=== PATIENT | female | born 1935 | race Caucasian/White ===

== ENCOUNTER → 2018-02-24 08:53 | Outpatient (CLI) | payer MEDICARE, MEDICAID, SELFPAY ==
--- NOTE | 2018-02-24 09:00 | US_ITS ---
STUDY: RENAL ULTRASOUND - COMPLETE REASON FOR EXAM: Female, 83 years old. Proteinuria TECHNIQUE: Ultrasound evaluation of the kidneys was performed with real-time and static arellano-scale imaging. COMPARISON: None. FINDINGS: RIGHT KIDNEY: Normal location of the right kidney, which is normal in size. The right kidney measures 9.6 x 6.4 x 3.9 cm. There is a normal cortex of the right kidney. The renal cortex measures 1.6 cm. There is no right renal mass or cyst. 4 mm calculus. There is no right hydronephrosis. DISTAL RIGHT URETER: There is non-visualization of the distal right ureter. There is no demonstrated right ureterovesical junction calculus. There is a visualized right ureteral jet. LEFT KIDNEY: Normal location of the left kidney, which is normal in size. The left kidney measures 10.3 x 4.8 x 4.1 cm. There is a normal cortex of the left kidney. The renal cortex measures 11.2 cm. Cysts of the left kidney measuring 10 x 11 x 15 mm. There are no left renal calculi. There is no left hydronephrosis. DISTAL LEFT URETER: There is non-visualization of the distal left ureter. There is no demonstrated left ureterovesical junction calculus. There is a visualized left ureteral jet. AORTA: There is obscuration of the abdominal aorta by overlying bowel gas I.V.C.: The IVC is obscured. BLADDER: The distended urinary bladder has a volume of 157 ml. The empty urinary bladder has a volume of 116 ml. There is a normal wall thickness of the distended urinary bladder. There are focal masses visualized in the urinary bladder. These measure 45 x 52 x 44 mm, 33 x 23 x 27 mm, 32 x 42 x 16 mm, and 13 x 20 x 21 mm. There are no demonstrated bladder calculi. US/Kidney and Bladder IMPRESSION: There appears to be masses in the base of the urinary bladder. Transitional cell carcinoma cannot be excluded. Recommend direct visualization. Preliminarily, CT of the abdomen and pelvis with IV can further evaluate. Obstructive right renal stone. Simple left renal cyst Electronically Signed: Robin Burden MD at 18:08 EDT , Service support ,
== END ==
PROVIDERS: Family Provider Family Medicine Geriatric Medicine; PCP Family Medicine Geriatric Medicine; Visit Provider Family Medicine Geriatric Medicine
DX: N20.0 Calculus of kidney (principal); N28.1 Cyst of kidney, acquired; R80.9 Proteinuria, unspecified
CPT/HCPCS: 76770

== ENCOUNTER → 2018-02-25 11:21 | Outpatient (CLI) | payer MEDICARE, MEDICAID, SELFPAY ==
--- NOTE | 2018-02-25 11:34 | CYSPIN_PTH ---
PATIENT: LOUISE MEJIA LOC: [facility] U#:[id number] AGE/SX: 89/F ROOM: RE02/25/[address]: Dr. 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 SJ:shady 02/28/18 CYTOLOGY STUDY Slides are reviewed. CYTOLOGY GROSS Received is 60 ml of slightly cloudy, gold fluid labeled with the patient's name and and designated per the requisition as urine. Submitted for cytology preparation. 02/27/18 TC:0 CPT: 68783
[2018-02-25 11:36] LABS: Cytology, Body Fluid / CSF SEE PATHOLOGY REPORT
[2018-02-25 12:19] LABS: Absolute Lymphocyte Count 2.41 X10^3/ul (0.83-4.51); Basophil# 0.05 X10^3/uL; Basophil% 0.7 % (0-1); Eosinophil# 0.25 X10^3/uL; Eosinophils% 3.3 % (0-5); Hematocrit 51.7 % (37-47); Hemoglobin 17.2 g/dl (12.0-15.0); Lymphocyte # 2.41 X10^3/ul (4.0); Lymphocyte % 32.3 % (19-41); Mean Corp Hgb Conc 33.3 g/gl (32-36); Mean Corpuscular Hgb 31.5 pg (27.0-32.0); Mean Corpuscular Volume 94.7 fL (81-99); Mean Platelet Vol. 10.2 fl (6.2-12.0); Monocyte# 0.76 X10^3/uL; Monocyte% 10.2 % (0-10); Neutrophil # 3.99 X10^3/uL (2.7-7.7); Neutrophil % 53.4 % (47-70); Platelet Count 260 K/mm3 (150-450); RBC Distribution Width CV 14.1 % (11.6-14.6); RBC Distribution Width SD 48.4 fl (35.1-43.9); Red Blood Count 5.46 M/mm3 (4.2-5.4); White Blood Count 7.5 K/mm3 (4.4-11.0)
[2018-02-25 12:23] LABS: POSITIVE COUNT NO; POSITIVE DIFFERENTIAL NO; POSITIVE MORPHOLOGY NO
[2018-02-25 12:33] LABS: Anion Gap 7 (5-15); BUN 16 mg/dL (7-18); BUN/Creat Ratio 18.1 RATIO (10-20); Calcium,Total 8.7 mg/dL (8.5-10.1); Chloride 106 mmol/L (98-107); Creatinine, Serum 0.88 mg/dL (0.55-1.02); EST Glomerular Filtration Rate 65 mL/min (>60); Est Glom Filt Rate - Afr Amer 79 mL/min (>60); Glucose 141 mg/dL (74-106); Potassium 4.6 mmol/L (3.5-5.1); Sodium Level 141 mmol/L (136-145)
[2018-02-25 13:07] LABS: 24HR. UA Prot. Total Volume 1425 mL; 24HR. Urine Creatinine 0.92 g/24 HR (0.70-1.90); Urine Protein (24 Hour) 156.7 mg/dL (<11.9)
== END ==
PROVIDERS: Family Provider Family Medicine Geriatric Medicine; PCP Family Medicine Geriatric Medicine; Visit Provider Family Medicine Geriatric Medicine
DX: R80.9 Proteinuria, unspecified (principal)
CPT/HCPCS: 36415; 80048; 82570; 84156; 85025; 88108; 88313

== ENCOUNTER → 2018-02-28 09:43 | Outpatient (CLI) | payer MEDICARE, MEDICAID, SELFPAY ==
--- NOTE | 2018-02-28 09:46 | RAD_ITS ---
STUDY: INTRAVENOUS UROGRAM BILATERAL REASON FOR EXAM: Female, 83 years old. Chronic hematuria. TECHNIQUE: A aligner film was obtained. Following this, intravenous contrast was was administered. Intravenous urogram examination was then performed. COMPARISON: None. FINDINGS: On the aligner film, a large amount of fecal material is seen throughout the colon. Calcifications are seen within the right hemipelvis most likely phleboliths. Mild degree of levoscoliosis of the lumbar spine with degenerative changes. Following intravenous contrast administration, there is prompt bilateral symmetrical excretion. There is no evidence of obstruction to the flow of contrast. RAD/Pyelogram No [place] IMPRESSION: Unremarkable intravenous urogram. Electronically Signed: Harry Alvarez MD at 10:10 EDT Tel [phone], Service support ,
== END ==
PROVIDERS: Family Provider Family Medicine Geriatric Medicine; PCP Family Medicine Geriatric Medicine; Visit Provider Family Medicine Geriatric Medicine
DX: R80.9 Proteinuria, unspecified (principal)
CPT/HCPCS: 74410; Q9967

== ENCOUNTER → 2018-02-28 14:09 | Outpatient (CLI) | payer MEDICARE, MEDICAID, SELFPAY ==
--- NOTE | 2018-02-28 14:11 | CT_ITS ---
CT Abdomen And Pelvis W/ Contrast INDICATION: BLADDER CA-NEW DX, SURG-APPY COMPARISON: None TECHNIQUE: Axial CT imaging of the abdomen and pelvis with oral and IV contrast. Coronal and sagittal reformatted images. Radiation dose optimization technique applied. FINDINGS: A calcified granuloma is noted at the left lung base. The liver, gallbladder, spleen, adrenal glands, and pancreas are unremarkable. The kidneys enhance contrast symmetrically bilaterally. Delayed phase images demonstrate symmetric excretion, however, there is mild left renal pelviectasis and the left ureter is distended up to 6 mm due to the left bladder mass. Bladder masses are best appreciated on the delayed postcontrast scan, the larger mass measures 6 cm in diameter and dislocated in the left posterior bladder, a second mass in the superior posterior aspect of the bladder measures 2.6 cm, and multiple smaller masses in the floor of the bladder measure between 2 and 2.3 cm. The bowel loops are nondistended. There is sigmoid diverticulosis without evidence of acute diverticulitis. Uterus is small and retroverted. Trace free fluid is noted in the pelvis. No abnormal pelvic masses or lymphadenopathy seen. Smaller inguinal lymph nodes appear within normal limits for size largest iliac chain lymph node on the right measures 1 cm. There are multiple bilateral retroperitoneal lymph nodes seen, measuring up to 10 cm in size, abnormal in number. Osseous structures demonstrate mild left convex scoliosis of the lumbar spine. The osseous structures are diffusely osteopenic, limiting evaluation for lytic lesions. A distinct lesion is not appreciated. Diffuse arteriosclerotic calcifications of the abdominal aorta are noted. CT/Abdomen/Pelvis WITH Contrast IMPRESSION: Bladder malignancy with multiple bladder tumors measuring between 2 and 6 cm. Lesion centered at the left ureterovesicular junction results in left-sided hydroureter and mild left renal pelviectasis. Multiple bilateral retroperitoneal lymph nodes, left more prominent than right, measuring up to 1 cm in size. Finding is concerning for metastatic disease. Iliac chain lymph nodes up to 1 cm in size, nonspecific. at [id number] Reported and signed by: Jocy Mathews MD Electronically Signed: Jocy Mathews MD at 16:53 EDT Tel , Service support ,
== END ==
PROVIDERS: Family Provider Family Medicine Geriatric Medicine; PCP Family Medicine Geriatric Medicine; Visit Provider Family Medicine Geriatric Medicine
DX: C67.9 Malignant neoplasm of bladder, unspecified (principal); R80.9 Proteinuria, unspecified
CPT/HCPCS: 74177; 74410; Q9967

== ENCOUNTER → 2018-03-15 06:53 | Outpatient (CLI) | payer MEDICARE, MEDICAID, SELFPAY ==
--- NOTE | 2018-03-15 09:30 | STRESSREP ---
Stress Test Report Pharmacologic myocardial perfusion stress test. 83-year-old lady with a history of abnormal EKG preoperative evaluation. Stress protocol: Resting EKG demonstrates sinus bradycardia with a rate of 55 bpm T-wave inversions noted in lead I and aVL. Resting blood pressure is 110/68 mmHg. 0.4 mg of regadenoson was infused per usual protocol followed by Intravenous saline flush injection continuous EKG monitoring was performed. The patient attained a heart rate of 93 bpm which was 66% of maximum predicted heart rate the maximum workload attained was 1 metabolic equivalent rest there were no ST or T-wave changes noted suggest abnormal flow reserve at peak infusion no ST or T-wave changes were noted suggest abnormal flow reserve. Resting blood pressure is 110/68 with a final blood pressure 118/72. Myocardial perfusion protocol. 11.6 mCi of technetium 99m sestamibi was injected at rest. 0.4 mg of regadenoson was infused per usual protocol. Peak infusion 33.3 mCi of technetium 99m sestamibi was injected stress images were obtained stress and rest images were reconstructed and compared in the short axis vertical long and horizontal long axis. Gated images were also obtained Perfusion SPECT analysis. Review of the stress images demonstrate normal uptake of tracer noted in all areas of the myocardium. The resting images similarly demonstrate normal uptake of tracer noted in all areas of myocardium. No areas of reversibility are noted suggest ischemia no previous infarct is noted. Gated SPECT analysis: The gated ejection fraction is hyperdynamic over 80%. Conclusion: Normal pharmacologic myocardial perfusion stress test. Preserved ejection fraction.
== END ==
PROVIDERS: Family Provider Family Medicine Geriatric Medicine; PCP Family Medicine Geriatric Medicine; Visit Provider Family Medicine Geriatric Medicine
DX: R94.31 Abnormal electrocardiogram [ECG] [EKG] (principal)
CPT/HCPCS: 78452; 93017; A9500; A4216; J2785

== ENCOUNTER 2018-03-17 11:46 | Day surgery (SDC) | payer MEDICARE, MEDICAID, SELFPAY ==
[2018-03-13 11:20] VITALS: BP 153/80; PULSE 69; RESP 17; TEMP 37.2; O2SAT 98; BMI 25.6
--- NOTE | 2018-03-13 12:13 | NURSING ---
DR Shauna WALKER TALKED WITH PT. ABOUT EKG DONE THIS AM. STATES WOULD LIKE PT TO SEE DR HICKEY PRIOR TO OR. PT INFORMED. DR HICKEY OFFICE NOTIFIED.
[2018-03-17] VITALS (10 sets, daily range): BP systolic 134–167; BP diastolic 69–91; PULSE 62–86; RESP 14–18; TEMP 35.9–37.2; O2SAT 96–100; BMI 25.2
[2018-03-17] MEDS: Cefazolin 2 GM in 0.9% Normal Saline 100 ML IV (13:22)
--- NOTE | 2018-03-17 15:38 | PCM.OPRPT ---
Report of Operation Date of Procedure: 03/17/18 Pre-Operative Diagnosis: Large bladder mass Post-Operative Diagnosis: Same Surgery/Procedure Performed:: Transurethral resection of a very large bladder mass and instillation of mitomycin-C Description of Surgical Findings:: 83-year-old female was found to have a very large mass in her bladder on CAT scan she was did have some blood in the urine therefore recommended we take her surgery to do a transurethral resection of the bladder mass Attempt to do a complete resection in one setting she did understand that this is a very large mass may require more than one resection and we did discuss the risk of recurrence. Procedure note patient was taken back to the operating room after smooth induction of general anesthesia she was placed supine on the table she underwent endotracheal intubation and she was paralyzed for the procedure. I went into the bladder with a immediately in front of the bladder largest tumors coming from the right side second tumor coming from the left side and multiple small tumors in the trigone and multiple tumors in the posterior and dome so because of this I first started resecting each tumor one by one quite extensive long process took about an hour and 40 minutes a resection to completely resect all the tumors visible within her bladder I did identify the right ureteral orifice this was uninvolved with tumor and was clear and patent and then it took some time to identify the left ureteral orifice at first I could not identify and then there was a hump of scar tissue in the area of the prior tumor I resected to this and then found the ureteral orifice this opened up the ureteral orifice on the left side decided not to put a stent in on either orifice. Then the all the chips were Ellik out she had a significant amount of tumor board burden Center bladder but at the end of the case I saw no significant tumors visible. We will leave the catheter in place prior to monitor her overnight because of the extensive tumors and resection she was given a chemotherapy wash but the installation time was very short given the little bit of bleeding and could not do a complete instillation. Son summary 83-year-old female extensive amount of tumors within the bladder these were all resected out I did identify both ureteral orifices I did have a resect the left ureteral orifice in order to open it up and both of them were open, and did do a wash of chemotherapy inside the bladder. Type of Anesthesia:: General Drains: 20 fr. - Admit VTE Documentation VTE Present on Admission: No VTE Mechan Device Prophylaxis: SCD's VTE Pharm Prophylaxis ordered?: No Reason prophylaxis not ordered:: Treatment Not Indicated
[2018-03-17] MEDS: 0.9% Normal Saline 1,000 ML 75 ML IV (16:00)
[2018-03-17] MEDS: Docusate Sodium 100 MG Capsule PO (22:58)
[2018-03-18 03:05] VITALS: BP 139/63; PULSE 71; RESP 14; TEMP 36.6; O2SAT 97
[2018-03-18] MEDS: 0.9% Normal Saline 1,000 ML 75 ML IV ×2 (07:30→17:51)
[2018-03-18 08:54] VITALS: BP 129/86; PULSE 67; RESP 18; TEMP 37.5; O2SAT 98
[2018-03-18] MEDS: Citalopram 20 MG Tablet PO (08:58)
[2018-03-18] MEDS: Pantoprazole Sodium 40 MG Tablet PO (08:58)
[2018-03-18] MEDS: Docusate Sodium 100 MG Capsule PO ×2 (08:58→21:21)
--- NOTE | 2018-03-18 09:58 | PCM.PROGNOTE ---
Subjective: 83-year-old female with a very large tumor in her bladder was resected pathology is pending. Today the catheter is in place it is draining okay but still fairly bloody a few clots I do not think I could send her home he could get clotted off and she can get in trouble with distended bladder. - Physical Exam General: Alert, Oriented x3, Cooperative HEENT: Atraumatic, PERRLA, EOMI, Normocephalic Neck: Supple, No JVD, Negative Carotid Bruits Lungs: Clear to auscultation, Normal air movement Cardiovascular: Regular rate, No murmurs Abdomen: Bowel Sounds Present, Soft, Non Tender Extremities: No edema, Capillary Refill Less than 3 Seconds Skin: No rashes, No breakdown Musculoskeletal: No Tenderness to Palpation of Joints or Extremities Neurological: Cranial nerves II-XII grossly intact Psych/Mental Status: Normal Affect, Appropriate Vital Signs Temp Pulse Resp BP Pulse Ox 99.5 F H 67 18 129/86 H 98 03/18/18 08:54 03/18/18 08:54 03/18/18 08:54 03/18/18 08:54 03/18/18 08:54 Oxygen Flow Rate (L/min) 3 Oxygen Delivery Method Room Air Weight: 70.76 kg Body Mass Index (BMI) 25.2 Intake and Output for Last 24 Hours 03/16/18 03/17/18 03/18/18 23:59 23:59 23:59 Intake Total 2200 / 2200 1000 / 1000 Output Total 655 / 655 2980 / 2980 Balance 1545 / 1545 -1979 / Medical Necessity - Tobacco Use Smoking Status: Former smoker Tobacco Use: Cigarettes Assessment/Plan 83-year-old female with multiple medical problems very large tumor in her bladder will continue with catheter drainage hopefully by tomorrow the urine will be more thin and we can remove the catheter for voiding trial and may be sent home tomorrow with a catheter or without a catheter.
[2018-03-18 15:04] VITALS: BP 100/49; PULSE 68; RESP 18; TEMP 37.3; O2SAT 95
[2018-03-18 21:00] VITALS: BP 131/62; PULSE 75; RESP 18; TEMP 36.9; O2SAT 95
--- NOTE | 2018-03-18 21:00 | NURSING ---
pt C/O of burning in lower abdomen and leaking around the catheter. This RN noted dark red drainage in catheter tubing and bag. With assist from charge nurse irrigated catheter with 30cc NS, several clots noted. Repeated process three more times with several clots each time. Reconnected drainage bag and noted red drainage in the tube. Pt tolerated well, will continue to monitor.
--- NOTE | 2018-03-18 23:00 | NURSING ---
This nurse responded to call light. Pt reported more lower abdominal burning and leaking around catheter site. Charge nurse assisted this RN to irrigate catheter with 30cc NS x4 with several clots noted. Drainage bag was attached and dark red drainage noted in tube. PT tolerated well and reported burning in lower abdomen resolved. Will continue to monitor.
[2018-03-19 04:36] VITALS: BP 125/72; PULSE 73; RESP 16; TEMP 37.1; O2SAT 97
[2018-03-19] MEDS: 0.9% Normal Saline 1,000 ML 75 ML IV (06:05)
[2018-03-19 09:26] VITALS: BP 123/74; PULSE 90; RESP 18; TEMP 37.3; O2SAT 93
--- NOTE | 2018-03-19 09:44 | PCM.DC.URO ---
Discharge Diet: Light diet - advance as tolerated Discharge Activity: Return to Normal Activity Call your doctor if your incision/area has: Sudden Increased Bleeding Call your doctor if you observe: Fever of 101 or Higher Suture Line Care: Avoid Pulling/Pushing, Avoid Pinching/Bending Allergies/Adverse Reactions: Allergies No Known Allergies Allergy (Verified 03/13/18 11:01) Medications to take at Discharge Citalopram [Celexa] 20 mg PO DAILY 03/13/18 Ergocalciferol [Vitamin D] 50,000 unit PO QMONTH 03/13/18 Ciprofloxacin [Cipro] 500 mg PO BID #14 tab 03/19/18 The following prescriptions were given: Ciprofloxacin [Cipro] 500 mg PO BID #14 tab Primary Care Physician: Louis Carr Chi, MD [Primary Care Provider] - Please Follow Up With: Stiven Bunn MD When: TuesdayMarch 28 at 2:30 pm for post op check.
[2018-03-19] MEDS: Docusate Sodium 100 MG Capsule PO (10:27)
[2018-03-19] MEDS: Pantoprazole Sodium 40 MG Tablet PO (10:27)
[2018-03-19] MEDS: Citalopram 20 MG Tablet PO (10:28)
[2018-03-19 14:00] VITALS: BP 136/72; PULSE 74; RESP 18; TEMP 36.8; O2SAT 98
--- NOTE | 2018-03-20 07:39 | BLB_PTH ---
PATIENT: LOUISE MEJIA LOC: [facility] [place] U[place][id number] AGE/SX: 83/F ROOM: RE03/17/[address]: Dr. Stiven Bunn MD : 1935 BED: DIS: 03/19/2018 SPEC #: [id number] RECD: 03/20/18 07:39 STATUS: SANJUANA RERg #: [id number] SHAN: 03/20/18 07:[address]: Stiven Bunn DEPT: SURGICAL PATHOLOGY RECD BY: Ryan Ruffin ENTERED: 03/20/18 10:58 SP TYPE: TURB OTHR DR: Dr. Louis Carr MD Tissues: Urinary bladder, NOS Procedures: Surgery Specimen Level V HEADER OPERATION: TUR bladder tumor PRE-OP DIAGNOSIS: Bladder cancer TISSUE SUBMITTED: Bladder tumor MICROSCOPIC DIAGNOSIS Urinary bladder tumor, TUR: Papillary urothelial carcinoma. See cancer checklist below. AM:shady 03/21/18 COMMENT BLADDER CANCER (TUR) SUMMARY: Procedure - TURBT Histologic type ? urothelial (transitional cell) carcinoma, papillary type Associated epithelial lesions - none Histologic grade - urothelial carcinoma (WHO 2004/ISUP) - low grade 2/3 Tumor configuration - papillary Detrusor muscle - present and free of tumor. Lymph-Vascular invasion ? not identified Microscopic extent of tumor ? tumor is noninvasive papillary carcinoma with focal areas indeterminate for lamina propria invasion Additional pathologic findings ? minimal chronic inflammation. The above summary is in compliance with [employer] [place] [employer] (CAP) Cancer Protocols Checklist and [place] Joint Committee on Cancer (AJCC), Staging Manual, 8th Ed. MICROSCOPIC DESCRIPTION Slides are reviewed. GROSS DESCRIPTION Received in fixative is one container labeled with the patient's name and designated bladder tumor. The specimen consists of multiple irregular and friable fragments of light church soft tissue that in aggregate measure 6 x 6 x 2.2 cm. The specimen is totally submitted in 25 cassettes. / AM:shady 03/20/18 TC:0 CPT: 84501
== END 2018-03-19 14:10 | disposition home or self-care (01) ==
LOC: SDC 11:47 → AC 11:48 → MS3 15:29
PROVIDERS: Family Provider Family Medicine Geriatric Medicine; PCP Family Medicine Geriatric Medicine; Visit Provider Urology
PROC: 0TBB8ZZ Excision of Bladder, Via Natural or Artificial Opening Endoscopic (ICD-10-PCS; CPT 52240; principal; 2018-03-17 13:35)
DX: C67.2 Malignant neoplasm of lateral wall of bladder (principal); F32.9 Major depressive disorder, single episode, unspecified; Z87.891 Personal history of nicotine dependence
CPT/HCPCS: 51720; 52240; 88307; 93005; 97802; J7030; J7120; J2405; J3490; J9280

== ENCOUNTER → 2018-05-04 14:15 | Outpatient (CLI) | payer MEDICARE, MEDICAID, SELFPAY ==
--- NOTE | 2018-05-04 14:15 | DT_ITS ---
This patient was seen during an EMR downtime May 01, 2018 - May 08, 2018. This patient may have a combination of paper and electronic documentation or all paper documentation. All documentation is viewable within the e-chart portion of [facility] for each patient visit.
[2018-05-09 05:32] LABS: ALB/GLOB Ratio 1.1 RATIO (0.9-2.4); Albumin, Serum 3.9 g/dL (3.2-5.0); BUN 19 mg/dL (7-18); BUN/Creat Ratio 18.8 RATIO (10-20); Creatinine, Serum 1.01 mg/dL (0.55-1.02); EST Glomerular Filtration Rate 56 mL/min (>60); Est Glom Filt Rate - Afr Amer 68 mL/min (>60); Globulin 3.6 g/dL (2.2-4.2); Glucose 115 mg/dL (74-106); Protein, Total 7.5 g/dL (6.4-8.2)
[2018-05-09 05:33] LABS: AST(SGOT) 19 U/L (15-37); Alanine Aminotransfer ALT/SGPT 20 U/L (13-56); Alkaline Phosphatase 139 U/L (45-117); Anion Gap 10 (5-15); Calcium,Total 8.6 mg/dL (8.5-10.1); Chloride 108 mmol/L (98-107); Potassium 4.1 mmol/L (3.5-5.1); Sodium Level 145 mmol/L (136-145); Thyroid Stim Hormone (TSH) 1.16 uIU/mL (0.358-3.74)
[2018-05-09 05:50] LABS: Absolute Lymphocyte Count 1.79 X10^3/ul (0.83-4.51); Absolute Neutrophil Count 3.7 X10^3/uL (2.0-7.7); Basophil% 1.1 % (0-1); Eosinophils% 4.1 % (0-5); Hematocrit 47.5 % (37-47); Hemoglobin 15.5 g/dl (12.0-15.0); Lymphocyte # 1.79 X10^3/ul (4.0); Lymphocyte % 27.3 % (19-41); Mean Corp Hgb Conc 32.6 g/gl (32-36); Mean Corpuscular Hgb 30.8 pg (27.0-32.0); Mean Corpuscular Volume 94.4 fL (81-99); Mean Platelet Vol. 10.4 fl (6.2-12.0); Monocyte% 11.1 % (0-10); Neutrophil # 3.69 X10^3/uL (2.7-7.7); Neutrophil % 56.2 % (47-70); POSITIVE COUNT NO; POSITIVE DIFFERENTIAL NO; POSITIVE MORPHOLOGY NO; Platelet Count 300 K/mm3 (150-450); RBC Distribution Width CV 13.8 % (11.6-14.6); RBC Distribution Width SD 47.1 fl (35.1-43.9); Red Blood Count 5.03 M/mm3 (4.2-5.4); White Blood Count 6.6 K/mm3 (4.4-11.0)
[2018-05-09 05:51] LABS: Basophil# 0.07 X10^3/uL; Eosinophil# 0.27 X10^3/uL; Monocyte# 0.73 X10^3/uL
== END ==
PROVIDERS: Family Provider Family Medicine Geriatric Medicine; PCP Family Medicine Geriatric Medicine; Visit Provider Family Medicine Geriatric Medicine
DX: E55.9 Vitamin D deficiency, unspecified (principal); I10 Essential (primary) hypertension
CPT/HCPCS: 36415; 80053; 82306; 84443; 85025

== ENCOUNTER 2018-05-26 13:01 | Day surgery (SDC) | payer MEDICARE, MEDICAID, SELFPAY ==
[2018-05-26] VITALS (7 sets, daily range): BP systolic 137–173; BP diastolic 65–94; PULSE 49–73; RESP 16–18; TEMP 36.4–36.7; O2SAT 95–99; BMI 24.0
[2018-05-26] MEDS: Cefazolin 2 GM in 0.9% Normal Saline 100 ML IV (14:49)
--- NOTE | 2018-05-26 15:00 | BLB_PTH ---
PATIENT: LOUISE MEJIA LOC: [facility] [place] U#:[id number] AGE/SX: 83/F ROOM: RE05/26/[address]: Dr. Stiven Bunn MD : 1935 BED: DIS: 05/26/2018 SPEC #: [id number] RECD: 05/29/18 09:51 STATUS: SANJUANA HOLGER #: [id number] SHAN: 05/26/18 15:[address]: Stiven Bunn DEPT: SURGICAL PATHOLOGY RECD BY: Emigdio Woods ENTERED: 05/29/18 10:10 SP TYPE: TURB OTHR DR: Dr. Louis Carr MD Tissues: Urinary bladder, NOS Procedures: Surgery Specimen Level V HEADER OPERATION: Cysto transurethral resection bladder, [employer] PRE-OP DIAGNOSIS: Cancer bladder TISSUE SUBMITTED: Bladder tumor MICROSCOPIC DIAGNOSIS Urinary bladder tumor, transurethral resection: Urothelial carcinoma. See cancer check list below. AM:joao 05/30/18 COMMENT PROSTATE CANCER (TURBT) SUMMARY: Procedure - TURBT Histologic type ? urothelial (transitional cell carcinoma) Associated epithelial lesions - none Histologic grade ([place] Pattern) ? low-grade (WHO) Tumor configuration ? papillary Detrusor muscle ? present and free of tumor Lymph-Vascular invasion ? not identified Microscopic extent of tumor ? tumor invades into the lamina propria, focally Additional pathologic findings - ulceration with associated acute on chronic inflammation and focal granulomatous inflammation The above summary is in compliance with [employer] [place] Path[employer] (CAP) Cancer Protocols Checklist and [place] Joint Committee on Cancer (AJCC), Staging Manual, 8th Ed. Case has been reviewed in consultation with Dr. Neri who concurs with the above diagnosis. IDC:[email or web address] MICROSCOPIC DESCRIPTION Slides are reviewed. GROSS DESCRIPTION Received in fixative is one container labeled with the patient's name and designated bladder tumor. The specimen consists of multiple irregular fragments of church-brown soft tissue that in aggregate measure 5 x 3 x 1 cm. The largest piece measures 2 cm in greatest dimension. The entire specimen is submitted in six cassettes. SHARONDA:joao 05/29/18 TC: 0 CPT: 63482
--- NOTE | 2018-05-26 15:58 | PCM.OPRPT ---
Report of Operation Date of Procedure: 05/26/18 Pre-Operative Diagnosis: Large bladder tumor recurrence multiple sites Post-Operative Diagnosis: Same Surgery/Procedure Performed:: Transurethral resection of multiple tumors involving the anterior bladder neck left lateral wall dome and posterior overlapping sites. cysto left stent placement. Description of Surgical Findings:: 83-year-old female taken back to the operating room after smooth induction of general anesthesia he was placed in dorsolithotomy position, she has a history of bladder cancer was resected several months ago and was found to have fairly fast recurrence with throughout her bladder appeared to be an aggressive sort of tumor she has not had BCG therapy we talked about doing his treatment she was resistant to having this treatment done in the first place. And now a recent cystoscopy she is found to have a recurrence on her for cystoscopy, she is found to have recurrence in her bladder neck left lateral wall posterior wall and dome. Today she was taken back to the operating room for resection of all these multiple recurrences. She underwent general anesthesia. She placed in dorsolithotomy position. Her pressure points were padded. I then went into the bladder with a 21 [place] rigid cystourethroscope and inspected and she had tumors coming from the bladder neck area the left lateral wall involving around the left ureteral orifice posterior wall and dome I then put in the resectoscope in for started working in the bladder neck tumors these were papillary-like tumors that were hanging off the anterior bladder neck area at the re-resected quite carefully came down to the bladder muscle with a not perforate the bladder as I resected this I then went to the posterior wall tumors lateral wall tumors and then at the resect the orifice on the left side to get all the tumors of the left side of the wall did get deep resection to make sure there was a muscle invasive tumor and because of this I ended up placing a stent in the left side, but a wire into the bladder and over the wire I placed a left stent. After the stent was placed and then went inside and like that all the tumors cauterized extensively throughout the bladder this is quite a significant amount of resection she had a quite significant amount of regrowth of tumor within a short period of time as an aggressive form of cancer I have counseled the patient recommend that she had BCG therapy induction phase at least may be maintenance. With this progression of disease possible she may end up needing a cystectomy. After all the tumors were resected and removed no other visible tumors were seen quite a little bit irritation throughout the bladder from the procedure, because of the thinning of the bladder multiple areas decided to leave the catheter and so we left a 18 [place] catheter placed 40 cc of mitomycin-C inside the bladder to help prevent recurrences and then this is to a leg bag, catheter will be will be drained in the mitomycin-C will be drained in about 45 minutes she will need to go home with a catheter and instructions to be given for her to call the office for a follow-up appointment to have the catheter removed next . After that she will need a cystoscopy and a stent removal in about a month to remove the left stent. Type of Anesthesia:: General Drains: stent left side - Admit VTE Documentation VTE Present on Admission: No VTE Mechan Device Prophylaxis: SCD's VTE Pharm Prophylaxis ordered?: No Reason prophylaxis not ordered:: Treatment Not Indicated
--- NOTE | 2018-05-26 16:04 | PCM.DC.URO ---
Discharge Diet: Light diet - advance as tolerated Discharge Activity: May not drive while taking narcotic pain medications. Call your doctor if your incision/area has: Continuous Slow Oozing, Sudden Increased Bleeding, Increased Pain/ Swelling, Increased Redness, Foul Smelling Discharge, Swelling at the incision site Suture Line Care: Avoid Pulling/Pushing, Avoid Pinching/Bending Catheter: Servin to leg bag, Servin to large bag Drain: [place] Allergies/Adverse Reactions: Allergies No Known Allergies Allergy (Verified 05/19/18 14:59) Medications to take at Discharge Citalopram [Celexa] 20 mg PO DAILY 03/13/18 Ergocalciferol [Vitamin D] 50,000 unit PO QMONTH 03/13/18 Aspirin [Aspir-Low] 81 mg PO DAILY 05/19/18 Cyanocobalamin (Vitamin B-12) [Vitamin B-12] 1,000 mcg PO DAILY 05/19/18 Primary Care Physician: Louis Carr Chi, MD [Primary Care Provider] - Please Follow Up With: Stiven Bunn MD When: call for an appt next to remove servin.
--- NOTE | 2018-05-26 16:50 | SUR.PHASEI ---
at 1645 servin leg bag unclamped and 300cc clear, light purple-tinged drainage emptied from leg bag. leg bag changed out. chemo precautions maintained.
== END 2018-05-26 17:44 | disposition home or self-care (01) ==
LOC: SDC 13:02 → AC 13:04
PROVIDERS: Family Provider Family Medicine Geriatric Medicine; PCP Family Medicine Geriatric Medicine; Visit Provider Urology
PROC: 0TBB8ZZ Excision of Bladder, Via Natural or Artificial Opening Endoscopic (ICD-10-PCS; CPT 51720; principal; 2018-05-26 14:50)
DX: C67.8 Malignant neoplasm of overlapping sites of bladder (principal); R31.0 Gross hematuria; F32.9 Major depressive disorder, single episode, unspecified; Z79.82 Long term (current) use of aspirin; Z87.891 Personal history of nicotine dependence
CPT/HCPCS: 51720; 52240; 52282; 88307; J7120; C1769; C2617; J2405; J3490; J9280

== ENCOUNTER 2018-08-09 19:39 | Inpatient (IN) | payer MEDICARE, MEDICAID, SELFPAY ==
[2018-08-09] VITALS (7 sets, daily range): BP systolic 166–201; BP diastolic 70–139; PULSE 60–68; RESP 14–20; TEMP 36.7–37; O2SAT 94–99; BMI 24.3; BMI 23.8
[2018-08-09 20:06] LABS: Bedside Glucose 89 mg/dL (70-110)
--- NOTE | 2018-08-09 20:13 | EKG12_ITS ---
Test Reason : CP Blood Pressure : / mmHG Vent. Rate : 063 BPM Atrial Rate : 063 BPM P-R Int : 154 ms QRS Dur : 082 ms QT Int : 418 ms P-R-T Axes : 020 026 121 degrees QTc Int : 427 ms Normal sinus rhythm ST & T wave abnormality, consider lateral ischemia Abnormal ECG Confirmed by JESUS ROB, CHAVEZ ([id number]), fashion editor INA MEJIA ([id number]) on 08/14/2018 2:57:07 PM Referred By: ROLAND Confirmed By:CHAVEZ LEE MD
--- NOTE | 2018-08-09 20:13 | CT_ITS ---
STUDY: CT BRAIN WITHOUT CONTRAST REASON FOR EXAM: Female, 83 years old. Slurred speech. RADIATION DOSAGE (If Supplied By Facility): CTDIvol = ( 44.99 ) mGy, DLP = ( 745.49 ) mGycm TECHNIQUE: Transaxial CT imaging of the brain was performed without administration of intravenous contrast material. Individualized dose optimization techniques were used for this CT. COMPARISON: None. FINDINGS: Normal soft tissue structures. There is hyperostosis frontalis internus. There is mild cerebral atrophy with widening of the extra-axial spaces and ventricular dilatation. There are areas of decreased attenuation within the white matter tracts of the supratentorial brain, consistent with microvascular disease changes. Lacunar infarcts of the basal ganglia and thalami. Normal brainstem. Normal cerebellum. There is no intracranial hemorrhage. There are no findings of an acute ischemic infarction. Normal visualized paranasal sinuses. CT/Brain/Head without Contrast IMPRESSION: Chronic involutional changes of the brain. Electronically Signed: Brady Aburto MD at 20:53 EDT , Service support ,
--- NOTE | 2018-08-09 20:18 | ED.DCSUM_ITS ---
- ER Visit Summary Date of Service: 08/09/18 Chief Complaint: Slurred speech History of Present Illness: The patient is a 83 F surgery after awakening at 9 AM. Called her daughter at 1030, daughter states there is no speech issues. Patient states balance falling to the right. There is no syncopal episodes. No direct falls. Patient history of hypertension taken off medications. She takes a baby aspirin every night. No stroke history. No cardiac history. Denies any hemiparesis. No headaches. No visual changes. Physical Examination: General: Alert and oriented ?3, no acute distress HEENT: Normocephalic, atraumatic. Slight right lip droop moist mucosa membranes Neck: supple, nontender. Cardiovascular: Regular rate and rhythm, no murmurs Respiratory: Normal breath sounds, symmetric, no distress Abdomen: Soft, nontender, nondistended Extremities: Nontender, no edema, pulses intact ?4 Neuro: NIH equals 3 for right lip droop, slurred speech, slight right leg drift Test Results: EKG normal sinus rhythm. Labs stable. Chest x-ray negative. CT had chronic involutional changes. Emergency Department Course and Treatment: Patient NIH of 3, symptoms nearly 12 hours ago.BAT B workup initiated. Not a candidate for TPA. Results negative and stable at this time recheck still has same deficits. No stroke history. Discuss with hospitalist for admission to PCU. Treatment Plan: [] Disposition: Admission Impression: 1. Acute CVA This note was generated with [employer] dictation software. It may contain incorrect words, spelling, and punctuation that were not noted in review of the chart prior to signing ED Disposition - Plan for ED Patient: Disposition: Acute Care Hospital [facility] Chief Complaint: Neuro S/Sx Diagnosis: CVA (cerebral vascular accident) Referrals: Louis Carr Chi, MD [Primary Care Provider] -
--- NOTE | 2018-08-09 20:30 | RAD_ITS ---
STUDY: X-RAY CHEST REASON FOR EXAM: Female, 83 years old. Slurred speech. TECHNIQUE: Single frontal view of the chest. COMPARISON: None. FINDINGS: There are monitoring devices. There are fibrotic densities and granulomatous calcifications. There is no demonstrated pleural abnormality. There is mild cardiac enlargement. Normal mediastinum and jamal. Normal visualized pulmonary arteries. There is atherosclerotic calcification of the aortic arch with tortuosity. There is demineralization of the osseous structures. Normal visualized ribs, clavicles, and shoulders. There is no demonstrated abnormality of the visualized soft tissue structures of the upper abdomen. RAD/Chest 1 View IMPRESSION: Degenerative changes, as described above. No demonstrated acute cardiopulmonary process. Electronically Signed: Brady Aburto MD at 21:12 EDT , Service support ,
[2018-08-09 20:42] LABS: Absolute Lymphocyte Count 2.28 X10^3/ul (0.83-4.51); Absolute Neutrophil Count 4.9 X10^3/uL (2.0-7.7); Basophil# 0.05 X10^3/uL; Basophil% 0.6 % (0-1); Eosinophil# 0.28 X10^3/uL; Eosinophils% 3.2 % (0-5); Hematocrit 47.7 % (37-47); Hemoglobin 15.8 g/dl (12.0-15.0); Lymphocyte # 2.28 X10^3/ul (4.0); Lymphocyte % 26.4 % (19-41); Mean Corp Hgb Conc 33.1 g/gl (32-36); Mean Corpuscular Hgb 29.2 pg (27.0-32.0); Monocyte# 1.11 X10^3/uL; Monocyte% 12.9 % (0-10); Neutrophil % 56.8 % (47-70); Platelet Count 250 K/mm3 (150-450); RBC Distribution Width CV 16.3 % (11.6-14.6); RBC Distribution Width SD 52.6 fl (35.1-43.9); Red Blood Count 5.42 M/mm3 (4.2-5.4); White Blood Count 8.6 K/mm3 (4.4-11.0)
[2018-08-09 20:46] LABS: POSITIVE COUNT NO; POSITIVE DIFFERENTIAL NO; POSITIVE MORPHOLOGY NO; Partial Thromboplast Time 30.2 Seconds (24.1-36.2)
[2018-08-09 20:47] LABS: Anion Gap 9 (5-15); BUN 17 mg/dL (7-18); BUN/Creat Ratio 17.6 RATIO (10-20); Calcium,Total 8.7 mg/dL (8.5-10.1); Chloride 105 mmol/L (98-107); Creatinine, Serum 0.96 mg/dL (0.55-1.02); EST Glomerular Filtration Rate 59 mL/min (>60); Est Glom Filt Rate - Afr Amer 71 mL/min (>60); Estimated Creatinine Clearance 43.03 ml/min; Glucose 108 mg/dL (74-106); Potassium 3.7 mmol/L (3.5-5.1); Sodium Level 140 mmol/L (136-145)
--- NOTE | 2018-08-09 21:35 | HP.PCM_ITS ---
Problem List (1) CVA (cerebral vascular accident) Status: Acute History of Present Illness Date of Admission: 08/09/18 Chief Complaint: stroke-like symtpms x 1 day The patient is a 83 year old F with a significant history of former smoker; hypertension; recurrence bladder who presents multiple falls, slurry speech ?1 day. Patient presented to the emergency department in the evening and and his symptoms started about 9 AM on the day of admission. Emergency room doctor reported that patient had a right leg drift. Emergency department CT scan of head did not show any acute changes. Past Medical History Past Medical History (Chronic Problems): Chronic Problems (Last Updated 08/09/18 @ 23:36 by Loi Napier MD) Hypertension (Chronic) Medical History: Medical History (Last Updated 08/09/18 @ 23:36 by Loi Napier MD) Bladder cancer (Acute) C67.9 Depression (Acute) F32.9 Hypertension (Chronic) I10 Allergies No Known Allergies Allergy (Verified 08/09/18 19:39) Home Medications: Ambulatory Orders Medication Instructions Recorded Citalopram [Celexa] 20 mg PO DAILY 03/13/18 Ergocalciferol [Vitamin D] 50,000 unit PO QWEEK 03/13/18 Aspirin [Aspir-Low] 81 mg PO DAILY 05/19/18 Cyanocobalamin (Vitamin B-12) 1,000 mcg PO DAILY 05/19/18 [Vitamin B-12] Surgical History: - - Tumor removal. Psychiatric History: Depression Lives: Alone Smoking Status: Former smoker Alcohol: None - *Family History Maternal History Items: No pertinent history Paternal History Items: No pertinent history Review of Systems Constitutional: Denies: Chills, Fever, Weight Change HEENT: Denies: Head Aches, Sinus Congestion, Sinus Drainage Cardiovascular: Denies: Chest Pain, Palpitations Respiratory: Denies: Cough, Shortness of breath at rest, Sputum production Gastrointestinal: Denies: Abdominal Pain, Nausea, Vomiting Genitourinary: Denies: Dysuria Musculoskeletal: Reports: Arm Pain Skin: Denies: Rash, Wounds Neurological: Reports: Balance problems, Slurred speech Psychiatric: Denies: Anxiety, Depression, Homicidal Ideations, Suicidal Ideations Hematologic/ Lymphatic: Denies: Easy Bruising, Easy Bleeding VTE Information - Inpt Only VTE Present on Admission: No VTE Mechan Device Prophylaxis: None VTE Pharm Prophylaxis ordered?: Yes Patient Problems: Active and Suspected Problems (Last Updated 08/09/18 @ 23:36 by Loi Napier MD) CVA (cerebral vascular accident) (Acute) Bladder cancer (Acute) Depression (Acute) - Physical Exam General: Alert, Oriented x3, Cooperative HEENT: Atraumatic, PERRLA, EOMI, Normocephalic Neck: Supple, No JVD, Negative Carotid Bruits Lungs: Clear to auscultation Cardiovascular: Regular rate, No murmurs Abdomen: Bowel Sounds Present, Soft, Non Tender Extremities: No edema, Capillary Refill Less than 3 Seconds Skin: No rashes, No breakdown Musculoskeletal: No Tenderness to Palpation of Joints or Extremities Neurological: Deep Tendon Reflexes 2+/4 and Symmetrical, Facial Droop - Right side, Slurred Speech, Muscle tone normal, - Psych/Mental Status: Normal Affect Vital Signs Temp Pulse Resp BP Pulse Ox 98.6 F 61 20 H 201/83 H 97 08/09/18 20:43 08/09/18 21:30 08/09/18 21:30 08/09/18 21:30 08/09/18 21:30 Oxygen Delivery Method Room Air Weight: 68.2 kg Body Mass Index (BMI) 24.3 Finger Stick Blood Glucose 89 Laboratory Tests Past 24 Hrs 08/09/18 08/09/18 08/09/18 20:10 20:10 20:10 WBC 8.6 RBC 5.42 H Hgb 15.8 H Hct 47.7 H MCV 88.0 MCH 29.2 MCHC 33.1 RDW 16.3 H RDW Differential 52.6 H Plt Count 250 MPV 10.0 Immature Gran % (Auto) 0.100 Neut % (Auto) 56.8 Lymph % (Auto) 26.4 [place] % (Auto) 12.9 H Eos % (Auto) 3.2 Baso % (Auto) 0.6 Absolute Neuts (auto) 4.9 Absolute Lymphs (auto) 2.28 Total Counted Not Reportable PT 13.0 INR 1.0 APTT 30.2 Sodium 140 Potassium 3.7 Chloride 105 Carbon Dioxide 26.0 Anion Gap 9 BUN 17 Creatinine 0.96 Estim Creat Clear Calc 43.03 Est GFR (MDRD) Af Amer 71 Est GFR (MDRD) Non-Af 59 L BUN/Creatinine Ratio 17.6 Glucose 108 H Calcium 8.7 Troponin I < 0.015 POC Glucose 08/09/18 19:54 POC Glucose 89 Assessment/Plan All Active Problems (Last Updated 08/09/18 @ 23:36 by Loi Napier MD) CVA (cerebral vascular accident) (Acute) Bladder cancer (Acute) Depression (Acute) The patient is a 83 year old F with a significant history of former smoker; hypertension; recurrence bladder who presents multiple falls, slurry speech and right facial droop consistent with likely CVA. Probable CVA Patient with strokelike symptoms and severely elevated blood pressure Aspirin 325?1. Home aspirin 81 mg continued. Because of her advanced age she was started at high intensity statin 40 mg daily ; and not 80mg daily. Fasting lipids and hemoglobin A1c ordered Echocardiogram ordered. MRIs/MRA of head and neck per Stroke protocol. Physical therapy, Occupational Therapy and speech therapy to evaluate and treat. Permissive hypertension for 48 hours ending on 08/11/2018 at 9 AM. Neurology consulted to optimize management. Hypertension Uncontrolled at the time of admission. Patient stated that she has been taking of blood pressure medication because her blood pressure has been normal Elevated blood pressure could be due to ischemic stroke. Labetalol as needed for systolic blood pressure more than 220 or diastolic blood pressure more than 120. Bladder cancer Status post bladder tumor removal with recurrence Patient follow up with Dr. Bunn Patient to continue following up outpatient. Depression Citalopram continued. DVT prophylaxis with subcutaneous heparin. Code Visit Inpatient E&M: 35820 Init Hosp L3
--- NOTE | 2018-08-09 22:03 | NURSING ---
Called [facility] ED charge nurseestrella to send patient to the floor.
[2018-08-10] VITALS (15 sets, daily range): BP systolic 118–186; BP diastolic 61–90; PULSE 56–86; RESP 16; TEMP 36.6–37.3; O2SAT 92–98; BMI 24.3
[2018-08-10] MEDS: Acetaminophen 325 MG Tablet 650 MG PO (00:36)
[2018-08-10] MEDS: Atorvastatin Calcium 40 MG Tablet PO (00:36)
[2018-08-10 00:51] LABS: Hemoglobin A1c 6.1 % (4.2-6.3)
--- NOTE | 2018-08-10 06:00 | ECHOCS_ITS ---
Reason For Study: TIA/CVA Procedure This was a 2D Doppler, Color Flow transthoracic echocardiogram. The study was technically difficult. Contrast injection was performed. Exam performed portable in patient room. Left Ventricle Mild concentric left ventricular hypertrophy. The estimated ejection fraction is 75 %. Stage 1 diastolic dysfunction. No regional wall motion abnormalities noted. Right Ventricle Normal size and thickness. Normal systolic function. Atria Normal left atrium. Normal right atrium. Normal atrial septum. Bubble contrast study negative for right to left interatrial shunt. Mitral Valve Mild diffuse mitral valve thickening. Tricuspid Valve Normal tricuspid valve. Unable to estimate RV systolic pressure due to inadequate jet, pulmonary artery pressure probably normal. Aortic Valve Trisinus/trileaflet aortic valve. Moderate diffuse aortic valve thickening. Moderate restriction of the aortic valve. Mild to moderate aortic stenosis. Calculated aortic valve area (continuity equation) is 1.4 cm2. Pulmonic Valve The pulmonic valve is not well visualized. Great Vessels Normal aortic root. Normal arch. Normal inferior vena cava. Inferior vena cava collapse with sniff. Pericardium/Pleural No pericardial effusion. Medication Diluted definity 2ml given slow IV push to enhance endocardial definition. Performed a rapid injection of agitated mix of 9 cc saline and 1cc air to assess for atrial septal defect. MMode/2D Measurements & Calculations LVIDd: 4.2 cm IVSd: 1.3 cm LVOT diam: 2.0 cm LVIDs: 2.3 cm LVPWd: 0.91 cm LVOT area: 3.0 cm2 RVDd: 2.8 cm FS: 46.3 % Ao root diam: 3.2 cm LAV(MOD-sp4): 36.8 ml LA A4 area: 14.4 cm2 ACS: 1.2 cm RA A4 area: 12.2 cm2 Time Measurements MV dec time: 0.44 sec Doppler Measurements & Calculations MV E max theodore: 54.5 cm/sec Lat Peak E' Theodore: 2.9 cm/sec Med Peak E' Theodore: 2.9 cm/sec MV A max theodore: 95.4 cm/sec E/E' lat: 18.8 E/E' med: 18.8 MV E/A: 0.57 MV V2 max: 105.9 cm/sec MV P1/2t max theodore: 65.5 cm/sec Ao V2 max: 242.6 cm/sec MV max P.5 mmHg MV P1/2t: 139.3 msec Ao max P.5 mmHg MV V2 mean: 51.3 cm/sec MV dec slope: 137.6 cm/sec2 Ao V2 mean: 161.4 cm/sec MV mean P.2 mmHg MVA(P1/2t): 1.6 cm2 Ao mean P.9 mmHg MV V2 VTI: 34.2 cm Ao V2 VTI: 58.5 cm MVA(VTI): 2.5 cm2 MEG(I,D): 1.4 cm2 MEG(V,D): 1.5 cm2 LV V1 max: 118.1 cm/sec SV(LVOT): 84.0 ml PA V2 max: 86.7 cm/sec LV V1 max P.6 mmHg LV V1 mean P.8 mmHg LV V1 mean: 76.9 cm/sec LV V1 VTI: 28.0 cm Interpretation Summary Mild concentric left ventricular hypertrophy. The estimated ejection fraction is 75 %. Stage 1 diastolic dysfunction. Bubble contrast study negative for right to left interatrial shunt. Unable to estimate RV systolic pressure due to inadequate jet, pulmonary artery pressure probably normal. Mild to moderate aortic stenosis. Calculated aortic valve area (continuity equation) is 1.4 cm2. The study was technically difficult. Contrast injection was performed. There is no comparison study available. Ordering Physician: Loi Napier Referring Physician: Louis Carr Chi Performed By: Cole Long RCS
[2018-08-10 06:24] LABS: Anion Gap 11 (5-15); BUN 12 mg/dL (7-18); Calcium,Total 8.3 mg/dL (8.5-10.1); Chloride 108 mmol/L (98-107); Cholesterol 215 mg/dL (200); Creatinine, Serum 0.86 mg/dL (0.55-1.02); EST Glomerular Filtration Rate 67 mL/min (>60); Est Glom Filt Rate - Afr Amer 82 mL/min (>60); Estimated Creatinine Clearance 48.03 ml/min; Glucose 105 mg/dL (74-106); High Density Lipoprotein 46 mg/dL; Potassium 3.5 mmol/L (3.5-5.1); Sodium Level 142 mmol/L (136-145); Triglycerides 147 mg/dL; Very Low Density Lipoprotein 29 mg/dL (5-40)
--- NOTE | 2018-08-10 08:16 | MRI_ITS ---
STUDY: MRA OF THE HEAD WITHOUT CONTRAST REASON FOR EXAM: Female, 83 years old. cva/rt weakness TECHNIQUE: 3-D oski-fk-pyyrxz (TOF) imaging was performed with MIPs. The study was performed unenhanced. COMPARISON: None. FINDINGS: Normal bilateral petrous carotid arteries. Normal right cavernous carotid artery with a normal supraclinoid bifurcation. Normal left cavernous carotid artery with a normal supraclinoid bifurcation. Normal right A1 segments of the anterior cerebral artery. Normal left A1 segments of the anterior cerebral artery. Normal intact anterior communicating artery (ACOM). Normal bilateral A2 segments of the anterior cerebral arteries. Normal right M1 and M2 segments of the middle cerebral arteries, with a normal M1 bifurcation. Normal left M1 and M2 segments of the middle cerebral arteries, with a normal M1 bifurcation. There is non-visualization of the right posterior communicating artery (PCOM). There is non-visualization of the left posterior communicating artery (PCOM). There is a small atretic left vertebral artery with a dominant right vertebral artery. Normal basilar artery with a normal basilar bifurcation. The visualized bilateral superior cerebellar (SCA) arteries are normal. Normal bilateral P1, P2 and visualized P3 segments of the posterior cerebral arteries. There is no demonstrated aneurysm of the [place] of [place]. There is no major vessel occlusion or hemodynamically significant stenosis. There is no demonstrated abnormality of the visualized brain. MRI/MRA Head ONLY without Contrast IMPRESSION: Normal MRA of the head Electronically Signed: Maura Pool MD at 14:19 EDT , Service support ,
--- NOTE | 2018-08-10 08:16 | MRI_ITS ---
STUDY: MRA NECK WITH AND WITHOUT CONTRAST REASON FOR EXAM: Female, 83 years old. CVA, right weakness. Imaging history from yesterday also describes slurred speech TECHNIQUE: 3-D vqmp-wy-zkifil (TOF) imaging was performed in an 1.5 T MRI scanner. 6ML ml of Gadavist was administered for the contrast enhanced images. COMPARISON: CT brain without contrast August 09, 2018 FINDINGS: RIGHT CAROTID ARTERIES: Normal right common carotid artery (CCA). Normal right common carotid bulb. Normal origin of the right internal carotid (ICA) artery without a hemodynamically significant stenosis. Normal visualized cervical portion of the right internal carotid artery. Normal origin of the right external carotid artery (ECA). LEFT CAROTID ARTERIES: Normal left common carotid artery (CCA). Normal left common carotid bulb. Normal origin of the left internal carotid (ICA) artery without a hemodynamically significant stenosis. Normal visualized cervical portion of the left internal carotid artery. Normal origin of the left external carotid artery (ECA). VERTEBRAL ARTERIES: There is antegrade flow within the bilateral vertebral arteries with a small left vertebral artery, and a dominant right vertebral artery. MRI/MRA Neck WITH and W/O Contrast IMPRESSION: Normal bilateral cervical carotid and vertebral arteries. Small left vertebral artery. Electronically Signed: Maura Pool MD at 13:53 EDT , Service support ,
--- NOTE | 2018-08-10 08:16 | MRI_ITS ---
STUDY: MRI BRAIN WITHOUT CONTRAST REASON FOR EXAM: Female, 83 years old. cva/rt weakness TECHNIQUE: Standardized multiplanar fat and water weighted pulse sequences were obtained. COMPARISON: CT brain August 09, 2018, MRI of the brain and neck August 10, 2018 FINDINGS: Normal size of the ventricles and extra-axial spaces for the patient's age. There are multiple white matter hyperintensities, distributed throughout the deep white matter tracts of the cerebral hemispheres, consistent with moderate chronic white matter ischemic changes. There is acute diffusion abnormality seen in association with the posterior limb of the internal capsule on the left, for instance refer to image #17 series 4 and image #17 series 400. This has signal characteristics of an acute infarct. No other areas of acute infarct identified. There appears an old lacunar infarct associated with the genu and posterior limb of the internal capsule on the right. Normal thalami. There is no extra-axial fluid accumulation. Normal flow voids within the major intracranial circulation suggesting patency by spin echo criteria. Normal sella turcica, pituitary gland, infundibular stalk, optic chiasm and hypothalamus. Normal tectal plate and pineal gland. Normal midbrain, alessandro and medulla. Normal cerebellum. Normal basal cisterns. Normal bilateral temporal bones. Normal bilateral internal auditory canals. No demonstrated orbital abnormality, within the constraints of a routine brain study. Normal visualized paranasal sinuses. Normal calvarium and skull base. Normal visualized soft tissue structures. Normal visualized upper cervical spine. MRI/Brain without Contrast IMPRESSION: Acute nonhemorrhagic infarct associated with the posterior limb of the internal capsule on the left. Underlying moderate small vessel disease. See above. Electronically Signed: Maura Pool MD at 14:27 EDT , Service support ,
[2018-08-10] MEDS: Heparin Injection (Vial) 5,000 UNIT/ML VIAL 5000 UNIT SC ×2 (09:17→21:29)
[2018-08-10] MEDS: Citalopram 20 MG Tablet PO (09:17)
[2018-08-10] MEDS: Cyanocobalamin 500 MCG Tablet 1000 MCG PO (09:17)
[2018-08-10] MEDS: Aspirin 81 MG TAB.CHEW PO (09:17)
--- NOTE | 2018-08-10 11:18 | CASEMGMT ---
Face to Face with patient for initial transition planning/care coordination assessment. PRADEEP MOJICA introduced self and role at [facility], pt voices understanding and consents to assessment at this time. Pt is sitting up in chair in no distress at this time. Pt is A/O x4 at this time and answers all questions appropriately at this time. Care providers, pharmacy, and demographics verified. See attached link. Pt voices no further concerns/needs at this time. Advised pt to ask for CM if any further questions/concerns/needs arise, voices understanding. CM to follow for MRI results and PT/OT evals for any further discharge planning/needs. PLAN[place] PRAD[place]
--- NOTE | 2018-08-10 11:49 | PCM.PROGNOTE ---
<Peg Rollins - Last Filed: 08/10/18 12:03> Patient Problems: Active and Suspected Problems (Last Updated 08/09/18 @ 23:36 by Loi Napier MD) CVA (cerebral vascular accident) (Acute) Bladder cancer (Acute) Depression (Acute) Subjective: Patient seen and examined. Complains of right facial droop with slurred speech. Denies difficulty swallowing. Denies right-sided weakness. She states she has not walked much since admission but notes drift to the right side with walking prior to admission. Denies other new neurologic deficits. - Physical Exam General: Alert, Oriented x3, Cooperative, No apparent distress HEENT: Atraumatic, PERRLA, EOMI, Normocephalic Neck: Supple, No JVD, Negative Carotid Bruits Lungs: Clear to auscultation, Normal air movement Cardiovascular: Regular rate, No murmurs Abdomen: Bowel Sounds Present, Soft, Non Tender, Non-Distended Extremities: No clubbing, No cyanosis, No edema, Capillary Refill Less than 3 Seconds Skin: No rashes, No breakdown Musculoskeletal: No Tenderness to Palpation of Joints or Extremities Neurological: Cranial nerves II-XII grossly intact, Motor Exam 5/5 strength throughout, Facial Droop - Right, - - Dysarthria Psych/Mental Status: Normal Affect, Appropriate Vital Signs Temp Pulse Resp BP Pulse Ox 97.9 F 74 16 118/81 H 94 08/10/18 11:30 08/10/18 11:30 08/10/18 11:30 08/10/18 11:30 08/10/18 11:30 Oxygen Delivery Method Room Air Weight: 147 lb 11.355 oz Body Mass Index (BMI) 24.3 Intake and Output for Last 24 Hours 08/08/18 08/09/18 08/10/18 23:59 23:59 23:59 Intake Total 100 / 100 Balance 100 / 100 Laboratory Tests Past 24 Hrs 08/10/18 08/10/18 00:16 05:38 Sodium 142 Potassium 3.5 Chloride 108 H Carbon Dioxide 23.0 Anion Gap 11 BUN 12 Creatinine 0.86 Estim Creat Clear Calc 48.03 Est GFR (MDRD) Af Amer 82 Est GFR (MDRD) Non-Af 67 BUN/Creatinine Ratio 14.0 Glucose 105 Calcium 8.3 L Troponin I < 0.015 Triglycerides 147 Cholesterol 215 H LDL Cholesterol 140 H VLDL Cholesterol 29 HDL Cholesterol 46 Medical Necessity - Tobacco Use Smoking Status: Former smoker Assessment/Plan All Active Problems (Last Updated 08/09/18 @ 23:36 by Loi Napier MD) CVA (cerebral vascular accident) (Acute) Bladder cancer (Acute) Depression (Acute) 1. Suspected acute stroke-right facial droop and dysarthria. No other neurologic deficits. Brain CT on admission showed chronic changes of the brain. MRI of brain, MRA of head and neck pending. Neuro consult pending. Continue aspirin, statin. Echocardiogram demonstrated an EF of 75%, stage I diastolic dysfunction, negative for intra-atrial shunt, mild to moderate aortic stenosis. PT/OT/ST. Patient reports drift to the right side while ambulating with falls prior to admission. PT evaluation pending which will assist in guiding discharge plans. 2. Hypertension-permissive secondary to #1. IV labetalol as needed for systolic blood pressure greater than 220. 3. Hyperlipidemia-atorvastatin 80 mg p.o. nightly. Not previously on statin regimen. 4. History of bladder cancer status post tumor resection with recurrence-continue outpatient follow-up with urology. Follows with Dr. Bunn. 5. Depression-continue home citalopram regimen. DVT prophylaxis-heparin subcu. This patient was seen by JOHNATHAN Morrison under the supervision of Dr. Pacheco. <Nate Pacheco - Last Filed: 08/10/18 15:35> - Physical Exam Vital Signs Temp Pulse Resp BP Pulse Ox 97.9 F 74 16 118/81 H 94 08/10/18 11:30 08/10/18 11:30 08/10/18 11:30 08/10/18 11:30 08/10/18 11:30 Oxygen Delivery Method Room Air Weight: 67 kg Body Mass Index (BMI) 24.3 Intake and Output for Last 24 Hours 08/08/18 08/09/18 08/10/18 23:59 23:59 23:59 Intake Total 460 / 460 Balance 460 / 460 Laboratory Tests Past 24 Hrs 08/10/18 08/10/18 00:16 05:38 Sodium 142 Potassium 3.5 Chloride 108 H Carbon Dioxide 23.0 Anion Gap 11 BUN 12 Creatinine 0.86 Estim Creat Clear Calc 48.03 Est GFR (MDRD) Af Amer 82 Est GFR (MDRD) Non-Af 67 BUN/Creatinine Ratio 14.0 Glucose 105 Calcium 8.3 L Troponin I < 0.015 Triglycerides 147 Cholesterol 215 H LDL Cholesterol 140 H VLDL Cholesterol 29 HDL Cholesterol 46 Assessment/Plan patient seen and examined independently of [employer] 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 Dietary measures should largely suffice Will consult speech therapy for speech deficits Hypercholesterolemia Code Visit Inpatient E&M: 93266 Init Hosp L3
--- NOTE | 2018-08-10 12:31 | CON.PCM_ITS ---
Problem List (1) CVA (cerebral vascular accident) Status: Acute Qualifiers: Laterality of affected vessel: unspecified Reason for Consult Date of Consultation: 08/10/18 Reason for Consultation: Stroke History of Present Illness: The patient is a 83 year old CF with PMH HTN, depression, bladder cancer admitted with slurred speech, difficulty in walking. Per patient she woke up yesterday morning (08/09/18) with these symptoms. NIHSS was 3 on admission per ED documentation and there was some right leg drift. Patient was noted to have right facial weakness and right leg drift per ED documentation. Per patient she has been having slurred speech, had difficulty in walking and was drifting to the right side. Denies any falls. Per patient she lives alone, denies any frequent falls, does not use cane or walker to ambulate, per patient she was on ASA at baseline. At present denies any CARABALLO, visual disturbances, focal motor weakness or sensory loss. [] Past Medical History Past Medical History (Chronic Problems): Chronic Problems (Last Updated 08/11/18 @ 10:41 by JOHNATHAN Morrison) Hypertension (Chronic) Medical History: Medical History (Last Updated 08/11/18 @ 10:41 by JOHNATHAN Morrison) Bladder cancer (Acute) C67.9 Depression (Acute) F32.9 Hypertension (Chronic) I10 Allergies No Known Allergies Allergy (Verified 08/09/18 19:39) Home Medications: Ambulatory Orders Medication Instructions Recorded Citalopram [Celexa] 20 mg PO DAILY 03/13/18 Ergocalciferol [Vitamin D] 50,000 unit PO QWEEK 03/13/18 Aspirin [Aspir-Low] 81 mg PO DAILY 05/19/18 Cyanocobalamin (Vitamin B-12) 1,000 mcg PO QWEEK 05/19/18 [Vitamin B-12] Amlodipine [Norvasc] 5 mg PO DAILY #30 tablet 08/11/18 Atorvastatin Calcium [Lipitor] 80 mg PO QHS tablet 08/11/18 Clopidogrel Bisulfate [Plavix] 75 mg PO DAILY tablet 08/11/18 Surgical History: - - Tumor removal. Psychiatric History: Depression Lives: Alone Smoking Status: Former smoker Alcohol: None Drugs: None - *Family History Maternal History Items: No pertinent history Paternal History Items: No pertinent history Review of Systems Constitutional: Reports: - - complete ROS negative except as documented in HPI - Physical Exam General: Alert HEENT: Normocephalic Neck: Supple Lungs: Clear to auscultation Cardiovascular: Normal S1, Normal S2 Abdomen: Bowel Sounds Present Extremities: No cyanosis Musculoskeletal: No Tenderness to Palpation of Joints or Extremities Neurological: - - consious, alert, AoAx3, CN 2-12 grossly intact except right facial UMN palsy, pupils BERL, mild to moderate dysarthria, power 5/5 left UE/LE , 4/5 right UE and 5/5 right LE, no sensory loss, mild right UE ataxia, otherwise no cerebellar signs, gait deferred, Refelxes + B/L B/S/T/K/A, NIHSS 3 at present, mRS 0 at baseline Psych/Mental Status: Normal Affect Vital Signs Temp Pulse Resp BP Pulse Ox 97.9 F 74 16 118/81 H 94 08/10/18 11:30 08/10/18 11:30 08/10/18 11:30 08/10/18 11:30 08/10/18 11:30 Oxygen Delivery Method Room Air Weight: 67 kg Body Mass Index (BMI) 24.3 Intake and Output for Last 24 Hours 08/08/18 08/09/18 08/10/18 23:59 23:59 23:59 Intake Total 100 / 100 Balance 100 / 100 Laboratory Tests Past 24 Hrs 08/10/18 08/10/18 00:16 05:38 Sodium 142 Potassium 3.5 Chloride 108 H Carbon Dioxide 23.0 Anion Gap 11 BUN 12 Creatinine 0.86 Estim Creat Clear Calc 48.03 Est GFR (MDRD) Af Amer 82 Est GFR (MDRD) Non-Af 67 BUN/Creatinine Ratio 14.0 Glucose 105 Calcium 8.3 L Troponin I < 0.015 Triglycerides 147 Cholesterol 215 H LDL Cholesterol 140 H VLDL Cholesterol 29 HDL Cholesterol 46 Assessment/Plan All Active Problems (Last Updated 08/11/18 @ 10:41 by JOHNATHAN Morrison) CVA (cerebral vascular accident) (Acute) Bladder cancer (Acute) Depression (Acute) The patient is a 83 year old CF with PMH HTN, depression, bladder cancer admitted with slurred speech, difficulty in walking. Per patient she woke up yesterday morning (08/09/18) with these symptoms. NIHSS was 3 on admission per ED documentation and there was some right leg drift. Patient was noted to have right facial weakness and right leg drift per ED documentation. Per patient she has been having slurred speech, had difficulty in walking and was drifting to the right side. Denies any falls. Per patient she lives alone, denies any frequent falls, does not use cane or walker to ambulate, per patient she was on ASA at baseline. At present denies any CARABALLO, visual disturbances, focal motor weakness or sensory loss. CT head reported nothing acute on admission. 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 Bleeding risks discussed -On statin -Check MRI brain, MRA head/neck -TTE-EF 75%, normal LA size, no PFO -Pwl4m-4.1%, LDL-140 -Permissive HTN for 24 hrs -Recommend 30 day event recorder -Stroke risk factors discussed and stroke education provided -PT/OT/ST -GI/DVT prophylaxis -Fall precautions -Further medical management per primary team -Follow up with Neurology in 2-3 weeks after discharge. -Please call with questions if any -Thank you for allowing us to participate in patient's care and management I spent 60 minutes taking history, doing physical examination, reviewing medical records, coordinating care and counseling the patient. Code Visit Inpatient E&M: 42184 Init Hosp L3
--- NOTE | 2018-08-10 14:30 | CASEMGMT ---
SW spoke with patient about [facility] 4th floor rehab unit. SW explained rehab and her other options at d/c. She wanted to think about it. Erin VELASCO MSW
[2018-08-10] MEDS: Atorvastatin Calcium 80 MG Tablet PO (21:35)
[2018-08-10] MEDS: Aspirin 325 MG Tablet PO (21:35)
[2018-08-11] VITALS (7 sets, daily range): BP systolic 139–161; BP diastolic 75–91; PULSE 69–77; RESP 16; TEMP 36.9–37.2; O2SAT 92–95; BMI 24.3
[2018-08-11] MEDS: Cyanocobalamin 500 MCG Tablet 1000 MCG PO (10:28)
[2018-08-11] MEDS: Clopidogrel Bisulfate 75 MG Tablet PO (10:28)
[2018-08-11] MEDS: Citalopram 20 MG Tablet PO (10:28)
[2018-08-11] MEDS: Heparin Injection (Vial) 5,000 UNIT/ML VIAL 5000 UNIT SC (10:28)
[2018-08-11] MEDS: Aspirin 81 MG TAB.CHEW PO (10:28)
--- NOTE | 2018-08-11 10:37 | CASEMGMT ---
Per PA, patient agreed to go to Inpatient Rehab Unit. SW called Sima in Rehab and she said patient can come to rehab. Plan: d/c to [facility] 4th floor rehab unit. Erin DOUGHERTY
--- NOTE | 2018-08-11 10:41 | DCINST_ITS ---
- Discharge Diagnoses Current Active Problems: Current Active and Chronic Problems (Last Updated 08/09/18 @ 23:36 by Loi Napier MD) CVA (cerebral vascular accident) (Acute) Bladder cancer (Acute) Depression (Acute) Hypertension (Chronic) You will use the following diet at home:: Cardiac Discharge Activity: Return to Normal Activity, Use Walker Call your doctor if you observe: Numbness or Tingling, Shortness of breath, Dizziness, Fainting spells, Chest pain Allergies/Adverse Reactions: Allergies No Known Allergies Allergy (Verified 08/09/18 19:39) Medications to take at Discharge Citalopram [Celexa] 20 mg PO DAILY 03/13/18 Ergocalciferol [Vitamin D] 50,000 unit PO QWEEK 03/13/18 Aspirin [Aspir-Low] 81 mg PO DAILY 05/19/18 Cyanocobalamin (Vitamin B-12) [Vitamin B-12] 1,000 mcg PO QWEEK 05/19/18 Amlodipine [Norvasc] 5 mg PO DAILY #30 tablet 08/11/18 Atorvastatin Calcium [Lipitor] 80 mg PO QHS tablet 08/11/18 Clopidogrel Bisulfate [Plavix] 75 mg PO DAILY tablet 08/11/18 The following prescriptions were given: Amlodipine [Norvasc] 5 mg PO DAILY #30 tablet Primary Care Physician: Louis Carr Chi, MD [Primary Care Provider] - Please follow up with your Primary Care Physician in: 1 Week Test Results: Test results from this visit will be discussed in further detail at your follow- up appointment, if applicable. Please Follow Up With: Janee Zhang MD When: 2-3 Weeks Proposed Discharge Date: 08/11/18
--- NOTE | 2018-08-11 10:41 | PCM.DC.SUM ---
<Peg Rollins - Last Filed: 08/11/18 10:49> Discharge Date and Diagnosis Date of Admission: 08/09/18 Date of Discharge: 08/11/18 - Primary Discharge Diagnosis Active and Suspected Problems (Last Updated 08/09/18 @ 23:36 by Loi Napier MD) 1. Acute ischemic CVA 2. Hyperlipidemia 3. Debility 2/2 #1 - Secondary Discharge Diagnosis Chronic Problems (Last Updated 08/09/18 @ 23:36 by Loi Napier MD) Hypertension (Chronic) Depression Bladder cancer Hospital Course and Treatment Imaging Results: Diagnostic Data Brain CT 08/09/18 20:13 IMPRESSION: Chronic involutional changes of the brain. Electronically Signed: Brady Aburto MD at 20:53 EDT , Service support , Chest X-Ray 08/09/18 20:30 IMPRESSION: Degenerative changes, as described above. No demonstrated acute cardiopulmonary process. Electronically Signed: Brady Aburto MD at 21:12 EDT , Service support , Brain MRI 08/10/18 08:16 IMPRESSION: Acute nonhemorrhagic infarct associated with the posterior limb of the internal capsule on the left. Underlying moderate small vessel disease. See above. Electronically Signed: Maura Pool MD at 14:27 EDT , Service support , ADDENDUM: 08/10/18 1558 Head MRA 08/10/18 08:16 IMPRESSION: Normal MRA of the head Electronically Signed: Maura Pool MD at 14:19 EDT , Service support , Neck MRA 08/10/18 08:16 IMPRESSION: Normal bilateral cervical carotid and vertebral arteries. Small left vertebral artery. Electronically Signed: Maura Pool MD at 13:53 EDT , Service support , Dr. Zhang- Neurology Operations: None Procedures: 2-D Echocardiogram Summary of Care Provided: The patient is a 83 year old F admitted 08/09/2018 due to slurred speech, right facial droop and multiple falls due to right leg weakness. 1. Acute ischemic CVA-right facial droop and dysarthria. No other neurologic deficits. Brain CT on admission showed chronic changes of the brain. MRI of the brain showed acute nonhemorrhagic infarct associated with the posterior limb of internal capsule on the left. Underlying moderate small vessel disease. Head and neck MRA normal. Neurology consulted during admission. Patient will continue aspirin and Plavix at discharge, dual antiplatelet therapy for 3 weeks. Follow-up with neurology in 2-3 weeks. Continue high-dose statin. Echocardiogram demonstrated an EF of 75%, stage I diastolic dysfunction, negative for intra-atrial shunt, mild to moderate aortic stenosis. Patient will be discharged to rehab unit for further PT/OT. 2. Hypertension-amlodipine 5 mg daily added at discharge. Will need further monitoring. Blood pressure stable at discharge, 139/75. 3. Hyperlipidemia-atorvastatin 80 mg p.o. nightly. Not previously on statin regimen. 4. History of bladder cancer status post tumor resection with recurrence-continue outpatient follow-up with urology. Follows with Dr. Bunn. 5. Depression-continue home citalopram regimen. General: Alert, Oriented x3, Cooperative, No apparent distress HEENT: Atraumatic, PERRLA, EOMI, Normocephalic Neck: Supple, No JVD, Negative Carotid Bruits Lungs: Clear to auscultation, Normal air movement Cardiovascular: Regular rate, No murmurs Abdomen: Bowel Sounds Present, Soft, Non Tender, Non-Distended Extremities: No clubbing, No cyanosis, No edema, Capillary Refill Less than 3 Seconds Skin: No rashes, No breakdown Musculoskeletal: No Tenderness to Palpation of Joints or Extremities Neurological: Cranial nerves II-XII grossly intact, Motor Exam 5/5 strength throughout, Facial Droop - Right, - - Dysarthria Psych/Mental Status: Normal Affect, Appropriate Patient seen exam prior to discharge. Physical assessment as noted above. Patient stable for discharge to rehab unit for further PT/OT. This patient was seen by JOHNATHAN Morrison under the supervision of Dr. Pacheco. Discharge Diet: Low fat/ Low Cholesterol Discharge Activity: Return to Normal Activity, Use Walker Call your doctor if you observe: Numbness or Tingling, Shortness of breath, Dizziness, Fainting spells, Chest pain Home Medications: Medications to take at Discharge Citalopram [Celexa] 20 mg PO DAILY 03/13/18 Ergocalciferol [Vitamin D] 50,000 unit PO QWEEK 03/13/18 Aspirin [Aspir-Low] 81 mg PO DAILY 05/19/18 Cyanocobalamin (Vitamin B-12) [Vitamin B-12] 1,000 mcg PO DAILY 05/19/18 Amlodipine [Norvasc] 5 mg PO DAILY 08/11/18 Atorvastatin Calcium [Lipitor] 80 mg PO QHS 08/11/18 Clopidogrel Bisulfate [Plavix] 75 mg PO DAILY 08/11/18 Primary Care Physician: Louis Carr Chi, MD [Primary Care Provider] - Please follow up with your Primary Care Physician in: 1 Week Please Follow Up With: Janee Zhang MD When: 2-3 Weeks Disposition: Inpt Rehab Unit/Facility Minutes spent on discharge:: 35 Patient Condition:: Stable Medical Necessity - Tobacco Use Smoking Status: Former smoker Tobacco Use: Cigarettes Meaningful Use Info Meaningful Use Diagnoses (Choose all that apply): Ischemic CVA - CVA Therapy Assessed for PT,OT and/or ST?: Yes - Ischemic Stroke Antithrombotic order at d/c?: Yes Dx of Atrial fib/flutter?: No Statins at discharge?: Yes Primary Dx Acute Ischemic CVA?: Yes IV tPA ordered during stay?: No Reason IV t-PA not ordered: Treatment not Indicated <Nate Pacheco - Last Filed: 08/12/18 11:16> Discharge Date and Diagnosis - Secondary Discharge Diagnosis Chronic Problems (Last Updated 08/11/18 @ 10:41 by JOHNATHAN Morrison) Hypertension (Chronic) Hospital Course and Treatment Summary of Care Provided: Patient evaluated independently of [employer] SETTER and case discussed as well COPD exacerbation better and patient stab;le for discharge Agree with findings and plan and recommendations
--- NOTE | 2018-08-11 10:48 | DS.PCM_ITS ---
<Peg Rollins - Last Filed: 08/11/18 10:49> Discharge Date and Diagnosis Date of Admission: 08/09/18 Date of Discharge: 08/11/18 - Primary Discharge Diagnosis Active and Suspected Problems (Last Updated 08/09/18 @ 23:36 by Loi Napier MD) 1. Acute ischemic CVA 2. Hyperlipidemia 3. Debility 2/2 #1 - Secondary Discharge Diagnosis Chronic Problems (Last Updated 08/09/18 @ 23:36 by Loi Napier MD) Hypertension (Chronic) Depression Bladder cancer Hospital Course and Treatment Imaging Results: Diagnostic Data Brain CT 08/09/18 20:13 IMPRESSION: Chronic involutional changes of the brain. Electronically Signed: Brady Aburto MD at 20:53 EDT , Service support , Chest X-Ray 08/09/18 20:30 IMPRESSION: Degenerative changes, as described above. No demonstrated acute cardiopulmonary process. Electronically Signed: Brady Aburto MD at 21:12 EDT , Service support , Brain MRI 08/10/18 08:16 IMPRESSION: Acute nonhemorrhagic infarct associated with the posterior limb of the internal capsule on the left. Underlying moderate small vessel disease. See above. Electronically Signed: Maura Pool MD at 14:27 EDT , Service support , ADDENDUM: 08/10/18 1558 Head MRA 08/10/18 08:16 IMPRESSION: Normal MRA of the head Electronically Signed: Maura Pool MD at 14:19 EDT , Service support , Neck MRA 08/10/18 08:16 IMPRESSION: Normal bilateral cervical carotid and vertebral arteries. Small left vertebral artery. Electronically Signed: Maura Pool MD at 13:53 EDT , Service support , Dr. Zhang- Neurology Operations: None Procedures: 2-D Echocardiogram Summary of Care Provided: The patient is a 83 year old F admitted 08/09/2018 due to slurred speech, right facial droop and multiple falls due to right leg weakness. 1. Acute ischemic CVA-right facial droop and dysarthria. No other neurologic deficits. Brain CT on admission showed chronic changes of the brain. MRI of the brain showed acute nonhemorrhagic infarct associated with the posterior limb of internal capsule on the left. Underlying moderate small vessel disease. Head and neck MRA normal. Neurology consulted during admission. Patient will continue aspirin and Plavix at discharge, dual antiplatelet therapy for 3 weeks. Follow-up with neurology in 2-3 weeks. Continue high- dose statin. Echocardiogram demonstrated an EF of 75%, stage I diastolic dysfunction, negative for intra-atrial shunt, mild to moderate aortic stenosis. Patient will be discharged to rehab unit for further PT/OT. 2. Hypertension-amlodipine 5 mg daily added at discharge. Will need further monitoring. Blood pressure stable at discharge, 139/75. 3. Hyperlipidemia-atorvastatin 80 mg p.o. nightly. Not previously on statin regimen. 4. History of bladder cancer status post tumor resection with recurrence- continue outpatient follow-up with urology. Follows with Dr. Bunn. 5. Depression-continue home citalopram regimen. General: Alert, Oriented x3, Cooperative, No apparent distress HEENT: Atraumatic, PERRLA, EOMI, Normocephalic Neck: Supple, No JVD, Negative Carotid Bruits Lungs: Clear to auscultation, Normal air movement Cardiovascular: Regular rate, No murmurs Abdomen: Bowel Sounds Present, Soft, Non Tender, Non-Distended Extremities: No clubbing, No cyanosis, No edema, Capillary Refill Less than 3 Seconds Skin: No rashes, No breakdown Musculoskeletal: No Tenderness to Palpation of Joints or Extremities Neurological: Cranial nerves II-XII grossly intact, Motor Exam 5/5 strength throughout, Facial Droop - Right, - - Dysarthria Psych/Mental Status: Normal Affect, Appropriate Patient seen exam prior to discharge. Physical assessment as noted above. Patient stable for discharge to rehab unit for further PT/OT. This patient was seen by JOHNATHAN Morrison under the supervision of Dr. Pacheco. Discharge Diet: Low fat/ Low Cholesterol Discharge Activity: Return to Normal Activity, Use Walker Call your doctor if you observe: Numbness or Tingling, Shortness of breath, Dizziness, Fainting spells, Chest pain Home Medications: Medications to take at Discharge Citalopram [Celexa] 20 mg PO DAILY 03/13/18 Ergocalciferol [Vitamin D] 50,000 unit PO QWEEK 03/13/18 Aspirin [Aspir-Low] 81 mg PO DAILY 05/19/18 Cyanocobalamin (Vitamin B-12) [Vitamin B-12] 1,000 mcg PO DAILY 05/19/18 Amlodipine [Norvasc] 5 mg PO DAILY 08/11/18 Atorvastatin Calcium [Lipitor] 80 mg PO QHS 08/11/18 Clopidogrel Bisulfate [Plavix] 75 mg PO DAILY 08/11/18 Primary Care Physician: Louis Carr Chi, MD [Primary Care Provider] - Please follow up with your Primary Care Physician in: 1 Week Please Follow Up With: Janee Zhang MD When: 2-3 Weeks Disposition: Inpt Rehab Unit/Facility Minutes spent on discharge:: 35 Patient Condition:: Stable Medical Necessity - Tobacco Use Smoking Status: Former smoker Tobacco Use: Cigarettes Meaningful Use Info Meaningful Use Diagnoses (Choose all that apply): Ischemic CVA - CVA Therapy Assessed for PT,OT and/or ST?: Yes - Ischemic Stroke Antithrombotic order at d/c?: Yes Dx of Atrial fib/flutter?: No Statins at discharge?: Yes Primary Dx Acute Ischemic CVA?: Yes IV tPA ordered during stay?: No Reason IV t-PA not ordered: Treatment not Indicated <Nate Pacheco - Last Filed: 08/12/18 11:16> Discharge Date and Diagnosis - Secondary Discharge Diagnosis Chronic Problems (Last Updated 08/11/18 @ 10:41 by JOHNATHAN Morrison) Hypertension (Chronic) Hospital Course and Treatment Summary of Care Provided: Patient evaluated independently of REALTIME REPORTER and case discussed as well COPD exacerbation better and patient stab;le for discharge Agree with findings and plan and recommendations
--- NOTE | 2018-08-11 12:17 | NURSING ---
Called report to PRADEEP Ng in rehab unit at this time. Patient going to room 7 and nurse is requesting her to arrive at 1:30p.
--- NOTE | 2018-08-11 12:23 | CASEMGMT ---
CHAPARRO asked patient if she would like CHAPARRO to call anyone to let them know she is going to the rehab unit. She wanted CHAPARRO to call her nephew. CHAPARRO called patient's nephew and left him a voice mail letting him know patient is going to inpatient rehab today and explained how to get there. Plan: [facility] 4th floor rehab unit. Erin DOUGHERTY
== END 2018-08-11 13:43 | DRG 66 ==
LOC: ED 21:54 → PCU 22:06
PROVIDERS: Admitting Provider Hospitalist; Emergency Provider Emergency Medicine; Family Provider Family Medicine Geriatric Medicine; PCP Family Medicine Geriatric Medicine; Visit Provider Internal Medicine
DX: I63.9 Cerebral infarction, unspecified (principal); C67.9 Malignant neoplasm of bladder, unspecified; I10 Essential (primary) hypertension; Z87.891 Personal history of nicotine dependence; Z79.82 Long term (current) use of aspirin; E78.5 Hyperlipidemia, unspecified; F32.9 Major depressive disorder, single episode, unspecified; R53.81 Other malaise; R29.810 Facial weakness; R47.1 Dysarthria and anarthria; R29.703 NIHSS score 3; I35.0 Nonrheumatic aortic (valve) stenosis
CPT/HCPCS: 36415; 70450; 70544; 70549; 70551; 71045; 80048; 80061; 82962; 83036; 84484; 85025; 85610; 85730; 92507; 92523; 92526; 93005; 93306; 97162; 97166; 99283; A9585; J7030; Q9957; A4216; C8929

== ENCOUNTER 2018-08-11 13:46 | Inpatient (IN) | payer MEDICARE, MEDICAID, SELFPAY ==
--- NOTE | 2018-08-11 14:19 | REHABEVAL_ITS ---
Admission Information Status Changes from Prescreening?: No changes Identified Actual Problem List:: Mobility Impaired, Self Care Deficit, Ineffective Communication, BP, Hypertension Potential Problem List:: DVT, Bleeding, Infection, UTI, Aspiration, Falls, Skin Integrity, Depression Risk of Complications DVT: LMWH, JANET Hose, Sequential Compression Device Bleeding: Monitor Lab Values, Nursing to Teach Precautions for anti-coagulation therapy., Wound, if applicable, to be assessed every shift., Stroke patients assessed for lethargy or change in status. Infection: Clinical Staff to Monitor for S/S of infection:, S/S of infection include fever, redness, warmth, etc. Urinary Tract Infection: Monitor for frequency, burning, discomfort, or incontinence., Nursing will obtain urine sample for urinalysis and C&S when ordered. Aspiration: Clinical staff will monitor for coughing, drooling, congestion., Speech will evaluate swallowing and dsyphasia., Nursing will monitor patient swallowing during meals. Falls: Patient will be evaluated for Fall Precautions, Patient will be placed on Fall Precautions as indicated per protocol. Skin Breakdown: Nursing will assess skin daily using assessment tool., Nursing will place on Skin Breakdown Precautions as indicated. Pain: Clinical staff will assess patient's pain level per protocol., Medications will be given, if needed, and the pain level reassessed., Other methods: Massage, distraction, decrease stimulus, etc. used PRN. Plan of Care Patient requires physician specializing in physical medicine and rehab oversight to provide close medical supervision of rehab issues including: Pain Management, Sleep Problems, Bowel and Bladder, Medical and co-morbidity Management, DVT prophylaxis, Rehabilitation Leadership, Coordination of treatment team Patient needs Physical Therapy: For a minimum of 1 hour, At least 5 out of 7 days Patient needs Physical Therapy to improve:: Mobility, Mobility, Mobility, Strengthening, Transfers, Stretching, ROM, Endurance, Stairs, Gait, Balance Patient needs Occupational Therapy: For a minimum of 1 hour, At least 5 out of 7 days Patient needs Occupational Therapy to improve ADL's incl.: Eating, Grooming, Bathing, Dressing, Toileting, Toilet transfers, Community Reintegration, Higher functioning activities, Household tasks, Adaptive Equipment, Splinting, Other activities as determined Patient requires speech therapy: For a minimum of 1 hour, At least 5 out of 7 days Patient requires speech therapy for: Swallowing, Cognition, Language Skills, Compensatory Strategies Patient requires 24/7 Rehabilitation Nursing for: Pain Issues, Identifying and preventing risk factors, Monitoring and reporting current medical conditions, Assisting with ambulation, transfer, and all ADL's, Teaching patients about disease process and medications, Family teaching, Providing safe environment, Bowel and Bladder Issues, Skin integrity, Medication Management Patient needs Technical Writer And Editor/ Case Management for: Discharge Planning, Arranging Home Equipment or Services, Family Interventions Patient needs Dietary and Nutrition Services for: Adequate Nutrition, Nutritional Supplements, Nutritional Education Goals Patient will remain: free from falls, or injury at time of discharge. Patient will perform bed mobility at: MOD I level of assist. Patient will complete transfers from bed to chair at: MOD I level of assist. Patient will ambulate: 100 feet, with MOD I assist, with LRD Patient will complete upper body dressing at: MOD I level of assist. Patient will complete lower body dressing at: MOD I level of assist. Patient will complete toileting at: MOD I level of assist. Patient will perform bathing at: MOD I level of assist. Patient will complete grooming at: MOD I level of assist. Patient will complete home management skills at: MOD I level of assist. Patient will achieve: 12 stairs, at MOD I assist Patient will have pain level of: of 3 or less Patient's skin will: remain intact, free from infection. Patient will receive: adequate nutrition. Discharge Planning Pt Prognosis for Sig. Practical Improv. w/in Reasonable Time: Good Estimated Length of stay (days): 14 Anticipated D/C Destination: Home Was Preadmission Assessment Accurate?: Yes
[2018-08-11 14:29] VITALS: BP 141/94; PULSE 79; RESP 16; TEMP 36.6; O2SAT 93; BMI 23.0
--- NOTE | 2018-08-11 14:57 | HP.PCM.COS_ITS ---
History of Present Illness Date of Admission: 08/11/18 Chief Complaint: CVA The patient is a 83 year old right handed female, who was admitted to the rehab unit for rehabilitation after suffering an acute left infarct. She has a PMH of HTN, depression, bladder cancer. Per patient she woke up on the morning of (11/14) with slurried speech and difficulty walking, she came to the ED. On admission to the ED documentation shows her NIHSS was 3 and there was some right leg drift. Patient was also noted to have right facial weakness and right leg drift. A Brain CT on admission showed chronic changes of the brain. MRI of the brain showed acute nonhemorrhagic infarct associated with the posterior limb of internal capsule on the left. Underlying moderate small vessel disease. Head and neck MRA normal. Echocardiogram demonstrated an EF of 75%, stage I diastolic dysfunction, negative for intra-atrial shunt, mild to moderate aortic stenosis. Per patient she has been having some slurred speech, and difficulty with walking and was drifting to the right side for the last day or so. . She lives alone in a single story home, with two steps to get into the house, she denies any frequent falls, does not use a cane or walker to ambulate , was previously completely functionally independent and is admitted to the rehab unit in order to restore her previous level of functional independence. she was on ASA at baseline. Past Medical History Past Medical History (Chronic Problems): Chronic Problems (Last Updated 08/11/18 @ 10:41 by JOHNATHAN Morrison) Hypertension (Chronic) Medical History: Medical History (Last Updated 08/11/18 @ 10:41 by JOHNATHAN Morrison) Bladder cancer (Acute) C67.9 Depression (Acute) F32.9 Hypertension (Chronic) I10 Allergies No Known Allergies Allergy (Verified 08/09/18 19:39) Home Medications: Ambulatory Orders Medication Instructions Recorded Citalopram [Celexa] 20 mg PO DAILY 03/13/18 Ergocalciferol [Vitamin D] 50,000 unit PO QWEEK 03/13/18 Aspirin [Aspir-Low] 81 mg PO DAILY 05/19/18 Cyanocobalamin (Vitamin B-12) 1,000 mcg PO DAILY 05/19/18 [Vitamin B-12] Amlodipine [Norvasc] 5 mg PO DAILY 08/11/18 Atorvastatin Calcium [Lipitor] 80 mg PO QHS 08/11/18 Clopidogrel Bisulfate [Plavix] 75 mg PO DAILY 08/11/18 Surgical History: - - Tumor removal. Psychiatric History: Depression Lives: Alone Smoking Status: Former smoker Alcohol: None Drugs: None - *Family History Maternal History Items: No pertinent history Paternal History Items: No pertinent history Review of Systems Constitutional: Denies: Chills, Fever, Weight Change HEENT: Denies: Head Aches, Sinus Congestion, Sinus Drainage Cardiovascular: Denies: Chest Pain, Palpitations Respiratory: Denies: Cough, Shortness of breath at rest, Sputum production Gastrointestinal: Denies: Abdominal Pain, Nausea, Vomiting Genitourinary: Denies: Dysuria Musculoskeletal: Denies: Joint Pain, Joint Tenderness Skin: Denies: Rash, Wounds Neurological: Denies: Numbness, Tingling, Focal weakness Psychiatric: Denies: Anxiety, Depression, Homicidal Ideations, Suicidal Ideations Hematologic/ Lymphatic: Denies: Easy Bruising, Easy Bleeding VTE Information - Inpt Only VTE Present on Admission: No VTE Mechan Device Prophylaxis: SCD's, Knee High JANET Hose VTE Pharm Prophylaxis ordered?: Yes - Physical Exam General: Alert, Oriented x3, Cooperative HEENT: Atraumatic, PERRLA, EOMI, Normocephalic Neck: Supple, No JVD, Negative Carotid Bruits Lungs: Clear to auscultation, Normal air movement Cardiovascular: Regular rate, No murmurs Abdomen: Bowel Sounds Present, Soft, Non Tender Extremities: No edema, Capillary Refill Less than 3 Seconds Skin: No rashes, No breakdown Musculoskeletal: No Tenderness to Palpation of Joints or Extremities Neurological: Cranial nerves II-XII grossly intact Psych/Mental Status: Normal Affect, Appropriate, Alert and oriented to time, place, person, mood and affect Vital Signs Temp Pulse Resp BP Pulse Ox 97.8 F 79 16 141/94 H 93 08/11/18 14:29 08/11/18 14:29 08/11/18 14:29 08/11/18 14:29 08/11/18 14:29 Oxygen Delivery Method Room Air Weight: 64.773 kg Body Mass Index (BMI) 23.0 Finger Stick Blood Glucose 89 Active Medications Acetaminophen (Tylenol) 650 mg PO Q6H PRN PRN PRN Reason: Mild Pain (0-3/10)/Headache Amlodipine Besylate (Norvasc) 5 mg PO DAILY [facility] Aspirin (Ecotrin) 81 mg PO DAILY JJ Atorvastatin Calcium (Lipitor) 80 mg PO QHS JJ Bisacodyl (Dulcolax) 10 mg RECTAL .PRN X 1 PRN PRN Reason: Constipation Citalopram Hydrobromide (Celexa) 20 mg PO DAILY [facility] Clopidogrel Bisulfate (Plavix) 75 mg PO DAILY [facility] Enoxaparin Sodium (Lovenox) 40 mg SC DAILY@0600 [facility] Ergocalciferol (Vitamin D) 50,000 unit PO QWEEK JJ Magnesium Hydroxide (Milk Of Magnesia) 30 ml PO .PRN X 1 PRN PRN Reason: Constipation Non-Formulary Medication (Cyanocobalamin (Vitamin B-12) [Vitamin B-12]) 1,000 mcg PO QWEEK JJ Senna/Docusate Sodium (Senokot-S, Roma-Colace) 2 tablet PO BID [facility] Assessment/Plan All Active Problems (Last Updated 08/11/18 @ 10:41 by Peg Rollins, YOUTH SERVICES LIBRARIAN-C) CVA (cerebral vascular accident) (Acute) Bladder cancer (Acute) Depression (Acute) This is an 83 y/o female admitted for acute left infarct. Complicated by right sided weakness, right facial droop, and dysarthria. Goal of rehab is spiritism of functional independence. Plan - Physical therapy for gait and balance - Occupational Therapy for ADLs - Speech therapy for dysarthria - As needed analgesics - Bowel protocol - Stroke prevention ASA, Plavix 75 mg PO once daily, dual AP for 3 weeks, then switch to single AP, Lipitor 80mg - DVT prophylaxis: SCDs, ASA, Lovenox - TTE-EF 75%, normal LA size, no PFO - MRI of the brain showed acute nonhemorrhagic infarct associated with the posterior limb of internal capsule on the left. Underlying moderate small vessel disease. - MRA Head and neck => normal - Ktd3p-6.1%, LDL-140 goal of HbA1C < 5, LDL < 70 - Permissive HTN for 24 hrs, then maintain BP < 130/80 - Recommend 30 day event recorder - Fall precautions - Hx of Hypertension: Continue home dose of amlodipine 5 mg, BP stable at 139/ 75. - Hx of bladder cancer s/p tumor resection with recurrence-continue outpatient follow-up with urology. Follows with Dr. Bunn. - Hx of Depression: continue home citalopram regimen.
[2018-08-11] MEDS: amLODIPine 5 MG Tablet PO (18:38)
[2018-08-11 18:59] VITALS: BP 155/89; PULSE 74; RESP 16; TEMP 36.7; O2SAT 93
[2018-08-11] MEDS: Atorvastatin Calcium 80 MG Tablet PO (20:33)
[2018-08-12] MEDS: Enoxaparin 40 MG/0.4 ML Syringe SC (06:09)
[2018-08-12 07:20] VITALS: BP 135/77; PULSE 64; RESP 18; TEMP 37.1; O2SAT 94
[2018-08-12] MEDS: Senna/Docusate Sodium 1 Tablet 2 TABLET PO (07:36)
[2018-08-12] MEDS: Clopidogrel Bisulfate 75 MG Tablet PO (07:37)
[2018-08-12] MEDS: Cyanocobalamin 500 MCG Tablet 1000 MCG PO (07:37)
[2018-08-12] MEDS: amLODIPine 5 MG Tablet PO ×2 (07:37→23:11)
[2018-08-12] MEDS: Aspirin E.C. 81 MG Tablet PO (07:37)
[2018-08-12] MEDS: Citalopram 20 MG Tablet PO (07:37)
[2018-08-12 08:56] VITALS: BMI 23.0
[2018-08-12 16:49] VITALS: O2SAT 93
--- NOTE | 2018-08-12 18:25 | NURSING ---
ambulated to and from dining room with light touch and walker today for meals.
[2018-08-12 19:17] VITALS: PULSE 90; RESP 18; TEMP 36.8; O2SAT 95
[2018-08-12] MEDS: Atorvastatin Calcium 80 MG Tablet PO (21:26)
[2018-08-12 21:45] VITALS: BP 151/85; PULSE 66
[2018-08-12 21:50] VITALS: BP 155/89
--- NOTE | 2018-08-12 22:05 | NURSING ---
PAGE PLACED THROUGH NEUROLOGY ANSWERING SERVICE FOR DR WILSON.
--- NOTE | 2018-08-12 22:28 | NURSING ---
DR WILSON INFORMED OF PT'S ELEVATED BP READINGS. ORDERS GIVEN. ADVISES NO NEED TO RECHECK BP AGAIN DURING THIS NIGHT.
[2018-08-13 06:17] VITALS: O2SAT 90
[2018-08-13] MEDS: Enoxaparin 40 MG/0.4 ML Syringe SC (06:44)
[2018-08-13 07:35] VITALS: BP 119/60; PULSE 61; RESP 18; TEMP 36.4; O2SAT 95
[2018-08-13] MEDS: Cyanocobalamin 500 MCG Tablet 1000 MCG PO (08:05)
[2018-08-13] MEDS: Citalopram 20 MG Tablet PO (08:05)
[2018-08-13] MEDS: Clopidogrel Bisulfate 75 MG Tablet PO (08:06)
[2018-08-13] MEDS: Aspirin E.C. 81 MG Tablet PO (08:06)
[2018-08-13] MEDS: amLODIPine 10 MG Tablet PO (08:06)
--- NOTE | 2018-08-13 08:39 | NURSING ---
Cleaned pt.s upper dentures and brushed lower teeth, explained FWP to pt. Pt denies any questions. Water pitcher set up with fresh water on pt's side table.
--- NOTE | 2018-08-13 10:10 | NURSING ---
pt lying in bed resting refusing to put SCD's on, this RN explained importance of SCD's pt still refusing, states I hate those things
--- NOTE | 2018-08-13 10:57 | NURSING ---
This RN walked pt 2 laps in hallway, must keep hand on gait belt as pt walks d/t being unsteady, pt tolerated well.
[2018-08-13 12:56] VITALS: BMI 23.0
[2018-08-13 18:11] VITALS: PULSE 83; RESP 18; TEMP 36.3; O2SAT 92
[2018-08-13 19:38] VITALS: BP 139/56; PULSE 67
[2018-08-13] MEDS: Atorvastatin Calcium 80 MG Tablet PO (20:26)
[2018-08-14 05:00] VITALS: BMI 23.0
[2018-08-14 05:16] LABS: Absolute Lymphocyte Count 1.75 X10^3/ul (0.83-4.51); Basophil# 0.08 X10^3/uL; Basophil% 0.8 % (0-1); Eosinophil# 0.33 X10^3/uL; Eosinophils% 3.5 % (0-5); Hemoglobin 16.8 g/dl (12.0-15.0); Lymphocyte # 1.75 X10^3/ul (4.0); Lymphocyte % 18.6 % (19-41); Mean Corpuscular Hgb 29.7 pg (27.0-32.0); Monocyte# 1.23 X10^3/uL; Monocyte% 13.1 % (0-10); Neutrophil # 6.01 X10^3/uL (2.7-7.7); Neutrophil % 63.8 % (47-70); Platelet Count 294 K/mm3 (150-450); RBC Distribution Width CV 16.4 % (11.6-14.6); RBC Distribution Width SD 51.6 fl (35.1-43.9); Red Blood Count 5.65 M/mm3 (4.2-5.4); White Blood Count 9.4 K/mm3 (4.4-11.0)
[2018-08-14 05:20] LABS: POSITIVE COUNT NO; POSITIVE DIFFERENTIAL NO; POSITIVE MORPHOLOGY NO
[2018-08-14] MEDS: Enoxaparin 40 MG/0.4 ML Syringe SC (05:36)
[2018-08-14 05:40] LABS: AST(SGOT) 86 U/L (15-37); Alanine Aminotransfer ALT/SGPT 75 U/L (13-56); Albumin, Serum 3.6 g/dL (3.2-5.0); Alkaline Phosphatase 194 U/L (45-117); Anion Gap 9 (5-15); BUN 18 mg/dL (7-18); BUN/Creat Ratio 20.1 RATIO (10-20); Calcium,Total 8.8 mg/dL (8.5-10.1); Chloride 106 mmol/L (98-107); EST Glomerular Filtration Rate 64 mL/min (>60); Est Glom Filt Rate - Afr Amer 78 mL/min (>60); Estimated Creatinine Clearance 45.89 ml/min; Globulin 3.6 g/dL (2.2-4.2); Glucose 96 mg/dL (74-106); Magnesium 2.2 mg/dL (1.6-2.6); Phosphorus 3.5 mg/dL (2.5-4.9); Potassium 3.7 mmol/L (3.5-5.1); Protein, Total 7.2 g/dL (6.4-8.2); Sodium Level 142 mmol/L (136-145)
[2018-08-14 07:09] VITALS: BP 149/84; PULSE 66; RESP 20; TEMP 36.7; O2SAT 95
[2018-08-14] MEDS: Clopidogrel Bisulfate 75 MG Tablet PO (07:51)
[2018-08-14] MEDS: amLODIPine 10 MG Tablet PO (07:52)
[2018-08-14] MEDS: Aspirin E.C. 81 MG Tablet PO (07:52)
[2018-08-14] MEDS: Cyanocobalamin 500 MCG Tablet 1000 MCG PO (07:52)
[2018-08-14] MEDS: Citalopram 20 MG Tablet PO (07:52)
--- NOTE | 2018-08-14 10:07 | PCM.PN.NEU ---
Subjective: Patient seen during Occupational therapy session. No new complaints, or issues over the weekend. Tolerating therapy. Denies any headaches, blurry vision or double vision. No issues with GI/. Tolerating regular diet with [place] thicken liquids. - Physical Exam General: Alert, Oriented x3, Cooperative HEENT: Atraumatic, PERRLA, EOMI, Normocephalic Neck: Supple, No JVD, Negative Carotid Bruits Lungs: Clear to auscultation, Normal air movement Cardiovascular: Regular rate, No murmurs Abdomen: Bowel Sounds Present, Soft, Non Tender Extremities: No edema, Capillary Refill Less than 3 Seconds Skin: No rashes, No breakdown Musculoskeletal: No Tenderness to Palpation of Joints or Extremities Neurological: Cranial nerves II-XII grossly intact, Facial Droop - right side, - - mild to moderate dysarthria, power 5/5 left UE/LE, 4/5 right UE and 5/5 right LE, no sensory loss, mild right UE ataxia, Psych/Mental Status: Normal Affect, Appropriate, Alert and oriented to time, place, person, mood and affect Vital Signs Temp Pulse Resp BP Pulse Ox 98.0 F 66 20 H 149/84 H 95 08/14/18 07:09 08/14/18 07:09 08/14/18 07:09 08/14/18 07:09 08/14/18 07:09 Oxygen Flow Rate (L/min) 3 Oxygen Delivery Method Room Air Weight: 64.773 kg Body Mass Index (BMI) 23.0 Finger Stick Blood Glucose 89 Intake and Output for Last 24 Hours 08/12/18 08/13/18 08/14/18 23:59 23:59 23:59 Intake Total 240 / 240 360 / 360 Balance 240 / 240 360 / 360 Laboratory Tests Past 24 Hrs 08/14/18 08/14/18 08/14/18 05:00 05:00 05:00 WBC 9.4 RBC 5.65 H Hgb 16.8 H Hct 48.0 H MCV 85.0 MCH 29.7 MCHC 35.0 RDW 16.4 H RDW Differential 51.6 H Plt Count 294 MPV 10.0 Immature Gran % (Auto) 0.200 Neut % (Auto) 63.8 Lymph % (Auto) 18.6 L Cotton % (Auto) 13.1 H Eos % (Auto) 3.5 Baso % (Auto) 0.8 Absolute Neuts (auto) 6.0 Absolute Lymphs (auto) 1.75 Total Counted Not Reportable Sodium 142 Potassium 3.7 Chloride 106 Carbon Dioxide 27.0 Anion Gap 9 BUN 18 Creatinine 0.90 Estim Creat Clear Calc 45.89 Est GFR (MDRD) Af Amer 78 Est GFR (MDRD) Non-Af 64 BUN/Creatinine Ratio 20.1 H Glucose 96 Calcium 8.8 Ionized Calcium Pending Phosphorus 3.5 Magnesium 2.2 Total Bilirubin 1.90 H AST 86 H ALT 75 H Alkaline Phosphatase 194 H Total Protein 7.2 Albumin 3.6 Globulin 3.6 Albumin/Globulin Ratio 1.0 Active Medications Acetaminophen (Tylenol) 650 mg PO Q6H PRN PRN PRN Reason: Mild Pain (0-3/10)/Headache Amlodipine Besylate (Norvasc) 10 mg PO DAILY [facility] Last Admin: 08/14/18 07:52 Dose: 10 mg Aspirin (Ecotrin) 81 mg PO DAILY [facility] Last Admin: 08/14/18 07:52 Dose: 81 mg Atorvastatin Calcium (Lipitor) 40 mg PO QHS [facility] Bisacodyl (Dulcolax) 10 mg RECTAL .PRN X 1 PRN PRN Reason: Constipation Citalopram Hydrobromide (Celexa) 20 mg PO DAILY [facility] Last Admin: 08/14/18 07:52 Dose: 20 mg Clopidogrel Bisulfate (Plavix) 75 mg PO DAILY [facility] Last Admin: 08/14/18 07:51 Dose: 75 mg Cyanocobalamin (Vitamin B12) 1,000 mcg PO DAILY@0800 [facility] Last Admin: 08/14/18 07:52 Dose: 1,000 mcg Enoxaparin Sodium (Lovenox) 40 mg SC DAILY@0600 [facility] Last Admin: 08/14/18 05:36 Dose: 40 mg Ergocalciferol (Vitamin D) 50,000 unit PO QWEEK [facility] Last Admin: 08/13/18 09:36 Dose: 50,000 unit Magnesium Hydroxide (Milk Of Magnesia) 30 ml PO .PRN X 1 PRN PRN Reason: Constipation Senna/Docusate Sodium (Senokot-S, Roma-Colace) 2 tablet PO BID [facility] Last Admin: 08/14/18 07:52 Dose: Not Given Medical Necessity - Tobacco Use Smoking Status: Former smoker Assessment/Plan All Active Problems (Last Updated 08/11/18 @ 10:41 by Peg Rollins NP-C) CVA (cerebral vascular accident) (Acute) Bladder cancer (Acute) Depression (Acute) This is an 83 y/o female admitted for acute left infarct. Complicated by right sided weakness, right facial droop, and dysarthria. Goal of rehab is presybeterian of functional independence. Plan - Physical therapy for gait and balance - Occupational Therapy for ADLs - Speech therapy for dysarthria - As needed analgesics - Bowel protocol - Stroke prevention ASA, Plavix 75 mg PO once daily, dual AP for 3 weeks, then switch to single AP, Lipitor 80mg - DVT prophylaxis: SCDs, ASA, Lovenox - TTE-EF 75%, normal LA size, no PFO - MRI of the brain showed acute nonhemorrhagic infarct associated with the posterior limb of internal capsule on the left. Underlying moderate small vessel disease. - MRA Head and neck => normal - Bmb9r-3.1%, LDL-140 goal of HbA1C < 5, LDL < 70 - Permissive HTN for 24 hrs, then maintain BP < 130/80 - Recommend 30 day event recorder - Fall precautions - Hx of Hypertension: Continue home dose of amlodipine 5 mg, BP stable at 139/75. - Hx of bladder cancer s/p tumor resection with recurrence-continue outpatient follow-up with urology. Follows with Dr. Bunn. - Hx of Depression: continue home citalopram regimen.
--- NOTE | 2018-08-14 10:12 | PN.NEURO_ITS ---
Subjective: Patient seen during Occupational therapy session. No new complaints, or issues over the weekend. Tolerating therapy. Denies any headaches, blurry vision or double vision. No issues with GI/. Tolerating regular diet with [place] thicken liquids. - Physical Exam General: Alert, Oriented x3, Cooperative HEENT: Atraumatic, PERRLA, EOMI, Normocephalic Neck: Supple, No JVD, Negative Carotid Bruits Lungs: Clear to auscultation, Normal air movement Cardiovascular: Regular rate, No murmurs Abdomen: Bowel Sounds Present, Soft, Non Tender Extremities: No edema, Capillary Refill Less than 3 Seconds Skin: No rashes, No breakdown Musculoskeletal: No Tenderness to Palpation of Joints or Extremities Neurological: Cranial nerves II-XII grossly intact, Facial Droop - right side, - - mild to moderate dysarthria, power 5/5 left UE/LE, 4/5 right UE and 5/5 right LE, no sensory loss, mild right UE ataxia, Psych/Mental Status: Normal Affect, Appropriate, Alert and oriented to time, place, person, mood and affect Vital Signs Temp Pulse Resp BP Pulse Ox 98.0 F 66 20 H 149/84 H 95 08/14/18 07:09 08/14/18 07:09 08/14/18 07:09 08/14/18 07:09 08/14/18 07:09 Oxygen Flow Rate (L/min) 3 Oxygen Delivery Method Room Air Weight: 64.773 kg Body Mass Index (BMI) 23.0 Finger Stick Blood Glucose 89 Intake and Output for Last 24 Hours 08/12/18 08/13/18 08/14/18 23:59 23:59 23:59 Intake Total 240 / 240 360 / 360 Balance 240 / 240 360 / 360 Laboratory Tests Past 24 Hrs 08/14/18 08/14/18 08/14/18 05:00 05:00 05:00 WBC 9.4 RBC 5.65 H Hgb 16.8 H Hct 48.0 H MCV 85.0 MCH 29.7 MCHC 35.0 RDW 16.4 H RDW Differential 51.6 H Plt Count 294 MPV 10.0 Immature Gran % (Auto) 0.200 Neut % (Auto) 63.8 Lymph % (Auto) 18.6 L Turner % (Auto) 13.1 H Eos % (Auto) 3.5 Baso % (Auto) 0.8 Absolute Neuts (auto) 6.0 Absolute Lymphs (auto) 1.75 Total Counted Not Reportable Sodium 142 Potassium 3.7 Chloride 106 Carbon Dioxide 27.0 Anion Gap 9 BUN 18 Creatinine 0.90 Estim Creat Clear Calc 45.89 Est GFR (MDRD) Af Amer 78 Est GFR (MDRD) Non-Af 64 BUN/Creatinine Ratio 20.1 H Glucose 96 Calcium 8.8 Ionized Calcium Pending Phosphorus 3.5 Magnesium 2.2 Total Bilirubin 1.90 H AST 86 H ALT 75 H Alkaline Phosphatase 194 H Total Protein 7.2 Albumin 3.6 Globulin 3.6 Albumin/Globulin Ratio 1.0 Active Medications Acetaminophen (Tylenol) 650 mg PO Q6H PRN PRN PRN Reason: Mild Pain (0-3/10)/Headache Amlodipine Besylate (Norvasc) 10 mg PO DAILY [facility] Last Admin: 08/14/18 07:52 Dose: 10 mg Aspirin (Ecotrin) 81 mg PO DAILY [facility] Last Admin: 08/14/18 07:52 Dose: 81 mg Atorvastatin Calcium (Lipitor) 40 mg PO QHS [facility]PL[facility] Bisacodyl (Dulcolax) 10 mg RECTAL .PRN X 1 PRN PRN Reason: Constipation Citalopram Hydrobromide (Celexa) 20 mg PO DAILY [facility] Last Admin: 08/14/18 07:52 Dose: 20 mg Clopidogrel Bisulfate (Plavix) 75 mg PO DAILY [facility] Last Admin: 08/14/18 07:51 Dose: 75 mg Cyanocobalamin (Vitamin B12) 1,000 mcg PO DAILY@0800 [facility] Last Admin: 08/14/18 07:52 Dose: 1,000 mcg Enoxaparin Sodium (Lovenox) 40 mg SC DAILY@0600 [facility] Last Admin: 08/14/18 05:36 Dose: 40 mg Ergocalciferol (Vitamin D) 50,000 unit PO QWEEK [facility]PL[facility] Last Admin: 08/13/18 09:36 Dose: 50,000 unit Magnesium Hydroxide (Milk Of Magnesia) 30 ml PO .PRN X 1 PRN PRN Reason: Constipation Senna/Docusate Sodium (Senokot-S, Roma-Colace) 2 tablet PO BID [facility] Last Admin: 08/14/18 07:52 Dose: Not Given Medical Necessity - Tobacco Use Smoking Status: Former smoker Assessment/Plan All Active Problems (Last Updated 08/11/18 @ 10:41 by Peg Rollins NP-C) CVA (cerebral vascular accident) (Acute) Bladder cancer (Acute) Depression (Acute) This is an 83 y/o female admitted for acute left infarct. Complicated by right sided weakness, right facial droop, and dysarthria. Goal of rehab is oriental orthodox of functional independence. Plan - Physical therapy for gait and balance - Occupational Therapy for ADLs - Speech therapy for dysarthria - As needed analgesics - Bowel protocol - Stroke prevention ASA, Plavix 75 mg PO once daily, dual AP for 3 weeks, then switch to single AP, Lipitor 80mg - DVT prophylaxis: SCDs, ASA, Lovenox - TTE-EF 75%, normal LA size, no PFO - MRI of the brain showed acute nonhemorrhagic infarct associated with the posterior limb of internal capsule on the left. Underlying moderate small vessel disease. - MRA Head and neck => normal - Xdz1m-1.1%, LDL-140 goal of HbA1C < 5, LDL < 70 - Permissive HTN for 24 hrs, then maintain BP < 130/80 - Recommend 30 day event recorder - Fall precautions - Hx of Hypertension: Continue home dose of amlodipine 5 mg, BP stable at 139/ 75. - Hx of bladder cancer s/p tumor resection with recurrence-continue outpatient follow-up with urology. Follows with Dr. Bunn. - Hx of Depression: continue home citalopram regimen.
[2018-08-14] MEDS: Acetaminophen 325 MG Tablet 650 MG PO ×2 (11:54→18:16)
--- NOTE | 2018-08-14 14:54 | CASEMGMT ---
Social Work Physcosocial assessment completed. With pt permission, phone call to nephew Fuentes and MARIA left informing him of team meeting on 08/17/18. NORA Weaver
--- NOTE | 2018-08-14 15:53 | RAD_ITS ---
STUDY: X-RAY CHEST REASON FOR EXAM: Female, 83 years old. Right lower anterior rib pain. Fell. TECHNIQUE: PA and lateral views of the chest. COMPARISON: August 09, 2018 FINDINGS: There is no new focal consolidation. The lungs remain hyperinflated. There are stable prominent interstitial markings. Normal size heart. Normal mediastinum and jamal. Normal visualized pulmonary arteries. There is atherosclerotic calcification of the aortic arch with tortuosity. There is demineralization of the osseous structures. Normal visualized ribs, clavicles, and shoulders. There is no demonstrated abnormality of the visualized soft tissue structures of the upper abdomen. RAD/Chest PA and Lateral IMPRESSION: No acute cardiopulmonary process. Electronically Signed: Kathy Ludwig MD at 16:06 EDT Tel , Service support ,
[2018-08-14 15:57] VITALS: BMI 23.0
--- NOTE | 2018-08-14 17:30 | NURSING ---
Patient, family, and Karmen [employer] SPECIALIST aware of CXR report. Patient had c/o earlier about sharp right side pain and pointed to her lateral ribs. Denies pain at this time but patient said it will come and go. Will monitor.
--- NOTE | 2018-08-14 18:41 | PCM.PN.HOSP ---
Subjective: f/u following CVA Patient seen and examined Has no new complaints No jaundice Vitals/I&O's: Vital Signs Temp Pulse Resp BP Pulse Ox 98.0 F 66 20 H 149/84 H 95 08/14/18 07:09 08/14/18 07:09 08/14/18 07:09 08/14/18 07:09 08/14/18 07:09 Oxygen Flow Rate (L/min) 3 Oxygen Delivery Method Room Air Weight: 64.773 kg Body Mass Index (BMI) 23.0 Finger Stick Blood Glucose 89 Intake and Output for Last 24 Hours 08/12/18 08/13/18 08/14/18 23:59 23:59 23:59 Intake Total 240 / 240 360 / 360 Balance 240 / 240 360 / 360 General: Alert, Oriented x3, Cooperative, No apparent distress HEENT: Atraumatic Oral: Moist Mucosa Neck: Supple Laboratory Results 08/14/18 05:00: WBC 9.4, RBC 5.65 H, Hgb 16.8 H, Hct 48.0 H, MCV 85.0, MCH 29.7, MCHC 35.0, RDW 16.4 H, RDW Differential 51.6 H, Plt Count 294, MPV 10.0, Immature Gran % (Auto) 0.200, Neut % (Auto) 63.8, Lymph % (Auto) 18.6 L, [place] % (Auto) 13.1 H, Eos % (Auto) 3.5, Baso % (Auto) 0.8, Absolute Neuts (auto) 6.0, Absolute Lymphs (auto) 1.75, Total Counted Not Reportable 08/14/18 05:00: Sodium 142, Potassium 3.7, Chloride 106, Carbon Dioxide 27.0, Anion Gap 9, BUN 18, Creatinine 0.90, Estim Creat Clear Calc 45.89, Est GFR (MDRD) Af Amer 78, Est GFR (MDRD) Non-Af 64, BUN/Creatinine Ratio 20.1 H, Glucose 96, Calcium 8.8, Phosphorus 3.5, Magnesium 2.2, Total Bilirubin 1.90 H, AST 86 H, ALT 75 H, Alkaline Phosphatase 194 H, Total Protein 7.2, Albumin 3.6, Globulin 3.6, Albumin/Globulin Ratio 1.0 08/14/18 05:00: Ionized Calcium Pending Current Medications Acetaminophen (Tylenol) 650 mg PO Q6H PRN PRN PRN Reason: Mild Pain (0-3/10)/Headache Last Admin: 08/14/18 18:16 Dose: 650 mg Amlodipine Besylate (Norvasc) 10 mg PO DAILY [facility] Last Admin: 08/14/18 07:52 Dose: 10 mg Aspirin (Ecotrin) 81 mg PO DAILY [facility] Last Admin: 08/14/18 07:52 Dose: 81 mg Atorvastatin Calcium (Lipitor) 40 mg PO QHS [facility] Bisacodyl (Dulcolax) 10 mg RECTAL .PRN X 1 PRN PRN Reason: Constipation Citalopram Hydrobromide (Celexa) 20 mg PO DAILY [facility] Last Admin: 08/14/18 07:52 Dose: 20 mg Clopidogrel Bisulfate (Plavix) 75 mg PO DAILY [facility] Last Admin: 08/14/18 07:51 Dose: 75 mg Cyanocobalamin (Vitamin B12) 1,000 mcg PO DAILY@0800 [facility] Last Admin: 08/14/18 07:52 Dose: 1,000 mcg Enoxaparin Sodium (Lovenox) 40 mg SC DAILY@0600 [facility] Last Admin: 08/14/18 05:36 Dose: 40 mg Ergocalciferol (Vitamin D) 50,000 unit PO QWEEK [facility] Last Admin: 08/13/18 09:36 Dose: 50,000 unit Lidocaine (Lidoderm Patch) 1 patch TOPICAL DAILY [facility] PRN Reason: Protocol Magnesium Hydroxide (Milk Of Magnesia) 30 ml PO .PRN X 1 PRN PRN Reason: Constipation Nutritional Formula (Lactose Free) (Ensure Enlive) 120 ml PO 4X/DAY [facility] Senna/Docusate Sodium (Senokot-S, Roma-Colace) 2 tablet PO BID [facility] Last Admin: 08/14/18 07:52 Dose: Not Given Medical Necessity - Tobacco Use Smoking Status: Former smoker Assessment/Plan All Active Problems (Last Updated 08/11/18 @ 10:41 by JOHNATHAN Morrison) CVA (cerebral vascular accident) (Acute) Bladder cancer (Acute) Depression (Acute) 1. Abnormal LFTs noted. these were normal prior to admission.patient on high intensity statin aith Atorvastatin at 80mg per day. Suspect that this may be the cause. Will hold statin for now and then resume in a few days at a lower dose of 40mg po daily Recheck LFTs in another 4 days and continue to monitor LFTs perhaps once a week. 2. CVA. Getting post stroke rehab Code Visit Inpatient E&M: 49846 SNF Subs L2
--- NOTE | 2018-08-14 18:46 | PN_ITS ---
Subjective: f/u following CVA Patient seen and examined Has no new complaints No jaundice Vitals/I&O's: Vital Signs Temp Pulse Resp BP Pulse Ox 98.0 F 66 20 H 149/84 H 95 08/14/18 07:09 08/14/18 07:09 08/14/18 07:09 08/14/18 07:09 08/14/18 07:09 Oxygen Flow Rate (L/min) 3 Oxygen Delivery Method Room Air Weight: 64.773 kg Body Mass Index (BMI) 23.0 Finger Stick Blood Glucose 89 Intake and Output for Last 24 Hours 08/12/18 08/13/18 08/14/18 23:59 23:59 23:59 Intake Total 240 / 240 360 / 360 Balance 240 / 240 360 / 360 General: Alert, Oriented x3, Cooperative, No apparent distress HEENT: Atraumatic Oral: Moist Mucosa Neck: Supple Laboratory Results 08/14/18 05:00: WBC 9.4, RBC 5.65 H, Hgb 16.8 H, Hct 48.0 H, MCV 85.0, MCH 29.7 , MCHC 35.0, RDW 16.4 H, RDW Differential 51.6 H, Plt Count 294, MPV 10.0, Immature Gran % (Auto) 0.200, Neut % (Auto) 63.8, Lymph % (Auto) 18.6 L, Person % (Auto) 13.1 H, Eos % (Auto) 3.5, Baso % (Auto) 0.8, Absolute Neuts (auto) 6.0, Absolute Lymphs (auto) 1.75, Total Counted Not Reportable 08/14/18 05:00: Sodium 142, Potassium 3.7, Chloride 106, Carbon Dioxide 27.0, Anion Gap 9, BUN 18, Creatinine 0.90, Estim Creat Clear Calc 45.89, Est GFR ( MDRD) Af Amer 78, Est GFR (MDRD) Non-Af 64, BUN/Creatinine Ratio 20.1 H, Glucose 96, Calcium 8.8, Phosphorus 3.5, Magnesium 2.2, Total Bilirubin 1.90 H, AST 86 H, ALT 75 H, Alkaline Phosphatase 194 H, Total Protein 7.2, Albumin 3.6, Globulin 3.6, Albumin/Globulin Ratio 1.0 08/14/18 05:00: Ionized Calcium Pending Current Medications Acetaminophen (Tylenol) 650 mg PO Q6H PRN PRN PRN Reason: Mild Pain (0-3/10)/Headache Last Admin: 08/14/18 18:16 Dose: 650 mg Amlodipine Besylate (Norvasc) 10 mg PO DAILY [facility] Last Admin: 08/14/18 07:52 Dose: 10 mg Aspirin (Ecotrin) 81 mg PO DAILY [facility] Last Admin: 08/14/18 07:52 Dose: 81 mg Atorvastatin Calcium (Lipitor) 40 mg PO QHS [facility] Bisacodyl (Dulcolax) 10 mg RECTAL .PRN X 1 PRN PRN Reason: Constipation Citalopram Hydrobromide (Celexa) 20 mg PO DAILY [facility] Last Admin: 08/14/18 07:52 Dose: 20 mg Clopidogrel Bisulfate (Plavix) 75 mg PO DAILY [facility] Last Admin: 08/14/18 07:51 Dose: 75 mg Cyanocobalamin (Vitamin B12) 1,000 mcg PO DAILY@0800 [facility] Last Admin: 08/14/18 07:52 Dose: 1,000 mcg Enoxaparin Sodium (Lovenox) 40 mg SC DAILY@0600 [facility] Last Admin: 08/14/18 05:36 Dose: 40 mg Ergocalciferol (Vitamin D) 50,000 unit PO QWEEK [facility] Last Admin: 08/13/18 09:36 Dose: 50,000 unit Lidocaine (Lidoderm Patch) 1 patch TOPICAL DAILY [facility] PRN Reason: Protocol Magnesium Hydroxide (Milk Of Magnesia) 30 ml PO .PRN X 1 PRN PRN Reason: Constipation Nutritional Formula (Lactose Free) (Ensure Enlive) 120 ml PO 4X/DAY [facility] Senna/Docusate Sodium (Senokot-S, Roma-Colace) 2 tablet PO BID [facility] Last Admin: 08/14/18 07:52 Dose: Not Given Medical Necessity - Tobacco Use Smoking Status: Former smoker Assessment/Plan All Active Problems (Last Updated 08/11/18 @ 10:41 by JOHNATHAN Morrison) CVA (cerebral vascular accident) (Acute) Bladder cancer (Acute) Depression (Acute) 1. Abnormal LFTs noted. these were normal prior to admission.patient on high intensity statin aith Atorvastatin at 80mg per day. Suspect that this may be the cause. Will hold statin for now and then resume in a few days at a lower dose of 40mg po daily Recheck LFTs in another 4 days and continue to monitor LFTs perhaps once a week. 2. CVA. Getting post stroke rehab Code Visit Inpatient E&M: 91074 SNF Subs L2
[2018-08-14 19:50] VITALS: BP 135/69; PULSE 78; RESP 16; TEMP 36.5; O2SAT 93
--- NOTE | 2018-08-14 20:36 | NURSING ---
FWP performed and top dentures removed. Dentures soaking in dish hs.
[2018-08-14 20:54] VITALS: BMI 23.0
[2018-08-15] MEDS: Enoxaparin 40 MG/0.4 ML Syringe SC (06:55)
[2018-08-15 07:18] VITALS: BP 143/84; PULSE 64; RESP 18; TEMP 36.5; O2SAT 93
[2018-08-15] MEDS: Cyanocobalamin 500 MCG Tablet 1000 MCG PO (07:54)
[2018-08-15] MEDS: Clopidogrel Bisulfate 75 MG Tablet PO (07:54)
[2018-08-15] MEDS: Citalopram 20 MG Tablet PO (07:54)
[2018-08-15] MEDS: amLODIPine 10 MG Tablet PO (07:54)
[2018-08-15] MEDS: Aspirin E.C. 81 MG Tablet PO (07:54)
[2018-08-15] MEDS: Lidocaine 5% Patch 1 PATCH TOPICAL (07:55)
--- NOTE | 2018-08-15 09:47 | PCM.PN.NEU ---
Subjective: Patient seen and examined. Complaining of right rib pain and discomfort, CXR was negative for fractures, Lidocaine patch applied to site along with K pad for comfort. - Physical Exam General: Alert, Oriented x3, Cooperative HEENT: Atraumatic, PERRLA, EOMI, Normocephalic Neck: Supple, No JVD, Negative Carotid Bruits Lungs: Clear to auscultation, Normal air movement Cardiovascular: Regular rate, No murmurs Abdomen: Bowel Sounds Present, Soft, Non Tender Extremities: No edema, Capillary Refill Less than 3 Seconds Skin: No rashes, No breakdown Musculoskeletal: No Tenderness to Palpation of Joints or Extremities Neurological: Cranial nerves II-XII grossly intact Psych/Mental Status: Normal Affect, Appropriate, Alert and oriented to time, place, person, mood and affect Vital Signs Temp Pulse Resp BP Pulse Ox 97.7 F L 64 18 143/84 H 93 08/15/18 07:18 08/15/18 07:18 08/15/18 07:18 08/15/18 07:18 08/15/18 07:18 Oxygen Flow Rate (L/min) 3 Oxygen Delivery Method Room Air Weight: 64.773 kg Body Mass Index (BMI) 23.0 Finger Stick Blood Glucose 89 Intake and Output for Last 24 Hours 08/13/18 08/14/18 08/15/18 23:59 23:59 23:59 Intake Total 360 / 360 100 / 100 Balance 360 / 360 100 / 100 Active Medications Acetaminophen (Tylenol) 650 mg PO Q6H PRN PRN PRN Reason: Mild Pain (0-3/10)/Headache Last Admin: 08/14/18 18:16 Dose: 650 mg Amlodipine Besylate (Norvasc) 10 mg PO DAILY [facility] Last Admin: 08/15/18 07:54 Dose: 10 mg Aspirin (Ecotrin) 81 mg PO DAILY [facility] Last Admin: 08/15/18 07:54 Dose: 81 mg Atorvastatin Calcium (Lipitor) 40 mg PO QHS [facility] Bisacodyl (Dulcolax) 10 mg RECTAL .PRN X 1 PRN PRN Reason: Constipation Citalopram Hydrobromide (Celexa) 20 mg PO DAILY [facility] Last Admin: 08/15/18 07:54 Dose: 20 mg Clopidogrel Bisulfate (Plavix) 75 mg PO DAILY [facility] Last Admin: 08/15/18 07:54 Dose: 75 mg Cyanocobalamin (Vitamin B12) 1,000 mcg PO DAILY@0800 [facility] Last Admin: 08/15/18 07:54 Dose: 1,000 mcg Enoxaparin Sodium (Lovenox) 40 mg SC DAILY@0600 [facility] Last Admin: 08/15/18 06:55 Dose: 40 mg Ergocalciferol (Vitamin D) 50,000 unit PO QWEEK [facility] Last Admin: 08/13/18 09:36 Dose: 50,000 unit Lidocaine (Lidoderm Patch) 1 patch TOPICAL DAILY [facility] PRN Reason: Protocol Last Admin: 08/15/18 07:55 Dose: 1 patch Magnesium Hydroxide (Milk Of Magnesia) 30 ml PO .PRN X 1 PRN PRN Reason: Constipation Nutritional Formula (Lactose Free) (Ensure Enlive) 120 ml PO 4X/DAY [facility] Last Admin: 08/14/18 20:33 Dose: 120 ml Senna/Docusate Sodium (Senokot-S, Roma-Colace) 2 tablet PO BID [facility] Last Admin: 08/15/18 07:59 Dose: Not Given Medical Necessity - Tobacco Use Smoking Status: Former smoker Assessment/Plan All Active Problems (Last Updated 08/11/18 @ 10:41 by Peg Rollins NP-C) CVA (cerebral vascular accident) (Acute) Bladder cancer (Acute) Depression (Acute) This is an 83 y/o female admitted for acute left infarct. Complicated by right sided weakness, right facial droop, and dysarthria. Goal of rehab is voodoo of functional independence. Plan - Physical therapy for gait and balance - Occupational Therapy for ADLs - Speech therapy for dysarthria - As needed analgesics - Bowel protocol - Stroke prevention ASA, Plavix 75 mg PO once daily, dual AP for 3 weeks, then switch to single AP, Lipitor 80mg - DVT prophylaxis: SCDs, ASA, Lovenox - TTE-EF 75%, normal LA size, no PFO - MRI of the brain showed acute nonhemorrhagic infarct associated with the posterior limb of internal capsule on the left. Underlying moderate small vessel disease. - MRA Head and neck => normal - [id number]-5.1%, LDL-140 goal of HbA1C < 5, LDL < 70 - Permissive HTN for 24 hrs, then maintain BP < 130/80 - Recommend 30 day event recorder - Fall precautions - Hx of Hypertension: Continue home dose of amlodipine 5 mg, BP stable at 139/75. - Hx of bladder cancer s/p tumor resection with recurrence-continue outpatient follow-up with urology. Follows with Dr. Bunn. - Hx of Depression: continue home citalopram regimen. - Right rib pain 2/2 fall => Lidocaine patch to area and K Pad for comfort
[2018-08-15] MEDS: Acetaminophen 325 MG Tablet 650 MG PO ×2 (14:16→20:37)
[2018-08-15 14:53] VITALS: BMI 23.0
[2018-08-15 19:09] VITALS: BP 122/77; PULSE 75; RESP 16; TEMP 36.6; O2SAT 92
[2018-08-15 22:30] VITALS: BMI 23.0
--- NOTE | 2018-08-16 01:41 | NURSING ---
Reviewed and agree with [employer] documentation and [facility]IM[facility] charting.
[2018-08-16] MEDS: Enoxaparin 40 MG/0.4 ML Syringe SC (06:21)
[2018-08-16 07:27] VITALS: BP 112/73; PULSE 75; RESP 16; TEMP 36.4; O2SAT 93
[2018-08-16] MEDS: Clopidogrel Bisulfate 75 MG Tablet PO (08:03)
[2018-08-16] MEDS: Citalopram 20 MG Tablet PO (08:03)
[2018-08-16] MEDS: Aspirin E.C. 81 MG Tablet PO (08:03)
[2018-08-16] MEDS: amLODIPine 10 MG Tablet PO (08:03)
[2018-08-16] MEDS: Cyanocobalamin 500 MCG Tablet 1000 MCG PO (08:03)
[2018-08-16] MEDS: Acetaminophen 325 MG Tablet 650 MG PO (08:05)
[2018-08-16] MEDS: Lidocaine 5% Patch 1 PATCH TOPICAL (10:04)
--- NOTE | 2018-08-16 10:19 | PCM.PN.NEU ---
Subjective: Patient seen and examined. Continues to have a lot of right rib pain, lidocaine patch is in place along with a heating pad for comfort. Will add Onesimo Alvarez at night and schedule extra strength Tylenol Q8hrs. Continues to tolerate therapy. No issues with GI/. - Physical Exam General: Alert, Oriented x3, Cooperative HEENT: Atraumatic, PERRLA, EOMI, Normocephalic Neck: Supple, No JVD, Negative Carotid Bruits Lungs: Clear to auscultation, Normal air movement Cardiovascular: Regular rate, No murmurs Abdomen: Bowel Sounds Present, Soft, Non Tender Extremities: No edema, Capillary Refill Less than 3 Seconds Skin: No rashes, No breakdown Musculoskeletal: No Tenderness to Palpation of Joints or Extremities Neurological: Cranial nerves II-XII grossly intact Psych/Mental Status: Normal Affect, Appropriate, Alert and oriented to time, place, person, mood and affect Vital Signs Temp Pulse Resp BP Pulse Ox 97.6 F L 75 16 112/73 93 08/16/18 07:27 08/16/18 07:27 08/16/18 07:27 08/16/18 07:27 08/16/18 07:27 Oxygen Flow Rate (L/min) 3 Oxygen Delivery Method Room Air Weight: 64.6 kg Body Mass Index (BMI) 23.0 Finger Stick Blood Glucose 89 Intake and Output for Last 24 Hours 08/14/18 08/15/18 08/16/18 23:59 23:59 23:59 Intake Total 360 / 360 240 / 240 220 / 220 Balance 360 / 360 240 / 240 220 / 220 Laboratory Tests Past 24 Hrs 08/14/18 05:00 Ionized Calcium 5.5 Active Medications Acetaminophen (Tylenol) 1,000 mg PO Q8 [facility] Amlodipine Besylate (Norvasc) 10 mg PO DAILY [facility] Last Admin: 08/16/18 08:03 Dose: 10 mg Aspirin (Ecotrin) 81 mg PO DAILY [facility] Last Admin: 08/16/18 08:03 Dose: 81 mg Atorvastatin Calcium (Lipitor) 40 mg PO QHS [facility] Bisacodyl (Dulcolax) 10 mg RECTAL .PRN X 1 PRN PRN Reason: Constipation Citalopram Hydrobromide (Celexa) 20 mg PO DAILY [facility] Last Admin: 08/16/18 08:03 Dose: 20 mg Clopidogrel Bisulfate (Plavix) 75 mg PO DAILY [facility] Last Admin: 08/16/18 08:03 Dose: 75 mg Cyanocobalamin (Vitamin B12) 1,000 mcg PO DAILY@0800 [facility] Last Admin: 08/16/18 08:03 Dose: 1,000 mcg Enoxaparin Sodium (Lovenox) 40 mg SC DAILY@0600 [facility] Last Admin: 08/16/18 06:21 Dose: 40 mg Ergocalciferol (Vitamin D) 50,000 unit PO QWEEK [facility] Last Admin: 08/13/18 09:36 Dose: 50,000 unit Lidocaine (Lidoderm Patch) 1 patch TOPICAL DAILY [facility] PRN Reason: Protocol Last Admin: 08/16/18 10:04 Dose: 1 patch Magnesium Hydroxide (Milk Of Magnesia) 30 ml PO .PRN X 1 PRN PRN Reason: Constipation Menthol (Bengay Vanishing Scent) 1 applic TOPICAL 4X/DAY PRN PRN PRN Reason: PAIN Nutritional Formula (Lactose Free) (Ensure Enlive) 120 ml PO 4X/DAY [facility] Last Admin: 08/16/18 10:04 Dose: 120 ml Senna/Docusate Sodium (Senokot-S, Roma-Colace) 2 tablet PO BID [facility] Last Admin: 08/16/18 10:06 Dose: Not Given Medical Necessity - Tobacco Use Smoking Status: Former smoker Assessment/Plan All Active Problems (Last Updated 08/11/18 @ 10:41 by Peg Rollins NP-C) CVA (cerebral vascular accident) (Acute) Bladder cancer (Acute) Depression (Acute) This is an 83 y/o female admitted for acute left infarct. Complicated by right sided weakness, right facial droop, and dysarthria. Goal of rehab is religious of functional independence. Plan - Physical therapy for gait and balance - Occupational Therapy for ADLs - Speech therapy for dysarthria - As needed analgesics - Bowel protocol - Stroke prevention ASA, Plavix 75 mg PO once daily, dual AP for 3 weeks, then switch to single AP, Lipitor 80mg - DVT prophylaxis: SCDs, ASA, Lovenox - TTE-EF 75%, normal LA size, no PFO - MRI of the brain showed acute nonhemorrhagic infarct associated with the posterior limb of internal capsule on the left. Underlying moderate small vessel disease. - MRA Head and neck => normal - Ury5e-5.1%, LDL-140 goal of HbA1C < 5, LDL < 70 - Permissive HTN for 24 hrs, then maintain BP < 130/80 - Recommend 30 day event recorder - Fall precautions - Hx of Hypertension: Continue home dose of amlodipine 5 mg, BP stable at 139/75. - Hx of bladder cancer s/p tumor resection with recurrence-continue outpatient follow-up with urology. Follows with Dr. Bunn. - Hx of Depression: continue home citalopram regimen. - Right rib pain 2/2 fall => Lidocaine patch to area and K Pad for comfort => pain still uncontrolled, add extra strength Tylenol 1,000mg Q8hrs
--- NOTE | 2018-08-16 10:23 | PN.NEURO_ITS ---
Subjective: Patient seen and examined. Continues to have a lot of right rib pain, lidocaine patch is in place along with a heating pad for comfort. Will add Onesimo Alvarez at night and schedule extra strength Tylenol Q8hrs. Continues to tolerate therapy. No issues with GI/. - Physical Exam General: Alert, Oriented x3, Cooperative HEENT: Atraumatic, PERRLA, EOMI, Normocephalic Neck: Supple, No JVD, Negative Carotid Bruits Lungs: Clear to auscultation, Normal air movement Cardiovascular: Regular rate, No murmurs Abdomen: Bowel Sounds Present, Soft, Non Tender Extremities: No edema, Capillary Refill Less than 3 Seconds Skin: No rashes, No breakdown Musculoskeletal: No Tenderness to Palpation of Joints or Extremities Neurological: Cranial nerves II-XII grossly intact Psych/Mental Status: Normal Affect, Appropriate, Alert and oriented to time, place, person, mood and affect Vital Signs Temp Pulse Resp BP Pulse Ox 97.6 F L 75 16 112/73 93 08/16/18 07:27 08/16/18 07:27 08/16/18 07:27 08/16/18 07:27 08/16/18 07:27 Oxygen Flow Rate (L/min) 3 Oxygen Delivery Method Room Air Weight: 64.6 kg Body Mass Index (BMI) 23.0 Finger Stick Blood Glucose 89 Intake and Output for Last 24 Hours 08/14/18 08/15/18 08/16/18 23:59 23:59 23:59 Intake Total 360 / 360 240 / 240 220 / 220 Balance 360 / 360 240 / 240 220 / 220 Laboratory Tests Past 24 Hrs 08/14/18 05:00 Ionized Calcium 5.5 Active Medications Acetaminophen (Tylenol) 1,000 mg PO Q8 [facility] Amlodipine Besylate (Norvasc) 10 mg PO DAILY [facility] Last Admin: 08/16/18 08:03 Dose: 10 mg Aspirin (Ecotrin) 81 mg PO DAILY [facility] Last Admin: 08/16/18 08:03 Dose: 81 mg Atorvastatin Calcium (Lipitor) 40 mg PO QHS [facility] Bisacodyl (Dulcolax) 10 mg RECTAL .PRN X 1 PRN PRN Reason: Constipation Citalopram Hydrobromide (Celexa) 20 mg PO DAILY [facility] Last Admin: 08/16/18 08:03 Dose: 20 mg Clopidogrel Bisulfate (Plavix) 75 mg PO DAILY [facility] Last Admin: 08/16/18 08:03 Dose: 75 mg Cyanocobalamin (Vitamin B12) 1,000 mcg PO DAILY@0800 [facility] Last Admin: 08/16/18 08:03 Dose: 1,000 mcg Enoxaparin Sodium (Lovenox) 40 mg SC DAILY@0600 [facility] Last Admin: 08/16/18 06:21 Dose: 40 mg Ergocalciferol (Vitamin D) 50,000 unit PO QWEEK [facility] Last Admin: 08/13/18 09:36 Dose: 50,000 unit Lidocaine (Lidoderm Patch) 1 patch TOPICAL DAILY [facility] PRN Reason: Protocol Last Admin: 08/16/18 10:04 Dose: 1 patch Magnesium Hydroxide (Milk Of Magnesia) 30 ml PO .PRN X 1 PRN PRN Reason: Constipation Menthol (Bengay Vanishing Scent) 1 applic TOPICAL 4X/DAY PRN PRN PRN Reason: PAIN Nutritional Formula (Lactose Free) (Ensure Enlive) 120 ml PO 4X/DAY [facility] Last Admin: 08/16/18 10:04 Dose: 120 ml Senna/Docusate Sodium (Senokot-S, Roma-Colace) 2 tablet PO BID [facility] Last Admin: 08/16/18 10:06 Dose: Not Given Medical Necessity - Tobacco Use Smoking Status: Former smoker Assessment/Plan All Active Problems (Last Updated 08/11/18 @ 10:41 by Peg Rollins NP-C) CVA (cerebral vascular accident) (Acute) Bladder cancer (Acute) Depression (Acute) This is an 83 y/o female admitted for acute left infarct. Complicated by right sided weakness, right facial droop, and dysarthria. Goal of rehab is restorationist of functional independence. Plan - Physical therapy for gait and balance - Occupational Therapy for ADLs - Speech therapy for dysarthria - As needed analgesics - Bowel protocol - Stroke prevention ASA, Plavix 75 mg PO once daily, dual AP for 3 weeks, then switch to single AP, Lipitor 80mg - DVT prophylaxis: SCDs, ASA, Lovenox - TTE-EF 75%, normal LA size, no PFO - MRI of the brain showed acute nonhemorrhagic infarct associated with the posterior limb of internal capsule on the left. Underlying moderate small vessel disease. - MRA Head and neck => normal - Ulm9k-1.1%, LDL-140 goal of HbA1C < 5, LDL < 70 - Permissive HTN for 24 hrs, then maintain BP < 130/80 - Recommend 30 day event recorder - Fall precautions - Hx of Hypertension: Continue home dose of amlodipine 5 mg, BP stable at 139/ 75. - Hx of bladder cancer s/p tumor resection with recurrence-continue outpatient follow-up with urology. Follows with Dr. Bunn. - Hx of Depression: continue home citalopram regimen. - Right rib pain 2/2 fall => Lidocaine patch to area and K Pad for comfort => pain still uncontrolled, add extra strength Tylenol 1,000mg Q8hrs
[2018-08-16 13:57] VITALS: O2SAT 92
[2018-08-16] MEDS: Acetaminophen 500 MG Tablet 1000 MG PO ×2 (14:28→20:51)
[2018-08-16 14:58] VITALS: BMI 23.0
[2018-08-16 22:00] VITALS: BP 148/79; PULSE 74; PULSE 78; RESP 16; TEMP 36.9; O2SAT 93
[2018-08-17] MEDS: Enoxaparin 40 MG/0.4 ML Syringe SC (06:25)
[2018-08-17] MEDS: Acetaminophen 500 MG Tablet 1000 MG PO ×3 (06:28→20:14)
[2018-08-17 06:51] VITALS: O2SAT 95
[2018-08-17] MEDS: Citalopram 20 MG Tablet PO (08:06)
[2018-08-17] MEDS: Clopidogrel Bisulfate 75 MG Tablet PO (08:06)
[2018-08-17] MEDS: Cyanocobalamin 500 MCG Tablet 1000 MCG PO (08:06)
[2018-08-17] MEDS: amLODIPine 10 MG Tablet PO (08:07)
[2018-08-17] MEDS: Aspirin E.C. 81 MG Tablet PO (08:07)
[2018-08-17 08:36] VITALS: BP 112/65; PULSE 75; RESP 16; TEMP 36.8; O2SAT 97
--- NOTE | 2018-08-17 10:22 | PN.NEURO_ITS ---
Subjective: Staffed in team meeting. Family at bedside, questions answered. With Physical therapy, she requires a light hand to get in and out of the bed, and going from a sitting to a standing position. She is able to walk 170 feet with a wheel walker at stand by assist. She is able to for up 10 steps at minimal assist. With Occupational therapy, she is able to do her own grooming, and bathing of her upper body at standby assist. Lower body bathing, dressing and toileting is at contact guard. With Speech therapy, she is on a mechanical soft with nectar thicken liquids diet, with intermitted trials of thin liquids. Her speech intelligibility has improved slightly, they will continue to work on her breathing control and slowing down her rate of speech. With nursing blood pressure is well controlled. The pain from her right chest contusion has improved with adjustment her her medication. Will re-team her again next . - Physical Exam General: Alert, Oriented x3, Cooperative HEENT: Atraumatic, PERRLA, EOMI, Normocephalic Neck: Supple, No JVD, Negative Carotid Bruits Lungs: Clear to auscultation, Normal air movement Cardiovascular: Regular rate, No murmurs Abdomen: Bowel Sounds Present, Soft, Non Tender Extremities: No edema, Capillary Refill Less than 3 Seconds Skin: No rashes, No breakdown Musculoskeletal: No Tenderness to Palpation of Joints or Extremities Neurological: Cranial nerves II-XII grossly intact Psych/Mental Status: Normal Affect, Appropriate, Alert and oriented to time, place, person, mood and affect Vital Signs Temp Pulse Resp BP Pulse Ox 98.2 F 75 16 112/65 97 08/17/18 08:36 08/17/18 08:36 08/17/18 08:36 08/17/18 08:36 08/17/18 08:36 Oxygen Flow Rate (L/min) 3 Oxygen Delivery Method Room Air Weight: 64.6 kg Body Mass Index (BMI) 23.0 Finger Stick Blood Glucose 89 Intake and Output for Last 24 Hours 08/15/18 08/16/18 08/17/18 23:59 23:59 23:59 Intake Total 240 / 240 660 / 660 240 / 240 Balance 240 / 240 660 / 660 240 / 240 Active Medications Acetaminophen (Tylenol) 1,000 mg PO Q8 [facility] Last Admin: 08/17/18 06:28 Dose: 1,000 mg Amlodipine Besylate (Norvasc) 10 mg PO DAILY [facility] Last Admin: 08/17/18 08:07 Dose: 10 mg Aspirin (Ecotrin) 81 mg PO DAILY [facility] Last Admin: 08/17/18 08:07 Dose: 81 mg Atorvastatin Calcium (Lipitor) 40 mg PO QHS [facility] Bisacodyl (Dulcolax) 10 mg RECTAL .PRN X 1 PRN PRN Reason: Constipation Citalopram Hydrobromide (Celexa) 20 mg PO DAILY [facility] Last Admin: 08/17/18 08:06 Dose: 20 mg Clopidogrel Bisulfate (Plavix) 75 mg PO DAILY [facility] Last Admin: 08/17/18 08:06 Dose: 75 mg Cyanocobalamin (Vitamin B12) 1,000 mcg PO DAILY@0800 [facility] Last Admin: 08/17/18 08:06 Dose: 1,000 mcg Enoxaparin Sodium (Lovenox) 40 mg SC DAILY@0600 [facility] Last Admin: 08/17/18 06:25 Dose: 40 mg Ergocalciferol (Vitamin D) 50,000 unit PO QWEEK [facility] Last Admin: 08/13/18 09:36 Dose: 50,000 unit Lidocaine (Lidoderm Patch) 1 patch TOPICAL DAILY [facility] PRN Reason: Protocol Last Admin: 08/16/18 10:04 Dose: 1 patch Magnesium Hydroxide (Milk Of Magnesia) 30 ml PO .PRN X 1 PRN PRN Reason: Constipation Menthol (Bengay Vanishing Scent) 1 applic TOPICAL 4X/DAY PRN PRN PRN Reason: PAIN Last Admin: 08/16/18 20:55 Dose: 1 applic Nutritional Formula (Lactose Free) (Ensure Enlive) 120 ml PO 4X/DAY [facility] Last Admin: 08/17/18 08:06 Dose: 120 ml Senna/Docusate Sodium (Senokot-S, Roma-Colace) 2 tablet PO BID [facility] Last Admin: 08/17/18 08:10 Dose: Not Given Medical Necessity - Tobacco Use Smoking Status: Former smoker Assessment/Plan All Active Problems (Last Updated 08/11/18 @ 10:41 by Peg Rollins NP-C) CVA (cerebral vascular accident) (Acute) Bladder cancer (Acute) Depression (Acute) This is an 83 y/o female admitted for acute left infarct. Complicated by right sided weakness, right facial droop, and dysarthria. Goal of rehab is synagogue of functional independence. Plan - Physical therapy for gait and balance - Occupational Therapy for ADLs - Speech therapy for dysarthria - As needed analgesics - Bowel protocol - Stroke prevention ASA, Plavix 75 mg PO once daily, dual AP for 3 weeks, then switch to single AP, Lipitor 80mg - DVT prophylaxis: SCDs, ASA, Lovenox - TTE-EF 75%, normal LA size, no PFO - MRI of the brain showed acute nonhemorrhagic infarct associated with the posterior limb of internal capsule on the left. Underlying moderate small vessel disease. - MRA Head and neck => normal - Chc7f-1.1%, LDL-140 goal of HbA1C < 5, LDL < 70 - Permissive HTN for 24 hrs, then maintain BP < 130/80 - Recommend 30 day event recorder - Fall precautions - Hx of Hypertension: Continue home dose of amlodipine 5 mg, BP stable at 139/ 75. - Hx of bladder cancer s/p tumor resection with recurrence-continue outpatient follow-up with urology. Follows with Dr. Bunn. - Hx of Depression: continue home citalopram regimen. - Right rib pain 2/2 fall => Lidocaine patch to area and K Pad for comfort => pain still uncontrolled, add extra strength Tylenol 1,000mg Q8hrs
[2018-08-17] MEDS: Lidocaine 5% Patch 1 PATCH TOPICAL (11:08)
[2018-08-17 14:03] VITALS: BMI 23.0
--- NOTE | 2018-08-17 14:40 | CASEMGMT ---
Social Work Team meeting held today with pt and two nephews present. Pt is progressing in therapy. No d/c date set at this time. Pt planning to return home where she lives alone. Family inquiring about next step if pt is unable to return home at time of d/c. SW explained that SNF would be an option but at this time pt is progressing in a manner that she can return home. Family states if pt needs a SN[facility] Pt will continue with treatment plan at this time and reteam next week. NORA Weaver
[2018-08-17 20:09] VITALS: BP 135/71; PULSE 72; RESP 14; TEMP 36.5; O2SAT 93
--- NOTE | 2018-08-17 20:35 | NURSING ---
Refusing kpad this hs. States it doesn't help
[2018-08-18] MEDS: Acetaminophen 500 MG Tablet 1000 MG PO ×3 (05:20→20:29)
[2018-08-18] MEDS: Enoxaparin 40 MG/0.4 ML Syringe SC (05:21)
[2018-08-18 05:32] LABS: AST(SGOT) 36 U/L (15-37); Alanine Aminotransfer ALT/SGPT 58 U/L (13-56); Albumin, Serum 3.5 g/dL (3.2-5.0); Alkaline Phosphatase 170 U/L (45-117); Anion Gap 10 (5-15); BUN 23 mg/dL (7-18); BUN/Creat Ratio 27.7 RATIO (10-20); Chloride 106 mmol/L (98-107); Creatinine, Serum 0.83 mg/dL (0.55-1.02); EST Glomerular Filtration Rate 70 mL/min (>60); Est Glom Filt Rate - Afr Amer 85 mL/min (>60); Estimated Creatinine Clearance 49.76 ml/min; Globulin 3.4 g/dL (2.2-4.2); Glucose 101 mg/dL (74-106); Potassium 3.9 mmol/L (3.5-5.1); Protein, Total 6.9 g/dL (6.4-8.2); Sodium Level 143 mmol/L (136-145)
[2018-08-18 07:16] VITALS: BP 128/70; PULSE 57; RESP 16; TEMP 36.4; O2SAT 95
[2018-08-18] MEDS: Clopidogrel Bisulfate 75 MG Tablet PO (07:53)
[2018-08-18] MEDS: Aspirin E.C. 81 MG Tablet PO (07:53)
[2018-08-18] MEDS: Citalopram 20 MG Tablet PO (07:53)
[2018-08-18] MEDS: Cyanocobalamin 500 MCG Tablet 1000 MCG PO (07:53)
[2018-08-18] MEDS: amLODIPine 10 MG Tablet PO (07:53)
[2018-08-18] MEDS: Lidocaine 5% Patch 1 PATCH TOPICAL (07:55)
--- NOTE | 2018-08-18 09:52 | PCM.PN.NEU ---
Subjective: Patient sitting in dining room have breakfast. No acute issues over night. Tolerating therapy. Denies any new focal deficits, headaches or blurry vision. No issues with GI/. - Physical Exam General: Alert, Oriented x3, Cooperative HEENT: Atraumatic, PERRLA, EOMI, Normocephalic Neck: Supple, No JVD, Negative Carotid Bruits Lungs: Clear to auscultation, Normal air movement Cardiovascular: Regular rate, No murmurs Abdomen: Bowel Sounds Present, Soft, Non Tender Extremities: No edema, Capillary Refill Less than 3 Seconds Skin: No rashes, No breakdown Musculoskeletal: No Tenderness to Palpation of Joints or Extremities Neurological: Cranial nerves II-XII grossly intact Psych/Mental Status: Normal Affect, Appropriate, Alert and oriented to time, place, person, mood and affect Vital Signs Temp Pulse Resp BP Pulse Ox 97.6 F L 57 L 16 128/70 H 95 08/18/18 07:16 08/18/18 07:16 08/18/18 07:16 08/18/18 07:16 08/18/18 07:16 Oxygen Flow Rate (L/min) 3 Oxygen Delivery Method Room Air Weight: 64.6 kg Body Mass Index (BMI) 23.0 Finger Stick Blood Glucose 89 Intake and Output for Last 24 Hours 08/16/18 08/17/18 08/18/18 23:59 23:59 23:59 Intake Total 660 / 660 240 / 240 Balance 660 / 660 240 / 240 Laboratory Tests Past 24 Hrs 08/18/18 05:00 Sodium 143 Potassium 3.9 Chloride 106 Carbon Dioxide 27.0 Anion Gap 10 BUN 23 H Creatinine 0.83 Estim Creat Clear Calc 49.76 Est GFR (MDRD) Af Amer 85 Est GFR (MDRD) Non-Af 70 BUN/Creatinine Ratio 27.7 H Glucose 101 Calcium 9.0 Total Bilirubin 0.60 AST 36 ALT 58 H Alkaline Phosphatase 170 H Total Protein 6.9 Albumin 3.5 Globulin 3.4 Albumin/Globulin Ratio 1.0 Active Medications Acetaminophen (Tylenol) 1,000 mg PO Q8 COUNTS [facility]CLUDE 234 BEDS AT [facility] Last Admin: 08/18/18 05:20 Dose: 1,000 mg Amlodipine Besylate (Norvasc) 10 mg PO DAILY COUNTS [facility]CLUDE 234 BEDS AT [facility] Last Admin: 08/18/18 07:53 Dose: 10 mg Aspirin (Ecotrin) 81 mg PO DAILY COUNTS INCLUDE 234 BEDS AT [facility] Last Admin: 08/18/18 07:53 Dose: 81 mg Atorvastatin Calcium (Lipitor) 40 mg PO QHS COUNTS INCLUDE 234 BEDS AT [facility] Bisacodyl (Dulcolax) 10 mg RECTAL .PRN X 1 PRN PRN Reason: Constipation Citalopram Hydrobromide (Celexa) 20 mg PO DAILY COUNTS INCLUDE 234 BEDS AT [facility] Last Admin: 08/18/18 07:53 Dose: 20 mg Clopidogrel Bisulfate (Plavix) 75 mg PO DAILY COUNTS INCLUDE 234 BEDS AT [facility] Last Admin: 08/18/18 07:53 Dose: 75 mg Cyanocobalamin (Vitamin B12) 1,000 mcg PO DAILY@0800 COUNTS INCLUDE 234 BEDS AT [facility] Last Admin: 08/18/18 07:53 Dose: 1,000 mcg Enoxaparin Sodium (Lovenox) 40 mg SC DAILY@0600 COUNTS [facility]CLUDE 234 BEDS AT [facility] Last Admin: 08/18/18 05:21 Dose: 40 mg Ergocalciferol (Vitamin D) 50,000 unit PO QWEEK COUNTS INCLUDE 234 BEDS AT [facility] Last Admin: 08/13/18 09:36 Dose: 50,000 unit Influenza Virus Vaccine Quadrival (Fluarix/Fluzone) 0.5 ml IM .ONCE ONE Stop: 08/18/18 10:01 Last Admin: 08/18/18 07:54 Dose: 0.5 ml Lidocaine (Lidoderm Patch) 1 patch TOPICAL DAILY COUNTS INCLUDE 234 BEDS AT [facility] PRN Reason: Protocol Last Admin: 08/18/18 07:55 Dose: 1 patch Magnesium Hydroxide (Milk Of Magnesia) 30 ml PO .PRN X 1 PRN PRN Reason: Constipation Menthol (Bengay Vanishing Scent) 1 applic TOPICAL 4X/DAY PRN PRN PRN Reason: PAIN Last Admin: 08/16/18 20:55 Dose: 1 applic Nutritional Formula (Lactose Free) (Ensure Enlive) 120 ml PO 4X/DAY COUNTS INCLUDE 234 BEDS AT [facility] Last Admin: 08/18/18 07:54 Dose: 120 ml Senna/Docusate Sodium (Senokot-S, Roma-Colace) 2 tablet PO BID COUNTS INCLUDE 234 BEDS AT [facility] Last Admin: 08/18/18 07:51 Dose: Not Given Medical Necessity - Tobacco Use Smoking Status: Former smoker Assessment/Plan All Active Problems (Last Updated 08/11/18 @ 10:41 by Peg Rollins NP-C) CVA (cerebral vascular accident) (Acute) Bladder cancer (Acute) Depression (Acute) This is an 83 y/o female admitted for acute left infarct. Complicated by right sided weakness, right facial droop, and dysarthria. Goal of rehab is jew of functional independence. Plan - Physical therapy for gait and balance - Occupational Therapy for ADLs - Speech therapy for dysarthria - As needed analgesics - Bowel protocol - Stroke prevention ASA, Plavix 75 mg PO once daily, dual AP for 3 weeks, then switch to single AP, Lipitor 80mg - DVT prophylaxis: SCDs, ASA, Lovenox - TTE-EF 75%, normal LA size, no PFO - MRI of the brain showed acute nonhemorrhagic infarct associated with the posterior limb of internal capsule on the left. Underlying moderate small vessel disease. - MRA Head and neck => normal - Hyy2s-6.1%, LDL-140 goal of HbA1C < 5, LDL < 70 - Permissive HTN for 24 hrs, then maintain BP < 130/80 - Recommend 30 day event recorder - Fall precautions - Hx of Hypertension: Continue home dose of amlodipine 5 mg, BP stable at 139/75. - Hx of bladder cancer s/p tumor resection with recurrence-continue outpatient follow-up with urology. Follows with Dr. Bunn. - Hx of Depression: continue home citalopram regimen. - Right rib pain 2/2 fall => Lidocaine patch to area and K Pad for comfort => pain still uncontrolled, add extra strength Tylenol 1,000mg Q8hrs
[2018-08-18 12:20] VITALS: BMI 23.0
[2018-08-18] MEDS: Glycerin/Hypromellose/PEG400 15 ml Bottle 1 DRP EACH EYE (19:08)
[2018-08-18 20:14] VITALS: BP 122/77; PULSE 67; RESP 16; TEMP 36.4; O2SAT 93
[2018-08-18] MEDS: Senna/Docusate Sodium 1 Tablet 2 TABLET PO (20:28)
[2018-08-18] MEDS: Atorvastatin Calcium 40 MG Tablet PO (20:29)
[2018-08-19] MEDS: Enoxaparin 40 MG/0.4 ML Syringe SC (06:17)
[2018-08-19] MEDS: Acetaminophen 500 MG Tablet 1000 MG PO ×3 (06:17→21:16)
--- NOTE | 2018-08-19 08:00 | NURSING ---
Pt walked with walker 3 laps in hallway.
[2018-08-19 08:34] VITALS: BP 142/70; PULSE 63; RESP 16; TEMP 36.6; O2SAT 95
[2018-08-19] MEDS: Citalopram 20 MG Tablet PO (11:20)
[2018-08-19] MEDS: Aspirin E.C. 81 MG Tablet PO (11:20)
[2018-08-19] MEDS: Senna/Docusate Sodium 1 Tablet 2 TABLET PO ×2 (11:20→21:15)
[2018-08-19] MEDS: Lidocaine 5% Patch 1 PATCH TOPICAL (11:20)
[2018-08-19] MEDS: Clopidogrel Bisulfate 75 MG Tablet PO (11:20)
[2018-08-19] MEDS: Cyanocobalamin 500 MCG Tablet 1000 MCG PO (11:20)
[2018-08-19] MEDS: amLODIPine 10 MG Tablet PO (11:20)
[2018-08-19 12:46] VITALS: BMI 23.0
[2018-08-19 18:07] VITALS: BP 124/69; PULSE 74; RESP 16; TEMP 36.4; O2SAT 91
[2018-08-19 19:43] VITALS: BMI 23.0
[2018-08-19] MEDS: Glycerin/Hypromellose/PEG400 15 ml Bottle 1 DRP EACH EYE (19:59)
[2018-08-19] MEDS: Atorvastatin Calcium 40 MG Tablet PO (21:15)
[2018-08-20] MEDS: Enoxaparin 40 MG/0.4 ML Syringe SC (06:21)
[2018-08-20] MEDS: Glycerin/Hypromellose/PEG400 15 ml Bottle 1 DRP EACH EYE ×2 (06:21→21:11)
[2018-08-20] MEDS: Acetaminophen 500 MG Tablet 1000 MG PO ×3 (06:22→21:11)
--- NOTE | 2018-08-20 06:35 | NURSING ---
FWP performed with staff assistance.
[2018-08-20 09:02] VITALS: BP 158/94; PULSE 59; RESP 18; TEMP 36.6; O2SAT 94
[2018-08-20] MEDS: amLODIPine 10 MG Tablet PO (09:23)
[2018-08-20] MEDS: Aspirin E.C. 81 MG Tablet PO (09:23)
[2018-08-20] MEDS: Clopidogrel Bisulfate 75 MG Tablet PO (09:23)
[2018-08-20] MEDS: Cyanocobalamin 500 MCG Tablet 1000 MCG PO (09:24)
[2018-08-20] MEDS: Lidocaine 5% Patch 1 PATCH TOPICAL (09:24)
[2018-08-20] MEDS: Citalopram 20 MG Tablet PO (09:24)
[2018-08-20 09:32] VITALS: BMI 23.0
--- NOTE | 2018-08-20 14:04 | NURSING ---
Pt. did 3 laps in hallway and 13 minutes on nustep.
--- NOTE | 2018-08-20 14:53 | PCM.PN.NEU ---
Subjective: No new complaints. Tolerating therapies. No GI or complaints. She continues to experience ongoing rib pain with deep inspiration and with movement. Would like something else for pain. She says her pain is not getting worse. - Physical Exam General: Alert, Oriented x3, Cooperative, No apparent distress Abdomen: - - Mild pain on palpation over her right lower rib cage Neurological: - - Right facial droop, mild dysarthria and mild right upper extremity weakness Vital Signs Temp Pulse Resp BP Pulse Ox 36.6 C 59 L 18 158/94 H 94 08/20/18 09:02 08/20/18 09:02 08/20/18 09:02 08/20/18 09:02 08/20/18 09:02 Oxygen Flow Rate (L/min) 3 Oxygen Delivery Method Room Air Weight: 64.6 kg Body Mass Index (BMI) 23.0 Finger Stick Blood Glucose 89 Intake and Output for Last 24 Hours 08/18/18 08/19/18 08/20/18 23:59 23:59 23:59 Intake Total 600 / 600 360 / 360 220 / 220 Balance 600 / 600 360 / 360 220 / 220 Medical Necessity - Tobacco Use Smoking Status: Former smoker Assessment/Plan All Active Problems (Last Updated 08/11/18 @ 10:41 by Peg Rollins NP-C) CVA (cerebral vascular accident) (Acute) Bladder cancer (Acute) Depression (Acute) This is an 83 y/o female admitted for acute left infarct. Complicated by right sided weakness, right facial droop, and dysarthria. Goal of rehab is anabaptist of functional independence. Plan - Physical therapy for gait and balance - Occupational Therapy for ADLs - Speech therapy for dysarthria - As needed analgesics - Bowel protocol - Stroke prevention ASA, Plavix 75 mg PO once daily, dual AP for 3 weeks, then switch to single AP, Lipitor 80mg - DVT prophylaxis: SCDs, ASA, Lovenox - TTE-EF 75%, normal LA size, no PFO - MRI of the brain showed acute nonhemorrhagic infarct associated with the posterior limb of internal capsule on the left. Underlying moderate small vessel disease. - MRA Head and neck => normal - Hmk7z-4.1%, LDL-140 goal of HbA1C < 5, LDL < 70 - Permissive HTN for 24 hrs, then maintain BP < 130/80 - Recommend 30 day event recorder - Fall precautions - Hx of Hypertension: Continue home dose of amlodipine 5 mg, BP stable at 139/75. - Hx of bladder cancer s/p tumor resection with recurrence-continue outpatient follow-up with urology. Follows with Dr. Bunn. - Hx of Depression: continue home citalopram regimen. - Right rib pain 2/2 fall => Lidocaine patch to area and K Pad for comfort => pain still uncontrolled, add extra strength Tylenol 1,000mg Q8hrs. 08/21: Add Duragesic patch 25 mcg.
[2018-08-20] MEDS: fentaNYL 25 MCG Patch TRANSDERM. (15:39)
[2018-08-20 17:41] VITALS: BP 121/73; PULSE 73; RESP 16; TEMP 36.4; O2SAT 92
[2018-08-20 20:11] VITALS: BMI 23.0
[2018-08-20 20:21] VITALS: PULSE 73; RESP 16; O2SAT 92
[2018-08-20] MEDS: Atorvastatin Calcium 40 MG Tablet PO (21:11)
[2018-08-20] MEDS: Senna/Docusate Sodium 1 Tablet 2 TABLET PO (21:11)
--- NOTE | 2018-08-21 02:08 | NURSING ---
Reviewed and agree with LEGAL SUPPORT SPECIALIST documentation and fims charting.
[2018-08-21] MEDS: Acetaminophen 500 MG Tablet 1000 MG PO ×3 (05:33→21:17)
[2018-08-21] MEDS: Enoxaparin 40 MG/0.4 ML Syringe SC (05:33)
[2018-08-21] MEDS: Glycerin/Hypromellose/PEG400 15 ml Bottle 1 DRP EACH EYE ×2 (05:34→21:18)
[2018-08-21 06:56] VITALS: BP 129/68; PULSE 60; RESP 18; TEMP 36.5; O2SAT 96
[2018-08-21] MEDS: Citalopram 20 MG Tablet PO (08:07)
[2018-08-21] MEDS: Aspirin E.C. 81 MG Tablet PO (08:07)
[2018-08-21] MEDS: Cyanocobalamin 500 MCG Tablet 1000 MCG PO (08:07)
[2018-08-21] MEDS: Clopidogrel Bisulfate 75 MG Tablet PO (08:07)
[2018-08-21] MEDS: amLODIPine 10 MG Tablet PO (08:07)
--- NOTE | 2018-08-21 09:46 | PCM.PN.NEU ---
Subjective: No new complaints. she is tolerating therapy without difficulty. Still experiencing some right rib pain with inspiration, pain has improved with the addition of the Duragesic patch. She is tolerating a Mechanical soft diet with [place] thicken liquids, and the [place] water protocol. No issues with GI/. - Physical Exam General: Alert, Oriented x3, Cooperative HEENT: Atraumatic, PERRLA, EOMI, Normocephalic Neck: Supple, No JVD, Negative Carotid Bruits Lungs: Clear to auscultation, Normal air movement Cardiovascular: Regular rate, No murmurs Abdomen: Bowel Sounds Present, Soft, Non Tender Extremities: No edema, Capillary Refill Less than 3 Seconds Skin: No rashes, No breakdown Musculoskeletal: No Tenderness to Palpation of Joints or Extremities Neurological: Cranial nerves II-XII grossly intact Psych/Mental Status: Normal Affect, Appropriate, Alert and oriented to time, place, person, mood and affect Vital Signs Temp Pulse Resp BP Pulse Ox 97.7 F L 60 18 129/68 H 96 08/21/18 06:56 08/21/18 06:56 08/21/18 06:56 08/21/18 06:56 08/21/18 06:56 Oxygen Flow Rate (L/min) 3 Oxygen Delivery Method Room Air Weight: 64.6 kg Body Mass Index (BMI) 23.0 Finger Stick Blood Glucose 89 Intake and Output for Last 24 Hours 08/19/18 08/20/18 08/21/18 23:59 23:59 23:59 Intake Total 360 / 360 220 / 220 360 / 360 Balance 360 / 360 220 / 220 360 / 360 Active Medications Acetaminophen (Tylenol) 1,000 mg PO Q8 [facility] Last Admin: 08/21/18 05:33 Dose: 1,000 mg Amlodipine Besylate (Norvasc) 10 mg PO DAILY [facility] Last Admin: 08/21/18 08:07 Dose: 10 mg Aspirin (Ecotrin) 81 mg PO DAILY [facility] Last Admin: 08/21/18 08:07 Dose: 81 mg Atorvastatin Calcium (Lipitor) 40 mg PO QHS [facility] Last Admin: 08/20/18 21:11 Dose: 40 mg Bisacodyl (Dulcolax) 10 mg RECTAL .PRN X 1 PRN PRN Reason: Constipation Citalopram Hydrobromide (Celexa) 20 mg PO DAILY [facility] Last Admin: 08/21/18 08:07 Dose: 20 mg Clopidogrel Bisulfate (Plavix) 75 mg PO DAILY [facility] Last Admin: 08/21/18 08:07 Dose: 75 mg Cyanocobalamin (Vitamin B12) 1,000 mcg PO DAILY@0800 [facility] Last Admin: 08/21/18 08:07 Dose: 1,000 mcg Enoxaparin Sodium (Lovenox) 40 mg SC DAILY@0600 [facility] Last Admin: 08/21/18 05:33 Dose: 40 mg Ergocalciferol (Vitamin D) 50,000 unit PO QWEEK [facility] Last Admin: 08/20/18 09:23 Dose: 50,000 unit Fentanyl (Duragesic Patch) 25 mcg TRANSDERM. Q3D [facility] Last Admin: 08/20/18 15:39 Dose: 25 mcg Lidocaine (Lidoderm Patch) 1 patch TOPICAL DAILY [facility] PRN Reason: Protocol Last Admin: 08/20/18 09:24 Dose: 1 patch Magnesium Hydroxide (Milk Of Magnesia) 30 ml PO .PRN X 1 PRN PRN Reason: Constipation Menthol (Bengay Vanishing Scent) 1 applic TOPICAL 4X/DAY PRN PRN PRN Reason: PAIN Last Admin: 08/21/18 05:33 Dose: 1 applic Nutritional Formula (Lactose Free) (Ensure Enlive) 120 ml PO 4X/DAY [facility] Last Admin: 08/21/18 08:08 Dose: 120 ml Senna/Docusate Sodium (Senokot-S, Roma-Colace) 2 tablet PO BID [facility] Last Admin: 08/21/18 08:10 Dose: Not Given Medical Necessity - Tobacco Use Smoking Status: Former smoker Assessment/Plan All Active Problems (Last Updated 08/11/18 @ 10:41 by Peg Rollins NP-Aftab) CVA (cerebral vascular accident) (Acute) Bladder cancer (Acute) Depression (Acute) This is an 83 y/o female admitted for acute left infarct. Complicated by right sided weakness, right facial droop, and dysarthria. Goal of rehab is advent of functional independence. Plan - Physical therapy for gait and balance - Occupational Therapy for ADLs - Speech therapy for dysarthria - As needed analgesics - Bowel protocol - Stroke prevention ASA, Plavix 75 mg PO once daily, dual AP for 3 weeks, then switch to single AP, Lipitor 80mg - DVT prophylaxis: SCDs, ASA, Lovenox - TTE-EF 75%, normal LA size, no PFO - MRI of the brain showed acute nonhemorrhagic infarct associated with the posterior limb of internal capsule on the left. Underlying moderate small vessel disease. - MRA Head and neck => normal - Bvq1l-7.1%, LDL-140 goal of HbA1C < 5, LDL < 70 - Permissive HTN for 24 hrs, then maintain BP < 130/80 - Recommend 30 day event recorder - Fall precautions - Hx of Hypertension: Continue home dose of amlodipine 5 mg, BP stable at 139/75. - Hx of bladder cancer s/p tumor resection with recurrence-continue outpatient follow-up with urology. Follows with Dr. Bunn. - Hx of Depression: continue home citalopram regimen. - Right rib pain 2/2 fall => Lidocaine patch to area and K Pad for comfort => pain still uncontrolled, add extra strength Tylenol 1,000mg Q8hrs. 08/21: Add Duragesic patch 25 mcg.
--- NOTE | 2018-08-21 09:50 | PN.NEURO_ITS ---
Subjective: No new complaints. she is tolerating therapy without difficulty. Still experiencing some right rib pain with inspiration, pain has improved with the addition of the Duragesic patch. She is tolerating a Mechanical soft diet with [place] thicken liquids, and the [place] water protocol. No issues with GI/. - Physical Exam General: Alert, Oriented x3, Cooperative HEENT: Atraumatic, PERRLA, EOMI, Normocephalic Neck: Supple, No JVD, Negative Carotid Bruits Lungs: Clear to auscultation, Normal air movement Cardiovascular: Regular rate, No murmurs Abdomen: Bowel Sounds Present, Soft, Non Tender Extremities: No edema, Capillary Refill Less than 3 Seconds Skin: No rashes, No breakdown Musculoskeletal: No Tenderness to Palpation of Joints or Extremities Neurological: Cranial nerves II-XII grossly intact Psych/Mental Status: Normal Affect, Appropriate, Alert and oriented to time, place, person, mood and affect Vital Signs Temp Pulse Resp BP Pulse Ox 97.7 F L 60 18 129/68 H 96 08/21/18 06:56 08/21/18 06:56 08/21/18 06:56 08/21/18 06:56 08/21/18 06:56 Oxygen Flow Rate (L/min) 3 Oxygen Delivery Method Room Air Weight: 64.6 kg Body Mass Index (BMI) 23.0 Finger Stick Blood Glucose 89 Intake and Output for Last 24 Hours 08/19/18 08/20/18 08/21/18 23:59 23:59 23:59 Intake Total 360 / 360 220 / 220 360 / 360 Balance 360 / 360 220 / 220 360 / 360 Active Medications Acetaminophen (Tylenol) 1,000 mg PO Q8 COUNTS INCLUDE 234 BEDS AT [facility] Last Admin: 08/21/18 05:33 Dose: 1,000 mg Amlodipine Besylate (Norvasc) 10 mg PO DAILY COUNTS INCLUDE 234 BEDS AT [facility] Last Admin: 08/21/18 08:07 Dose: 10 mg Aspirin (Ecotrin) 81 mg PO DAILY COUNTS INCLUDE 234 BEDS AT [facility] Last Admin: 08/21/18 08:07 Dose: 81 mg Atorvastatin Calcium (Lipitor) 40 mg PO QHS COUNTS INCLUDE 234 BEDS AT [facility] Last Admin: 08/20/18 21:11 Dose: 40 mg Bisacodyl (Dulcolax) 10 mg RECTAL .PRN X 1 PRN PRN Reason: Constipation Citalopram Hydrobromide (Celexa) 20 mg PO DAILY COUNTS INCLUDE 234 BEDS AT [facility] Last Admin: 08/21/18 08:07 Dose: 20 mg Clopidogrel Bisulfate (Plavix) 75 mg PO DAILY COUNTS INCLUDE 234 BEDS AT [facility] Last Admin: 08/21/18 08:07 Dose: 75 mg Cyanocobalamin (Vitamin B12) 1,000 mcg PO DAILY@0800 COUNTS INCLUDE 234 BEDS AT [facility] Last Admin: 08/21/18 08:07 Dose: 1,000 mcg Enoxaparin Sodium (Lovenox) 40 mg SC DAILY@0600 COUNTS INCLUDE 234 BEDS AT [facility] Last Admin: 08/21/18 05:33 Dose: 40 mg Ergocalciferol (Vitamin D) 50,000 unit PO QWEEK COUNTS INCLUDE 234 BEDS AT [facility] Last Admin: 08/20/18 09:23 Dose: 50,000 unit Fentanyl (Duragesic Patch) 25 mcg TRANSDERM. Q3D COUNTS INCLUDE 234 BEDS AT [facility] Last Admin: 08/20/18 15:39 Dose: 25 mcg Lidocaine (Lidoderm Patch) 1 patch TOPICAL DAILY COUNTS INCLUDE 234 BEDS AT [facility] PRN Reason: Protocol Last Admin: 08/20/18 09:24 Dose: 1 patch Magnesium Hydroxide (Milk Of Magnesia) 30 ml PO .PRN X 1 PRN PRN Reason: Constipation Menthol (Bengay Vanishing Scent) 1 applic TOPICAL 4X/DAY PRN PRN PRN Reason: PAIN Last Admin: 08/21/18 05:33 Dose: 1 applic Nutritional Formula (Lactose Free) (Ensure Enlive) 120 ml PO 4X/DAY COUNTS INCLUDE 234 BEDS AT [facility] Last Admin: 08/21/18 08:08 Dose: 120 ml Senna/Docusate Sodium (Senokot-S, Roma-Colace) 2 tablet PO BID COUNTS INCLUDE 234 BEDS AT [facility] Last Admin: 08/21/18 08:10 Dose: Not Given Medical Necessity - Tobacco Use Smoking Status: Former smoker Assessment/Plan All Active Problems (Last Updated 08/11/18 @ 10:41 by Peg Rollins NP-Aftab) CVA (cerebral vascular accident) (Acute) Bladder cancer (Acute) Depression (Acute) This is an 83 y/o female admitted for acute left infarct. Complicated by right sided weakness, right facial droop, and dysarthria. Goal of rehab is spiritism of functional independence. Plan - Physical therapy for gait and balance - Occupational Therapy for ADLs - Speech therapy for dysarthria - As needed analgesics - Bowel protocol - Stroke prevention ASA, Plavix 75 mg PO once daily, dual AP for 3 weeks, then switch to single AP, Lipitor 80mg - DVT prophylaxis: SCDs, ASA, Lovenox - TTE-EF 75%, normal LA size, no PFO - MRI of the brain showed acute nonhemorrhagic infarct associated with the posterior limb of internal capsule on the left. Underlying moderate small vessel disease. - MRA Head and neck => normal - Pwb6z-3.1%, LDL-140 goal of HbA1C < 5, LDL < 70 - Permissive HTN for 24 hrs, then maintain BP < 130/80 - Recommend 30 day event recorder - Fall precautions - Hx of Hypertension: Continue home dose of amlodipine 5 mg, BP stable at 139/ 75. - Hx of bladder cancer s/p tumor resection with recurrence-continue outpatient follow-up with urology. Follows with Dr. Bunn. - Hx of Depression: continue home citalopram regimen. - Right rib pain 2/2 fall => Lidocaine patch to area and K Pad for comfort => pain still uncontrolled, add extra strength Tylenol 1,000mg Q8hrs. 08/21: Add Duragesic patch 25 mcg.
[2018-08-21] MEDS: Lidocaine 5% Patch 1 PATCH TOPICAL (11:30)
--- NOTE | 2018-08-21 12:19 | CASEMGMT ---
Social Work Met with pt in room and discussed advance directives per pt request. SW explained the living will and health care power of commercial real estate attorney. Pt states she does have a living will but it is not on file at the hospital. SW requested a copy be brought in. Pt states once she is home she will get a copy of the living will and bring it in and at that time will make an appointment to complete health care POA. SW provided information on healthcare POA and number to call to set up an appt to complete paper work. NORA Weaver
[2018-08-21 16:13] VITALS: BMI 23.0
[2018-08-21 19:28] VITALS: BP 140/75; PULSE 67; RESP 17; TEMP 36.4; O2SAT 93
[2018-08-21] MEDS: Atorvastatin Calcium 40 MG Tablet PO (21:16)
[2018-08-21] MEDS: Senna/Docusate Sodium 1 Tablet 2 TABLET PO (21:17)
[2018-08-21 22:10] VITALS: BMI 23.0
--- NOTE | 2018-08-21 22:14 | NURSING ---
Reviewed and agree with TOOL REPAIR TECHNICIAN documentation and FIMs charting.
[2018-08-22] MEDS: Enoxaparin 40 MG/0.4 ML Syringe SC (06:20)
[2018-08-22] MEDS: Acetaminophen 500 MG Tablet 1000 MG PO ×3 (06:21→20:59)
[2018-08-22 06:46] VITALS: BP 139/75; PULSE 68; RESP 16; TEMP 36.6; O2SAT 93
[2018-08-22] MEDS: Aspirin E.C. 81 MG Tablet PO (07:34)
[2018-08-22] MEDS: Clopidogrel Bisulfate 75 MG Tablet PO (07:34)
[2018-08-22] MEDS: Cyanocobalamin 500 MCG Tablet 1000 MCG PO (07:34)
[2018-08-22] MEDS: amLODIPine 10 MG Tablet PO (07:35)
[2018-08-22] MEDS: Lidocaine 5% Patch 1 PATCH TOPICAL (07:36)
[2018-08-22] MEDS: Citalopram 20 MG Tablet PO (07:38)
--- NOTE | 2018-08-22 08:47 | PN.NEURO_ITS ---
Subjective: No new complaints. Tolerating therapy, with out difficulty. On Mechanical soft diet with [place] thicken liquids. Right rib pain is well controlled on Fentanyl Duragesic patch. - Physical Exam General: Alert, Oriented x3, Cooperative HEENT: Atraumatic, PERRLA, EOMI, Normocephalic Neck: Supple, No JVD, Negative Carotid Bruits Lungs: Clear to auscultation, Normal air movement Cardiovascular: Regular rate, No murmurs Abdomen: Bowel Sounds Present, Soft, Non Tender Extremities: No edema, Capillary Refill Less than 3 Seconds Skin: No rashes, No breakdown Musculoskeletal: No Tenderness to Palpation of Joints or Extremities Neurological: Cranial nerves II-XII grossly intact Psych/Mental Status: Normal Affect, Appropriate, Alert and oriented to time, place, person, mood and affect Vital Signs Temp Pulse Resp BP Pulse Ox 97.8 F 68 16 139/75 H 93 08/22/18 06:46 08/22/18 06:46 08/22/18 06:46 08/22/18 06:46 08/22/18 06:46 Oxygen Flow Rate (L/min) 3 Oxygen Delivery Method Room Air Weight: 64.6 kg Body Mass Index (BMI) 23.0 Finger Stick Blood Glucose 89 Intake and Output for Last 24 Hours 08/20/18 08/21/18 08/22/18 23:59 23:59 23:59 Intake Total 220 / 220 600 / 600 Balance 220 / 220 600 / 600 Active Medications Acetaminophen (Tylenol) 1,000 mg PO Q8 [facility] Last Admin: 08/22/18 06:21 Dose: 1,000 mg Amlodipine Besylate (Norvasc) 10 mg PO DAILY [facility] Last Admin: 08/22/18 07:35 Dose: 10 mg Aspirin (Ecotrin) 81 mg PO DAILY [facility] Last Admin: 08/22/18 07:34 Dose: 81 mg Atorvastatin Calcium (Lipitor) 40 mg PO QHS [facility] Last Admin: 08/21/18 21:16 Dose: 40 mg Bisacodyl (Dulcolax) 10 mg RECTAL .PRN X 1 PRN PRN Reason: Constipation Citalopram Hydrobromide (Celexa) 20 mg PO DAILY [facility] Last Admin: 08/22/18 07:38 Dose: 20 mg Clopidogrel Bisulfate (Plavix) 75 mg PO DAILY [facility] Last Admin: 08/22/18 07:34 Dose: 75 mg Cyanocobalamin (Vitamin B12) 1,000 mcg PO DAILY@0800 [facility] Last Admin: 08/22/18 07:34 Dose: 1,000 mcg Enoxaparin Sodium (Lovenox) 40 mg SC DAILY@0600 [facility] Last Admin: 08/22/18 06:20 Dose: 40 mg Ergocalciferol (Vitamin D) 50,000 unit PO QWEEK [facility] Last Admin: 08/20/18 09:23 Dose: 50,000 unit Fentanyl (Duragesic Patch) 25 mcg TRANSDERM. Q3D [facility] Last Admin: 08/20/18 15:39 Dose: 25 mcg Lidocaine (Lidoderm Patch) 1 patch TOPICAL DAILY [facility]; Protocol Last Admin: 08/22/18 07:36 Dose: 1 patch Magnesium Hydroxide (Milk Of Magnesia) 30 ml PO .PRN X 1 PRN PRN Reason: Constipation Menthol (Bengay Vanishing Scent) 1 applic TOPICAL 4X/DAY PRN PRN PRN Reason: PAIN Last Admin: 08/21/18 05:33 Dose: 1 applic Nutritional Formula (Lactose Free) (Ensure Enlive) 120 ml PO 4X/DAY [facility] Last Admin: 08/22/18 07:34 Dose: 120 ml Senna/Docusate Sodium (Senokot-S, Roma-Colace) 2 tablet PO BID [facility] Last Admin: 08/21/18 21:17 Dose: 2 tablet Medical Necessity - Tobacco Use Smoking Status: Former smoker Assessment/Plan All Active Problems (Last Updated 08/11/18 @ 10:41 by Peg Rollins NP-C) CVA (cerebral vascular accident) (Acute) Bladder cancer (Acute) Depression (Acute) This is an 83 y/o female admitted for acute left infarct. Complicated by right sided weakness, right facial droop, and dysarthria. Goal of rehab is mormonism of functional independence. Plan - Physical therapy for gait and balance - Occupational Therapy for ADLs - Speech therapy for dysarthria - As needed analgesics - Bowel protocol - Stroke prevention ASA, Plavix 75 mg PO once daily, dual AP for 3 weeks, then switch to single AP, Lipitor 80mg - DVT prophylaxis: SCDs, ASA, Lovenox - TTE-EF 75%, normal LA size, no PFO - MRI of the brain showed acute nonhemorrhagic infarct associated with the posterior limb of internal capsule on the left. Underlying moderate small vessel disease. - MRA Head and neck => normal - Tpc0a-7.1%, LDL-140 goal of HbA1C < 5, LDL < 70 - Permissive HTN for 24 hrs, then maintain BP < 130/80 - Recommend 30 day event recorder - Fall precautions - Hx of Hypertension: Continue home dose of amlodipine 5 mg, BP stable at 139/75. - Hx of bladder cancer s/p tumor resection with recurrence-continue outpatient follow-up with urology. Follows with Dr. Bunn. - Hx of Depression: continue home citalopram regimen. - Right rib pain 2/2 fall => Lidocaine patch to area and K Pad for comfort => pain still uncontrolled, add extra strength Tylenol 1,000mg Q8hrs. 08/21: Add Duragesic patch 25 mcg.
[2018-08-22] MEDS: Senna/Docusate Sodium 1 Tablet 2 TABLET PO ×2 (15:21→20:59)
[2018-08-22 17:00] VITALS: BMI 23.0
[2018-08-22 18:56] VITALS: BP 126/67; PULSE 68; RESP 16; TEMP 36.4; O2SAT 92
[2018-08-22] MEDS: Atorvastatin Calcium 40 MG Tablet PO (21:00)
[2018-08-23 05:00] VITALS: BMI 23.0
[2018-08-23] MEDS: Enoxaparin 40 MG/0.4 ML Syringe SC (06:29)
[2018-08-23 08:29] VITALS: BP 116/70; PULSE 70; RESP 20; TEMP 36.4; O2SAT 95
[2018-08-23] MEDS: Cyanocobalamin 500 MCG Tablet 1000 MCG PO (08:39)
[2018-08-23] MEDS: amLODIPine 10 MG Tablet PO (08:39)
[2018-08-23] MEDS: Clopidogrel Bisulfate 75 MG Tablet PO (08:39)
[2018-08-23] MEDS: Lidocaine 5% Patch 1 PATCH TOPICAL (08:39)
[2018-08-23] MEDS: Citalopram 20 MG Tablet PO (08:39)
[2018-08-23 09:37] VITALS: BMI 23.0
[2018-08-23] MEDS: Aspirin E.C. 81 MG Tablet PO (09:42)
--- NOTE | 2018-08-23 09:49 | PCM.PN.NEU ---
Subjective: Patient seen, Speech therapy has transition patient to Regular diet with thin liquids utilizing chin tuck to avoid aspiration. Patient is tolerating therapy. Rib pain is much better per patient. Patient states she is ready to go home and see her cat Say. - Physical Exam General: Alert, Oriented x3, Cooperative HEENT: Atraumatic, PERRLA, EOMI, Normocephalic Neck: Supple, No JVD, Negative Carotid Bruits Lungs: Clear to auscultation, Normal air movement Cardiovascular: Regular rate, No murmurs Abdomen: Bowel Sounds Present, Soft, Non Tender Extremities: No edema, Capillary Refill Less than 3 Seconds Skin: No rashes, No breakdown Musculoskeletal: No Tenderness to Palpation of Joints or Extremities Neurological: Cranial nerves II-XII grossly intact Psych/Mental Status: Normal Affect, Appropriate, Alert and oriented to time, place, person, mood and affect Vital Signs Temp Pulse Resp BP Pulse Ox 97.5 F L 70 20 H 116/70 95 08/23/18 08:29 08/23/18 08:29 08/23/18 08:29 08/23/18 08:29 08/23/18 08:29 Oxygen Flow Rate (L/min) 3 Oxygen Delivery Method Room Air Weight: 66.72 kg Body Mass Index (BMI) 23.0 Finger Stick Blood Glucose 89 Intake and Output for Last 24 Hours 08/21/18 08/22/18 08/23/18 23:59 23:59 23:59 Intake Total 600 / 600 220 / 220 Balance 600 / 600 220 / 220 Active Medications Acetaminophen (Tylenol) 1,000 mg PO Q8 [facility] Last Admin: 08/23/18 06:28 Dose: Not Given Amlodipine Besylate (Norvasc) 10 mg PO DAILY [facility] Last Admin: 08/23/18 08:39 Dose: 10 mg Aspirin (Ecotrin) 81 mg PO DAILY [facility] Last Admin: 08/23/18 09:42 Dose: 81 mg Atorvastatin Calcium (Lipitor) 40 mg PO QHS [facility] Last Admin: 08/22/18 21:00 Dose: 40 mg Bisacodyl (Dulcolax) 10 mg RECTAL .PRN X 1 PRN PRN Reason: Constipation Citalopram Hydrobromide (Celexa) 20 mg PO DAILY [facility] Last Admin: 08/23/18 08:39 Dose: 20 mg Clopidogrel Bisulfate (Plavix) 75 mg PO DAILY [facility] Last Admin: 08/23/18 08:39 Dose: 75 mg Cyanocobalamin (Vitamin B12) 1,000 mcg PO DAILY@0800 [facility] Last Admin: 08/23/18 08:39 Dose: 1,000 mcg Enoxaparin Sodium (Lovenox) 40 mg SC DAILY@0600 [facility] Last Admin: 08/23/18 06:29 Dose: 40 mg Ergocalciferol (Vitamin D) 50,000 unit PO QWEEK [facility] Last Admin: 08/20/18 09:23 Dose: 50,000 unit Fentanyl (Duragesic Patch) 25 mcg TRANSDERM. Q3D [facility] Last Admin: 08/20/18 15:39 Dose: 25 mcg Lidocaine (Lidoderm Patch) 1 patch TOPICAL DAILY [facility]; Protocol Last Admin: 08/23/18 08:39 Dose: 1 patch Magnesium Hydroxide (Milk Of Magnesia) 30 ml PO .PRN X 1 PRN PRN Reason: Constipation Menthol (Bengay Vanishing Scent) 1 applic TOPICAL 4X/DAY PRN PRN PRN Reason: PAIN Last Admin: 08/21/18 05:33 Dose: 1 applic Nutritional Formula (Lactose Free) (Ensure Enlive) 120 ml PO 4X/DAY [facility] Last Admin: 08/23/18 08:39 Dose: 120 ml Senna/Docusate Sodium (Senokot-S, Roma-Colace) 2 tablet PO BID [facility] Last Admin: 08/23/18 08:42 Dose: Not Given Medical Necessity - Tobacco Use Smoking Status: Former smoker Assessment/Plan All Active Problems (Last Updated 08/11/18 @ 10:41 by Peg Rollins NP-C) CVA (cerebral vascular accident) (Acute) Bladder cancer (Acute) Depression (Acute) This is an 83 y/o female admitted for acute left infarct. Complicated by right sided weakness, right facial droop, and dysarthria. Goal of rehab is hinduism of functional independence. Plan - Physical therapy for gait and balance - Occupational Therapy for ADLs - Speech therapy for dysarthria - As needed analgesics - Bowel protocol - Stroke prevention ASA, Plavix 75 mg PO once daily, dual AP for 3 weeks, then switch to single AP, Lipitor 80mg - DVT prophylaxis: SCDs, ASA, Lovenox - TTE-EF 75%, normal LA size, no PFO - MRI of the brain showed acute nonhemorrhagic infarct associated with the posterior limb of internal capsule on the left. Underlying moderate small vessel disease. - MRA Head and neck => normal - Crc1w-6.1%, LDL-140 goal of HbA1C < 5, LDL < 70 - Permissive HTN for 24 hrs, then maintain BP < 130/80 - Recommend 30 day event recorder - Fall precautions - Hx of Hypertension: Continue home dose of amlodipine 5 mg, BP stable at 139/75. - Hx of bladder cancer s/p tumor resection with recurrence-continue outpatient follow-up with urology. Follows with Dr. Bunn. - Hx of Depression: continue home citalopram regimen. - Right rib pain 2/2 fall => Lidocaine patch to area and K Pad for comfort => pain still uncontrolled, add extra strength Tylenol 1,000mg Q8hrs. 08/21: Add Duragesic patch 25 mcg. - Diet - transition to Regular diet with thin liquids utilizing chin tuck
--- NOTE | 2018-08-23 09:55 | PN.NEURO_ITS ---
Subjective: Patient seen, Speech therapy has transition patient to Regular diet with thin liquids utilizing chin tuck to avoid aspiration. Patient is tolerating therapy. Rib pain is much better per patient. Patient states she is ready to go home and see her cat Say. - Physical Exam General: Alert, Oriented x3, Cooperative HEENT: Atraumatic, PERRLA, EOMI, Normocephalic Neck: Supple, No JVD, Negative Carotid Bruits Lungs: Clear to auscultation, Normal air movement Cardiovascular: Regular rate, No murmurs Abdomen: Bowel Sounds Present, Soft, Non Tender Extremities: No edema, Capillary Refill Less than 3 Seconds Skin: No rashes, No breakdown Musculoskeletal: No Tenderness to Palpation of Joints or Extremities Neurological: Cranial nerves II-XII grossly intact Psych/Mental Status: Normal Affect, Appropriate, Alert and oriented to time, place, person, mood and affect Vital Signs Temp Pulse Resp BP Pulse Ox 97.5 F L 70 20 H 116/70 95 08/23/18 08:29 08/23/18 08:29 08/23/18 08:29 08/23/18 08:29 08/23/18 08:29 Oxygen Flow Rate (L/min) 3 Oxygen Delivery Method Room Air Weight: 66.72 kg Body Mass Index (BMI) 23.0 Finger Stick Blood Glucose 89 Intake and Output for Last 24 Hours 08/21/18 08/22/18 08/23/18 23:59 23:59 23:59 Intake Total 600 / 600 220 / 220 Balance 600 / 600 220 / 220 Active Medications Acetaminophen (Tylenol) 1,000 mg PO Q8 [facility] Last Admin: 08/23/18 06:28 Dose: Not Given Amlodipine Besylate (Norvasc) 10 mg PO DAILY [facility] Last Admin: 08/23/18 08:39 Dose: 10 mg Aspirin (Ecotrin) 81 mg PO DAILY [facility] Last Admin: 08/23/18 09:42 Dose: 81 mg Atorvastatin Calcium (Lipitor) 40 mg PO QHS [facility] Last Admin: 08/22/18 21:00 Dose: 40 mg Bisacodyl (Dulcolax) 10 mg RECTAL .PRN X 1 PRN PRN Reason: Constipation Citalopram Hydrobromide (Celexa) 20 mg PO DAILY [facility] Last Admin: 08/23/18 08:39 Dose: 20 mg Clopidogrel Bisulfate (Plavix) 75 mg PO DAILY [facility] Last Admin: 08/23/18 08:39 Dose: 75 mg Cyanocobalamin (Vitamin B12) 1,000 mcg PO DAILY@0800 [facility] Last Admin: 08/23/18 08:39 Dose: 1,000 mcg Enoxaparin Sodium (Lovenox) 40 mg SC DAILY@0600 [facility] Last Admin: 08/23/18 06:29 Dose: 40 mg Ergocalciferol (Vitamin D) 50,000 unit PO QWEEK [facility] Last Admin: 08/20/18 09:23 Dose: 50,000 unit Fentanyl (Duragesic Patch) 25 mcg TRANSDERM. Q3D [facility] Last Admin: 08/20/18 15:39 Dose: 25 mcg Lidocaine (Lidoderm Patch) 1 patch TOPICAL DAILY [facility]; Protocol Last Admin: 08/23/18 08:39 Dose: 1 patch Magnesium Hydroxide (Milk Of Magnesia) 30 ml PO .PRN X 1 PRN PRN Reason: Constipation Menthol (Bengay Vanishing Scent) 1 applic TOPICAL 4X/DAY PRN PRN PRN Reason: PAIN Last Admin: 08/21/18 05:33 Dose: 1 applic Nutritional Formula (Lactose Free) (Ensure Enlive) 120 ml PO 4X/DAY [facility] Last Admin: 08/23/18 08:39 Dose: 120 ml Senna/Docusate Sodium (Senokot-S, Roma-Colace) 2 tablet PO BID [facility] Last Admin: 08/23/18 08:42 Dose: Not Given Medical Necessity - Tobacco Use Smoking Status: Former smoker Assessment/Plan All Active Problems (Last Updated 08/11/18 @ 10:41 by Peg Rollins NP-C) CVA (cerebral vascular accident) (Acute) Bladder cancer (Acute) Depression (Acute) This is an 83 y/o female admitted for acute left infarct. Complicated by right sided weakness, right facial droop, and dysarthria. Goal of rehab is latter-day of functional independence. Plan - Physical therapy for gait and balance - Occupational Therapy for ADLs - Speech therapy for dysarthria - As needed analgesics - Bowel protocol - Stroke prevention ASA, Plavix 75 mg PO once daily, dual AP for 3 weeks, then switch to single AP, Lipitor 80mg - DVT prophylaxis: SCDs, ASA, Lovenox - TTE-EF 75%, normal LA size, no PFO - MRI of the brain showed acute nonhemorrhagic infarct associated with the posterior limb of internal capsule on the left. Underlying moderate small vessel disease. - MRA Head and neck => normal - Xpq1y-9.1%, LDL-140 goal of HbA1C < 5, LDL < 70 - Permissive HTN for 24 hrs, then maintain BP < 130/80 - Recommend 30 day event recorder - Fall precautions - Hx of Hypertension: Continue home dose of amlodipine 5 mg, BP stable at 139/75. - Hx of bladder cancer s/p tumor resection with recurrence-continue outpatient follow-up with urology. Follows with Dr. Bunn. - Hx of Depression: continue home citalopram regimen. - Right rib pain 2/2 fall => Lidocaine patch to area and K Pad for comfort => pain still uncontrolled, add extra strength Tylenol 1,000mg Q8hrs. 08/21: Add Du ragesic patch 25 mcg. - Diet - transition to Regular diet with thin liquids utilizing chin tuck
[2018-08-23] MEDS: fentaNYL 25 MCG Patch TRANSDERM. (15:24)
[2018-08-23 19:50] VITALS: BP 127/71; PULSE 76; RESP 16; TEMP 36.6; O2SAT 96
[2018-08-23] MEDS: Atorvastatin Calcium 40 MG Tablet PO (20:08)
[2018-08-24 05:00] VITALS: BMI 23.0
[2018-08-24] MEDS: Enoxaparin 40 MG/0.4 ML Syringe SC (06:16)
[2018-08-24] MEDS: Clopidogrel Bisulfate 75 MG Tablet PO (07:20)
[2018-08-24] MEDS: amLODIPine 10 MG Tablet PO (07:20)
[2018-08-24] MEDS: Aspirin E.C. 81 MG Tablet PO (07:20)
[2018-08-24] MEDS: Citalopram 20 MG Tablet PO (07:20)
[2018-08-24] MEDS: Lidocaine 5% Patch 1 PATCH TOPICAL (07:21)
[2018-08-24] MEDS: Cyanocobalamin 500 MCG Tablet 1000 MCG PO (07:21)
[2018-08-24 07:23] VITALS: BP 132/69; PULSE 59; RESP 16; TEMP 36.6; O2SAT 92
[2018-08-24 09:05] VITALS: BMI 23.0
--- NOTE | 2018-08-24 09:11 | NURSING ---
Returned to room after working with physical therapy. Pt had large emesis of undigested food. Pt states I don't know where that came from. Pt had eaten 75% of breakfast and denied nausea. Assisted pt to clean up. Now up in chair for team meeting. Family at side.
--- NOTE | 2018-08-24 09:32 | PCM.PN.NEU ---
Subjective: Staffed in team meeting. Family at bedside, questions answered. With Physical therapy, she is stand by assist for getting in and out of the bed, and going from a sitting to a standing position. She does occasionally stumbles when she takes her first step doing a scissor type step, she is able to catch her self, she does not have this difficulty when using the walker. She is able to walk over 200 feet with a wheel walker at stand by assist. She has walked in the community going up and down ramps and curbs across grassy areas at stand by assist. She is able to go up and down 10 steps at minimal assist. Repeat TUG score is 17.5 seconds with wheel walker. With Occupational therapy, she is able to do her own grooming, dressing, bathing and toileting on her own at supervision. With Speech therapy, she has been upgraded to Regular diet with thin liquids, recommend that she uses the chin tuck to prevent aspiration. Her speech intelligibility has improved significantly, with the use of increase volume, and slowing her rate of speech down. With nursing blood pressure is well controlled. The plan is for discharge on Thursday 08/30 with home health Physical therapy, Occupational therapy, and Speech therapy. - Physical Exam General: Alert, Oriented x3, Cooperative HEENT: Atraumatic, PERRLA, EOMI, Normocephalic Neck: Supple, No JVD, Negative Carotid Bruits Lungs: Clear to auscultation, Normal air movement Cardiovascular: Regular rate, No murmurs Abdomen: Bowel Sounds Present, Soft, Non Tender Extremities: No edema, Capillary Refill Less than 3 Seconds Skin: No rashes, No breakdown Musculoskeletal: No Tenderness to Palpation of Joints or Extremities Neurological: Cranial nerves II-XII grossly intact Psych/Mental Status: Normal Affect, Appropriate, Alert and oriented to time, place, person, mood and affect Vital Signs Temp Pulse Resp BP Pulse Ox 97.8 F 59 L 16 132/69 H 92 08/24/18 07:23 08/24/18 07:23 08/24/18 07:23 08/24/18 07:23 08/24/18 07:23 Oxygen Flow Rate (L/min) 3 Oxygen Delivery Method Room Air Weight: 66.72 kg Body Mass Index (BMI) 23.0 Finger Stick Blood Glucose 89 Intake and Output for Last 24 Hours 08/22/18 08/23/18 08/24/18 23:59 23:59 23:59 Intake Total 220 / 220 480 / 480 240 / 240 Balance 220 / 220 480 / 480 240 / 240 Active Medications Acetaminophen (Tylenol) 1,000 mg PO Q8H PRN PRN Reason: PAIN Amlodipine Besylate (Norvasc) 10 mg PO DAILY [facility] Last Admin: 08/24/18 07:20 Dose: 10 mg Aspirin (Ecotrin) 81 mg PO DAILY [facility] Last Admin: 08/24/18 07:20 Dose: 81 mg Atorvastatin Calcium (Lipitor) 40 mg PO QHS [facility] Last Admin: 08/23/18 20:08 Dose: 40 mg Bisacodyl (Dulcolax) 10 mg RECTAL .PRN X 1 PRN PRN Reason: Constipation Citalopram Hydrobromide (Celexa) 20 mg PO DAILY [facility] Last Admin: 08/24/18 07:20 Dose: 20 mg Clopidogrel Bisulfate (Plavix) 75 mg PO DAILY [facility] Last Admin: 08/24/18 07:20 Dose: 75 mg Cyanocobalamin (Vitamin B12) 1,000 mcg PO DAILY@0800 [facility] Last Admin: 08/24/18 07:21 Dose: 1,000 mcg Enoxaparin Sodium (Lovenox) 40 mg SC DAILY@0600 [facility] Last Admin: 08/24/18 06:16 Dose: 40 mg Ergocalciferol (Vitamin D) 50,000 unit PO QWEEK [facility] Last Admin: 08/20/18 09:23 Dose: 50,000 unit Fentanyl (Duragesic Patch) 25 mcg TRANSDERM. Q3D [facility] Last Admin: 08/23/18 15:24 Dose: 25 mcg Lidocaine (Lidoderm Patch) 1 patch TOPICAL DAILY [facility]; Protocol Last Admin: 08/24/18 07:21 Dose: 1 patch Magnesium Hydroxide (Milk Of Magnesia) 30 ml PO .PRN X 1 PRN PRN Reason: Constipation Menthol (Bengay Vanishing Scent) 1 applic TOPICAL 4X/DAY PRN PRN PRN Reason: PAIN Last Admin: 08/21/18 05:33 Dose: 1 applic Nutritional Formula (Lactose Free) (Ensure Enlive) 120 ml PO 4X/DAY [facility] Last Admin: 08/24/18 07:21 Dose: 120 ml Senna/Docusate Sodium (Senokot-S, Roma-Colace) 2 tablet PO BID [facility] Last Admin: 08/24/18 07:15 Dose: Not Given Medical Necessity - Tobacco Use Smoking Status: Former smoker Assessment/Plan All Active Problems (Last Updated 08/11/18 @ 10:41 by Peg Rollins PATENT PROSECUTION ATTORNEY-C) CVA (cerebral vascular accident) (Acute) Bladder cancer (Acute) Depression (Acute) This is an 83 y/o female admitted for acute left infarct. Complicated by right sided weakness, right facial droop, and dysarthria. Goal of rehab is gnosticism of functional independence. Plan - Physical therapy for gait and balance - Occupational Therapy for ADLs - Speech therapy for dysarthria - As needed analgesics - Bowel protocol - Stroke prevention ASA, Plavix 75 mg PO once daily, dual AP for 3 weeks, then switch to single AP, Lipitor 80mg - DVT prophylaxis: SCDs, ASA, Lovenox - TTE-EF 75%, normal LA size, no PFO - MRI of the brain showed acute nonhemorrhagic infarct associated with the posterior limb of internal capsule on the left. Underlying moderate small vessel disease. - MRA Head and neck => normal - Puv9i-5.1%, LDL-140 goal of HbA1C < 5, LDL < 70 - Permissive HTN for 24 hrs, then maintain BP < 130/80 - Recommend 30 day event recorder - Fall precautions - Hx of Hypertension: Continue home dose of amlodipine 5 mg, BP stable at 139/75. - Hx of bladder cancer s/p tumor resection with recurrence-continue outpatient follow-up with urology. Follows with Dr. Bunn. - Hx of Depression: continue home citalopram regimen. - Right rib pain 2/2 fall => Lidocaine patch to area and K Pad for comfort => pain still uncontrolled, add extra strength Tylenol 1,000mg Q8hrs. 08/21: Add Duragesic patch 25 mcg. - Diet - transition to Regular diet with thin liquids utilizing chin tuck - Plan is for discharge home on Thursday 08/30 with home health PT/OT/Speech therapy
--- NOTE | 2018-08-24 09:39 | PN.NEURO_ITS ---
Subjective: Staffed in team meeting. Family at bedside, questions answered. With Physical therapy, she is stand by assist for getting in and out of the bed, and going from a sitting to a standing position. She does occasionally stumbles when she takes her first step doing a scissor type step, she is able to catch her self, she does not have this difficulty when using the walker. She is able to walk over 200 feet with a wheel walker at stand by assist. She has walked in the community going up and down ramps and curbs across grassy areas at stand by assist. She is able to go up and down 10 steps at minimal assist. Repeat TUG score is 17.5 seconds with wheel walker. With Occupational therapy, she is able to do her own grooming, dressing, bathing and toileting on her own at supervision. With Speech therapy, she has been upgraded to Regular diet with thin liquids, recommend that she uses the chin tuck to prevent aspiration. Her speech intelligibility has improved significantly, with the use of increase volume, and slowing her rate of speech down. With nursing blood pressure is well controlled. The plan is for discharge on Thursday 08/30 with home health Physical therapy, Occupational therapy, and Speech therapy. - Physical Exam General: Alert, Oriented x3, Cooperative HEENT: Atraumatic, PERRLA, EOMI, Normocephalic Neck: Supple, No JVD, Negative Carotid Bruits Lungs: Clear to auscultation, Normal air movement Cardiovascular: Regular rate, No murmurs Abdomen: Bowel Sounds Present, Soft, Non Tender Extremities: No edema, Capillary Refill Less than 3 Seconds Skin: No rashes, No breakdown Musculoskeletal: No Tenderness to Palpation of Joints or Extremities Neurological: Cranial nerves II-XII grossly intact Psych/Mental Status: Normal Affect, Appropriate, Alert and oriented to time, place, person, mood and affect Vital Signs Temp Pulse Resp BP Pulse Ox 97.8 F 59 L 16 132/69 H 92 08/24/18 07:23 08/24/18 07:23 08/24/18 07:23 08/24/18 07:23 08/24/18 07:23 Oxygen Flow Rate (L/min) 3 Oxygen Delivery Method Room Air Weight: 66.72 kg Body Mass Index (BMI) 23.0 Finger Stick Blood Glucose 89 Intake and Output for Last 24 Hours 08/22/18 08/23/18 08/24/18 23:59 23:59 23:59 Intake Total 220 / 220 480 / 480 240 / 240 Balance 220 / 220 480 / 480 240 / 240 Active Medications Acetaminophen (Tylenol) 1,000 mg PO Q8H PRN PRN Reason: PAIN Amlodipine Besylate (Norvasc) 10 mg PO DAILY [facility] Last Admin: 08/24/18 07:20 Dose: 10 mg Aspirin (Ecotrin) 81 mg PO DAILY [facility] Last Admin: 08/24/18 07:20 Dose: 81 mg Atorvastatin Calcium (Lipitor) 40 mg PO QHS [facility] Last Admin: 08/23/18 20:08 Dose: 40 mg Bisacodyl (Dulcolax) 10 mg RECTAL .PRN X 1 PRN PRN Reason: Constipation Citalopram Hydrobromide (Celexa) 20 mg PO DAILY [facility] Last Admin: 08/24/18 07:20 Dose: 20 mg Clopidogrel Bisulfate (Plavix) 75 mg PO DAILY [facility] Last Admin: 08/24/18 07:20 Dose: 75 mg Cyanocobalamin (Vitamin B12) 1,000 mcg PO DAILY@0800 [facility] Last Admin: 08/24/18 07:21 Dose: 1,000 mcg Enoxaparin Sodium (Lovenox) 40 mg SC DAILY@0600 [facility] Last Admin: 08/24/18 06:16 Dose: 40 mg Ergocalciferol (Vitamin D) 50,000 unit PO QWEEK [facility] Last Admin: 08/20/18 09:23 Dose: 50,000 unit Fentanyl (Duragesic Patch) 25 mcg TRANSDERM. Q3D [facility] Last Admin: 08/23/18 15:24 Dose: 25 mcg Lidocaine (Lidoderm Patch) 1 patch TOPICAL DAILY [facility]; Protocol Last Admin: 08/24/18 07:21 Dose: 1 patch Magnesium Hydroxide (Milk Of Magnesia) 30 ml PO .PRN X 1 PRN PRN Reason: Constipation Menthol (Bengay Vanishing Scent) 1 applic TOPICAL 4X/DAY PRN PRN PRN Reason: PAIN Last Admin: 08/21/18 05:33 Dose: 1 applic Nutritional Formula (Lactose Free) (Ensure Enlive) 120 ml PO 4X/DAY [facility] Last Admin: 08/24/18 07:21 Dose: 120 ml Senna/Docusate Sodium (Senokot-S, Roma-Colace) 2 tablet PO BID [facility] Last Admin: 08/24/18 07:15 Dose: Not Given Medical Necessity - Tobacco Use Smoking Status: Former smoker Assessment/Plan All Active Problems (Last Updated 08/11/18 @ 10:41 by Peg Rollins GEOGRAPHIC INFORMATION SYSTEM ANALYST-C) CVA (cerebral vascular accident) (Acute) Bladder cancer (Acute) Depression (Acute) This is an 83 y/o female admitted for acute left infarct. Complicated by right sided weakness, right facial droop, and dysarthria. Goal of rehab is restor ation of functional independence. Plan - Physical therapy for gait and balance - Occupational Therapy for ADLs - Speech therapy for dysarthria - As needed analgesics - Bowel protocol - Stroke prevention ASA, Plavix 75 mg PO once daily, dual AP for 3 weeks, then switch to single AP, Lipitor 80mg - DVT prophylaxis: SCDs, ASA, Lovenox - TTE-EF 75%, normal LA size, no PFO - MRI of the brain showed acute nonhemorrhagic infarct associated with the posterior limb of internal capsule on the left. Underlying moderate small vessel disease. - MRA Head and neck => normal - Mrs1p-7.1%, LDL-140 goal of HbA1C < 5, LDL < 70 - Permissive HTN for 24 hrs, then maintain BP < 130/80 - Recommend 30 day event recorder - Fall precautions - Hx of Hypertension: Continue home dose of amlodipine 5 mg, BP stable at 139/75. - Hx of bladder cancer s/p tumor resection with recurrence-continue outpatient follow-up with urology. Follows with Dr. Bunn. - Hx of Depression: continue home citalopram regimen. - Right rib pain 2/2 fall => Lidocaine patch to area and K Pad for comfort => pain still uncontrolled, add extra strength Tylenol 1,000mg Q8hrs. 08/21: Add Duragesic patch 25 mcg. - Diet - transition to Regular diet with thin liquids utilizing chin tuck - Plan is for discharge home on Thursday 08/30 with home health PT/OT/Speech therapy
--- NOTE | 2018-08-24 09:42 | CASEMGMT ---
Team meeting held. Patient present as well as patient nephews, Fuentes and Bill. Collaborating with team, discharge date set for 08/30/18. Patient to discharge to home alone with home health services. Therapy recommending for physical, occupational, and speech therapy within the home. Patient is agreeable to home health services. Patient requesting information on medical alert. Patient also wanting to complete Power of Sales Representative [employer]. Patient identifying a need for a walker as well. Patient to continue with further care and treatment on the Inpatient Rehab unit. Will continue to follow up with resources and completing Power of Sales Representative [employer]. Support given. Proposed discharge date: 08/30/18 PLAN: Discharge to home alone with home health services. Annmarie MELENDEZ, HOTEL RECREATIONAL FACILITIES MANAGER
--- NOTE | 2018-08-24 09:48 | NURSING ---
called dr ryan office to make follow up appointment. sincere talamantes.
--- NOTE | 2018-08-24 09:49 | NURSING ---
follow up appointment made with lyssa pearson for 09/18 at 1400.
[2018-08-24 18:56] VITALS: BP 121/76; PULSE 66; RESP 16; TEMP 36.9; O2SAT 92
[2018-08-24] MEDS: Atorvastatin Calcium 40 MG Tablet PO (19:50)
[2018-08-24 20:15] VITALS: BMI 23.0
--- NOTE | 2018-08-25 02:08 | NURSING ---
Reviewed and agree with GENERAL COUNSELOR documentation and FIMs charting.
[2018-08-25] MEDS: Enoxaparin 40 MG/0.4 ML Syringe SC (05:50)
[2018-08-25] MEDS: amLODIPine 10 MG Tablet PO (07:58)
[2018-08-25] MEDS: Aspirin E.C. 81 MG Tablet PO (07:59)
[2018-08-25] MEDS: Clopidogrel Bisulfate 75 MG Tablet PO (07:59)
[2018-08-25] MEDS: Cyanocobalamin 500 MCG Tablet 1000 MCG PO (07:59)
[2018-08-25] MEDS: Citalopram 20 MG Tablet PO (07:59)
[2018-08-25 08:00] VITALS: BP 110/66; PULSE 59; RESP 16; TEMP 36.7; O2SAT 94
[2018-08-25] MEDS: Lidocaine 5% Patch 1 PATCH TOPICAL (11:28)
[2018-08-25 14:24] VITALS: BMI 23.0
[2018-08-25 22:00] VITALS: BP 139/82; PULSE 64; RESP 18; TEMP 37; O2SAT 95
[2018-08-25] MEDS: Atorvastatin Calcium 40 MG Tablet PO (22:16)
[2018-08-26] MEDS: Enoxaparin 40 MG/0.4 ML Syringe SC (06:24)
[2018-08-26 07:07] VITALS: BP 109/85; PULSE 62; RESP 18; TEMP 36.4; O2SAT 95
[2018-08-26] MEDS: Clopidogrel Bisulfate 75 MG Tablet PO (08:31)
[2018-08-26] MEDS: amLODIPine 10 MG Tablet PO (08:31)
[2018-08-26] MEDS: Aspirin E.C. 81 MG Tablet PO (08:31)
[2018-08-26] MEDS: Citalopram 20 MG Tablet PO (08:32)
[2018-08-26] MEDS: Lidocaine 5% Patch 1 PATCH TOPICAL (08:32)
[2018-08-26] MEDS: Senna/Docusate Sodium 1 Tablet 2 TABLET PO ×2 (08:32→19:35)
[2018-08-26] MEDS: Cyanocobalamin 500 MCG Tablet 1000 MCG PO (08:32)
[2018-08-26 09:44] VITALS: BMI 23.0
[2018-08-26] MEDS: fentaNYL 25 MCG Patch TRANSDERM. (14:17)
--- NOTE | 2018-08-26 14:18 | NURSING ---
I was unable to locate the previous duragesic patch when new one was applied. per patient she thought it fell off when she took a shower. It was not in bathroom or in shower.
[2018-08-26] MEDS: Magnesium Hydroxide 30 ML UDC PO (17:53)
[2018-08-26 19:33] VITALS: BP 119/64; PULSE 69; RESP 16; TEMP 36.9
[2018-08-26] MEDS: Atorvastatin Calcium 40 MG Tablet PO (19:35)
[2018-08-27] MEDS: Enoxaparin 40 MG/0.4 ML Syringe SC (06:16)
[2018-08-27 07:36] VITALS: BP 120/65; PULSE 57; RESP 18; TEMP 36.9; O2SAT 95
[2018-08-27] MEDS: Clopidogrel Bisulfate 75 MG Tablet PO (08:06)
[2018-08-27] MEDS: Lidocaine 5% Patch 1 PATCH TOPICAL (08:07)
[2018-08-27] MEDS: Cyanocobalamin 500 MCG Tablet 1000 MCG PO (08:07)
[2018-08-27] MEDS: Aspirin E.C. 81 MG Tablet PO (08:07)
[2018-08-27] MEDS: Citalopram 20 MG Tablet PO (08:07)
[2018-08-27] MEDS: amLODIPine 10 MG Tablet PO (08:07)
[2018-08-27 15:02] VITALS: BMI 23.0
--- NOTE | 2018-08-27 17:27 | NURSING ---
pt up and ambulated around halls with walker and assist x1 several times today. pt did have loss of balance x2 today after waking up and ambulating into bathroom. pt denied dizziness.
[2018-08-27 19:16] VITALS: BP 115/70; PULSE 68; RESP 16; TEMP 36.4; O2SAT 92
[2018-08-27] MEDS: Atorvastatin Calcium 40 MG Tablet PO (20:30)
[2018-08-28] MEDS: Enoxaparin 40 MG/0.4 ML Syringe SC (06:08)
[2018-08-28 07:22] VITALS: BP 123/71; PULSE 55; RESP 18; TEMP 36.8; O2SAT 95
[2018-08-28] MEDS: Aspirin E.C. 81 MG Tablet PO (07:58)
[2018-08-28] MEDS: Clopidogrel Bisulfate 75 MG Tablet PO (07:58)
[2018-08-28] MEDS: amLODIPine 10 MG Tablet PO (07:58)
[2018-08-28] MEDS: Cyanocobalamin 500 MCG Tablet 1000 MCG PO (07:59)
[2018-08-28] MEDS: Citalopram 20 MG Tablet PO (07:59)
[2018-08-28] MEDS: Lidocaine 5% Patch 1 PATCH TOPICAL (08:00)
--- NOTE | 2018-08-28 09:15 | NURSING ---
denies any further pain to right side rib area. patient requested to d/c duragesic patch. Lynda CORNEJO aware, also lidoderm and salma d/c.
[2018-08-28 09:34] VITALS: BMI 23.0
--- NOTE | 2018-08-28 09:46 | PCM.PN.NEU ---
Subjective: Patient seen and examined. Over the weekend and this morning, had a couple of episodes of unsteady balance and gait, with both nursing and therapy. Therapy will evaluate if patient is safe for discharge on Tuesday. - Physical Exam General: Alert, Oriented x3, Cooperative HEENT: Atraumatic, PERRLA, EOMI, Normocephalic Neck: Supple, No JVD, Negative Carotid Bruits Lungs: Clear to auscultation, Normal air movement Cardiovascular: Regular rate, No murmurs Abdomen: Bowel Sounds Present, Soft, Non Tender Extremities: No edema, Capillary Refill Less than 3 Seconds Skin: No rashes, No breakdown Musculoskeletal: No Tenderness to Palpation of Joints or Extremities Neurological: Cranial nerves II-XII grossly intact Psych/Mental Status: Normal Affect, Appropriate, Alert and oriented to time, place, person, mood and affect Vital Signs Temp Pulse Resp BP Pulse Ox 98.2 F 55 L 18 123/71 H 95 08/28/18 07:22 08/28/18 07:22 08/28/18 07:22 08/28/18 07:22 08/28/18 07:22 Oxygen Flow Rate (L/min) 3 Oxygen Delivery Method Room Air Weight: 66.72 kg Body Mass Index (BMI) 23.0 Finger Stick Blood Glucose 89 Intake and Output for Last 24 Hours 08/26/18 08/27/18 08/28/18 23:59 23:59 23:59 Intake Total 360 / 360 360 / 360 360 / 360 Balance 360 / 360 360 / 360 360 / 360 Active Medications Acetaminophen (Tylenol) 1,000 mg PO Q8H PRN PRN Reason: PAIN Amlodipine Besylate (Norvasc) 10 mg PO DAILY [facility] Last Admin: 08/28/18 07:58 Dose: 10 mg Aspirin (Ecotrin) 81 mg PO DAILY [facility] Last Admin: 08/28/18 07:58 Dose: 81 mg Atorvastatin Calcium (Lipitor) 40 mg PO QHS [facility] Last Admin: 08/27/18 20:30 Dose: 40 mg Bisacodyl (Dulcolax) 10 mg RECTAL .PRN X 1 PRN PRN Reason: Constipation Citalopram Hydrobromide (Celexa) 20 mg PO DAILY [facility] Last Admin: 08/28/18 07:59 Dose: 20 mg Clopidogrel Bisulfate (Plavix) 75 mg PO DAILY [facility] Last Admin: 08/28/18 07:58 Dose: 75 mg Cyanocobalamin (Vitamin B12) 1,000 mcg PO DAILY@0800 [facility] Last Admin: 08/28/18 07:59 Dose: 1,000 mcg Enoxaparin Sodium (Lovenox) 40 mg SC DAILY@0600 [facility] Last Admin: 08/28/18 06:08 Dose: 40 mg Ergocalciferol (Vitamin D) 50,000 unit PO QWEEK [facility] Last Admin: 08/27/18 08:08 Dose: 50,000 unit Magnesium Hydroxide (Milk Of Magnesia) 30 ml PO .PRN X 1 PRN PRN Reason: Constipation Last Admin: 08/26/18 17:53 Dose: 30 ml Menthol (Bengay Vanishing Scent) 1 applic TOPICAL 4X/DAY PRN PRN PRN Reason: PAIN Last Admin: 08/21/18 05:33 Dose: 1 applic Nutritional Formula (Lactose Free) (Ensure Enlive) 120 ml PO 4X/DAY [facility] Last Admin: 08/28/18 07:59 Dose: 120 ml Senna/Docusate Sodium (Senokot-S, Roma-Colace) 2 tablet PO BID [facility] Last Admin: 08/28/18 07:59 Dose: Not Given Medical Necessity - Tobacco Use Smoking Status: Former smoker Assessment/Plan All Active Problems (Last Updated 08/11/18 @ 10:41 by Peg Rollins NP-C) CVA (cerebral vascular accident) (Acute) Bladder cancer (Acute) Depression (Acute) This is an 83 y/o female admitted for acute left infarct. Complicated by right sided weakness, right facial droop, and dysarthria. Goal of rehab is moravian of functional independence. Plan - Physical therapy for gait and balance - Occupational Therapy for ADLs - Speech therapy for dysarthria - As needed analgesics - Bowel protocol - Stroke prevention ASA, Plavix 75 mg PO once daily, dual AP for 3 weeks, then switch to single AP, Lipitor 80mg - DVT prophylaxis: SCDs, ASA, Lovenox - TTE-EF 75%, normal LA size, no PFO - MRI of the brain showed acute nonhemorrhagic infarct associated with the posterior limb of internal capsule on the left. Underlying moderate small vessel disease. - MRA Head and neck => normal - Jio5q-0.1%, LDL-140 goal of HbA1C < 5, LDL < 70 - Permissive HTN for 24 hrs, then maintain BP < 130/80 - Recommend 30 day event recorder - Fall precautions - Hx of Hypertension: Continue home dose of amlodipine 5 mg, BP stable at 139/75. - Hx of bladder cancer s/p tumor resection with recurrence-continue outpatient follow-up with urology. Follows with Dr. Bunn. - Hx of Depression: continue home citalopram regimen. - Right rib pain 2/2 fall => Lidocaine patch to area and K Pad for comfort => pain still uncontrolled, add extra strength Tylenol 1,000mg Q8hrs. 08/21: Add Duragesic patch 25 mcg. - Diet - transition to Regular diet with thin liquids utilizing chin tuck - Plan is for discharge home on Thursday 08/30 with home health PT/OT/Speech therapy
--- NOTE | 2018-08-28 09:56 | PN.NEURO_ITS ---
Subjective: Patient seen and examined. Over the weekend and this morning, had a couple of episodes of unsteady balance and gait, with both nursing and therapy. Therapy will evaluate if patient is safe for discharge on Tuesday. - Physical Exam General: Alert, Oriented x3, Cooperative HEENT: Atraumatic, PERRLA, EOMI, Normocephalic Neck: Supple, No JVD, Negative Carotid Bruits Lungs: Clear to auscultation, Normal air movement Cardiovascular: Regular rate, No murmurs Abdomen: Bowel Sounds Present, Soft, Non Tender Extremities: No edema, Capillary Refill Less than 3 Seconds Skin: No rashes, No breakdown Musculoskeletal: No Tenderness to Palpation of Joints or Extremities Neurological: Cranial nerves II-XII grossly intact Psych/Mental Status: Normal Affect, Appropriate, Alert and oriented to time, place, person, mood and affect Vital Signs Temp Pulse Resp BP Pulse Ox 98.2 F 55 L 18 123/71 H 95 08/28/18 07:22 08/28/18 07:22 08/28/18 07:22 08/28/18 07:22 08/28/18 07:22 Oxygen Flow Rate (L/min) 3 Oxygen Delivery Method Room Air Weight: 66.72 kg Body Mass Index (BMI) 23.0 Finger Stick Blood Glucose 89 Intake and Output for Last 24 Hours 08/26/18 08/27/18 08/28/18 23:59 23:59 23:59 Intake Total 360 / 360 360 / 360 360 / 360 Balance 360 / 360 360 / 360 360 / 360 Active Medications Acetaminophen (Tylenol) 1,000 mg PO Q8H PRN PRN Reason: PAIN Amlodipine Besylate (Norvasc) 10 mg PO DAILY [facility] Last Admin: 08/28/18 07:58 Dose: 10 mg Aspirin (Ecotrin) 81 mg PO DAILY [facility] Last Admin: 08/28/18 07:58 Dose: 81 mg Atorvastatin Calcium (Lipitor) 40 mg PO QHS [facility] Last Admin: 08/27/18 20:30 Dose: 40 mg Bisacodyl (Dulcolax) 10 mg RECTAL .PRN X 1 PRN PRN Reason: Constipation Citalopram Hydrobromide (Celexa) 20 mg PO DAILY [facility] Last Admin: 08/28/18 07:59 Dose: 20 mg Clopidogrel Bisulfate (Plavix) 75 mg PO DAILY [facility] Last Admin: 08/28/18 07:58 Dose: 75 mg Cyanocobalamin (Vitamin B12) 1,000 mcg PO DAILY@0800 [facility] Last Admin: 08/28/18 07:59 Dose: 1,000 mcg Enoxaparin Sodium (Lovenox) 40 mg SC DAILY@0600 [facility] Last Admin: 08/28/18 06:08 Dose: 40 mg Ergocalciferol (Vitamin D) 50,000 unit PO QWEEK [facility] Last Admin: 08/27/18 08:08 Dose: 50,000 unit Magnesium Hydroxide (Milk Of Magnesia) 30 ml PO .PRN X 1 PRN PRN Reason: Constipation Last Admin: 08/26/18 17:53 Dose: 30 ml Menthol (Bengay Vanishing Scent) 1 applic TOPICAL 4X/DAY PRN PRN PRN Reason: PAIN Last Admin: 08/21/18 05:33 Dose: 1 applic Nutritional Formula (Lactose Free) (Ensure Enlive) 120 ml PO 4X/DAY [facility] Last Admin: 08/28/18 07:59 Dose: 120 ml Senna/Docusate Sodium (Senokot-S, Roma-Colace) 2 tablet PO BID [facility] Last Admin: 08/28/18 07:59 Dose: Not Given Medical Necessity - Tobacco Use Smoking Status: Former smoker Assessment/Plan All Active Problems (Last Updated 08/11/18 @ 10:41 by Peg Rollins NP-C) CVA (cerebral vascular accident) (Acute) Bladder cancer (Acute) Depression (Acute) This is an 83 y/o female admitted for acute left infarct. Complicated by right sided weakness, right facial droop, and dysarthria. Goal of rehab is latter-day of functional independence. Plan - Physical therapy for gait and balance - Occupational Therapy for ADLs - Speech therapy for dysarthria - As needed analgesics - Bowel protocol - Stroke prevention ASA, Plavix 75 mg PO once daily, dual AP for 3 weeks, then switch to single AP, Lipitor 80mg - DVT prophylaxis: SCDs, ASA, Lovenox - TTE-EF 75%, normal LA size, no PFO - MRI of the brain showed acute nonhemorrhagic infarct associated with the posterior limb of internal capsule on the left. Underlying moderate small vessel disease. - MRA Head and neck => normal - Gva3x-6.1%, LDL-140 goal of HbA1C < 5, LDL < 70 - Permissive HTN for 24 hrs, then maintain BP < 130/80 - Recommend 30 day event recorder - Fall precautions - Hx of Hypertension: Continue home dose of amlodipine 5 mg, BP stable at 139/75. - Hx of bladder cancer s/p tumor resection with recurrence-continue outpatient follow-up with urology. Follows with Dr. Bunn. - Hx of Depression: continue home citalopram regimen. - Right rib pain 2/2 fall => Lidocaine patch to area and K Pad for comfort => pain still uncontrolled, add extra strength Tylenol 1,000mg Q8hrs. 08/21: Add Duragesic patch 25 mcg. - Diet - transition to Regular diet with thin liquids utilizing chin tuck - Plan is for discharge home on Thursday 08/30 with home health PT/OT/Speech therapy
--- NOTE | 2018-08-28 15:39 | CASEMGMT ---
Social Work DPOA for health care completed on this day with patient. Copy placed in patient chart, originals given to patient. Will continue to follow. Annmarie MELENDEZ, MAIL PROCESSING ASSOCIATE
[2018-08-28 20:09] VITALS: BP 121/70; PULSE 60; RESP 16; TEMP 36.2; O2SAT 96
[2018-08-28] MEDS: Atorvastatin Calcium 40 MG Tablet PO (20:56)
[2018-08-28] MEDS: Glycerin/Hypromellose/PEG400 15 ml Bottle 1 DRP EACH EYE (20:57)
[2018-08-28 22:25] VITALS: BMI 23.0
--- NOTE | 2018-08-28 23:53 | NURSING ---
Reviewed and agree with [employer] documentation and [facility]IM[facility] charting.
[2018-08-29] MEDS: Enoxaparin 40 MG/0.4 ML Syringe SC (05:34)
[2018-08-29 07:04] VITALS: BP 152/69; PULSE 78; RESP 17; TEMP 36.7; O2SAT 94
[2018-08-29] MEDS: Senna/Docusate Sodium 1 Tablet 2 TABLET PO (07:36)
[2018-08-29] MEDS: Citalopram 20 MG Tablet PO (07:36)
[2018-08-29] MEDS: amLODIPine 10 MG Tablet PO (07:36)
[2018-08-29] MEDS: Aspirin E.C. 81 MG Tablet PO (07:36)
[2018-08-29] MEDS: Clopidogrel Bisulfate 75 MG Tablet PO (07:36)
[2018-08-29] MEDS: Cyanocobalamin 500 MCG Tablet 1000 MCG PO (07:36)
--- NOTE | 2018-08-29 09:44 | PCM.PN.NEU ---
Subjective: Patient seen and examined. No new complaints. Tolerating therapy. Plan is for discharge tomorrow with home health services, Physical therapy, Occupational therapy, and Speech therapy. - Physical Exam General: Alert, Oriented x3, Cooperative HEENT: Atraumatic, PERRLA, EOMI, Normocephalic Neck: Supple, No JVD, Negative Carotid Bruits Lungs: Clear to auscultation, Normal air movement Cardiovascular: Regular rate, No murmurs Abdomen: Bowel Sounds Present, Soft, Non Tender Extremities: No edema, Capillary Refill Less than 3 Seconds Skin: No rashes, No breakdown Musculoskeletal: No Tenderness to Palpation of Joints or Extremities Neurological: Cranial nerves II-XII grossly intact Psych/Mental Status: Normal Affect, Appropriate, Alert and oriented to time, place, person, mood and affect Vital Signs Temp Pulse Resp BP Pulse Ox 98.1 F 78 17 152/69 H 94 08/29/18 07:04 08/29/18 07:04 08/29/18 07:04 08/29/18 07:04 08/29/18 07:04 Oxygen Flow Rate (L/min) 3 Oxygen Delivery Method Room Air Weight: 66.72 kg Body Mass Index (BMI) 23.0 Finger Stick Blood Glucose 89 Intake and Output for Last 24 Hours 08/27/18 08/28/18 08/29/18 23:59 23:59 23:59 Intake Total 360 / 360 360 / 360 240 / 240 Balance 360 / 360 360 / 360 240 / 240 Active Medications Acetaminophen (Tylenol) 1,000 mg PO Q8H PRN PRN Reason: PAIN Amlodipine Besylate (Norvasc) 10 mg PO DAILY [facility] Last Admin: 08/29/18 07:36 Dose: 10 mg Aspirin (Ecotrin) 81 mg PO DAILY [facility] Last Admin: 08/29/18 07:36 Dose: 81 mg Atorvastatin Calcium (Lipitor) 40 mg PO QHS [facility] Last Admin: 08/28/18 20:56 Dose: 40 mg Bisacodyl (Dulcolax) 10 mg RECTAL .PRN X 1 PRN PRN Reason: Constipation Citalopram Hydrobromide (Celexa) 20 mg PO DAILY [facility] Last Admin: 08/29/18 07:36 Dose: 20 mg Clopidogrel Bisulfate (Plavix) 75 mg PO DAILY [facility] Last Admin: 10/02/18 07:36 Dose: 75 mg Cyanocobalamin (Vitamin B12) 1,000 mcg PO DAILY@0800 [facility] Last Admin: 08/29/18 07:36 Dose: 1,000 mcg Enoxaparin Sodium (Lovenox) 40 mg SC DAILY@0600 [facility] Last Admin: 08/29/18 05:34 Dose: 40 mg Ergocalciferol (Vitamin D) 50,000 unit PO QWEEK [facility] Last Admin: 08/27/18 08:08 Dose: 50,000 unit Magnesium Hydroxide (Milk Of Magnesia) 30 ml PO .PRN X 1 PRN PRN Reason: Constipation Last Admin: 08/26/18 17:53 Dose: 30 ml Menthol (Bengay Vanishing Scent) 1 applic TOPICAL 4X/DAY PRN PRN PRN Reason: PAIN Last Admin: 08/21/18 05:33 Dose: 1 applic Nutritional Formula (Lactose Free) (Ensure Enlive) 120 ml PO 4X/DAY [facility] Last Admin: 08/29/18 07:35 Dose: 120 ml Senna/Docusate Sodium (Senokot-S, Roma-Colace) 2 tablet PO BID [facility] Last Admin: 08/29/18 07:36 Dose: 2 tablet Medical Necessity - Tobacco Use Smoking Status: Former smoker Assessment/Plan All Active Problems (Last Updated 08/11/18 @ 10:41 by Peg Rollins NP-C) CVA (cerebral vascular accident) (Acute) Bladder cancer (Acute) Depression (Acute) This is an 83 y/o female admitted for acute left infarct. Complicated by right sided weakness, right facial droop, and dysarthria. Goal of rehab is mu-ism of functional independence. Plan - Physical therapy for gait and balance - Occupational Therapy for ADLs - Speech therapy for dysarthria - As needed analgesics - Bowel protocol - Stroke prevention ASA, Plavix 75 mg PO once daily, dual AP for 3 weeks, then switch to single AP, Lipitor 80mg - DVT prophylaxis: SCDs, ASA, Lovenox - TTE-EF 75%, normal LA size, no PFO - MRI of the brain showed acute nonhemorrhagic infarct associated with the posterior limb of internal capsule on the left. Underlying moderate small vessel disease. - MRA Head and neck => normal - Zqr3c-6.1%, LDL-140 goal of HbA1C < 5, LDL < 70 - Permissive HTN for 24 hrs, then maintain BP < 130/80 - Recommend 30 day event recorder - Fall precautions - Hx of Hypertension: Continue home dose of amlodipine 5 mg, BP stable at 139/75. - Hx of bladder cancer s/p tumor resection with recurrence-continue outpatient follow-up with urology. Follows with Dr. Bunn. - Hx of Depression: continue home citalopram regimen. - Right rib pain 2/2 fall => Lidocaine patch to area and K Pad for comfort => pain still uncontrolled, add extra strength Tylenol 1,000mg Q8hrs. 08/21: Add Duragesic patch 25 mcg. - Diet - transition to Regular diet with thin liquids utilizing chin tuck - Plan is for discharge home on Thursday 08/30 with home health PT/OT/Speech therapy
[2018-08-29 12:52] VITALS: BMI 23.0
--- NOTE | 2018-08-29 14:37 | CASEMGMT ---
Social Work Spoke with patient in room to collaborate on discharge planning. Patient agreeable to home health services and requesting for home health care to be set up through [facility] ([facility]). Patient does need a walker at time of discharge. This geriatric social work professor provided patient with list of medical alert systems per patient request. Patient family plans to provide transportation home for patient at time of discharge. Patient reporting no further needs at this time. Support given. [facility] This geriatric social work professor making referral for physical, occupational, and speech therapy. Order completed and faxed. Telephone call to Gissel Costello. This geriatric social work professor making referral for front wheeled walker. Order faxed. Gissel to deliver walker to patient room prior to patient discharge. Proposed discharge date: 08/30/18 PLAN: Discharge to home alone with home health services. Annmarie MELENDEZ, EMR ANALYST
[2018-08-29 19:30] VITALS: BP 137/84; PULSE 65; RESP 16; TEMP 36.8; O2SAT 92
[2018-08-29] MEDS: Atorvastatin Calcium 40 MG Tablet PO (20:58)
[2018-08-29] MEDS: Glycerin/Hypromellose/PEG400 15 ml Bottle 1 DRP EACH EYE (20:58)
[2018-08-29 21:12] VITALS: BMI 23.0
[2018-08-30] MEDS: Enoxaparin 40 MG/0.4 ML Syringe SC (05:32)
[2018-08-30 06:50] VITALS: BP 142/80; PULSE 69; RESP 17; TEMP 36.7; O2SAT 95
[2018-08-30] MEDS: Clopidogrel Bisulfate 75 MG Tablet PO (07:59)
[2018-08-30] MEDS: amLODIPine 10 MG Tablet PO (07:59)
[2018-08-30] MEDS: Aspirin E.C. 81 MG Tablet PO (08:00)
[2018-08-30] MEDS: Cyanocobalamin 500 MCG Tablet 1000 MCG PO (08:00)
[2018-08-30] MEDS: Citalopram 20 MG Tablet PO (08:00)
[2018-08-30 10:02] VITALS: BP 142/80; PULSE 69; RESP 17; TEMP 36.6; O2SAT 95
--- NOTE | 2018-08-30 10:03 | DCINST_ITS ---
- Discharge Diagnoses Reason(s) for Visit for Discharge Instructions: CVA You will use the following diet at home:: Cardiac - and Low Cholestrol diet Your food should be the consistency of: Regular Your liquids should be the consistency of: Regular/Thin Discharge Activity: May Not Drive - till cleared by Neurology, May Shower, May Take a Tub Bath, Use Walker - at all times Weight Bearing Status: Weight bearing as tolerated Call your doctor if you observe: Fever of 101 or Higher, Coldness, Increased Pain, Numbness or Tingling, Change in Color, Inability to urinate, Inability to have a bowel movement, Using more than one pad per hour, Shortness of breath, Dizziness, Fainting spells, Swelling in the ankles, Chest pain, Prolonged hiccoughing, Increased palpitations (irregular heartbeat), Calf discomfort, Uncontrolled pain Allergies/Adverse Reactions: Allergies No Known Allergies Allergy (Verified 08/11/18 15:56) Medications to take at Discharge Aspirin [Aspir-Low] 81 mg PO DAILY 05/19/18 Cyanocobalamin (Vitamin B-12) [Vitamin B-12] 1,000 mcg PO DAILY 05/19/18 Acetaminophen [Tylenol] 1,000 mg PO Q8H PRN tablet 08/29/18 Amlodipine [Norvasc] 10 mg PO DAILY #60 tablet 08/29/18 Atorvastatin Calcium [Lipitor] 40 mg PO QHS #60 tablet 08/29/18 Citalopram [Celexa] 20 mg PO DAILY #60 tablet 08/29/18 Clopidogrel Bisulfate [Plavix] 75 mg PO DAILY #90 tablet 08/29/18 Ergocalciferol [Vitamin D] 50,000 unit PO QWEEK #6 capsule 08/29/18 Menthol [Bengay Vanishing Scent] 1 applic TOPICAL 4X/DAY PRN PRN tube 08/29/18 Peg 400/Hypromellose/Glycerin [Artificial Tears] 1 drop EACH EYE Q1H PRN bottle 08/29/18 The following prescriptions were given: Amlodipine [Norvasc] 10 mg PO DAILY #60 tablet Atorvastatin Calcium [Lipitor] 40 mg PO QHS #60 tablet Citalopram [Celexa] 20 mg PO DAILY #60 tablet Clopidogrel Bisulfate [Plavix] 75 mg PO DAILY #90 tablet Ergocalciferol [Vitamin D] 50,000 unit PO QWEEK #6 capsule Primary Care Physician: Louis Carr Chi, MD [Primary Care Provider] - Please follow up with your Primary Care Physician in: 2 weeks Test Results: Test results from this visit will be discussed in further detail at your follow- up appointment, if applicable. Please Follow Up With: Stiven Bunn MD Please Follow Up With: Louis Carr Chi, MD Please Follow Up With: Karmen Joaquin NP-C When: September 18, 2018 @ 2pm Please Follow Up With: [facility] Proposed Discharge Date: 08/30/18
--- NOTE | 2018-08-30 10:03 | PCM.RU.DC ---
Rehab Discharge Summary DATE OF ADMISSION: 08/11/18 DATE OF DISCHARGE: 08/30/18 - Rehab Diagnosis CVA Discharge Diet: Low fat/ Low Cholesterol, 2000 mg Sodium Diet Discharge Activity: May Not Drive - till cleared by Neurology, May Shower, May Take a Tub Bath, Use Walker - at all times Weight Bearing Status: Weight bearing as tolerated Call your doctor if you observe: Fever of 101 or Higher, Coldness, Increased Pain, Numbness or Tingling, Change in Color, Inability to urinate, Inability to have a bowel movement, Using more than one pad per hour, Shortness of breath, Dizziness, Fainting spells, Swelling in the ankles, Chest pain, Prolonged hiccoughing, Increased palpitations (irregular heartbeat), Calf discomfort, Uncontrolled pain Home Medications: Medications to take at Discharge Aspirin [Aspir-Low] 81 mg PO DAILY 05/19/18 Cyanocobalamin (Vitamin B-12) [Vitamin B-12] 1,000 mcg PO DAILY 05/19/18 Acetaminophen [Tylenol] 1,000 mg PO Q8H PRN tablet 08/29/18 Amlodipine [Norvasc] 10 mg PO DAILY #60 tablet 08/29/18 Atorvastatin Calcium [Lipitor] 40 mg PO QHS #60 tablet 08/29/18 Citalopram [Celexa] 20 mg PO DAILY #60 tablet 08/29/18 Clopidogrel Bisulfate [Plavix] 75 mg PO DAILY #90 tablet 08/29/18 Ergocalciferol [Vitamin D] 50,000 unit PO QWEEK #6 capsule 08/29/18 Menthol [Bengay Vanishing Scent] 1 applic TOPICAL 4X/DAY PRN PRN tube 08/29/18 Peg 400/Hypromellose/Glycerin [Artificial Tears] 1 drop EACH EYE Q1H PRN bottle 08/29/18 Following Prescrptions Were Given to Patient: Amlodipine [Norvasc] 10 mg PO DAILY #60 tablet Atorvastatin Calcium [Lipitor] 40 mg PO QHS #60 tablet Citalopram [Celexa] 20 mg PO DAILY #60 tablet Clopidogrel Bisulfate [Plavix] 75 mg PO DAILY #90 tablet Ergocalciferol [Vitamin D] 50,000 unit PO QWEEK #6 capsule Primary Care Physician: Louis Carr Chi, MD [Primary Care Provider] - Please follow up with your Primary Care Physician in: 2 weeks Please Follow Up With: Stiven Bunn MD Please Follow Up With: Louis Carr Chi, MD Please Follow Up With: Karmen Joaquin NP-C When: September 18, 2018 @ 2pm Please Follow Up With: [facility] Disposition: Home with Home Health Minutes spent on discharge:: 40 Patient Condition:: Good Rehab Course The patient is a 83 year old right handed female, who was admitted to the rehab unit for rehabilitation after suffering an acute left infarct. She has a PMH of HTN, depression, bladder cancer. Per patient she woke up on the morning of (08/09/18) with slurried speech and difficulty walking, she came to the ED. On admission to the ED documentation shows her NIHSS was 3 and there was some right leg drift. Patient was also noted to have right facial weakness and right leg drift. A Brain CT on admission showed chronic changes of the brain. MRI of the brain showed acute nonhemorrhagic infarct associated with the posterior limb of internal capsule on the left. Underlying moderate small vessel disease. Head and neck MRA normal. Echocardiogram demonstrated an EF of 75%, stage I diastolic dysfunction, negative for intra-atrial shunt, mild to moderate aortic stenosis. Per patient she has been having some slurred speech, and difficulty with walking and was drifting to the right side for the last day or so. . She lives alone in a single story home, with two steps to get into the house, she denies any frequent falls, does not use a cane or walker to ambulate, was previously completely functionally independent and is admitted to the rehab unit in order to restore her previous level of functional independence. she was on ASA at baseline. Week of 08/11 - 08/17: With Physical therapy, she requires a light hand to get in and out of the bed, and going from a sitting to a standing position. She is able to walk 170 feet with a wheel walker at stand by assist. She is able to for up 10 steps at minimal assist. With Occupational therapy, she is able to do her own grooming, and bathing of her upper body at standby assist. Lower body bathing, dressing and toileting is at contact guard. With Speech therapy, she is on a mechanical soft with nectar thicken liquids diet, with intermitted trials of thin liquids. Her speech intelligibility has improved slightly, they will continue to work on her breathing control and slowing down her rate of speech. With nursing blood pressure is well controlled. The pain from her right chest contusion has improved with adjustment her her medication. Week of 08/18 - 08/29: With Physical therapy, she is stand by assist for getting in and out of the bed, and going from a sitting to a standing position. She does occasionally stumbles when she takes her first step doing a scissor type step, she is able to catch her self, she does not have this difficulty when using the walker. She is able to walk over 200 feet with a wheel walker at stand by assist. She has walked in the community going up and down ramps and curbs across grassy areas at stand by assist. She is able to go up and down 10 steps at minimal assist. Repeat TUG score is 17.5 seconds with wheel walker. With Occupational therapy, she is able to do her own grooming, dressing, bathing and toileting on her own at supervision. With Speech therapy, she has been upgraded to Regular diet with thin liquids, recommend that she uses the chin tuck to prevent aspiration. Her speech intelligibility has improved significantly, with the use of increase volume, and slowing her rate of speech down. With nursing blood pressure is well controlled. The plan is for discharge on Thursday 08/30 with home health Physical therapy, Occupational therapy, and Speech therapy. Meaningful Use Info Meaningful Use Diagnoses (Choose all that apply): Ischemic CVA - CVA Therapy Assessed for PT,OT and/or ST?: Yes - Ischemic Stroke Antithrombotic order at d/c?: Yes Dx of Atrial fib/flutter?: No Statins at discharge?: Yes Primary Dx Acute Ischemic CVA?: Yes IV tPA ordered during stay?: No Reason IV t-PA not ordered: Medical Contraindication
--- NOTE | 2018-08-30 14:03 | NURSING ---
Went over DC instructions, medications and appts. with pt. and niece both denied any questions at this time, both agreed they understood dc information. Pt was taken home by niece, pt had all personal belongings in hand.
== END 2018-08-30 14:07 | disposition home health service (06) | DRG 57 ==
PROVIDERS: Internal Medicine; Nurse Practitioner Acute Care; Admitting Provider Psychiatry & Neurology Neurology; Family Provider Family Medicine Geriatric Medicine; PCP Family Medicine Geriatric Medicine; Referring Provider Psychiatry & Neurology Neurology; Visit Provider Family Medicine
DX: I69.351 Hemiplegia and hemiparesis following cerebral infarction affecting right dominant side (principal); I69.392 Facial weakness following cerebral infarction; I69.322 Dysarthria following cerebral infarction; I10 Essential (primary) hypertension; F32.9 Major depressive disorder, single episode, unspecified; C67.9 Malignant neoplasm of bladder, unspecified; Z87.891 Personal history of nicotine dependence; Z23 Encounter for immunization; R07.81 Pleurodynia; Z91.81 History of falling
CPT/HCPCS: 36415; 71046; 80053; 82330; 83735; 84100; 85025; 92507; 92523; 92526; 97110; 97112; 97116; 97162; 97166; 97530; 97535; 97802; 90686

== ENCOUNTER 2018-09-06 11:07 | Emergency (ER) | payer OTHER, MEDICARE, MEDICAID, SELFPAY ==
[2018-09-06 11:08] VITALS: BP 122/84; PULSE 69; RESP 15; TEMP 37.1; O2SAT 96; BMI 24.2
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
[2018-09-06 13:34] VITALS: BP 117/52; PULSE 67; RESP 16; O2SAT 93
== END 2018-09-06 13:35 | disposition home or self-care (01) ==
PROVIDERS: Emergency Provider Emergency Medicine; Family Provider Family Medicine Geriatric Medicine; PCP Family Medicine Geriatric Medicine
DX: S50.11XA Contusion of right forearm, initial encounter (principal); S50.811A Abrasion of right forearm, initial encounter; V89.0XXA Person injured in unspecified motor-vehicle accident, nontraffic, initial encounter; Y93.89 Activity, other specified; Y92.410 Unspecified street and highway as the place of occurrence of the external cause; I69.392 Facial weakness following cerebral infarction; I69.322 Dysarthria following cerebral infarction; I10 Essential (primary) hypertension; Z79.01 Long term (current) use of anticoagulants; Z87.891 Personal history of nicotine dependence
CPT/HCPCS: 70450; 99284

== ENCOUNTER 2018-09-29 14:00 | Outpatient (RCR) | payer MEDICARE, MEDICAID, SELFPAY ==
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
--- NOTE | 2018-09-27 13:35 | HP.SP.AD ---
History - History Date of Eval: 09/27/18 Medical Diagnosis (from RX): cva/ dysarthria/ dysphagia Date of Onset of Diagnosis: 08/07/18 Previous speech therapy: Yes Results: Previous therapy in the hospital. Good progress and patient is now on thin liquids and regular diet with chin tuck. Smoking Status: Former smoker Hx Smoking: Yes Years Smokin Hx Smoking Cessation Date: 2001 Hx Tobacco Use: No Hx Smoking Exposure: No - Pain Is pain an issue with your current prescribed condition?: Yes - Personal Education History: 12th grade Occupation: Retired Right Hearing Abillity: Normal Left Hearing Abillity: Normal Visual Assistive Devices: Glasses Patients Living Arrangements: Alone Patient Allergies - Allergies Allergies No Known Allergies Allergy (Verified 09/06/18 11:36) Subjective Oral Motor - Subjective Patient Reports: Drooling Dentures ill fitting: Yes - Comments Comments: Drooling on right side. Objective Oral Motor - Oral Status Dentition: Missing Teeth, Upper Dentures Additional: natural bottom, dentures are loose. - Labial Impairment: Mild Observation at Rest: Right Droop Closure: WNL Pucker: Mild Retraction: Mild Involuntary Movement noted: No - Lingual Impairment: Mild Protrusion: WFL Retraction: WFL Lateralization: WFL Involuntary Movement: No - Lingual Comments Comments: Noted weakness for /l/ and /r/ sounds. - Jaw Impairment: WNL - Respiratory Status Respiratory Status: Room Air Subjective Dysphagia - Symptoms Reported Symptoms/Problems with: Drooling - Current Diet Solids Current Diet: Regular - Current Diet Liquids Current Liquids: Thin Objective Dysphagia - Thin Liquids Administred via: Cup Symptoms: Throat Clearing Positioning: Chin Tuck Oral Holding: Yes Duration: 1-2 seconds- she reported she likes the coolness and also time to do chin tuck. Gagging: No - Results Swallowing Within Normal Limits: No Swallowing Diagnosis: Oropharyngeal Phase Dysphagia Severity: Mild Dysphagia Assessment - Swallowing Impairment Contributing Factors to Swallowing Impairment: Reduced Oral Strength/Coordination/Sensation - Recommendations Modified Barium Swallow/Cookie Swallow Recommended: No Swallowing Treatment: Yes - Diet Texture Recommendations Solids Other: Regular Liquids: Thin - Compensatory Strategies Compensatory Strategies: Chin Tuck Subjective Dysarthria/Motor - Subjective Subjective: Tricia stated that her speech is not clear and it is bothering her. Objective Dysarthira/Motor - Speech Intelligibility Phonemes: Mild Single Words: Mild Conversation: Mild - Volume Volume: WFL - Sounds Sounds in Error: /l/ and /r/. - Consistency w/Multiple Repetitions Words: WNL - Observation Observation of Apraxia of Speech: No Oral Groping for Placement: No Inconsistent Errors: No - Awareness/Strategy Use Uses strategies intermittently to improve intelligibility or listener's understanding of message: Yes Plan - Plan Plan: Speech therapy is warranted for mild dysparthria and mild dysphagia. MBS recommended for dyaphgia determination. - Recommendations MBS: Yes Treatment Warranted: Yes - Goals that are Established: Determination:: Goals will be added/modified as deemed necessary and appropriate. Therapy will be discontinued when results of re-evaluation indicate therapy is no longer needed or lack of progress has been documented. - Goal #1-5 Goal #1: Tricia will produce /l/ and /r/ in words, phrases and sentences with 90% accuracy for increased speech clarity. Goal #2: Tricia will use compensatory strategies for speech intelligibility with minimal cues during conversation. Goal #3: Tricia will use a chin tuck on all swallows independently. This goal may change after MBS. Education - Patient has Indicated that the Following Identified Educational Needs: None The Patient has indicated that they have no educational or learning abilities that may effect their care.: Yes - Patient Instruction Patient Education: Diagnosis, Treatment Plan, Goals Person Taught: Patient Teaching Method: Discussion Response to teaching: Verbalize understanding, Has Prior Knowledge
--- NOTE | 2018-10-16 16:14 | HP.SP.DC ---
ST Discharge Summary - Discharged: Discharge: Tricia Boggs is discharged from [facility] speech therapy as of October 16, 2018 as she is in the hospital. She was evaluated on 09-27-18 and had no further speech therapy visits. A copy of this discharge summary will be sent to her referring physician.
--- NOTE | 2018-10-16 17:55 | HP.PTDCNRP_ITS ---
HP - Discharge Summary (1) - Patient Information LOUISE MEJIA was seen in my office for initial evaluation on 09/01/18. The following Plan of Care was established for this patient: Initial Frequency: 2-3x /Week Initial Duration: 4-6 Weeks - Anticipated Interventions Patient/Client Instruction: Educate patient on: Condition, Plan of Care, Risk Factors, Benefits of Fitness Program For the Purpose of:: To improve self management Therapeutic Exercise to Include: Strength training, Balance training, Coordination, Gait and locomotor training, Neuromotor development, Dynamic Lumbar Stabilization For the Purpose of:: To improve ability of physical actions for home/community/work/leisure, To improve gait and locomotor functions, To improve endurance, To improve safety with gait This patient was last seen in our office . Pertinent comments regarding their Physical therapy will appear below: I RECEIVED A MESSAGE FROM [facility] IN SPEECH THERAPY THAT OUR PATIENT IS IN THE HOSPITAL AND PROBABLY WILL BE GOING TO TCU AND THEREFORE UNABLE TO COME TO OUT- PATIENT PT AT THIS TIME. WE WOULD BE HAPPY TO RESUME OUT-PATIENT PT WHEN APPROPRIATE. At this point I will be discontinuing this patient from physical therapy. I would be happy to see this patient again in the future if found appropriate by the physician. Thank you! Katy David
== END 2018-09-29 19:00 | disposition home or self-care (01) ==
LOC: PT 14:00
PROVIDERS: Family Provider Family Medicine Geriatric Medicine; PCP Family Medicine Geriatric Medicine; Referring Provider Family Medicine Geriatric Medicine; Visit Provider Family Medicine Geriatric Medicine
DX: I69.392 Facial weakness following cerebral infarction (principal)
CPT/HCPCS: 92522; 97110; 97116; 97162; 97530

== ENCOUNTER 2018-10-01 14:35 | Observation (INO) | payer MEDICARE, MEDICAID, SELFPAY ==
[2018-10-01] VITALS (11 sets, daily range): BP systolic 111–135; BP diastolic 60–67; PULSE 63–69; RESP 14–18; TEMP 36.6–37.2; O2SAT 95–99; BMI 27.2; BMI 22.8; BMI 22.9
[2018-10-01 14:46] LABS: Bedside Glucose 111 mg/dL (70-110)
--- NOTE | 2018-10-01 14:48 | RAD_ITS ---
STUDY: X-RAY CHEST REASON FOR EXAM: Female, 83 years old. Cough TECHNIQUE: AP COMPARISON: 08/14/2018 FINDINGS: EKG leads project over the chest. Granuloma in the left lung base is stable. There is no demonstrated pleural abnormality. Normal size heart. Normal mediastinum and jamal. Normal visualized pulmonary arteries. There is atherosclerotic calcification of the aortic arch with tortuosity. There is demineralization of the osseous structures. There is scoliosis of the thoracolumbar spine. There is no demonstrated abnormality of the visualized soft tissue structures of the upper abdomen. RAD/Chest 1 View IMPRESSION: No airspace consolidation or pleural effusion. Stable exam. Electronically Signed: Miguel Castillo MD at 15:53 EST , Service support ,
--- NOTE | 2018-10-01 14:48 | CT_ITS ---
STUDY: CT BRAIN WITHOUT CONTRAST REASON FOR EXAM: Female, 83 years old. RADIATION DOSAGE (If Supplied By Facility): CTDIvol = ( 44.99 ) mGy, DLP = ( 745.49 ) mGycm TECHNIQUE: Transaxial CT imaging of the brain was performed without administration of intravenous contrast material. Individualized dose optimization techniques were used for this CT. COMPARISON: None. FINDINGS: Normal soft tissue structures. Normal calvarium. Old ischemic infarct in the left posterior internal capsule. The old cystic infarct in the right periventricular white matter extending to the right internal capsule is unchanged. Normal ventricles and cisterns. Multiple chronic white matter ischemic changes in both cerebral hemispheres are unchanged. Normal basal ganglia and thalami. Normal brainstem. Normal cerebellum. There is no intracranial hemorrhage. No other suspicious infarcts. Normal visualized paranasal sinuses. CT/Brain/Head without Contrast IMPRESSION: 1. Old ischemic infarct in the left posterior internal capsule corresponds to the ischemic infarct seen on MRI of 08/10/2018. 2. Old cystic infarct in the right periventricular white matter extending down to the right internal capsule is unchanged. 3. Chronic white matter ischemic changes in both cerebral hemispheres are unchanged. 4. No CT evidence of intracranial bleeding or acute intracranial abnormality. N.B. : The above information has been verbally conveyed by Betito Vargas MD to Barak Rhina on 10/01/2018 15:09:00 (ET). Electronically Signed: Betito Vargas MD at 15:07 EST Tel , Service support ,
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
[2018-10-01 14:59] LABS: Absolute Lymphocyte Count 1.97 X10^3/ul (0.83-4.51); Absolute Neutrophil Count 5.2 X10^3/uL (2.0-7.7); Basophil# 0.07 X10^3/uL; Basophil% 0.8 % (0-1); Eosinophil# 0.27 X10^3/uL; Eosinophils% 3.2 % (0-5); Hematocrit 47.1 % (37-47); Hemoglobin 15.7 g/dl (12.0-15.0); Lymphocyte # 1.97 X10^3/ul (4.0); Lymphocyte % 23.7 % (19-41); Mean Corp Hgb Conc 33.3 g/gl (32-36); Mean Corpuscular Hgb 30.7 pg (27.0-32.0); Mean Platelet Vol. 9.8 fl (6.2-12.0); Monocyte# 0.77 X10^3/uL; Monocyte% 9.3 % (0-10); Neutrophil # 5.23 X10^3/uL (2.7-7.7); Neutrophil % 62.9 % (47-70); POSITIVE COUNT NO; POSITIVE DIFFERENTIAL NO; POSITIVE MORPHOLOGY NO; Platelet Count 299 K/mm3 (150-450); RBC Distribution Width CV 15.6 % (11.6-14.6); RBC Distribution Width SD 52.6 fl (35.1-43.9); Red Blood Count 5.12 M/mm3 (4.2-5.4); White Blood Count 8.3 K/mm3 (4.4-11.0)
--- NOTE | 2018-10-01 14:59 | ED.VISSUMM ---
- ER Visit Summary Date of Service: 10/01/18 Chief Complaint: Off balance and slurred speech History of Present Illness: The patient is a [address] Carr. She reports that when she woke up this morning at 830 she was off balance. Family contacted her approximately 1 and she had severely slurred speech. They report that that is now improving. The patient denies any numbness, weakness, vertigo, headache, chest pain, or other complaints. Physical Examination: Vitals: Stable. Afebrile. General: Well-nourished and well-developed. Head: Normocephalic atraumatic. Neck: Supple, no lymphadenopathy. No JVD. Nontender. Cardiovascular: Regular rate and rhythm. No murmurs. Respiratory: No respiratory distress. Clear to auscultation bilaterally. Abdominal: Soft, nontender, nondistended, normal bowel sounds. No guarding, rebound, or peritoneal signs. Back: Nontender. Extremities: Nontender, no edema. Skin: Normal color, no rash. Neurologic: Alert and oriented ?3. Cranial nerves II through XII are intact. Normal strength and sensation. NIH scale is 2 for dysarthria MRI and language. Psych: Normal affect. Test Results: EKG is sinus at 66 with no acute changes. CT brain shows no acute disease. Chest x-ray shows chronic changes. CBC is marked for an H&H of 15.7 47.1. Chem-7 is more for BUN of 21, creatinine 1.07, glucose 115. Troponin is negative. Emergency Department Course and Treatment: Patient is not a TPA candidate due to timeframe. It has been more than 6 hours since the onset of this. Also, she is improving. Treatment Plan: Patient was discussed with Dr. Zhang. She will be discussed with the hospitalist and admitted to the hospital for further evaluation and treatment. Disposition: Admitted in improved condition. Impression: 1. Stroke. This note was generated with [employer] dictation software. It may contain incorrect words, spelling, and punctuation that were not noted in review of the chart prior to signing ED Disposition - Plan for ED Patient: Chief Complaint: Alt LOC Referrals: Louis Carr Chi, MD [Primary Care Provider] -
[2018-10-01 15:01] LABS: Prothrombin Time (Protime)PT. 13.4 SECONDS (11.7-14.9)
[2018-10-01 15:02] LABS: Partial Thromboplast Time 29.5 Seconds (24.1-36.2)
[2018-10-01 15:09] LABS: Anion Gap 8 (5-15); BUN 21 mg/dL (7-18); BUN/Creat Ratio 19.6 RATIO (10-20); Calcium,Total 8.7 mg/dL (8.5-10.1); Chloride 107 mmol/L (98-107); Creatinine, Serum 1.07 mg/dL (0.55-1.02); EST Glomerular Filtration Rate 52 mL/min (>60); Est Glom Filt Rate - Afr Amer 63 mL/min (>60); Estimated Creatinine Clearance 32.61 ml/min; Glucose 115 mg/dL (74-106); Potassium 4.1 mmol/L (3.5-5.1); Sodium Level 141 mmol/L (136-145)
--- NOTE | 2018-10-01 15:35 | NURSING ---
DR SY FOR DR DAVIS
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
[2018-10-01] MEDS: 0.9% Normal Saline 1,000 ML 100 ML IV (16:07)
--- NOTE | 2018-10-01 16:07 | HP.PCM_ITS ---
<Edin Andujar - Last Filed: 10/01/18 16:14> Problem List (1) CVA (cerebral vascular accident) Status: Acute (2) Bladder cancer Status: Chronic (3) Depression Status: Chronic (4) Hypertension Status: Chronic History of Present Illness Date of Admission: 10/01/18 Chief Complaint: unsteadiness, dysarthria The patient is a 83 year old F with a hx of recent stroke, hx bladder cancer, htn, depression, who presents to the ER from home after developing unsteadiness and dysarthria this AM. She states that this started this AM soon after she woke up at about 0830. She woke up feeling normal. She was then cleaning her fish tank and suddenly felt unsteady. She called her nephew for help. He could not understand anything she was saying due to severe dysarthria. The family went and got her and brought her to the ER. At this time she has some slurred speech. Family notes it is significantly improved. She denies headache, dizziness, LH, double or blurred vision, focal weakness. After last stroke (08/10) she had right sided weakness and difficulty swallowing but reports that with therapy this has pretty much resolved with her stay in the Rehab unit. CT brain shows old stroke. Neuro has been consulted. [] Past Medical History Past Medical History (Chronic Problems): Chronic Problems (Last Updated 08/11/18 @ 10:41 by JOHNATHAN Morrison) Bladder cancer (Chronic) Depression (Chronic) Hypertension (Chronic) Medical History: Medical History (Last Updated 08/11/18 @ 10:41 by JOHNATHAN Morrison) Bladder cancer (Chronic) C67.9 Depression (Chronic) F32.9 Hypertension (Chronic) I10 Allergies No Known Allergies Allergy (Verified 09/06/18 11:36) Home Medications: Ambulatory Orders Medication Instructions Recorded Aspirin [Aspir-Low] 81 mg PO DAILY 05/19/18 Cyanocobalamin (Vitamin B-12) 1,000 mcg PO DAILY 05/19/18 [Vitamin B-12] Acetaminophen [Tylenol] 1,000 mg PO Q8H PRN tablet 08/29/18 Amlodipine [Norvasc] 10 mg PO DAILY #60 tablet 08/29/18 Atorvastatin Calcium [Lipitor] 40 mg PO QHS #60 tablet 08/29/18 Citalopram [Celexa] 20 mg PO DAILY #60 tablet 08/29/18 Clopidogrel Bisulfate [Plavix] 75 mg PO DAILY #90 tablet 08/29/18 Ergocalciferol [Vitamin D] 50,000 unit PO QWEEK #6 capsule 08/29/18 Peg 400/Hypromellose/Glycerin 1 drop EACH EYE Q1H PRN bottle 08/29/18 [Artificial Tears] Surgical History: - - Tumor removal. 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 history Lives: Alone Smoking Status: Never smoker Tobacco Use: Non-smoker Alcohol: None Drugs: None - *Family History Maternal History Items: No pertinent history Paternal History Items: No pertinent history Review of Systems Constitutional: Denies: Chills, Fever, Weight Change HEENT: Denies: Head Aches, Sinus Congestion, Sinus Drainage Cardiovascular: Denies: Chest Pain, Palpitations Respiratory: Denies: Cough, Shortness of breath at rest, Sputum production Gastrointestinal: Denies: Abdominal Pain, Nausea, Vomiting Genitourinary: Denies: Dysuria Musculoskeletal: Denies: Joint Pain, Joint Tenderness Skin: Denies: Rash, Wounds Neurological: Reports: Slurred speech, - - unsteady gait. Denies: Focal weakness, Numbness, Tingling Psychiatric: Denies: Anxiety, Depression, Homicidal Ideations, Suicidal Ideations Hematologic/ Lymphatic: Denies: Easy Bruising, Easy Bleeding VTE Information - Inpt Only VTE Present on Admission: No VTE Mechan Device Prophylaxis: None VTE Pharm Prophylaxis ordered?: Yes - Physical Exam General: Alert, Oriented x3, Cooperative HEENT: Atraumatic, PERRLA, EOMI, Normocephalic Oral: - - dysarthric Neck: Supple, No JVD, Negative Carotid Bruits Lungs: Clear to auscultation, Normal air movement Cardiovascular: Regular rate, No murmurs Abdomen: Bowel Sounds Present, Soft, Non Tender Extremities: No edema, Capillary Refill Less than 3 Seconds Skin: No rashes, No breakdown Musculoskeletal: No Tenderness to Palpation of Joints or Extremities Neurological: Cranial nerves II-XII grossly intact Psych/Mental Status: Normal Affect, Appropriate Vital Signs Temp Pulse Resp BP Pulse Ox 97.8 F 65 14 131/67 H 98 10/01/18 14:37 10/01/18 15:44 10/01/18 15:44 10/01/18 15:44 10/01/18 15:44 Oxygen Delivery Method Room Air Weight: 149 lb 0.52 oz Body Mass Index (BMI) 27.2 Finger Stick Blood Glucose 111 Laboratory Tests Past 24 Hrs 10/01/18 10/01/18 10/01/18 14:40 14:40 14:40 WBC 8.3 RBC 5.12 Hgb 15.7 H Hct 47.1 H MCV 92.0 MCH 30.7 MCHC 33.3 RDW 15.6 H RDW Differential 52.6 H Plt Count 299 MPV 9.8 Immature Gran % (Auto) 0.100 Neut % (Auto) 62.9 Lymph % (Auto) 23.7 [place] % (Auto) 9.3 Eos % (Auto) 3.2 Baso % (Auto) 0.8 Absolute Neuts (auto) 5.2 Absolute Lymphs (auto) 1.97 Total Counted Not Reportable PT 13.4 INR 1.0 APTT 29.5 Sodium 141 Potassium 4.1 Chloride 107 Carbon Dioxide 26.0 Anion Gap 8 BUN 21 H Creatinine 1.07 H Estim Creat Clear Calc 32.61 Est GFR (MDRD) Af Amer 63 Est GFR (MDRD) Non-Af 52 L BUN/Creatinine Ratio 19.6 Glucose 115 H Calcium 8.7 Troponin I < 0.015 POC Glucose 10/01/18 14:39 POC Glucose 111 H Assessment/Plan All Active Problems (Last Updated 08/11/18 @ 10:41 by Peg Rollins NP-[facility]) CVA (cerebral vascular accident) (Acute) 1. Acute CVA - marked by ataxia and dysarthria, seems to be improving at this point. EKG NSR, trop neg. hx CVA 08/10. Has been on plavix/statin, was previously on asa after stroke. CT brain shows old strokes. MRI brain in AM. Defer repeat MRA/Echo as she recently had this done. Maximize statin to 80. She was planned to have an outpatient holter monitor, will attempt to have this placed prior to DC. Maintain on tele while here. Allow permissive htn, hold her norvasc. IV fluids for slightly elevated BUN/Cr. Consults to PTOTST, Neuro following. 2. HTN - hold norvasc. 3. HLD - maximize statin therapy 4. Depression - celexa. DVT ppx : lovenox DC planning: PTOT, may need further skilled. This patient was seen by Edin Andujar PA-C under the supervision of Doctor Linda. <Rafy Mckeon F - Last Filed: 10/01/18 16:22> History of Present Illness The patient is a 83 year old F [] Past Medical History Medical History: Medical History (Last Updated 08/11/18 @ 10:41 by JOHNATHAN Morrison) Bladder cancer (Chronic) C67.9 Depression (Chronic) F32.9 Hypertension (Chronic) I10 Allergies No Known Allergies Allergy (Verified 09/06/18 11:36) - Physical Exam Vital Signs Temp Pulse Resp BP Pulse Ox 97.8 F 65 14 131/67 H 98 10/01/18 14:37 10/01/18 15:44 10/01/18 15:44 10/01/18 15:44 10/01/18 15:44 Oxygen Delivery Method Room Air Weight: 149 lb 0.52 oz Body Mass Index (BMI) 27.2 Finger Stick Blood Glucose 111 Laboratory Tests Past 24 Hrs 10/01/18 10/01/18 10/01/18 14:40 14:40 14:40 WBC 8.3 RBC 5.12 Hgb 15.7 H Hct 47.1 H MCV 92.0 MCH 30.7 MCHC 33.3 RDW 15.6 H RDW Differential 52.6 H Plt Count 299 MPV 9.8 Immature Gran % (Auto) 0.100 Neut % (Auto) 62.9 Lymph % (Auto) 23.7 [place] % (Auto) 9.3 Eos % (Auto) 3.2 Baso % (Auto) 0.8 Absolute Neuts (auto) 5.2 Absolute Lymphs (auto) 1.97 Total Counted Not Reportable PT 13.4 INR 1.0 APTT 29.5 Sodium 141 Potassium 4.1 Chloride 107 Carbon Dioxide 26.0 Anion Gap 8 BUN 21 H Creatinine 1.07 H Estim Creat Clear Calc 32.61 Est GFR (MDRD) Af Amer 63 Est GFR (MDRD) Non-Af 52 L BUN/Creatinine Ratio 19.6 Glucose 115 H Calcium 8.7 Troponin I < 0.015 POC Glucose 11/04/18 14:39 POC Glucose 111 H Code Visit Addendum: Dr. Mckeon I personally examined the patient and reviewed the chart. I agree with the above. 83-year-old female with a recent history of a stroke in July, history of bladder cancer, hypertension, depression who presented to the ER from home with an unsteady gait and then progressively worse dysarthria. She states that she did wake up normal and was cleaning out her fish tank when she started to feel unsteady she was brought into the ER at around 3 PM and therefore was not a TPA candidate. On evaluation her unsteadiness is gone and her dysarthria has significantly improved per family and patient report. She denies any headache, dizziness, blurry vision, numbness or tingling in her extremities. Given that she has had an extensive workup within the last 2 months with an MRA of her head and neck, echo, will only obtain an MRI of her brain as well as placed on a Holter monitor at discharge. Prior to her stroke in July she was on aspirin and was transitioned to Plavix and she is currently on only Plavix, as well as Lipitor 40 mg. Will consult neurology to further clarify either adding back on aspirin to her Plavix regimen, and also the necessity of increasing her Lipitor to 80 mg. OBSV E&M: 99928 Initial observation care L3
--- NOTE | 2018-10-01 17:59 | CT_ITS ---
STUDY: CTA OF THE BRAIN WITHOUT AND WITH IV CONTRAST REASON FOR EXAM: Female, 83 years old. Worsening stroke like symptoms, dysarthria, and drooling of the right side RADIATION DOSAGE (If Supplied By Facility): CTDIvol = ( 21.34 ) mGy, DLP = ( 1366.27 ) mGycm TECHNIQUE: CT angiography was performed with a multi-detector CT scanner. Data acquisition was obtained from the skull base through the vertex following intravenous administration of 100 ml of Isovue-370. MIP images were reconstructed from the axial data set. Post-processing of the angiographic images was performed, with multiplanar reformation and 3D reconstruction. Individualized dose optimization techniques were used for this CT. COMPARISON: CT from earlier today. FINDINGS: Normal bilateral petrous carotid arteries. There is calcified plaque formation of the right cavernous carotid artery, without a cross-sectional luminal stenosis. There is calcified plaque formation of the left cavernous carotid artery, without a cross-sectional luminal stenosis. Normal right A1 segments of the anterior cerebral artery. Normal left A1 segments of the anterior cerebral artery. Normal intact anterior communicating artery (ACOM). Normal bilateral A2 segments of the anterior cerebral arteries. Normal right M1 and M2 segments of the middle cerebral arteries, with a normal M1 bifurcation. Normal left M1 and M2 segments of the middle cerebral arteries, with a normal M1 bifurcation. There is non-visualization of the right posterior communicating artery (PCOM). There is non-visualization of the left posterior communicating artery (PCOM). Normal bilateral vertebral arteries. Normal basilar artery with a normal basilar bifurcation. The visualized bilateral superior cerebellar (SCA) arteries are normal. Normal bilateral P1, P2 and visualized P3 segments of the posterior cerebral arteries. There is no demonstrated aneurysm of the [place]. Mild degree of central parenchymal volume loss but with symmetric ventricular system. Patchy areas of diminished density in the periventricular and subcortical white matter similar in distribution since the prior study. No evolving infarction. No acute intracranial hemorrhage. Lacunar infarction of the right lacunar infarction of the right internal capsule and left basal ganglia stable. Low-density ischemic changes of the left internal capsule similar since prior study. Visualized paranasal sinuses. CT/CTA Head W/WO Contrast IMPRESSION: 1. Normal [place] without a demonstrated aneurysm or hemodynamically significant stenosis. 2. No evolving infarction or acute intracranial hemorrhage. Stable appearance of the brain since earlier today. 3. Prior lacunar infarctions, as above. 4. Central parenchymal volume loss. White matter changes that are nonspecific but most commonly associated with chronic small vessel ischemic disease. N.B. : The above information has been verbally conveyed by Miguel Castillo MD to TAMIKA SY on 10/01/2018 19:09:40 (ET). Electronically Signed: Miguel Castillo MD at 18:59 EST , Service support ,
--- NOTE | 2018-10-01 17:59 | CT_ITS ---
STUDY: CTA NECK WITH CONTRAST REASON FOR EXAM: Female, 83 years old. Worsening stroke like symptoms, dysarthria, and drooling of the right side RADIATION DOSAGE (If Supplied By Facility): CTDIvol = ( 21.34 ) mGy, DLP = ( 1366.27 ) mGycm TECHNIQUE: CT angiography with multi-detector data acquisition was performed from the aortic arch to the skull base following intravenous administration of 100ML ml of Isovue 370 contrast. MIP images were reconstructed from the axial data set. Post-processing of the angiographic images was performed, with multiplanar reformation and 3D reconstruction. Individualized dose optimization techniques were used for this CT. COMPARISON: None. FINDINGS: The right more than left thyroid gland is enlarged. Calcifications of the right thyroid gland noted. AORTIC ARCH: Atherosclerosis of the aortic arch. Normal variant origin of the left vertebral artery from the aortic arch. Normal origins of the brachiocephalic, left common carotid, and left subclavian arteries. RIGHT CAROTID ARTERIES: Normal right common carotid artery (CCA). There is mild atherosclerotic plaque formation with minimal narrowing of the right carotid bulb. There is mild atherosclerotic plaque formation of the origin of the right internal carotid artery with less than 50% cross sectional diameter stenosis. Normal visualized cervical portion of the right internal carotid artery. Normal origin of the right external carotid artery (ECA). LEFT CAROTID ARTERIES: Normal left common carotid artery (CCA). There is mild atherosclerotic plaque formation with minimal narrowing of the left carotid bulb. There is mild atherosclerotic plaque formation of the origin of the left internal carotid artery with less than 50% cross sectional diameter stenosis. Normal visualized cervical portion of the left internal carotid artery. Normal origin of the left external carotid artery (ECA). VERTEBRAL ARTERIES: There is enhancement within the bilateral vertebral arteries with a small left vertebral artery, and a dominant right vertebral artery. CT/CTA Neck W/WO Contrast IMPRESSION: 1. Mild bilateral carotid bulb atherosclerosis WITHOUT hemodynamically significant stenosis. 2. Degenerative changes of the cervical spine. 3. Thyromegaly. N.B. : The above information has been verbally conveyed by Miguel Castillo MD to TAMIKA SY on 10/01/2018 19:09:34 (ET). Electronically Signed: Miguel Castillo MD at 19:02 EST , Service support ,
--- NOTE | 2018-10-01 18:17 | PCM.PN.BLA ---
Progress Note Paged by floor nurse for a worsening NIH. On admission patient had an NIH of 2, and when I evaluated her this afternoon she had an NIH of 1 for mild dysarthria. At around 6 PM the family asked the nurses to come and see her because they felt that her facial droop had returned, however on the nurse's evaluation she appeared much the same as she did on our initial evaluation however the nurse did feel that the dysarthria had worsened, and the patient was drooling out of the routes right side of her mouth, so the nurse performed a dysphasia screen again which the patient had passed in the ER. The patient now failed her dysphagia screen so her NIH appears to have gone from a 1 to a 3 and therefore CTAs of the head and neck were ordered as well as a repeated noncontrast CT brain. We will increase fluids to 200 an hour to support perfusion. Further recommendations pending based on CTA of the head neck and noncontrasted CT brain.
[2018-10-01] MEDS: 0.9% Normal Saline 1,000 ML 200 ML IV (23:50)
[2018-10-02] VITALS (9 sets, daily range): BP systolic 118–133; BP diastolic 56–92; PULSE 63–89; RESP 18; TEMP 36.3–37.2; O2SAT 94–99; BMI 22.8
[2018-10-02] MEDS: 0.9% Normal Saline 1,000 ML 200 ML IV ×2 (05:02→13:03)
[2018-10-02 05:51] LABS: Absolute Lymphocyte Count 2.03 X10^3/ul (0.83-4.51); Absolute Neutrophil Count 6.2 X10^3/uL (2.0-7.7); Basophil# 0.09 X10^3/uL; Basophil% 0.9 % (0-1); Eosinophils% 4.1 % (0-5); Hematocrit 46.1 % (37-47); Hemoglobin 15.6 g/dl (12.0-15.0); Lymphocyte # 2.03 X10^3/ul (4.0); Lymphocyte % 20.6 % (19-41); Mean Corp Hgb Conc 33.8 g/gl (32-36); Mean Corpuscular Hgb 30.2 pg (27.0-32.0); Mean Corpuscular Volume 89.3 fL (81-99); Mean Platelet Vol. 10.1 fl (6.2-12.0); Monocyte# 1.12 X10^3/uL; Monocyte% 11.4 % (0-10); Neutrophil % 62.8 % (47-70); Platelet Count 290 K/mm3 (150-450); RBC Distribution Width CV 15.4 % (11.6-14.6); RBC Distribution Width SD 50.6 fl (35.1-43.9); Red Blood Count 5.16 M/mm3 (4.2-5.4); White Blood Count 9.9 K/mm3 (4.4-11.0)
[2018-10-02 05:54] LABS: POSITIVE COUNT NO; POSITIVE DIFFERENTIAL NO; POSITIVE MORPHOLOGY NO
--- NOTE | 2018-10-02 05:55 | MRI_ITS ---
STUDY: MRI BRAIN WITHOUT CONTRAST REASON FOR EXAM: Female, 83 years old. CVA and dysarthria TECHNIQUE: Standardized multiplanar fat and water weighted pulse sequences were obtained. COMPARISON: 08/10/2018 FINDINGS: Normal size of the ventricles and extra-axial spaces for the patient's age. Nonacute infarcts in the bilateral internal capsules. Stable moderate microangiopathic white matter disease. Normal bilateral basal ganglia. Normal thalami. There is no extra-axial fluid accumulation. Normal flow voids within the major intracranial circulation suggesting patency by spin echo criteria. Normal sella turcica, pituitary gland, infundibular stalk, optic chiasm and hypothalamus. Normal tectal plate and pineal gland. Normal midbrain, alessandro and medulla. Normal cerebellum. Normal basal cisterns. Normal bilateral temporal bones. Normal bilateral internal auditory canals. No demonstrated orbital abnormality, within the constraints of a routine brain study. Normal visualized paranasal sinuses. Normal calvarium and skull base. Normal visualized soft tissue structures. Normal visualized upper cervical spine. MRI/Brain without Contrast IMPRESSION: No new infarct or hemorrhage. Nonacute infarcts in the bilateral internal capsules. Stable white matter disease. Electronically Signed: Otoniel Ann MD at 10:07 EST Tel , Service support ,
[2018-10-02 06:14] LABS: Anion Gap 9 (5-15); BUN 11 mg/dL (7-18); BUN/Creat Ratio 16.2 RATIO (10-20); Calcium,Total 8.4 mg/dL (8.5-10.1); Chloride 109 mmol/L (98-107); Creatinine, Serum 0.68 mg/dL (0.55-1.02); EST Glomerular Filtration Rate 89 mL/min (>60); Est Glom Filt Rate - Afr Amer 107 mL/min (>60); Glucose 97 mg/dL (74-106); Potassium 3.6 mmol/L (3.5-5.1); Sodium Level 142 mmol/L (136-145)
--- NOTE | 2018-10-02 10:30 | PCM.CONS.GEN ---
Reason for Consult Date of Consultation: 10/02/18 History of Present Illness: The patient is a 83 year old right handed white female with history of stroke in august 15 presents with worsening speech. according to records speech was affected with her previous stroke in july. pt reports similar. per H&P:The patient is a 83 year old F with a hx of recent stroke, hx bladder cancer, htn, depression, who presents to the ER from home after developing unsteadiness and dysarthria this AM. She states that this started this AM soon after she woke up at about 0830. She woke up feeling normal. She was then cleaning her fish tank and suddenly felt unsteady. She called her nephew for help. He could not understand anything she was saying due to severe dysarthria. The family went and got her and brought her to the ER. At this time she has some slurred speech. Family notes it is significantly improved. She denies headache, dizziness, LH, double or blurred vision, focal weakness. After last stroke (08/10) she had right sided weakness and difficulty swallowing but reports that with therapy this has pretty much resolved with her stay in the Rehab unit. CT brain shows old stroke. Neuro has been consulted. Past Medical History Past Medical History (Chronic Problems): Chronic Problems (Last Reviewed 10/02/18 @ 10:31 by Johnathon Carl MD) Bladder cancer (Chronic) Depression (Chronic) Hypertension (Chronic) Medical History: Medical History (Last Reviewed 10/02/18 @ 10:31 by Johnathon Carl MD) Bladder cancer (Chronic) C67.9 Depression (Chronic) F32.9 Hypertension (Chronic) I10 Allergies No Known Allergies Allergy (Verified 09/06/18 11:36) Home Medications: Ambulatory Orders Medication Instructions Recorded Cyanocobalamin (Vitamin B-12) 1,000 mcg PO DAILY 05/19/18 [Vitamin B-12] Clopidogrel Bisulfate [Plavix] 75 mg PO DAILY #90 tablet 08/29/18 Ergocalciferol [Vitamin D] 50,000 unit PO QWEEK #6 capsule 08/29/18 Peg 400/Hypromellose/Glycerin 1 drop EACH EYE Q1H PRN bottle 08/29/18 [Artificial Tears] Amlodipine [Norvasc] 10 mg PO DAILY 10/01/18 Atorvastatin Calcium [Lipitor] 40 mg PO QHS 10/01/18 Citalopram [Celexa] 20 mg PO DAILY 10/01/18 Surgical History: - - Tumor removal. Psychiatric History: Depression [employer] History: No pertinent [employer]SE [employer]ING [employer]ORY [employer]ERK history Lives: Alone Smoking Status: Never smoker Tobacco Use: Non-smoker Alcohol: None Drugs: None - *Family History Maternal History Items: No pertinent history Paternal History Items: No pertinent history Review of Systems Neurological: Reports: Balance problems, Slurred speech - Physical Exam General: Alert, Oriented x3, Cooperative HEENT: Atraumatic, PERRLA, EOMI Neurological: Cranial nerves II-XII grossly intact, Slurred Speech, Sensory exam intact to light touch and pain Psych/Mental Status: Normal Affect Vital Signs Temp Pulse Resp BP Pulse Ox 37.0 C 71 18 118/92 H 97 10/02/18 08:00 10/02/18 08:00 10/02/18 08:00 10/02/18 08:00 10/02/18 08:00 Oxygen Delivery Method Room Air Weight: 64.3 kg Body Mass Index (BMI) 22.8 Finger Stick Blood Glucose 111 Intake and Output for Last 24 Hours 10/01/18 10/01/18 10/02/18 00:59 23:59 23:59 Intake Total 983 / 983 Output Total Balance 983 / 983 Laboratory Tests Past 24 Hrs 10/01/18 10/01/18 10/01/18 14:40 14:40 14:40 WBC 8.3 RBC 5.12 Hgb 15.7 H Hct 47.1 H MCV 92.0 MCH 30.7 MCHC 33.3 RDW 15.6 H RDW Differential 52.6 H Plt Count 299 MPV 9.8 Immature Gran % (Auto) 0.100 Neut % (Auto) 62.9 Lymph % (Auto) 23.7 [place] % (Auto) 9.3 Eos % (Auto) 3.2 Baso % (Auto) 0.8 Absolute Neuts (auto) 5.2 Absolute Lymphs (auto) 1.97 Total Counted Not Reportable PT 13.4 INR 1.0 APTT 29.5 Sodium 141 Potassium 4.1 Chloride 107 Carbon Dioxide 26.0 Anion Gap 8 BUN 21 H Creatinine 1.07 H Estim Creat Clear Calc 32.61 Est GFR (MDRD) Af Amer 63 Est GFR (MDRD) Non-Af 52 L BUN/Creatinine Ratio 19.6 Glucose 115 H Calcium 8.7 Troponin I < 0.015 10/02/18 10/02/18 05:20 05:20 WBC 9.9 RBC 5.16 Hgb 15.6 H Hct 46.1 MCV 89.3 MCH 30.2 MCHC 33.8 RDW 15.4 H RDW Differential 50.6 H Plt Count 290 MPV 10.1 Immature Gran % (Auto) 0.200 Neut % (Auto) 62.8 Lymph % (Auto) 20.6 [place] % (Auto) 11.4 H Eos % (Auto) 4.1 Baso % (Auto) 0.9 Absolute Neuts (auto) 6.2 Absolute Lymphs (auto) 2.03 Total Counted Not Reportable PT INR APTT Sodium 142 Potassium 3.6 Chloride 109 H Carbon Dioxide 24.0 Anion Gap 9 BUN 11 Creatinine 0.68 Estim Creat Clear Calc 41.30 Est GFR (MDRD) Af Amer 107 Est GFR (MDRD) Non-Af 89 BUN/Creatinine Ratio 16.2 Glucose 97 Calcium 8.4 L Troponin I POC Glucose 10/01/18 14:39 POC Glucose 111 H Current Home Med List Medication Instructions Recorded Confirmed Type Cyanocobalamin (Vitamin B-12) 1,000 mcg PO DAILY 05/19/18 10/01/18 History [Vitamin B-12] Clopidogrel Bisulfate [Plavix] 75 mg PO DAILY #90 tablet 08/29/18 10/01/18 Rx Ergocalciferol [Vitamin D] 50,000 unit PO QWEEK #6 capsule 08/29/18 10/01/18 Rx Peg 400/Hypromellose/Glycerin 1 drop EACH EYE Q1H PRN bottle 08/29/18 10/01/18 Rx [Artificial Tears] Amlodipine [Norvasc] 10 mg PO DAILY 10/01/18 10/01/18 History Atorvastatin Calcium [Lipitor] 40 mg PO QHS 10/01/18 10/01/18 History Citalopram [Celexa] 20 mg PO DAILY 10/01/18 10/01/18 History Current Medications Generic Name Dose Route Start Last Admin Trade Name Freq PRN Reason Stop Dose Admin Enoxaparin Sodium 40 mg 10/02/18 10:00 Lovenox SC DAILY@1000 JJ Sodium Chloride 1,000 mls @ 200 mls/hr 10/01/18 18:00 10/02/18 05:02 IV 200 mls/hr .Q5H JJ Administration Magnesium Hydroxide 30 ml 10/01/18 16:36 Milk Of Magnesia PO DAILY PRN Constipation Sodium Chloride 5 - 30 ml 10/01/18 18:55 IV UD PRN SALINE FLUSH Assessment/Plan All Active Problems (Last Reviewed 10/02/18 @ 10:31 by Johnathon Carl MD) CVA (cerebral vascular accident) (Acute) encephalopathy, unclear cause of exacerbation but appears to be at or close to her baseline since cva 08/15. continue same meds pt/ot/sp consider rehab
[2018-10-02] MEDS: Enoxaparin 40 MG/0.4 ML Syringe SC (11:00)
--- NOTE | 2018-10-02 12:21 | CASEMGMT ---
Physician was wondering if patient can go to [facility] 4th floor rehab unit. CHAPARRO called Smia in rehab and she will check with Dr Carl. Sima will then get back with CHAPARRO. Once Sima gets back to , CHAPARRO will check with patient and family. Erin VELASCO MSW
--- NOTE | 2018-10-02 13:04 | CASEMGMT ---
Received call from Sima and Dr Carl will take patient, but he did not think she wanted rehab. SW will talk with patient. Erin VELASCO MSW
--- NOTE | 2018-10-02 13:15 | PCM.PROGNOTE ---
<Edin Andujar - Last Filed: 10/02/18 13:15> Subjective: Pt complains speech is worse. Denies focal weakness. Did poor with speech. Unsteady on her feet with PT. No diplopia, no double vision, no headache. - Physical Exam General: Alert, Oriented x3, Cooperative HEENT: Atraumatic, PERRLA, EOMI, Normocephalic Neck: Supple, No JVD, Negative Carotid Bruits Lungs: Clear to auscultation, Normal air movement Cardiovascular: Regular rate, No murmurs Abdomen: Bowel Sounds Present, Soft, Non Tender Extremities: No edema, Capillary Refill Less than 3 Seconds Skin: No rashes, No breakdown Musculoskeletal: No Tenderness to Palpation of Joints or Extremities Neurological: Cranial nerves II-XII grossly intact, - - slight left lip droop. worse dysarthria Psych/Mental Status: Normal Affect, Appropriate Vital Signs Temp Pulse Resp BP Pulse Ox 97.3 F L 89 18 121/62 H 94 10/02/18 12:36 10/02/18 12:36 10/02/18 12:36 10/02/18 12:36 10/02/18 12:36 Oxygen Delivery Method Room Air Weight: 141 lb 12.116 oz Body Mass Index (BMI) 22.8 Finger Stick Blood Glucose 111 Intake and Output for Last 24 Hours 10/01/18 10/01/18 10/02/18 00:59 23:59 23:59 Intake Total 983 / 983 Output Total Balance 983 / 983 Laboratory Tests Past 24 Hrs 10/01/18 10/01/18 10/01/18 14:40 14:40 14:40 WBC 8.3 RBC 5.12 Hgb 15.7 H Hct 47.1 H MCV 92.0 MCH 30.7 MCHC 33.3 RDW 15.6 H RDW Differential 52.6 H Plt Count 299 MPV 9.8 Immature Gran % (Auto) 0.100 Neut % (Auto) 62.9 Lymph % (Auto) 23.7 [place] % (Auto) 9.3 Eos % (Auto) 3.2 Baso % (Auto) 0.8 Absolute Neuts (auto) 5.2 Absolute Lymphs (auto) 1.97 Total Counted Not Reportable PT 13.4 INR 1.0 APTT 29.5 Sodium 141 Potassium 4.1 Chloride 107 Carbon Dioxide 26.0 Anion Gap 8 BUN 21 H Creatinine 1.07 H Estim Creat Clear Calc 32.61 Est GFR (MDRD) Af Amer 63 Est GFR (MDRD) Non-Af 52 L BUN/Creatinine Ratio 19.6 Glucose 115 H Calcium 8.7 Troponin I < 0.015 10/02/18 10/02/18 05:20 05:20 WBC 9.9 RBC 5.16 Hgb 15.6 H Hct 46.1 MCV 89.3 MCH 30.2 MCHC 33.8 RDW 15.4 H RDW Differential 50.6 H Plt Count 290 MPV 10.1 Immature Gran % (Auto) 0.200 Neut % (Auto) 62.8 Lymph % (Auto) 20.6 [place] % (Auto) 11.4 H Eos % (Auto) 4.1 Baso % (Auto) 0.9 Absolute Neuts (auto) 6.2 Absolute Lymphs (auto) 2.03 Total Counted Not Reportable PT INR APTT Sodium 142 Potassium 3.6 Chloride 109 H Carbon Dioxide 24.0 Anion Gap 9 BUN 11 Creatinine 0.68 Estim Creat Clear Calc 41.30 Est GFR (MDRD) Af Amer 107 Est GFR (MDRD) Non-Af 89 BUN/Creatinine Ratio 16.2 Glucose 97 Calcium 8.4 L Troponin I POC Glucose 10/01/18 14:39 POC Glucose 111 H Medical Necessity - Tobacco Use Smoking Status: Never smoker Tobacco Use: Non-smoker Assessment/Plan All Active Problems (Last Reviewed 10/02/18 @ 10:31 by Johnathon Carl MD) CVA (cerebral vascular accident) (Acute) 1. Acute CVA - Neuro consulted. dysarthria worse. Imaging done - no acute stroke noted. Pt previously on statin and plavix - restarted. Needs event monitor. Continue PTOTST. 2. Dysphagia - thickened liquids, pureed solids. 2. HTN - hold norvasc. 3. HLD - maximize statin therapy 4. Depression - celexa. 5. Debility - ptot. DVT ppx : lovenox DC planning: Rehab unit if pt agreeable This patient was seen by Edin Andujar PA-C under the supervision of Doctor Samuel. <Mor Baker - Last Filed: 10/02/18 14:36> - Physical Exam Vital Signs Temp Pulse Resp BP Pulse Ox 97.3 F L 89 18 121/62 H 94 10/02/18 12:36 10/02/18 12:36 10/02/18 12:36 10/02/18 12:36 10/02/18 12:36 Oxygen Delivery Method Room Air Weight: 64.3 kg Body Mass Index (BMI) 22.8 Finger Stick Blood Glucose 111 Intake and Output for Last 24 Hours 10/01/18 10/01/18 10/02/18 00:59 23:59 23:59 Intake Total 1223 / 1223 Output Total Balance 1223 / 1223 Laboratory Tests Past 24 Hrs 10/01/18 10/01/18 10/01/18 14:40 14:40 14:40 WBC 8.3 RBC 5.12 Hgb 15.7 H Hct 47.1 H MCV 92.0 MCH 30.7 MCHC 33.3 RDW 15.6 H RDW Differential 52.6 H Plt Count 299 MPV 9.8 Immature Gran % (Auto) 0.100 Neut % (Auto) 62.9 Lymph % (Auto) 23.7 [place] % (Auto) 9.3 Eos % (Auto) 3.2 Baso % (Auto) 0.8 Absolute Neuts (auto) 5.2 Absolute Lymphs (auto) 1.97 Total Counted Not Reportable PT 13.4 INR 1.0 APTT 29.5 Sodium 141 Potassium 4.1 Chloride 107 Carbon Dioxide 26.0 Anion Gap 8 BUN 21 H Creatinine 1.07 H Estim Creat Clear Calc 32.61 Est GFR (MDRD) Af Amer 63 Est GFR (MDRD) Non-Af 52 L BUN/Creatinine Ratio 19.6 Glucose 115 H Calcium 8.7 Troponin I < 0.015 10/02/18 10/02/18 05:20 05:20 WBC 9.9 RBC 5.16 Hgb 15.6 H Hct 46.1 MCV 89.3 MCH 30.2 MCHC 33.8 RDW 15.4 H RDW Differential 50.6 H Plt Count 290 MPV 10.1 Immature Gran % (Auto) 0.200 Neut % (Auto) 62.8 Lymph % (Auto) 20.6 [place] % (Auto) 11.4 H Eos % (Auto) 4.1 Baso % (Auto) 0.9 Absolute Neuts (auto) 6.2 Absolute Lymphs (auto) 2.03 Total Counted Not Reportable PT INR APTT Sodium 142 Potassium 3.6 Chloride 109 H Carbon Dioxide 24.0 Anion Gap 9 BUN 11 Creatinine 0.68 Estim Creat Clear Calc 41.30 Est GFR (MDRD) Af Amer 107 Est GFR (MDRD) Non-Af 89 BUN/Creatinine Ratio 16.2 Glucose 97 Calcium 8.4 L Troponin I POC Glucose 10/01/18 14:39 POC Glucose 111 H Assessment/Plan This patient was seen in conjunction with Edin Andujar PA-C . I have independently interviewed and examined the patient and reviewed pertinent historical, laboratory, and other data. Please refer to Edin Andujar PA-C note for details of this patient's presentation, findings, and recommendations. I have reviewed Edin Andujar PA-C note and concur with documented findings. In brief, patient is a 83-year-old lady with previous CVA admitted with dysarthria patient admitted to a monitored bed for subsequent management 10/02/2018 patient seen her dysarthria appears to be worsening. She also has unsteady gait according to PT. Physical Examination: GENERAL: cooperative HEENT: Atraumatic; EYES; Anicteric, Normal Conjunctiva NECK; supple, normal thyroid, RESPIRATORY: Diminished to auscultation bilaterally, CARDIOVASCULAR: Regular S1 S2, no audible murmurs GI: soft, non-tender, normoactive bowel sounds, : No Renal angle tenderness; NEURO: Awake; left facial droop SKIN: No Rash PSYCH; flat affect Assessment: 1. Acute ischemic CVA 2. Dysphagia secondary to #1 3. Dyslipidemia 4. Essential hypertension 5. Depression 6. Physical debility 7. DVT prophylaxis SC Lovenox Recommendations: 1. I have discussed the results of my overview and impressions with the patient 2. Options for management were reviewed Code Visit Inpatient E&M: 49239 Subs Hosp L3
--- NOTE | 2018-10-02 13:49 | CASEMGMT ---
SW spoke with patient and 2 of her nieces. SW introduced self and the role at [facility]. SW explained therapy feels she needs to return to the inpatient rehab unit. Patient said she wanted to think about it. SW to check back with patient again. Erin VELASCO MSW
--- NOTE | 2018-10-02 14:57 | DCINST_ITS ---
You will use the following diet at home:: Cardiac, Other - Pur?ed textures honey thickened liquids Your food should be the consistency of: Regular Your liquids should be the consistency of: Regular/Thin Discharge Activity: Return to Normal Activity Additional Instructions: PT, OT, ST as directed by the rehab unit. Allergies/Adverse Reactions: Allergies No Known Allergies Allergy (Verified 09/06/18 11:36) Medications to take at Discharge Cyanocobalamin (Vitamin B-12) [Vitamin B-12] 1,000 mcg PO DAILY 05/19/18 Clopidogrel Bisulfate [Plavix] 75 mg PO DAILY #90 tablet 08/29/18 Ergocalciferol [Vitamin D] 50,000 unit PO QWEEK #6 capsule 08/29/18 Peg 400/Hypromellose/Glycerin [Artificial Tears] 1 drop EACH EYE Q1H PRN bottle 08/29/18 Amlodipine [Norvasc] 10 mg PO DAILY 10/01/18 Atorvastatin Calcium [Lipitor] 40 mg PO QHS 10/01/18 Citalopram [Celexa] 20 mg PO DAILY 10/01/18 Ensure Enlive 120 ml PO 4X/DAY liquid 10/02/18 Primary Care Physician: Louis Carr Chi, MD [Primary Care Provider] - Please follow up with your Primary Care Physician in: 2 weeks Test Results: Test results from this visit will be discussed in further detail at your follow- up appointment, if applicable. Please Follow Up With: Johnathon Carl MD When: 1 week Proposed Discharge Date: 10/02/18
--- NOTE | 2018-10-02 14:57 | PCM.DC.SUM ---
<Edin Andujar - Last Filed: 10/02/18 14:57> Discharge Date and Diagnosis Date of Admission: 10/01/18 Date of Discharge: 10/02/18 - Primary Discharge Diagnosis Dysarthria unclear encephalopathy Prior CVA No acute CVA Hx Bladder CA HTN Depression - Secondary Discharge Diagnosis Chronic Problems (Last Reviewed 10/02/18 @ 10:31 by Johnathon Carl MD) Bladder cancer (Chronic) Depression (Chronic) Hypertension (Chronic) Hospital Course and Treatment Operations: None Procedures: None Summary of Care Provided: Hospital course: The patient is a 83 year old F with pmhx as above who presented to the ER with unsteadiness and dysarthria that began suddenly while at home cleaning her fish tank. She had similar symptoms plus right sided weakness several months prior when she had an acute CVA. After that she was on asa/plavix/statin transitioned to plavix/statin only with PTOT at the rehab unit as directed by Neuro. She had been doing well at home until this point. She came to the ER with concern for another CVA. She appeared dysarthric in the ER which had improved by the time she was admitted. She had a negative CT brain. She was admitted to the PCU and neuro was consulted. She had an MRI of the brain which was negative for acute stroke as well as the CTA head and neck. She had no events on tele. Neuro felt that this was metabolic encephalopathy not related to an acute stroke, with unclear specific etiology. She did continue to have significant dysarthria after admission. She had a poor speech eval and will need to have pureed textures with honey thickened liquids. She did poorly ambulating with PT. She was agreeable to going back to the Rehab unit for more PT/OT/ST. She was discharged there in stable condition. She will continue statin and plavix as prior dosed. She eventually will need placed on a 30 day event monitor after dc from the rehab unit which was part of her previous plan. Also please follow up with your PCP in 2 weeks. This patient was seen by Edin Andujar PA-C under the supervision of Doctor Baker. [] - Physical Exam General: Alert, Oriented x3, Cooperative HEENT: Atraumatic, PERRLA, EOMI, Normocephalic Neck: Supple, No JVD, Negative Carotid Bruits Lungs: Clear to auscultation, Normal air movement Cardiovascular: Regular rate, No murmurs Abdomen: Bowel Sounds Present, Soft, Non Tender Extremities: No edema, Capillary Refill Less than 3 Seconds Skin: No rashes, No breakdown Musculoskeletal: No Tenderness to Palpation of Joints or Extremities Neurological: Cranial nerves II-XII grossly intact, - - Slight left lip droop, significant dysarthria Psych/Mental Status: Normal Affect, Appropriate Vital Signs Temp Pulse Resp BP Pulse Ox 97.3 F L 89 18 121/62 H 94 10/02/18 12:36 10/02/18 12:36 10/02/18 12:36 10/02/18 12:36 10/02/18 12:36 Oxygen Delivery Method Room Air Weight: 141 lb 12.116 oz Body Mass Index (BMI) 22.8 Finger Stick Blood Glucose 111 Intake and Output for Last 24 Hours 10/01/18 10/01/18 10/02/18 00:59 23:59 23:59 Intake Total 1223 / 1223 Output Total Balance 1223 / 1223 Laboratory Tests Past 24 Hrs 10/01/18 10/01/18 10/01/18 14:40 14:40 14:40 WBC 8.3 RBC 5.12 Hgb 15.7 H Hct 47.1 H MCV 92.0 MCH 30.7 MCHC 33.3 RDW 15.6 H RDW Differential 52.6 H Plt Count 299 MPV 9.8 Immature Gran % (Auto) 0.100 Neut % (Auto) 62.9 Lymph % (Auto) 23.7 [place] % (Auto) 9.3 Eos % (Auto) 3.2 Baso % (Auto) 0.8 Absolute Neuts (auto) 5.2 Absolute Lymphs (auto) 1.97 Total Counted Not Reportable PT 13.4 INR 1.0 APTT 29.5 Sodium 141 Potassium 4.1 Chloride 107 Carbon Dioxide 26.0 Anion Gap 8 BUN 21 H Creatinine 1.07 H Estim Creat Clear Calc 32.61 Est GFR (MDRD) Af Amer 63 Est GFR (MDRD) Non-Af 52 L BUN/Creatinine Ratio 19.6 Glucose 115 H Calcium 8.7 Troponin I < 0.015 10/02/18 10/02/18 05:20 05:20 WBC 9.9 RBC 5.16 Hgb 15.6 H Hct 46.1 MCV 89.3 MCH 30.2 MCHC 33.8 RDW 15.4 H RDW Differential 50.6 H Plt Count 290 MPV 10.1 Immature Gran % (Auto) 0.200 Neut % (Auto) 62.8 Lymph % (Auto) 20.6 [place] % (Auto) 11.4 H Eos % (Auto) 4.1 Baso % (Auto) 0.9 Absolute Neuts (auto) 6.2 Absolute Lymphs (auto) 2.03 Total Counted Not Reportable PT INR APTT Sodium 142 Potassium 3.6 Chloride 109 H Carbon Dioxide 24.0 Anion Gap 9 BUN 11 Creatinine 0.68 Estim Creat Clear Calc 41.30 Est GFR (MDRD) Af Amer 107 Est GFR (MDRD) Non-Af 89 BUN/Creatinine Ratio 16.2 Glucose 97 Calcium 8.4 L Troponin I Discharge Diet: Low fat/ Low Cholesterol, 2000 mg Sodium Diet Discharge Activity: Return to Normal Activity Home Medications: Medications to take at Discharge Cyanocobalamin (Vitamin B-12) [Vitamin B-12] 1,000 mcg PO DAILY 05/19/18 Clopidogrel Bisulfate [Plavix] 75 mg PO DAILY #90 tablet 08/29/18 Ergocalciferol [Vitamin D] 50,000 unit PO QWEEK #6 capsule 08/29/18 Peg 400/Hypromellose/Glycerin [Artificial Tears] 1 drop EACH EYE Q1H PRN bottle 08/29/18 Amlodipine [Norvasc] 10 mg PO DAILY 10/01/18 Atorvastatin Calcium [Lipitor] 40 mg PO QHS 10/01/18 Citalopram [Celexa] 20 mg PO DAILY 10/01/18 Ensure Enlive 120 ml PO 4X/DAY liquid 10/02/18 Primary Care Physician: Louis Carr Chi, MD [Primary Care Provider] - Please follow up with your Primary Care Physician in: 2 weeks Please Follow Up With: Johnathon Carl MD When: 1 week Disposition: Inpt Rehab Unit/Facility Minutes spent on discharge:: 40 Patient Condition:: Stable Medical Necessity - Tobacco Use Smoking Status: Never smoker Tobacco Use: Non-smoker Meaningful Use Info Meaningful Use Diagnoses (Choose all that apply): None applicable <Mor Baker - Last Filed: 10/02/18 15:44> Discharge Date and Diagnosis - Secondary Discharge Diagnosis Chronic Problems (Last Reviewed 10/02/18 @ 10:31 by Johnathon Carl MD) Bladder cancer (Chronic) Depression (Chronic) Hypertension (Chronic) Hospital Course and Treatment Summary of Care Provided: This patient was seen in conjunction with Edin Andujar PA-C . I have independently interviewed and examined the patient and reviewed pertinent historical, laboratory, and other data. Please refer to Edin Andujar PA-C note for details of this patient's presentation, findings, and recommendations. I have reviewed Edin Andujar PA-C note and concur with documented findings. In brief, patient is a 83-year-old lady with previous CVA admitted with dysarthria patient admitted to a monitored bed for subsequent management Physical Examination: GENERAL: cooperative HEENT: Atraumatic; EYES; Anicteric, Normal Conjunctiva NECK; supple, normal thyroid, RESPIRATORY: Diminished to auscultation bilaterally, CARDIOVASCULAR: Regular S1 S2, no audible murmurs GI: soft, non-tender, normoactive bowel sounds, : No Renal angle tenderness; NEURO: Awake; left facial droop SKIN: No Rash PSYCH; flat affect Assessment: 1. Acute ischemic CVA 2. Dysphagia secondary to #1 3. Dyslipidemia 4. Essential hypertension 5. Depression 6. Physical debility 7. DVT prophylaxis [facility] Hospital course: As documented above - Physical Exam Vital Signs Temp Pulse Resp BP Pulse Ox 97.3 F L 89 18 121/62 H 94 10/02/18 12:36 10/02/18 12:36 10/02/18 12:36 10/02/18 12:36 10/02/18 12:36 Oxygen Delivery Method Room Air Weight: 64.3 kg Body Mass Index (BMI) 22.8 Finger Stick Blood Glucose 111 Intake and Output for Last 24 Hours 10/01/18 10/01/18 10/02/18 00:59 23:59 23:59 Intake Total 1223 / 1223 Output Total Balance 1223 / 1223 Laboratory Tests Past 24 Hrs 10/02/18 10/02/18 05:20 05:20 WBC 9.9 RBC 5.16 Hgb 15.6 H Hct 46.1 MCV 89.3 MCH 30.2 MCHC 33.8 RDW 15.4 H RDW Differential 50.6 H Plt Count 290 MPV 10.1 Immature Gran % (Auto) 0.200 Neut % (Auto) 62.8 Lymph % (Auto) 20.6 [place] % (Auto) 11.4 H Eos % (Auto) 4.1 Baso % (Auto) 0.9 Absolute Neuts (auto) 6.2 Absolute Lymphs (auto) 2.03 Total Counted Not Reportable Sodium 142 Potassium 3.6 Chloride 109 H Carbon Dioxide 24.0 Anion Gap 9 BUN 11 Creatinine 0.68 Estim Creat Clear Calc 41.30 Est GFR (MDRD) Af Amer 107 Est GFR (MDRD) Non-Af 89 BUN/Creatinine Ratio 16.2 Glucose 97 Calcium 8.4 L Code Visit Inpatient E&M: [id number] Disch Hosp
--- NOTE | 2018-10-02 16:40 | NURSING ---
report called to inpatient rehab
== END 2018-10-02 14:56 ==
LOC: ED 14:58 → PCU 16:05
PROVIDERS: Admitting Provider Family Medicine; Emergency Provider Emergency Medicine; Family Provider Family Medicine Geriatric Medicine; PCP Family Medicine Geriatric Medicine; Visit Provider Internal Medicine
DX: R47.1 Dysarthria and anarthria (principal); G93.40 Encephalopathy, unspecified; F32.9 Major depressive disorder, single episode, unspecified; Z86.73 Personal history of transient ischemic attack (TIA), and cerebral infarction without residual deficits; Z85.51 Personal history of malignant neoplasm of bladder; I10 Essential (primary) hypertension; E78.5 Hyperlipidemia, unspecified; Z79.02 Long term (current) use of antithrombotics/antiplatelets; Z79.899 Other long term (current) drug therapy; R47.81 Slurred speech; R29.702 NIHSS score 2; I69.392 Facial weakness following cerebral infarction
CPT/HCPCS: 36415; 70450; 70496; 70498; 70551; 71045; 80048; 82962; 84484; 85025; 85610; 85730; 93005; 97110; 97116; 97162; 97165; 97802; 99284; J7030; Q9967

== ENCOUNTER 2018-10-02 18:00 | Inpatient (IN) | payer MEDICARE, MEDICAID, SELFPAY ==
[2018-10-02 19:58] VITALS: BMI 22.8
[2018-10-02 21:00] VITALS: BP 130/68; PULSE 82; RESP 18; TEMP 37.2; O2SAT 96
[2018-10-02 21:22] VITALS: BMI 22.8
[2018-10-02 21:26] VITALS: BP 134/70; PULSE 80; RESP 18; TEMP 37; O2SAT 95
[2018-10-02] MEDS: Atorvastatin Calcium 40 MG Tablet PO (21:47)
[2018-10-02 22:00] VITALS: BMI 22.8
[2018-10-03] MEDS: Enoxaparin 40 MG/0.4 ML Syringe SC (05:39)
[2018-10-03] MEDS: Glycerin/Hypromellose/PEG400 15 ml Bottle 1 DRP EACH EYE ×2 (05:41→21:03)
[2018-10-03 06:19] LABS: Hematocrit 46.3 % (37-47); Hemoglobin 15.6 g/dl (12.0-15.0); Mean Corp Hgb Conc 33.7 g/gl (32-36); Mean Corpuscular Hgb 30.5 pg (27.0-32.0); Mean Corpuscular Volume 90.4 fL (81-99); Mean Platelet Vol. 9.9 fl (6.2-12.0); Platelet Count 288 K/mm3 (150-450); RBC Distribution Width CV 15.4 % (11.6-14.6); RBC Distribution Width SD 51.2 fl (35.1-43.9); Red Blood Count 5.12 M/mm3 (4.2-5.4); White Blood Count 10.4 K/mm3 (4.4-11.0)
[2018-10-03 06:32] LABS: Scan Indicated on CBC? Y/N NO
[2018-10-03 06:35] LABS: Anion Gap 12 (5-15); BUN 15 mg/dL (7-18); BUN/Creat Ratio 21.2 RATIO (10-20); Calcium,Total 8.8 mg/dL (8.5-10.1); Chloride 108 mmol/L (98-107); Creatinine, Serum 0.71 mg/dL (0.55-1.02); EST Glomerular Filtration Rate 84 mL/min (>60); Est Glom Filt Rate - Afr Amer 102 mL/min (>60); Glucose 85 mg/dL (74-106); Potassium 3.6 mmol/L (3.5-5.1); Sodium Level 143 mmol/L (136-145)
[2018-10-03 08:08] VITALS: BP 130/64; PULSE 76; RESP 18; TEMP 37.1; O2SAT 95
[2018-10-03] MEDS: Citalopram 20 MG Tablet PO (08:09)
[2018-10-03] MEDS: Cyanocobalamin 500 MCG Tablet 1000 MCG PO (08:11)
[2018-10-03] MEDS: Clopidogrel Bisulfate 75 MG Tablet PO (08:11)
[2018-10-03] MEDS: amLODIPine 10 MG Tablet PO (08:11)
[2018-10-03] MEDS: Senna/Docusate Sodium 1 Tablet 2 TABLET PO ×2 (08:11→21:03)
--- NOTE | 2018-10-03 11:36 | PCM.HP.COS ---
History of Present Illness Date of Admission: 10/02/18 Chief Complaint: CVA The patient is a 83 year old right handed white female with history of stroke in July 2018 she presents with worsening speech. According to records speech was affected with her previous stroke in July. Patient reports similar. She is admitted to the rehab unit for rehabilitation. She has a PMH of HTN, Bladder cancer, depression, and previous stroke in July of this year. She is on Plavix and Lipitor, prior to this admission. Was scheduled for 30 day event monitor placement. She had an MRI of the brain which was negative for acute stroke as well as the CTA head and neck. She had no events on tele. . She lives alone in a single story home, with two steps to get into the house, she denies any frequent falls, does not use a cane or walker to ambulate, since her previous stroke, she was previously completely functionally independent and is admitted to the rehab unit in order to restore her previous level of functional independence. per H&P:The patient is a 83 year old F with a hx of recent stroke, hx bladder cancer, htn, depression, who presents to the ER from home after developing unsteadiness and dysarthria this AM. She states that this started this AM soon after she woke up at about 0830. She woke up feeling normal. She was then cleaning her fish tank and suddenly felt unsteady. She called her nephew for help. He could not understand anything she was saying due to severe dysarthria. The family went and got her and brought her to the ER. At this time she has some slurred speech. Family notes it is significantly improved. She denies headache, dizziness, LH, double or blurred vision, focal weakness. After last stroke (08/10) she had right sided weakness and difficulty swallowing but reports that with therapy this has pretty much resolved with her stay in the Rehab unit. CT brain shows old stroke. Neuro has been consulted. Past Medical History Past Medical History (Chronic Problems): Chronic Problems (Last Reviewed 10/02/18 @ 10:31 by Johnathon Carl MD) Bladder cancer (Chronic) Depression (Chronic) Hypertension (Chronic) Medical History: Medical History (Last Reviewed 10/02/18 @ 10:31 by Johnathon Carl MD) Bladder cancer (Chronic) C67.9 Depression (Chronic) F32.9 Hypertension (Chronic) I10 Allergies No Known Allergies Allergy (Verified 09/06/18 11:36) Home Medications: Ambulatory Orders Medication Instructions Recorded Cyanocobalamin (Vitamin B-12) 1,000 mcg PO DAILY 05/19/18 [Vitamin B-12] Clopidogrel Bisulfate [Plavix] 75 mg PO DAILY #90 tablet 08/29/18 Ergocalciferol [Vitamin D] 50,000 unit PO QWEEK #6 capsule 08/29/18 Peg 400/Hypromellose/Glycerin 1 drop EACH EYE Q1H PRN bottle 08/29/18 [Artificial Tears] Amlodipine [Norvasc] 10 mg PO DAILY 10/01/18 Atorvastatin Calcium [Lipitor] 40 mg PO QHS 10/01/18 Citalopram [Celexa] 20 mg PO DAILY 10/01/18 Ensure Enlive 120 ml PO 4X/DAY 10/02/18 Surgical History: - - Tumor removal. Psychiatric History: Depression CREDENTIALING SPECIALIST History: No pertinent CREDENTIALING SPECIALIST history Smoking Status: Former smoker - *Family History Maternal History Items: No pertinent history Paternal History Items: No pertinent history Review of Systems Constitutional: Denies: Chills, Fever, Weight Change HEENT: Denies: Head Aches, Sinus Congestion, Sinus Drainage Cardiovascular: Denies: Chest Pain, Palpitations Respiratory: Denies: Cough, Shortness of breath at rest, Sputum production Gastrointestinal: Denies: Abdominal Pain, Nausea, Vomiting Genitourinary: Denies: Dysuria Musculoskeletal: Denies: Joint Pain, Joint Tenderness Skin: Denies: Rash, Wounds Neurological: Denies: Numbness, Tingling, Focal weakness Psychiatric: Denies: Anxiety, Depression, Homicidal Ideations, Suicidal Ideations Hematologic/ Lymphatic: Denies: Easy Bruising, Easy Bleeding VTE Information - Inpt Only VTE Present on Admission: No VTE Mechan Device Prophylaxis: SCD's, Knee High JANET Hose VTE Pharm Prophylaxis ordered?: Yes - Physical Exam General: Alert, Oriented x3, Cooperative HEENT: Atraumatic, PERRLA, EOMI, Normocephalic Neck: Supple, No JVD, Negative Carotid Bruits Lungs: Clear to auscultation, Normal air movement Cardiovascular: Regular rate, No murmurs Abdomen: Bowel Sounds Present, Soft, Non Tender Extremities: No edema, Capillary Refill Less than 3 Seconds Skin: No rashes, No breakdown Musculoskeletal: No Tenderness to Palpation of Joints or Extremities Neurological: Cranial nerves II-XII grossly intact Psych/Mental Status: Normal Affect, Appropriate, Alert and oriented to time, place, person, mood and affect Vital Signs Temp Pulse Resp BP Pulse Ox 98.7 F 76 18 130/64 H 95 10/03/18 08:08 10/03/18 08:08 10/03/18 08:08 10/03/18 08:08 10/03/18 08:08 Oxygen Delivery Method Room Air Weight: 64.3 kg Body Mass Index (BMI) 22.8 Finger Stick Blood Glucose 111 Intake and Output for Last 24 Hours 10/01/18 10/02/18 10/03/18 23:59 23:59 23:59 Intake Total 100 / 100 220 / 220 Balance 100 / 100 220 / 220 Laboratory Tests Past 24 Hrs 10/03/18 10/03/18 05:10 05:10 WBC 10.4 RBC 5.12 Hgb 15.6 H Hct 46.3 MCV 90.4 MCH 30.5 MCHC 33.7 RDW 15.4 H RDW Differential 51.2 H Plt Count 288 MPV 9.9 Sodium 143 Potassium 3.6 Chloride 108 H Carbon Dioxide 23.0 Anion Gap 12 BUN 15 Creatinine 0.71 Estim Creat Clear Calc 41.30 Est GFR (MDRD) Af Amer 102 Est GFR (MDRD) Non-Af 84 BUN/Creatinine Ratio 21.2 H Glucose 85 Calcium 8.8 Active Medications Acetaminophen (Tylenol) 650 mg PO Q6H PRN PRN PRN Reason: Mild Pain (0-3/10)/Headache Amlodipine Besylate (Norvasc) 10 mg PO DAILY [facility] Last Admin: 10/03/18 08:11 Dose: 10 mg Atorvastatin Calcium (Lipitor) 40 mg PO QHS [facility] Last Admin: 10/02/18 21:47 Dose: 40 mg Bisacodyl (Dulcolax) 10 mg RECTAL .PRN X 1 PRN PRN Reason: Constipation Citalopram Hydrobromide (Celexa) 20 mg PO DAILY [facility] Last Admin: 10/03/18 08:09 Dose: 20 mg Clopidogrel Bisulfate (Plavix) 75 mg PO DAILY [facility] Last Admin: 10/03/18 08:11 Dose: 75 mg Cyanocobalamin (Vitamin B12) 1,000 mcg PO DAILY [facility] Last Admin: 10/03/18 08:11 Dose: 1,000 mcg Enoxaparin Sodium (Lovenox) 40 mg SC DAILY@0600 [facility] Last Admin: 10/03/18 05:39 Dose: 40 mg Ergocalciferol (Vitamin D) 50,000 unit PO QWEEK [facility] Magnesium Hydroxide (Milk Of Magnesia) 30 ml PO .PRN X 1 PRN PRN Reason: Constipation Nutritional Formula (Lactose Free) (Ensure Enlive) 120 ml PO 4X/DAY [facility] Last Admin: 10/03/18 08:09 Dose: 120 ml Nystatin (Nystatin) 500,000 unit PO 4X/DAY [facility] Senna/Docusate Sodium (Senokot-S, Roma-Colace) 2 tablet PO BID [facility] Last Admin: 10/03/18 08:11 Dose: 2 tablet Assessment/Plan All Active Problems (Last Reviewed 10/02/18 @ 10:31 by Johnathon Carl MD) CVA (cerebral vascular accident) (Acute) Debility s/p Acute infarct, complicated by metabolic encephalopathy not related to an acute stroke, with unclear specific etiology. Goal of rehab is congregational of functional independence. Plan - Physical therapy for gait and balance - Occupational Therapy for ADLs - Speech therapy for dysarthria - As needed analgesics - Bowel protocol - Stroke prevention ASA, Plavix 75 mg PO once daily, dual AP for 3 weeks, then switch to single AP, Lipitor 40mg - DVT prophylaxis: SCDs, ASA, Lovenox - Fall precautions - Hx of Hypertension: Continue home dose of amlodipine 10 mg - Hx of bladder cancer s/p tumor resection with recurrence - Follows with Dr. Bunn. - Hx of Depression: continue home citalopram regimen.
--- NOTE | 2018-10-03 11:41 | HP.PCM.COS_ITS ---
History of Present Illness Date of Admission: 10/02/18 Chief Complaint: CVA The patient is a 83 year old right handed white female with history of stroke in July 2018 she presents with worsening speech. According to records speech was affected with her previous stroke in July. Patient reports similar. She is admitted to the rehab unit for rehabilitation. She has a PMH of HTN, Bladder cancer, depression, and previous stroke in July of this year. She is on Plavix and Lipitor, prior to this admission. Was scheduled for 30 day event monitor placement. She had an MRI of the brain which was negative for acute stroke as well as the CTA head and neck. She had no events on tele. . She lives alone in a single story home, with two steps to get into the house, she denies any frequent falls, does not use a cane or walker to ambulate, since her previous stroke, she was previously completely functionally independent and is admitted to the rehab unit in order to restore her previous level of functional independence. per H&P:The patient is a 83 year old F with a hx of recent stroke, hx bladder cancer, htn, depression, who presents to the ER from home after developing unsteadiness and dysarthria this AM. She states that this started this AM soon after she woke up at about 0830. She woke up feeling normal. She was then cleaning her fish tank and suddenly felt unsteady. She called her nephew for help. He could not understand anything she was saying due to severe dysarthria. The family went and got her and brought her to the ER. At this time she has some slurred speech. Family notes it is significantly improved. She denies headache, dizziness, LH, double or blurred vision, focal weakness. After last stroke (08/10) she had right sided weakness and difficulty swallowing but reports that with therapy this has pretty much resolved with her stay in the Rehab unit. CT brain shows old stroke. Neuro has been consulted. Past Medical History Past Medical History (Chronic Problems): Chronic Problems (Last Reviewed 10/02/18 @ 10:31 by Johnathon Carl MD) Bladder cancer (Chronic) Depression (Chronic) Hypertension (Chronic) Medical History: Medical History (Last Reviewed 10/02/18 @ 10:31 by Johnathon Carl MD) Bladder cancer (Chronic) C67.9 Depression (Chronic) F32.9 Hypertension (Chronic) I10 Allergies No Known Allergies Allergy (Verified 09/06/18 11:36) Home Medications: Ambulatory Orders Medication Instructions Recorded Cyanocobalamin (Vitamin B-12) 1,000 mcg PO DAILY 05/19/18 [Vitamin B-12] Clopidogrel Bisulfate [Plavix] 75 mg PO DAILY #90 tablet 08/29/18 Ergocalciferol [Vitamin D] 50,000 unit PO QWEEK #6 capsule 08/29/18 Peg 400/Hypromellose/Glycerin 1 drop EACH EYE Q1H PRN bottle 08/29/18 [Artificial Tears] Amlodipine [Norvasc] 10 mg PO DAILY 10/01/18 Atorvastatin Calcium [Lipitor] 40 mg PO QHS 10/01/18 Citalopram [Celexa] 20 mg PO DAILY 10/01/18 Ensure Enlive 120 ml PO 4X/DAY 10/02/18 Surgical History: - - Tumor removal. 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 Smoking Status: Former smoker - *Family History Maternal History Items: No pertinent history Paternal History Items: No pertinent history Review of Systems Constitutional: Denies: Chills, Fever, Weight Change HEENT: Denies: Head Aches, Sinus Congestion, Sinus Drainage Cardiovascular: Denies: Chest Pain, Palpitations Respiratory: Denies: Cough, Shortness of breath at rest, Sputum production Gastrointestinal: Denies: Abdominal Pain, Nausea, Vomiting Genitourinary: Denies: Dysuria Musculoskeletal: Denies: Joint Pain, Joint Tenderness Skin: Denies: Rash, Wounds Neurological: Denies: Numbness, Tingling, Focal weakness Psychiatric: Denies: Anxiety, Depression, Homicidal Ideations, Suicidal Ideations Hematologic/ Lymphatic: Denies: Easy Bruising, Easy Bleeding VTE Information - Inpt Only VTE Present on Admission: No VTE Mechan Device Prophylaxis: SCD's, Knee High JANET Hose VTE Pharm Prophylaxis ordered?: Yes - Physical Exam General: Alert, Oriented x3, Cooperative HEENT: Atraumatic, PERRLA, EOMI, Normocephalic Neck: Supple, No JVD, Negative Carotid Bruits Lungs: Clear to auscultation, Normal air movement Cardiovascular: Regular rate, No murmurs Abdomen: Bowel Sounds Present, Soft, Non Tender Extremities: No edema, Capillary Refill Less than 3 Seconds Skin: No rashes, No breakdown Musculoskeletal: No Tenderness to Palpation of Joints or Extremities Neurological: Cranial nerves II-XII grossly intact Psych/Mental Status: Normal Affect, Appropriate, Alert and oriented to time, place, person, mood and affect Vital Signs Temp Pulse Resp BP Pulse Ox 98.7 F 76 18 130/64 H 95 10/03/18 08:08 10/03/18 08:08 10/03/18 08:08 10/03/18 08:08 10/03/18 08:08 Oxygen Delivery Method Room Air Weight: 64.3 kg Body Mass Index (BMI) 22.8 Finger Stick Blood Glucose 111 Intake and Output for Last 24 Hours 10/01/18 10/02/18 10/03/18 23:59 23:59 23:59 Intake Total 100 / 100 220 / 220 Balance 100 / 100 220 / 220 Laboratory Tests Past 24 Hrs 10/03/18 10/03/18 05:10 05:10 WBC 10.4 RBC 5.12 Hgb 15.6 H Hct 46.3 MCV 90.4 MCH 30.5 MCHC 33.7 RDW 15.4 H RDW Differential 51.2 H Plt Count 288 MPV 9.9 Sodium 143 Potassium 3.6 Chloride 108 H Carbon Dioxide 23.0 Anion Gap 12 BUN 15 Creatinine 0.71 Estim Creat Clear Calc 41.30 Est GFR (MDRD) Af Amer 102 Est GFR (MDRD) Non-Af 84 BUN/Creatinine Ratio 21.2 H Glucose 85 Calcium 8.8 Active Medications Acetaminophen (Tylenol) 650 mg PO Q6H PRN PRN PRN Reason: Mild Pain (0-3/10)/Headache Amlodipine Besylate (Norvasc) 10 mg PO DAILY [facility] Last Admin: 10/03/18 08:11 Dose: 10 mg Atorvastatin Calcium (Lipitor) 40 mg PO QHS [facility] Last Admin: 10/02/18 21:47 Dose: 40 mg Bisacodyl (Dulcolax) 10 mg RECTAL .PRN X 1 PRN PRN Reason: Constipation Citalopram Hydrobromide (Celexa) 20 mg PO DAILY [facility] Last Admin: 10/03/18 08:09 Dose: 20 mg Clopidogrel Bisulfate (Plavix) 75 mg PO DAILY [facility] Last Admin: 10/03/18 08:11 Dose: 75 mg Cyanocobalamin (Vitamin B12) 1,000 mcg PO DAILY [facility] Last Admin: 10/03/18 08:11 Dose: 1,000 mcg Enoxaparin Sodium (Lovenox) 40 mg SC DAILY@0600 [facility] Last Admin: 10/03/18 05:39 Dose: 40 mg Ergocalciferol (Vitamin D) 50,000 unit PO QWEEK [facility] Magnesium Hydroxide (Milk Of Magnesia) 30 ml PO .PRN X 1 PRN PRN Reason: Constipation Nutritional Formula (Lactose Free) (Ensure Enlive) 120 ml PO 4X/DAY [facility] Last Admin: 10/03/18 08:09 Dose: 120 ml Nystatin (Nystatin) 500,000 unit PO 4X/DAY [facility] Senna/Docusate Sodium (Senokot-S, Roma-Colace) 2 tablet PO BID [facility] Last Admin: 10/03/18 08:11 Dose: 2 tablet Assessment/Plan All Active Problems (Last Reviewed 10/02/18 @ 10:31 by Johnathon Carl MD) CVA (cerebral vascular accident) (Acute) Debility s/p Acute infarct, complicated by metabolic encephalopathy not related to an acute stroke, with unclear specific etiology. Goal of rehab is lutheran of functional independence. Plan - Physical therapy for gait and balance - Occupational Therapy for ADLs - Speech therapy for dysarthria - As needed analgesics - Bowel protocol - Stroke prevention ASA, Plavix 75 mg PO once daily, dual AP for 3 weeks, then switch to single AP, Lipitor 40mg - DVT prophylaxis: SCDs, ASA, Lovenox - Fall precautions - Hx of Hypertension: Continue home dose of amlodipine 10 mg - Hx of bladder cancer s/p tumor resection with recurrence - Follows with Dr. Bunn. - Hx of Depression: continue home citalopram regimen.
--- NOTE | 2018-10-03 12:51 | PN_ITS ---
Subjective: Patient is a 83-year-old lady with previous CVA admitted with dysarthria patient admitted to a monitored bed for subsequent management patient condition was stabilized and subsequently transferred to the inpatient rehab unit to continue with her recuperation Objective: GENERAL: cooperative HEENT: Atraumatic; EYES; Anicteric, Normal Conjunctiva NECK; supple, normal thyroid, RESPIRATORY: Diminished to auscultation bilaterally, CARDIOVASCULAR: Regular S1 S2, no audible murmurs GI: soft, non-tender, normoactive bowel sounds, : No Renal angle tenderness; NEURO: Awake; left facial droop SKIN: No Rash PSYCH; flat affect Vitals/I&O's: Vital Signs Temp Pulse Resp BP Pulse Ox 98.7 F 76 18 130/64 H 95 10/03/18 08:08 10/03/18 08:08 10/03/18 08:08 10/03/18 08:08 10/03/18 08:08 Oxygen Delivery Method Room Air Weight: 64.3 kg Body Mass Index (BMI) 22.8 Finger Stick Blood Glucose 111 Intake and Output for Last 24 Hours 10/01/18 10/02/18 10/03/18 23:59 23:59 23:59 Intake Total 100 / 100 220 / 220 Balance 100 / 100 220 / 220 Laboratory Results 10/03/18 05:10: WBC 10.4, RBC 5.12, Hgb 15.6 H, Hct 46.3, MCV 90.4, MCH 30.5, MCHC 33.7, RDW 15.4 H, RDW Differential 51.2 H, Plt Count 288, MPV 9.9 10/03/18 05:10: Sodium 143, Potassium 3.6, Chloride 108 H, Carbon Dioxide 23.0, Anion Gap 12, BUN 15, Creatinine 0.71, Estim Creat Clear Calc 41.30, Est GFR (MDRD) Af Amer 102, Est GFR (MDRD) Non-Af 84, BUN/Creatinine Ratio 21.2 H, Glucose 85, Calcium 8.8 Current Medications Acetaminophen (Tylenol) 650 mg PO Q6H PRN PRN PRN Reason: Mild Pain (0-3/10)/Headache Amlodipine Besylate (Norvasc) 10 mg PO DAILY [facility] Last Admin: 10/03/18 08:11 Dose: 10 mg Atorvastatin Calcium (Lipitor) 40 mg PO QHS [facility] Last Admin: 10/02/18 21:47 Dose: 40 mg Bisacodyl (Dulcolax) 10 mg RECTAL .PRN X 1 PRN PRN Reason: Constipation Citalopram Hydrobromide (Celexa) 20 mg PO DAILY [facility] Last Admin: 10/03/18 08:09 Dose: 20 mg Clopidogrel Bisulfate (Plavix) 75 mg PO DAILY [facility] Last Admin: 10/03/18 08:11 Dose: 75 mg Cyanocobalamin (Vitamin B12) 1,000 mcg PO DAILY [facility] Last Admin: 10/03/18 08:11 Dose: 1,000 mcg Enoxaparin Sodium (Lovenox) 40 mg SC DAILY@0600 [facility] Last Admin: 10/03/18 05:39 Dose: 40 mg Ergocalciferol (Vitamin D) 50,000 unit PO QWEEK [facility] Magnesium Hydroxide (Milk Of Magnesia) 30 ml PO .PRN X 1 PRN PRN Reason: Constipation Nutritional Formula (Lactose Free) (Ensure Enlive) 120 ml PO 4X/DAY [facility] Last Admin: 10/03/18 08:09 Dose: 120 ml Nystatin (Nystatin) 500,000 unit PO 4X/DAY [facility] Senna/Docusate Sodium (Senokot-S, Roma-Colace) 2 tablet PO BID [facility] Last Admin: 10/03/18 08:11 Dose: 2 tablet Medical Necessity - Tobacco Use Smoking Status: Former smoker Assessment/Plan All Active Problems (Last Reviewed 10/02/18 @ 10:31 by Johnathon Carl MD) CVA (cerebral vascular accident) (Acute) Patient is a 83-year-old lady with previous CVA admitted with dysarthria patient admitted to a monitored bed for subsequent management patient condition was stabilized and subsequently transferred to the inpatient rehab unit to continue with her recuperation 1. Acute ischemic CVA patient has been admitted to the inpatient rehab unit where she is currently undergoing PT and OT. Patient remains on recommended medications including antiplatelet therapy with Plavix as well as therapy with atorvastatin 2. Dysphagia secondary to #1 3. Dyslipidemia-patient is on statin therapy, continued at home dose 4. Essential hypertension-blood pressure controlled, home medications continued with dose adjustment as needed 5. Depression 6. Physical debility 7. DVT prophylaxis SC Lovenox Active Medications Acetaminophen (Tylenol) 650 mg PO Q6H PRN PRN PRN Reason: Mild Pain (0-3/10)/Headache Amlodipine Besylate (Norvasc) 10 mg PO DAILY [facility] Last Admin: 10/03/18 08:11 Dose: 10 mg Atorvastatin Calcium (Lipitor) 40 mg PO QHS [facility] Last Admin: 10/02/18 21:47 Dose: 40 mg Bisacodyl (Dulcolax) 10 mg RECTAL .PRN X 1 PRN PRN Reason: Constipation Citalopram Hydrobromide (Celexa) 20 mg PO DAILY [facility] Last Admin: 10/03/18 08:09 Dose: 20 mg Clopidogrel Bisulfate (Plavix) 75 mg PO DAILY [facility] Last Admin: 10/03/18 08:11 Dose: 75 mg Cyanocobalamin (Vitamin B12) 1,000 mcg PO DAILY [facility] Last Admin: 10/03/18 08:11 Dose: 1,000 mcg Enoxaparin Sodium (Lovenox) 40 mg SC DAILY@0600 [facility] Last Admin: 10/03/18 05:39 Dose: 40 mg Ergocalciferol (Vitamin D) 50,000 unit PO QWEEK [facility] Magnesium Hydroxide (Milk Of Magnesia) 30 ml PO .PRN X 1 PRN PRN Reason: Constipation Nutritional Formula (Lactose Free) (Ensure Enlive) 120 ml PO 4X/DAY [facility] Last Admin: 10/03/18 13:03 Dose: 120 ml Nystatin (Nystatin) 500,000 unit PO 4X/DAY [facility] Senna/Docusate Sodium (Senokot-S, Roma-Colace) 2 tablet PO BID [facility] Last Admin: 10/03/18 08:11 Dose: 2 tablet Code Visit Inpatient E&M: [id number] [facility] H[facility] L2
--- NOTE | 2018-10-03 13:13 | REHABEVAL_ITS ---
Admission Information Status Changes from Prescreening?: No changes Identified Actual Problem List:: Falls, Cognitve Impr/Memory Loss, Alteration in Nutrition, Mobility Impaired, Self Care Deficit, Ineffect.D/C Plan r/t Psy Potential Problem List:: DVT, Bleeding, Infection, UTI, Aspiration, Falls, Skin Integrity, Depression Risk of Complications DVT: LMWH, JANET Hose, Sequential Compression Device Bleeding: Monitor Lab Values, Nursing to Teach Precautions for anti-coagulation therapy., Wound, if applicable, to be assessed every shift., Stroke patients assessed for lethargy or change in status. Infection: Clinical Staff to Monitor for S/S of infection:, S/S of infection include fever, redness, warmth, etc. Urinary Tract Infection: Monitor for frequency, burning, discomfort, or incontinence., Nursing will obtain urine sample for urinalysis and C&S when ordered. Aspiration: Clinical staff will monitor for coughing, drooling, congestion., Speech will evaluate swallowing and dsyphasia., Nursing will monitor patient swallowing during meals. Falls: Patient will be evaluated for Fall Precautions, Patient will be placed on Fall Precautions as indicated per protocol. Skin Breakdown: Nursing will assess skin daily using assessment tool., Nursing will place on Skin Breakdown Precautions as indicated. Pain: Clinical staff will assess patient's pain level per protocol., Medications will be given, if needed, and the pain level reassessed., Other methods: Massage, distraction, decrease stimulus, etc. used PRN. Plan of Care Patient requires physician specializing in physical medicine and rehab oversight to provide close medical supervision of rehab issues including: Pain Management, Sleep Problems, Bowel and Bladder, Medical and co-morbidity Management, DVT prophylaxis, Rehabilitation Leadership, Coordination of treatment team Patient needs Physical Therapy: For a minimum of 1 hour, At least 5 out of 7 days Patient needs Physical Therapy to improve:: Mobility, Mobility, Mobility, Strengthening, Transfers, Stretching, ROM, Endurance, Stairs, Gait, Balance Patient needs Occupational Therapy: For a minimum of 1 hour, At least 5 out of 7 days Patient needs Occupational Therapy to improve ADL's incl.: Eating, Grooming, Bathing, Dressing, Toileting, Toilet transfers, Community Reintegration, Higher functioning activities, Household tasks, Adaptive Equipment, Splinting, Other activities as determined Patient requires speech therapy: For a minimum of 1 hour, At least 5 out of 7 days Patient requires speech therapy for: Swallowing, Cognition, Language Skills, Compensatory Strategies Patient requires 24/ Rehabilitation Nursing for: Pain Issues, Identifying and preventing risk factors, Monitoring and reporting current medical conditions, Assisting with ambulation, transfer, and all ADL's, Teaching patients about disease process and medications, Family teaching, Providing safe environment, Bowel and Bladder Issues, Skin integrity, Medication Management Patient needs Airline Security Representative/ Case Management for: Discharge Planning, Arranging Home Equipment or Services, Family Interventions Patient needs Dietary and Nutrition Services for: Adequate Nutrition, Nutritional Supplements, Nutritional Education Goals Patient will remain: free from falls, or injury at time of discharge. Patient will perform bed mobility at: MOD I level of assist. Patient will complete transfers from bed to chair at: MOD I level of assist. Patient will ambulate: 100 feet, with MOD I assist, with LRD Patient will complete upper body dressing at: MOD I level of assist. Patient will complete lower body dressing at: MOD I level of assist. Patient will complete toileting at: MOD I level of assist. Patient will perform bathing at: MOD I level of assist. Patient will complete grooming at: MOD I level of assist. Patient will complete home management skills at: MOD I level of assist. Patient will achieve: 12 stairs, at MOD I assist Patient will have pain level of: of 3 or less Patient's skin will: remain intact, free from infection. Patient will receive: adequate nutrition. Discharge Planning Pt Prognosis for Sig. Practical Improv. w/in Reasonable Time: Good Anticipated D/C Destination: Home with Outpt Therapy Was Preadmission Assessment Accurate?: Yes
[2018-10-03 14:28] VITALS: BMI 22.8
[2018-10-03 17:04] VITALS: O2SAT 95
[2018-10-03] MEDS: NYSTATIN 500,000 UNIT/5 ML UDC 500000 UNIT PO ×2 (17:46→21:03)
[2018-10-03 20:55] VITALS: BP 132/68; PULSE 76; RESP 16; TEMP 36.4; O2SAT 96
[2018-10-03] MEDS: Atorvastatin Calcium 40 MG Tablet PO (21:03)
[2018-10-03 22:00] VITALS: BMI 22.8
--- NOTE | 2018-10-04 05:26 | NURSING ---
Actual weight captured on pt with w/c, blanket, & legs = 83.4kg and pt weight @ 61.6kg. Actual weight on admission was provided by previous hospital.
[2018-10-04] MEDS: Enoxaparin 40 MG/0.4 ML Syringe SC (05:31)
[2018-10-04 07:32] VITALS: BP 133/77; PULSE 61; RESP 17; TEMP 36.5; O2SAT 95
[2018-10-04] MEDS: amLODIPine 10 MG Tablet PO (08:29)
[2018-10-04] MEDS: Senna/Docusate Sodium 1 Tablet 2 TABLET PO (08:29)
[2018-10-04] MEDS: Citalopram 20 MG Tablet PO (08:29)
[2018-10-04] MEDS: Clopidogrel Bisulfate 75 MG Tablet PO (08:29)
[2018-10-04] MEDS: Cyanocobalamin 500 MCG Tablet 1000 MCG PO (08:30)
[2018-10-04] MEDS: NYSTATIN 500,000 UNIT/5 ML UDC 500000 UNIT PO ×4 (08:51→22:06)
--- NOTE | 2018-10-04 12:00 | PN.NEURO_ITS ---
Subjective: No new complaints. She is complaining of some ongoing sialorrhea, as well as a runny nose, and insomnia. Therapy staff notes that she is likely worse as well. She agrees to program her Ativan at night to see if she can get better sleep which may be the primary issue at this point. - Physical Exam General: Alert, Oriented x3, Cooperative Neurological: Cranial nerves II-XII grossly intact, Slurred Speech Psych/Mental Status: Normal Affect Vital Signs Temp Pulse Resp BP Pulse Ox 36.5 C L 61 17 133/77 H 95 10/04/18 07:32 10/04/18 07:32 10/04/18 07:32 10/04/18 07:32 10/04/18 07:32 Oxygen Delivery Method Room Air Weight: 61.6 kg Body Mass Index (BMI) 22.8 Finger Stick Blood Glucose 111 Intake and Output for Last 24 Hours 10/02/18 10/03/18 10/04/18 23:59 23:59 23:59 Intake Total 100 / 100 440 / 440 220 / 220 Balance 100 / 100 440 / 440 220 / 220 Current Medications Generic Name Dose Route Start Last Admin Trade Name Freq PRN Reason Stop Dose Admin Acetaminophen 650 mg 10/02/18 20:06 Tylenol PO Q6H PRN PRN Mild Pain (0-3/10)/Headache Amlodipine Besylate 10 mg 10/03/18 10:00 10/04/18 08:29 Norvasc PO 10 mg DAILY JJ Administration Atorvastatin Calcium 40 mg 10/02/18 22:00 10/03/18 21:03 Lipitor PO 40 mg QHS JJ Administration Bisacodyl 10 mg 10/02/18 20:06 Dulcolax RECTAL .PRN X 1 PRN Constipation Citalopram Hydrobromide 20 mg 10/03/18 10:00 10/04/18 08:29 Celexa PO 20 mg DAILY JJ Administration Clopidogrel Bisulfate 75 mg 10/03/18 10:00 10/04/18 08:29 Plavix PO 75 mg DAILY JJ Administration Cyanocobalamin 1,000 mcg 10/03/18 10:00 10/04/18 08:30 Vitamin B12 PO 1,000 mcg DAILY JJ Administration Enoxaparin Sodium 40 mg 10/03/18 06:00 10/04/18 05:31 Lovenox SC 40 mg DAILY@0600 JJ Administration Ergocalciferol 50,000 unit 10/08/18 10:00 Vitamin D PO QWEEK JJ Lorazepam 0.5 mg 10/04/18 22:00 Ativan PO QHS JJ Magnesium Hydroxide 30 ml 10/02/18 20:06 Milk Of Magnesia PO .PRN X 1 PRN Constipation Nutritional Formula (Lactose Free) 120 ml 10/02/18 22:00 10/04/18 08:51 Ensure Enlive PO 120 ml 4X/DAY JJ Administration Nystatin 500,000 unit 10/03/18 14:00 10/04/18 08:51 Nystatin PO 500,000 unit 4X/DAY JJ Administration Senna/Docusate Sodium 2 tablet 10/02/18 22:00 10/04/18 08:29 Senokot-S, Roma-Colace PO 2 tablet BID JJ Administration Sodium Chloride 1 spray 10/04/18 22:00 [place] Nasal [place] NASAL BID JJ Medical Necessity - Tobacco Use Smoking Status: Former smoker Assessment/Plan All Active Problems (Last Reviewed 10/02/18 @ 10:31 by Johnathon Carl MD) CVA (cerebral vascular accident) (Acute) Debility s/p Acute infarct, complicated by metabolic encephalopathy not related to an acute stroke, with unclear specific etiology. Goal of rehab is congregational of functional independence. Plan - Physical therapy for gait and balance - Occupational Therapy for ADLs - Speech therapy for dysarthria - As needed analgesics - Bowel protocol - Stroke prevention ASA, Plavix 75 mg PO once daily, dual AP for 3 weeks, then switch to single AP, Lipitor 40mg - DVT prophylaxis: SCDs, ASA, Lovenox - Fall precautions - Hx of Hypertension: Continue home dose of amlodipine 10 mg - Hx of bladder cancer s/p tumor resection with recurrence - Follows with Dr. Bunn. - Hx of Depression: continue home citalopram regimen.
[2018-10-04 17:00] VITALS: BMI 22.8
--- NOTE | 2018-10-04 17:02 | PCM.PN.HOSP ---
Subjective: Patient was reported to be choking on her thickened liquid diet. She is scheduled to undergo repeat speech and swallow evaluation on 07/05/2018 Objective: GENERAL: cooperative HEENT: Atraumatic; EYES; Anicteric, Normal Conjunctiva NECK; supple, normal thyroid, RESPIRATORY: Diminished to auscultation bilaterally, CARDIOVASCULAR: Regular S1 S2, no audible murmurs GI: soft, non-tender, normoactive bowel sounds, : No Renal angle tenderness; NEURO: Awake; left facial droop SKIN: No Rash PSYCH; flat affect Vitals/I&O's: Vital Signs Temp Pulse Resp BP Pulse Ox 97.7 F L 61 17 133/77 H 95 10/04/18 07:32 10/04/18 07:32 10/04/18 07:32 10/04/18 07:32 10/04/18 07:32 Oxygen Delivery Method Room Air Weight: 61.6 kg Body Mass Index (BMI) 22.8 Finger Stick Blood Glucose 111 Intake and Output for Last 24 Hours 10/02/18 10/03/18 10/04/18 23:59 23:59 23:59 Intake Total 100 / 100 440 / 440 460 / 460 Balance 100 / 100 440 / 440 460 / 460 Current Medications Acetaminophen (Tylenol) 650 mg PO Q6H PRN PRN PRN Reason: Mild Pain (0-3/10)/Headache Amlodipine Besylate (Norvasc) 10 mg PO DAILY [facility] [place] Last Admin: 10/04/18 08:29 Dose: 10 mg Atorvastatin Calcium (Lipitor) 40 mg PO QHS [facility] Last Admin: 10/03/18 21:03 Dose: 40 mg Bisacodyl (Dulcolax) 10 mg RECTAL .PRN X 1 PRN PRN Reason: Constipation Citalopram Hydrobromide (Celexa) 20 mg PO DAILY [facility] [place] Last Admin: 10/04/18 08:29 Dose: 20 mg Clopidogrel Bisulfate (Plavix) 75 mg PO DAILY [facility] [place] Last Admin: 10/04/18 08:29 Dose: 75 mg Cyanocobalamin (Vitamin B12) 1,000 mcg PO DAILY [facility] [place] Last Admin: 10/04/18 08:30 Dose: 1,000 mcg Enoxaparin Sodium (Lovenox) 40 mg SC DAILY@0600 [facility] Last Admin: 10/04/18 05:31 Dose: 40 mg Ergocalciferol (Vitamin D) 50,000 unit PO QWEEK [facility] Lorazepam (Ativan) 0.5 mg PO QHS [facility] [place] Magnesium Hydroxide (Milk Of Magnesia) 30 ml PO .PRN X 1 PRN PRN Reason: Constipation Nutritional Formula (Lactose Free) (Ensure Enlive) 120 ml PO 4X/DAY [facility] [place] Last Admin: 10/04/18 13:21 Dose: 120 ml Nystatin (Nystatin) 500,000 unit PO 4X/DAY [facility] [place] Last Admin: 10/04/18 13:21 Dose: 500,000 unit Senna/Docusate Sodium (Senokot-S, Roma-Colace) 2 tablet PO BID [facility] [place] Last Admin: 10/04/18 08:29 Dose: 2 tablet Sodium Chloride ([place] Nasal [place]) 1 spray NASAL BID [facility] [place] Medical Necessity - Tobacco Use Smoking Status: Former smoker Assessment/Plan All Active Problems (Last Reviewed 10/02/18 @ 10:31 by Johnathon Carl MD) CVA (cerebral vascular accident) (Acute) Patient is a 83-year-old lady with previous CVA admitted with dysarthria patient admitted to a monitored bed for subsequent management patient condition was stabilized and subsequently transferred to the inpatient rehab unit to continue with her recuperation 1. Acute ischemic CVA patient has been admitted to the inpatient rehab unit where she is currently undergoing PT and OT. Patient remains on recommended medications including antiplatelet therapy with Plavix as well as therapy with atorvastatin 2. Dysphagia secondary to #1 patient still has significant dysphagia scheduled to undergo swallow evaluation on 10/05/2018 3. Dyslipidemia-patient is on statin therapy, continued at home dose 4. Essential hypertension-blood pressure controlled, home medications continued with dose adjustment as needed 5. Depression with anxiety 6. Physical debility 7. DVT prophylaxis SC Lovenox Active Medications Acetaminophen (Tylenol) 650 mg PO Q6H PRN PRN PRN Reason: Mild Pain (0-3/10)/Headache Amlodipine Besylate (Norvasc) 10 mg PO DAILY [facility] Last Admin: 10/03/18 08:11 Dose: 10 mg Atorvastatin Calcium (Lipitor) 40 mg PO QHS [facility] [place] Last Admin: 10/02/18 21:47 Dose: 40 mg Bisacodyl (Dulcolax) 10 mg RECTAL .PRN X 1 PRN PRN Reason: Constipation Citalopram Hydrobromide (Celexa) 20 mg PO DAILY [facility] [place] Last Admin: 10/03/18 08:09 Dose: 20 mg Clopidogrel Bisulfate (Plavix) 75 mg PO DAILY [facility] [place] Last Admin: 10/03/18 08:11 Dose: 75 mg Cyanocobalamin (Vitamin B12) 1,000 mcg PO DAILY [facility] [place] Last Admin: 10/03/18 08:11 Dose: 1,000 mcg Enoxaparin Sodium (Lovenox) 40 mg SC DAILY@0600 [facility] [place] Last Admin: 10/03/18 05:39 Dose: 40 mg Ergocalciferol (Vitamin D) 50,000 unit PO QWEEK [facility] [place] Magnesium Hydroxide (Milk Of Magnesia) 30 ml PO .PRN X 1 PRN PRN Reason: Constipation Nutritional Formula (Lactose Free) (Ensure Enlive) 120 ml PO 4X/DAY [facility] [place] Last Admin: 10/03/18 13:03 Dose: 120 ml Nystatin (Nystatin) 500,000 unit PO 4X/DAY [facility] [place] Senna/Docusate Sodium (Senokot-S, Roma-Colace) 2 tablet PO BID [facility] [place] Last Admin: 10/03/18 08:11 Dose: 2 tablet Code Visit Inpatient E&M: 46521 Subs Hosp L2
[2018-10-04 19:44] VITALS: BP 132/76; PULSE 76; RESP 16; TEMP 36.6; O2SAT 92
[2018-10-04] MEDS: Sodium Chloride 0.65% 1 SPRAY SPRAY.BTL NASAL (22:05)
[2018-10-04] MEDS: Atorvastatin Calcium 40 MG Tablet PO (22:06)
[2018-10-04] MEDS: LORazepam 0.5 MG Tablet PO (22:06)
[2018-10-05] MEDS: Enoxaparin 40 MG/0.4 ML Syringe SC (06:48)
[2018-10-05 08:00] VITALS: O2SAT 92
[2018-10-05 08:03] VITALS: BP 117/74; PULSE 72; RESP 20; TEMP 36.5; O2SAT 92
[2018-10-05] MEDS: amLODIPine 10 MG Tablet PO (10:30)
[2018-10-05] MEDS: Citalopram 20 MG Tablet PO (10:30)
[2018-10-05] MEDS: Clopidogrel Bisulfate 75 MG Tablet PO (10:30)
[2018-10-05] MEDS: Cyanocobalamin 500 MCG Tablet 1000 MCG PO (10:30)
[2018-10-05] MEDS: NYSTATIN 500,000 UNIT/5 ML UDC 500000 UNIT PO ×4 (10:31→21:32)
[2018-10-05] MEDS: Sodium Chloride 0.65% 1 SPRAY SPRAY.BTL NASAL ×2 (10:31→21:32)
[2018-10-05] MEDS: Glycerin/Hypromellose/PEG400 15 ml Bottle 1 DRP EACH EYE (10:31)
--- NOTE | 2018-10-05 11:29 | PCM.PN.NEU ---
Subjective: No issues overnight. Care discussed with nursing staff 83 F with PMH HTN, depression, recurrent bladder cancer, 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 MRI brain done on 10/02/18 did not show any acute stroke, CTA head/neck did not report any hemodynamic significant stenosis or occlusion. on Dual AP with ASA/Plavix and on statins. Patient had barium swallow done following admission to rehab which showed silent aspiration. - Physical Exam General: Alert HEENT: Normocephalic Neck: Supple Lungs: Normal air movement Cardiovascular: Normal S1, Normal S2 Abdomen: Bowel Sounds Present Extremities: No cyanosis Neurological: - - consious, alert, AoAx3, CN 2-12 grossly intact, moves all 4 extremities, denies any sensory loss, no cerebellar signs, Reflexes + B/L B/S/T/K/A, gait deferred, dysarthria present Psych/Mental Status: Normal Affect Vital Signs Temp Pulse Resp BP Pulse Ox 97.7 F L 72 20 H 117/74 92 10/05/18 08:03 10/05/18 08:03 10/05/18 08:03 10/05/18 08:03 10/05/18 08:03 Oxygen Delivery Method Room Air Weight: 61.6 kg Body Mass Index (BMI) 22.8 Finger Stick Blood Glucose 111 Intake and Output for Last 24 Hours 10/03/18 10/04/18 10/05/18 23:59 23:59 23:59 Intake Total 440 / 440 460 / 460 240 / 240 Balance 440 / 440 460 / 460 240 / 240 Medical Necessity - Tobacco Use Smoking Status: Former smoker Assessment/Plan All Active Problems (Last Reviewed 10/02/18 @ 10:31 by Johnathon Carl MD) CVA (cerebral vascular accident) (Acute) 83 F with PMH HTN, depression, recurrent bladder cancer, 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 MRI brain done on 10/02/18 did not show any acute stroke, CTA head/neck did not report any hemodynamic significant stenosis or occlusion. on Plavix and on statins. Patient had barium swallow done following admission to rehab which showed silent aspiration. Plan - Physical therapy for gait and balance - Occupational Therapy for ADLs - Speech therapy for dysarthria, swallow evaluation by ST - As needed analgesics - Bowel protocol - Stroke prevention: no new stroke on MRI brain during this inpatient admission, on Plavix 75 mg PO once daily, and Lipitor 40mg - DVT prophylaxis: SCDs, Lovenox - Fall precautions - Hx of Hypertension: Continue home dose of amlodipine 10 mg - Hx of bladder cancer s/p tumor resection with recurrence - Follows with Dr. Bunn. - Hx of Depression: continue home citalopram regimen.
--- NOTE | 2018-10-05 13:00 | SP.MBSS_ITS ---
PRIMARY / SECONDARY DIAGNOSIS: Debility s/p recent CVA complicated by metabolic encephalopathy/ oropharyngeal dysphagia REFERRING PHYSICIAN: Dr. Johnathon Carl CURRENT DIET: pureed textures/honey thickened liquids DENTITION: upper denture/lower natural upper denture plate in place for MBS w/ excellent fit/seal achieved w/ use of denture adhesive MENTAL STATUS: able to follow commands for participation in MBS RESPIRATORY STATUS: oxygenating on room air w/ respiratory standards met/lung sounds CTA PREVIOUS MODIFIED BARIUM SWALLOW STUDY: n/a REASON FOR REFERRAL: Pt is an 83 y/o female admitted to [facility] on 10/01/2018 d/t acute onset dysarthria and ataxia. Known to [facility] speech therapy department from recent inpatient rehabilitation stay for treatment of recent LMCA vs. L thalamic CVA. Current changes in speech/swallow function attributed to metabolic encephalopathy. Further assessment of swallow function under fluoroscopy warranted d/t inconsistent tolerance of current diet and severity of changes to the oropharyngeal swallow mechanism. MEDICAL HISTORY: a recent cerebrovascular accident involving the posterior limb of the left internal capsule, bladder cancer, hypertension, depression STUDY FINDINGS: Patient participated in a Modified Barium Swallow (MBS) study on 10/05/2018. Dr. Alvarez was the radiologist present for this evaluation. This study was recorded in the lateral view and images were sent to PACs for storage. The following consistencies were presented to this patient for analysis of oropharyngeal swallow function: honey thickened liquid, pudding and ? regular texture Lexie Doone shortbread cookie. Results of the MBS are as follows: PENETRATION / ASPIRATION SCALE (VIEYRA): 1 = does not enter airway 2 = enters airway/above vocal folds/ejected 3 = enters airway/above vocal folds/not ejected 4 = enters airway/contacts vocal folds/ejected 5 = enters airway/contacts vocal folds/not ejected 6 = enters airway/below vocal folds/ejected 7 = enters airway/below vocal folds/not ejected despite effort 8 = enters airway/below vocal folds/no effort NR = not rated PENETRATION / ASPIRATION SCALE (SCORE) listed in order of presentation: 1. Honey Thickened Liquid via teaspoon: 8 2. Pudding via teaspoon: 1 3. Pudding via teaspoon with chin tuck:1 4. Honey thickened liquid via teaspoon with chin tuck: 1 5. Honey thickened liquid via teaspoon with chin tuck: 8 6. ? Regular texture Lexie davies cookjhonathan: NR IMPRESSION: ORAL PHASE CHARACTERIZED BY: LABIAL SEAL: escape beyond interlabial space or lateral juncture; no extension beyond [place] TONGUE CONTROL DURING BOLUS MANIPULATION: escape to lateral buccal cavity/floor of mouth BOLUS PREPARATION / MASTICATION: minimal chewing/mashing with majority of bolus unchewed BOLUS TRANSPORT / LINGUAL MOTION: minimal to no tongue motion ORAL RESIDUE: residue collection on oral structures PHARYNGEAL PHASE CHARACTERIZED BY: INITIATION OF PHARYNGEAL SWALLOW: bolus head in pyriforms at first hyoid excursion (bolus head atop vocal folds) SOFT PALATE ELEVATION: no bolus between soft palate and pharyngeal wall LARYNGEAL ELEVATION: partial superior movement of thyroid cartilage/partial approximation of arytenoids cartilage to epiglottic petiole ANTERIOR HYOID EXCURSION: complete anterior movement EPIGLOTTIC MOVEMENT: complete epiglottic inversion LARYNGEAL VESTIBULE CLOSURE AT HEIGHT OF SWALLOW: incomplete laryngeal vestibule closure with narrow column of air/contrast in laryngeal vestibule PHARYNGEAL STRIPPING WAVE: pharyngeal stripping wave present / diminished PHARYNGOESOPHAGEAL SEGMENT OPENING: complete distension and complete duration with no obstruction of flow TONGUE BASE RETRACTION: narrow column of contrast between tongue base and posterior pharyngeal wall PHARYNGEAL RESIDUE: trace residue within or on pharyngeal structures ESOPHAGEAL PHASE CHARACTERIZED BY: ESOPHAGEAL BOLUS CLEARANCE IN THE UPRIGHT POSITION: esophageal retention EFFECTS OF TREATMENT STRATEGIES ATTEMPTED: Chin tuck posture = effective to improve timing and bolus flow Cued expectoration = not effective INTERPRETATION OF RESULTS: Patient presents with moderate to severe oropharyngeal dysphagia (R13.12) characterized by reduced mouth opening for acceptance of boluses and impaired labial seal w/ anterior bolus leakage d/t labial weakness/decreased jaw ROM. Severe mastication inefficiency w/ minimal lingual movement and inability to transfer bolus from lingual/alveolar ridge placement to molars for mastication. Solid texture trial was discontinued w/ bolus removal d/t inability to adequately manipulate. Moderate impairment in lingual control w/ bolus loss to floor of mouth and premature pharyngeal bolus entry secondary to delay oral phase swallow onset which resulted in honey thickened bolus spillage to the level of the vocal folds prior to pharyngeal swallow onset and SEVERE SILENT ASPIRATION of honey thickened consistency during the swallow. There was no response to severe aspiration. Use of a cued cough was extremely weak and entirely ineffective to move contrast upward. Use of a chin tuck posture was effective to improve laryngeal vestibule closure and redirection bolus towards UES and away from the laryngeal vestibule, and although improved airway protection and reduced severity of penetration/aspiration, was not able to consistently eliminate laryngeal vestibule penetration/aspiration before swallow onset w/ honey thickened liquids. Pudding consistency in conjunction w/ a chin tuck posture allowed sufficient timing for pharyngeal swallow onset and laryngeal vestibule closure. Reduced tongue base retraction, laryngeal elevation and diminished posterior pharyngeal stripping wave resulted in trace lining of contrast along these structures and w/in the valleculae, along w/ oral residue post deglutition. Esophageal retention of contrast was noted w/out retrograde flow. RECOMMENDATIONS: DIET TEXTURE RECOMMENDATIONS: pureed textures/pudding thickened liquids COMPENSATORY STRATEGIES RECOMMENDED: Supervision, chin tuck, all bites/sips by spoon, seated upright in chair w/ 90 degree hip flexion during all PO intake, remain upright for 30-60 minutes post meal (GERD precaution), medications crushed as appropriate/mixed w/ pudding and followed w/ pudding chaser NEED FOR REPEAT MBS: Would strongly discourage advancement past pudding thickened liquids without completion of a repeat modified barium swallow study due to the extent of aspirate identified that was SILENT in nature with clinical assessment at bedside relying on identification of classic overt signs and symptoms of aspiration unreliable. NEED FOR SKILLED SPEECH-LANGUAGE INTERVENTION: Patient requires intensive skilled speech-language intervention targeting continued diet texture management, training and implementation of recommended compensatory strategies, training and implementation of recommended oral strengthening exercises to facilitate improved labial & lingual strength/control, and training and implementation of recommended oropharyngeal strengthening exercises to facilitate improved swallow onset timing and laryngeal vestibule closure. ADDITIONAL COMMENTS/RECOMMENDATIONS: Results and recommendations were discussed with the patient and images were reviewed immediately following MBS completion to facilitate improved comprehension of deficits identified and need for diet texture/liquid consistency modifications and intensive dysphagia intervention. The patient verbalized understanding and agreement with all recommendations and education provided. Results also verbally conveyed to Alka FERNÁNDEZ following MBS completion. IMAGE COUNT: [id number]
--- NOTE | 2018-10-05 13:00 | RAD_ITS ---
STUDY: SWALLOWING STUDY REASON FOR EXAM: Female, 83 years old. Dysphasia. History of CVA. TECHNIQUE: The examination was performed with Speech Pathology in attendance. Under fluoroscopic observation, the patient ingested thin barium, thick barium, barium pudding, and barium coated cracker. FLUOROSCOPY TIME: 1:04 minutes/seconds. 1546 fluoroscopic images were obtained. RADIOLOGIST INVOLVEMENT: Radiologist was present and providing direct supervision. COMPARISON: None. FINDINGS: The following was observed during swallowing of the various mixtures of barium: Thick Barium: Silent aspiration with ingestion of nectar thickened and honey thickened liquids. Barium Pudding: There was no evidence of aspiration or laryngeal penetration. RAD/Swallowing Function w/Video IMPRESSION: Silent aspiration with ingestion of honey thickened and nectar thickened liquids. The swallow study findings were discussed with the patient by the speech pathologist at the conclusion of the examination. Please see speech pathology report for more information and recommendations. Electronically Signed: Harry Alvarez MD at 14:52 EST Tel [phone], Service support ,
[2018-10-05 15:38] VITALS: BMI 22.8
[2018-10-05] MEDS: Atorvastatin Calcium 40 MG Tablet PO (21:31)
[2018-10-05] MEDS: LORazepam 0.5 MG Tablet PO (21:31)
[2018-10-05 21:45] VITALS: BP 137/76; PULSE 66; RESP 16; TEMP 36.8; O2SAT 95
[2018-10-05 22:38] VITALS: BMI 22.8
[2018-10-06] MEDS: Enoxaparin 40 MG/0.4 ML Syringe SC (06:26)
[2018-10-06 07:00] VITALS: BP 138/72; PULSE 69; RESP 20; TEMP 36.6; O2SAT 93
--- NOTE | 2018-10-06 07:36 | PCM.PN.HOSP ---
Subjective: Patient did fail his speech and swallow eval performed on 10/05/2018 Objective: GENERAL: cooperative HEENT: Atraumatic; EYES; Anicteric, Normal Conjunctiva NECK; supple, normal thyroid, RESPIRATORY: Diminished to auscultation bilaterally, CARDIOVASCULAR: Regular S1 S2, no audible murmurs GI: soft, non-tender, normoactive bowel sounds, : No Renal angle tenderness; NEURO: Awake; left facial droop SKIN: No Rash PSYCH; flat affect Vitals/I&O's: Vital Signs Temp Pulse Resp BP Pulse Ox 98.2 F 66 16 137/76 H 95 10/05/18 21:45 10/05/18 21:45 10/05/18 21:45 10/05/18 21:45 10/05/18 21:45 Oxygen Delivery Method Room Air Weight: 61.6 kg Body Mass Index (BMI) 22.8 Finger Stick Blood Glucose 111 Intake and Output for Last 24 Hours 10/04/18 10/05/18 10/06/18 23:59 23:59 23:59 Intake Total 460 / 460 420 / 420 Balance 460 / 460 420 / 420 Current Medications Acetaminophen (Tylenol) 650 mg PO Q6H PRN PRN PRN Reason: Mild Pain (0-3/10)/Headache Amlodipine Besylate (Norvasc) 10 mg PO DAILY [facility] Last Admin: 10/05/18 10:30 Dose: 10 mg Atorvastatin Calcium (Lipitor) 40 mg PO QHS [facility] Last Admin: 10/05/18 21:31 Dose: 40 mg Bisacodyl (Dulcolax) 10 mg RECTAL .PRN X 1 PRN PRN Reason: Constipation Citalopram Hydrobromide (Celexa) 20 mg PO DAILY [facility] Last Admin: 10/05/18 10:30 Dose: 20 mg Clopidogrel Bisulfate (Plavix) 75 mg PO DAILY [facility] Last Admin: 10/05/18 10:30 Dose: 75 mg Cyanocobalamin (Vitamin B12) 1,000 mcg PO DAILY [facility] Last Admin: 10/05/18 10:30 Dose: 1,000 mcg Enoxaparin Sodium (Lovenox) 40 mg SC DAILY@0600 [facility] Last Admin: 10/06/18 06:26 Dose: 40 mg Ergocalciferol (Vitamin D) 50,000 unit PO QWEEK [facility] Lorazepam (Ativan) 0.5 mg PO QHS [facility] Last Admin: 10/05/18 21:31 Dose: 0.5 mg Magnesium Hydroxide (Milk Of Magnesia) 30 ml PO .PRN X 1 PRN PRN Reason: Constipation Nutritional Formula (Lactose Free) (Ensure Enlive) 120 ml PO 4X/DAY [facility] Last Admin: 10/05/18 21:55 Dose: 120 ml Nystatin (Nystatin) 500,000 unit PO 4X/DAY [facility] Last Admin: 10/05/18 21:32 Dose: 500,000 unit Senna/Docusate Sodium (Senokot-S, [place]-Colace) 2 tablet PO BID [facility] Last Admin: 10/05/18 21:32 Dose: Not Given Sodium Chloride ([place] Nasal [place]) 1 spray NASAL BID [facility] Last Admin: 10/05/18 21:32 Dose: 1 spray Medical Necessity - Tobacco Use Smoking Status: Former smoker Assessment/Plan All Active Problems (Last Reviewed 10/02/18 @ 10:31 by Johnathon Carl MD) CVA (cerebral vascular accident) (Acute) Patient is a 83-year-old lady with previous CVA admitted with dysarthria patient admitted to a monitored bed for subsequent management patient condition was stabilized and subsequently transferred to the inpatient rehab unit to continue with her recuperation 1. Acute ischemic CVA patient has been admitted to the inpatient rehab unit where she is currently undergoing PT and OT. Patient remains on recommended medications including antiplatelet therapy with Plavix as well as therapy with atorvastatin 2. Dysphagia secondary to #1 patient still has significant dysphagia scheduled to undergo swallow evaluation on 10/05/2018; Patient did fail his speech and swallow eval performed on 10/05/2018 patient is on pudding thickened liquid 3. Dyslipidemia-patient is on statin therapy, continued at home dose 4. Essential hypertension-blood pressure controlled, home medications continued with dose adjustment as needed 5. Depression with anxiety 6. Physical debility 7. DVT prophylaxis SC Lovenox Code Visit Inpatient E&M: 49859 Subs Hosp L2
[2018-10-06] MEDS: Sodium Chloride 0.65% 1 SPRAY SPRAY.BTL NASAL ×2 (08:00→22:40)
[2018-10-06] MEDS: NYSTATIN 500,000 UNIT/5 ML UDC 500000 UNIT PO ×2 (08:01→18:30)
[2018-10-06] MEDS: Cyanocobalamin 500 MCG Tablet 1000 MCG PO (08:01)
[2018-10-06] MEDS: Glycerin/Hypromellose/PEG400 15 ml Bottle 1 DRP EACH EYE (08:01)
[2018-10-06] MEDS: Citalopram 20 MG Tablet PO (08:01)
[2018-10-06] MEDS: amLODIPine 10 MG Tablet PO (08:01)
[2018-10-06] MEDS: Clopidogrel Bisulfate 75 MG Tablet PO (08:02)
[2018-10-06] MEDS: Acetaminophen 325 MG Tablet 650 MG PO (09:51)
[2018-10-06 12:15] VITALS: O2SAT 96
--- NOTE | 2018-10-06 12:15 | NURSING ---
Addendum entered by Alka Foster 10/06/18 17:43: pt also with liquid coming out of nose with coughing. difficulty clearing secretions. Original Note: pt up in multipurpose room for lunch. pt with moist cough and diff breathing after bite of magic cup per pt. pt taken back to room and orally suctioned for mod amt clear secretions. alka ponce aware. speech therapy and dr mccauley made aware. pt initially placed on 4l via nasal cannula but then refused. ra pulse ox 94%. enc is and will cont to monitor.
--- NOTE | 2018-10-06 12:16 | PCM.PN.NEU ---
Subjective: No issues overnight. Care discussed with nursing staff. This morning patient had episode of aspiration while eating lunch, speech therapy has seen the patient, plan to keep her NPO for now. O2 saturation was around 89-90% per nursing and patient was started on 2 lit oxygen. At present patient denies any dyspnea or discomfort. - Physical Exam General: Alert HEENT: Normocephalic Neck: Supple Lungs: Clear to auscultation, - - mild decrease air entry left LL Cardiovascular: Normal S1, Normal S2 Abdomen: Bowel Sounds Present Extremities: No cyanosis Neurological: - - consious, alert, AoAx3, CN 2-12 grossly intact, moves all 4 extremities, denies any sensory loss, no cerebellar signs, Reflexes + B/L B/S/T/K/A, gait deferred, dysarthria present Psych/Mental Status: Normal Affect Vital Signs Temp Pulse Resp BP Pulse Ox 97.8 F 69 20 H 138/72 H 93 10/06/18 07:00 10/06/18 07:00 10/06/18 07:00 10/06/18 07:00 10/06/18 07:00 Oxygen Delivery Method Room Air Weight: 61.6 kg Body Mass Index (BMI) 22.8 Finger Stick Blood Glucose 111 Intake and Output for Last 24 Hours 10/04/18 10/05/18 10/06/18 23:59 23:59 23:59 Intake Total 460 / 460 420 / 420 240 / 240 Balance 460 / 460 420 / 420 240 / 240 Medical Necessity - Tobacco Use Smoking Status: Former smoker Assessment/Plan All Active Problems (Last Reviewed 10/02/18 @ 10:31 by Johnathon Carl MD) CVA (cerebral vascular accident) (Acute) 83 F with PMH HTN, depression, recurrent bladder cancer, 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 on 10/03/2018 with debility and worsening dysarthria, for > 3 hrs therapy daily, with a goal of returning back home at or near her prior level of functional independence. MRI brain done on 10/02/18 did not show any acute stroke, CTA head/neck did not report any hemodynamic significant stenosis or occlusion. on Plavix and on statins. Patient had barium swallow done following admission to rehab which showed silent aspiration. Plan - Physical therapy for gait and balance - Occupational Therapy for ADLs - Speech therapy for dysarthria, swallow evaluation by ST - As needed analgesics - Bowel protocol - Had episode of aspiration today (10/06/18)- patient kept NPO by speech therapy as of now. Will start IV fluids NS @60ml/hr till patient is NPO. Will get Chest Xray. Discussed with ST, patient will likely benefit from PEG tube per ST, will consult surgery for PEG tube. Will get NGT in the mean time. - Dysarthria- will send MG labs as no new stroke on MRI brain - Stroke prevention: no new stroke on MRI brain during this inpatient admission, on Plavix 75 mg PO once daily, and Lipitor 40mg - DVT prophylaxis: SCDs, Lovenox - Fall precautions - Hx of Hypertension: Continue home dose of amlodipine 10 mg - Hx of bladder cancer s/p tumor resection with recurrence - Follows with Dr. Bunn. - Hx of Depression: continue home citalopram regimen.
[2018-10-06 12:30] VITALS: BP 104/65; PULSE 82; RESP 16; O2SAT 94
[2018-10-06 13:09] VITALS: BMI 22.8
--- NOTE | 2018-10-06 13:11 | RAD_ITS ---
STUDY: X-RAY CHEST REASON FOR EXAM: Female, 83 years old. Shortness of breath. Aspiration. TECHNIQUE: 1 view COMPARISON: October 01, 2018 FINDINGS: There is a 1.2 cm calcified density projecting over the left costophrenic angle. May be in the lung or in the breast. There is no acute pneumonia or failure. The heart and mediastinum are normal. Normal visualized thoracic spine. Normal visualized ribs, clavicles, and shoulders. There is no demonstrated abnormality of the visualized soft tissue structures of the upper abdomen. RAD/Chest 1 View (Portable) IMPRESSION: No acute findings in the lungs. A 1.2 cm calcified density projecting over the left costophrenic angle. May be in the lung (a calcified granuloma) or may be in the left breast Electronically Signed: Vipul Domínguez MD at 0:17 EST Tel , Service support ,
--- NOTE | 2018-10-06 16:56 | NURSING ---
Dr. Phipps consulted ref. peg tube insertion. Dr. Phipps stated that he would want to stop the anticoagulation for 5 days before procedure, in not then he recommends if pt needs to stay on blood thinners to stop the plavix and cont lovenox. This RN told Dr. Phipps she would call him back after talking to Dr. Zhang.
--- NOTE | 2018-10-06 18:46 | NURSING ---
Spoke to Dr. Zhang new orders to stop Plavix today, cont lovenox and start ASA [address]mg [address] Zuñiga aware of situation.
--- NOTE | 2018-10-06 18:49 | NURSING ---
Spoke to Dr. Zuñiga he is aware of new orders. He will see pt. either Sat, Tue, or Tuesday and do procedure at end of week. We will need to stop Lovenox day of procedure do not give.
[2018-10-06 19:31] VITALS: BP 130/74; PULSE 63; RESP 18; TEMP 36.6; O2SAT 93
[2018-10-06 20:00] VITALS: RESP 15
[2018-10-06] MEDS: 0.9% Normal Saline 1,000 ML 60 ML IV (20:11)
[2018-10-06] MEDS: LORazepam 0.5 MG Tablet PO (22:27)
[2018-10-06] MEDS: Atorvastatin Calcium 40 MG Tablet PO (22:27)
[2018-10-07] MEDS: Enoxaparin 40 MG/0.4 ML Syringe SC (05:20)
[2018-10-07 07:00] VITALS: BP 126/68; PULSE 63; RESP 20; TEMP 36.4; O2SAT 95
[2018-10-07] MEDS: Cyanocobalamin 500 MCG Tablet 1000 MCG NG (08:40)
[2018-10-07] MEDS: Citalopram 20 MG Tablet NG (08:40)
[2018-10-07] MEDS: Aspirin 81 MG TAB.CHEW NG (08:40)
[2018-10-07] MEDS: amLODIPine 10 MG Tablet NG (08:40)
[2018-10-07] MEDS: Sodium Chloride 0.65% 1 SPRAY SPRAY.BTL NASAL ×2 (08:41→22:21)
--- NOTE | 2018-10-07 08:46 | PCM.CONS.GEN ---
Problem List (1) Dysphagia Status: Acute Qualifiers: Dysphagia type: unspecified Qualified Code(s): R13.10 - Dysphagia, unspecified Reason for Consult Date of Consultation: 10/07/18 Reason for Consultation: Dysphagia and need for PEG tube History of Present Illness: The patient is a 83 year old F who was recently admitted for CVA. During lunch yesterday she began to have coughing during swallowing and there was concern for aspiration. The patient requires PEG tube for feeding. She currently has an NG tube in place with tube feeds running. Past Medical History Past Medical History (Chronic Problems): Chronic Problems (Last Reviewed 10/02/18 @ 10:31 by Johnathon Carl MD) Bladder cancer (Chronic) Depression (Chronic) Hypertension (Chronic) Medical History: Medical History (Last Reviewed 10/02/18 @ 10:31 by Johnathon Carl MD) Bladder cancer (Chronic) C67.9 Depression (Chronic) F32.9 Hypertension (Chronic) I10 Allergies No Known Allergies Allergy (Verified 09/06/18 11:36) Home Medications: Ambulatory Orders Medication Instructions Recorded Cyanocobalamin (Vitamin B-12) 1,000 mcg PO DAILY 05/19/18 [Vitamin B-12] Clopidogrel Bisulfate [Plavix] 75 mg PO DAILY #90 tablet 08/29/18 Ergocalciferol [Vitamin D] 50,000 unit PO QWEEK #6 capsule 08/29/18 Peg 400/Hypromellose/Glycerin 1 drop EACH EYE Q1H PRN bottle 08/29/18 [Artificial Tears] Amlodipine [Norvasc] 10 mg PO DAILY 10/01/18 Atorvastatin Calcium [Lipitor] 40 mg PO QHS 10/01/18 Citalopram [Celexa] 20 mg PO DAILY 10/01/18 Ensure Enlive 120 ml PO 4X/DAY 10/02/18 Surgical History: - - Tumor removal. 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 Smoking Status: Former smoker - *Family History Maternal History Items: No pertinent history Paternal History Items: No pertinent history Review of Systems Constitutional: Denies: Anorexia, Fever HEENT: Reports: Difficulty Swallowing Cardiovascular: Denies: Chest Pain Respiratory: Reports: Cough Gastrointestinal: Denies: Abdominal Pain, Nausea, Melena Musculoskeletal: Denies: Joint Tenderness Skin: Denies: Jaundice Hematologic/ Lymphatic: Denies: Anemia Patient Problems: Active and Suspected Problems (Last Reviewed 10/02/18 @ 10:31 by Johnathon Carl MD) Dysphagia (Acute) - Physical Exam General: Oriented x3, Cooperative HEENT: Atraumatic Oral: Moist Mucosa Neck: Supple Lungs: Normal air movement Cardiovascular: Regular rate, Regular Rhythm Abdomen: Soft, Non Tender, Non-Distended Extremities: No cyanosis Skin: No rashes Musculoskeletal: Cachexia Lymphatic: No Cervical, Supraclavicular, or Inguinal Adenopathy Neurological: Cranial nerves II-XII grossly intact Psych/Mental Status: Normal Affect Vital Signs Temp Pulse Resp BP Pulse Ox 97.6 F L 63 20 H 126/68 H 95 10/07/18 07:00 10/07/18 07:00 10/07/18 07:00 10/07/18 07:00 10/07/18 07:00 Oxygen Delivery Method Room Air Weight: 135 lb 12.876 oz Body Mass Index (BMI) 22.8 Finger Stick Blood Glucose 111 Intake and Output for Last 24 Hours 10/05/18 10/06/18 10/07/18 23:59 23:59 23:59 Intake Total 420 / 420 597 / 597 Balance 420 / 420 597 / 597 Laboratory Tests Past 24 Hrs 10/06/18 19:49 Acetylchol Rcpt Block Ab Pending Acetylchol Rcpt Modu Ab Pending Clinical Impression(s) from Imaging Studies Videofluoroscopic Swallow 10/05/18 13:00 IMPRESSION: Silent aspiration with ingestion of honey thickened and nectar thickened liquids. The swallow study findings were discussed with the patient by the speech pathologist at the conclusion of the examination. Please see speech pathology report for more information and recommendations. Electronically Signed: Harry Alvarez MD at 14:52 EST Tel [phone], Service support , Assessment/Plan All Active Problems (Last Reviewed 10/02/18 @ 10:31 by Johnathon Carl MD) Dysphagia (Acute) CVA (cerebral vascular accident) (Acute) 83-year-old female with dysphasia 1. Patient had videoscopic barium swallow which showed aspiration. I was consulted for PEG tube. 2. The nurse discussed with the neurologist last night the concerns of her anticoagulation. The patient is currently on Lovenox and Plavix. If possible I would like to stop the Plavix to reduce bleeding risk. At the current time the patient is tolerating tube feeds and I would continue these tube feeds via NG. I plan for PEG placement or Tuesday. I will make the patient n.p.o. and stop Lovenox for that day. The Plavix is being held and the patient will be started on aspirin. Prieto Zuñiga MD Pager: [facility] [address] [place] [address], [address] [place] [address] Office:
--- NOTE | 2018-10-07 08:50 | CON.PCM_ITS ---
Problem List (1) Dysphagia Status: Acute Qualifiers: Dysphagia type: unspecified Qualified Code(s): R13.10 - Dysphagia, unspecified Reason for Consult Date of Consultation: 10/07/18 Reason for Consultation: Dysphagia and need for PEG tube History of Present Illness: The patient is a 83 year old F who was recently admitted for CVA. During lunch yesterday she began to have coughing during swallowing and there was concern for aspiration. The patient requires PEG tube for feeding. She currently has an NG tube in place with tube feeds running. Past Medical History Past Medical History (Chronic Problems): Chronic Problems (Last Reviewed 10/02/18 @ 10:31 by Johnathon Carl MD) Bladder cancer (Chronic) Depression (Chronic) Hypertension (Chronic) Medical History: Medical History (Last Reviewed 10/02/18 @ 10:31 by Johnathon Carl MD) Bladder cancer (Chronic) C67.9 Depression (Chronic) F32.9 Hypertension (Chronic) I10 Allergies No Known Allergies Allergy (Verified 09/06/18 11:36) Home Medications: Ambulatory Orders Medication Instructions Recorded Cyanocobalamin (Vitamin B-12) 1,000 mcg PO DAILY 05/19/18 [Vitamin B-12] Clopidogrel Bisulfate [Plavix] 75 mg PO DAILY #90 tablet 08/29/18 Ergocalciferol [Vitamin D] 50,000 unit PO QWEEK #6 capsule 08/29/18 Peg 400/Hypromellose/Glycerin 1 drop EACH EYE Q1H PRN bottle 08/29/18 [Artificial Tears] Amlodipine [Norvasc] 10 mg PO DAILY 10/01/18 Atorvastatin Calcium [Lipitor] 40 mg PO QHS 10/01/18 Citalopram [Celexa] 20 mg PO DAILY 10/01/18 Ensure Enlive 120 ml PO 4X/DAY 10/02/18 Surgical History: - - Tumor removal. 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 Smoking Status: Former smoker - *Family History Maternal History Items: No pertinent history Paternal History Items: No pertinent history Review of Systems Constitutional: Denies: Anorexia, Fever HEENT: Reports: Difficulty Swallowing Cardiovascular: Denies: Chest Pain Respiratory: Reports: Cough Gastrointestinal: Denies: Abdominal Pain, Nausea, Melena Musculoskeletal: Denies: Joint Tenderness Skin: Denies: Jaundice Hematologic/ Lymphatic: Denies: Anemia Patient Problems: Active and Suspected Problems (Last Reviewed 10/02/18 @ 10:31 by Johnathon Carl MD) Dysphagia (Acute) - Physical Exam General: Oriented x3, Cooperative HEENT: Atraumatic Oral: Moist Mucosa Neck: Supple Lungs: Normal air movement Cardiovascular: Regular rate, Regular Rhythm Abdomen: Soft, Non Tender, Non-Distended Extremities: No cyanosis Skin: No rashes Musculoskeletal: Cachexia Lymphatic: No Cervical, Supraclavicular, or Inguinal Adenopathy Neurological: Cranial nerves II-XII grossly intact Psych/Mental Status: Normal Affect Vital Signs Temp Pulse Resp BP Pulse Ox 97.6 F L 63 20 H 126/68 H 95 10/07/18 07:00 10/07/18 07:00 10/07/18 07:00 10/07/18 07:00 10/07/18 07:00 Oxygen Delivery Method Room Air Weight: 135 lb 12.876 oz Body Mass Index (BMI) 22.8 Finger Stick Blood Glucose 111 Intake and Output for Last 24 Hours 10/05/18 10/06/18 10/07/18 23:59 23:59 23:59 Intake Total 420 / 420 597 / 597 Balance 420 / 420 597 / 597 Laboratory Tests Past 24 Hrs 10/06/18 19:49 Acetylchol Rcpt Block Ab Pending Acetylchol Rcpt Modu Ab Pending Clinical Impression(s) from Imaging Studies Videofluoroscopic Swallow 10/05/18 13:00 IMPRESSION: Silent aspiration with ingestion of honey thickened and nectar thickened liquids. The swallow study findings were discussed with the patient by the speech pathologist at the conclusion of the examination. Please see speech pathology report for more information and recommendations. Electronically Signed: Harry Alvarez MD at 14:52 EST Tel [phone], Service support , Assessment/Plan All Active Problems (Last Reviewed 10/02/18 @ 10:31 by Johnathon Carl MD) Dysphagia (Acute) CVA (cerebral vascular accident) (Acute) 83-year-old female with dysphasia 1. Patient had videoscopic barium swallow which showed aspiration. I was consulted for PEG tube. 2. The nurse discussed with the neurologist last night the concerns of her anticoagulation. The patient is currently on Lovenox and Plavix. If possible I would like to stop the Plavix to reduce bleeding risk. At the current time the patient is tolerating tube feeds and I would continue these tube feeds via NG. I plan for PEG placement or Tuesday. I will make the patient n.p.o. and stop Lovenox for that day. The Plavix is being held and the patient will be started on aspirin. Prieto Zuñiga MD Pager: [facility] [address] [place] [address], [address] [place] [address] Office:
[2018-10-07 10:00] VITALS: O2SAT 94
--- NOTE | 2018-10-07 11:34 | NURSING ---
Dr. desai here to see patient and updated. 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
--- NOTE | 2018-10-07 11:42 | NURSING ---
spoke to speech therapist Ryan Avilez and he stated that it is okay to paint ordered nystatin on tongue and suction excess out of mouth. Pt remains NPO.
--- NOTE | 2018-10-07 12:08 | NURSING ---
Addendum entered by Berenice Bernstein 10/07/18 12:30: not 55cc/hr but 50 cc/hr Original Note: new order for Jevity 1.5 at 55 cc/hr continuous with sterile water flushes at 150 cc every 4 hours. start with jevity at 15 cc then increase by 15 cc every 8 hours until goal rate of 50 cc/hr.
--- NOTE | 2018-10-07 13:20 | PCM.PN.NEU ---
Patient Problems: Active and Suspected Problems (Last Reviewed 10/02/18 @ 10:31 by Johnathon Carl MD) Dysphagia (Acute) Subjective: She asks about the PEG tube. She is also concerned that her IV pump keeps alarming and disturbing her. No other complaints. Tolerating therapies. Pain is controlled. - Physical Exam General: Alert, Oriented x3, Cooperative, No apparent distress Neurological: Slurred Speech Psych/Mental Status: Normal Affect, Alert and oriented to time, place, person, mood and affect Vital Signs Temp Pulse Resp BP Pulse Ox 36.4 C L 63 20 H 126/68 H 94 10/07/18 07:00 10/07/18 07:00 10/07/18 07:00 10/07/18 07:00 10/07/18 10:00 Oxygen Delivery Method Room Air Weight: 61.6 kg Body Mass Index (BMI) 22.8 Finger Stick Blood Glucose 111 Intake and Output for Last 24 Hours 10/05/18 10/06/18 10/07/18 23:59 23:59 23:59 Intake Total 420 / 420 597 / 597 0 / 0 Balance 420 / 420 597 / 597 0 / 0 Laboratory Tests Past 24 Hrs 10/06/18 19:49 Acetylchol Rcpt Block Ab Pending Acetylchol Rcpt Modu Ab Pending Medical Necessity - Tobacco Use Smoking Status: Former smoker Assessment/Plan All Active Problems (Last Reviewed 10/02/18 @ 10:31 by Johnathon Carl MD) Dysphagia (Acute) CVA (cerebral vascular accident) (Acute) Debility s/p Acute infarct, complicated by metabolic encephalopathy not related to an acute stroke, with unclear specific etiology. Goal of rehab is confucianism of functional independence. Plan - Physical therapy for gait and balance - Occupational Therapy for ADLs - Speech therapy for dysarthria. She failed her swallow evaluation, PEG tube is now planned. - As needed analgesics - Bowel protocol - Stroke prevention ASA, Plavix 75 mg PO once daily, dual AP for 3 weeks, then switch to single AP, Lipitor 40mg - DVT prophylaxis: SCDs, ASA, Lovenox - Fall precautions - Hx of Hypertension: Continue home dose of amlodipine 10 mg - Hx of bladder cancer s/p tumor resection with recurrence - Follows with Dr. Bunn. - Hx of Depression: continue home citalopram regimen.
[2018-10-07] MEDS: NYSTATIN 500,000 UNIT/5 ML UDC 500000 UNIT NG ×2 (14:12→17:38)
[2018-10-07] MEDS: Jevity 1.5 1,000 ML 15 ML GT (14:12)
[2018-10-07 15:51] VITALS: BMI 22.8
[2018-10-07 22:00] VITALS: BP 136/72; PULSE 64; RESP 16; TEMP 36.7; O2SAT 95
[2018-10-07] MEDS: Senna/Docusate Sodium 1 Tablet 2 TABLET NG (22:21)
[2018-10-07] MEDS: LORazepam 0.5 MG Tablet NG (22:21)
[2018-10-07] MEDS: Atorvastatin Calcium 40 MG Tablet NG (22:21)
[2018-10-07] MEDS: NYSTATIN 500,000 UNIT/5 ML UDC 500000 UNIT PO (22:22)
[2018-10-08 00:41] VITALS: BMI 22.8
--- NOTE | 2018-10-08 01:41 | NURSING ---
Reviewed and agree with LPNs fims and handoff.
--- NOTE | 2018-10-08 01:48 | NURSING ---
Addendum entered by Leonila Armenta 10/08/18 01:50: time of note to be 0030. Original Note: tube feed increased to 30 ml/hr at this time. pharmacy clarified order prior to change. will monitor for residual. jevity 1.5 to be increased by 15 ml at 0830.
[2018-10-08] MEDS: Enoxaparin 40 MG/0.4 ML Syringe SC (06:38)
[2018-10-08 07:08] VITALS: BP 114/58; PULSE 62; RESP 16; TEMP 36.8; O2SAT 95
[2018-10-08] MEDS: Cyanocobalamin 500 MCG Tablet 1000 MCG NG (08:29)
[2018-10-08] MEDS: Glycerin/Hypromellose/PEG400 15 ml Bottle 1 DRP EACH EYE (08:30)
[2018-10-08] MEDS: Citalopram 20 MG Tablet NG (08:30)
[2018-10-08] MEDS: Senna/Docusate Sodium 1 Tablet 2 TABLET NG (08:30)
[2018-10-08] MEDS: NYSTATIN 500,000 UNIT/5 ML UDC 500000 UNIT PO ×4 (08:30→21:19)
[2018-10-08] MEDS: Sodium Chloride 0.65% 1 SPRAY SPRAY.BTL NASAL ×2 (08:30→21:19)
[2018-10-08] MEDS: Aspirin 81 MG TAB.CHEW NG (08:30)
[2018-10-08] MEDS: amLODIPine 10 MG Tablet NG (08:30)
--- NOTE | 2018-10-08 09:41 | PCM.PN.HOSP ---
Patient Problems: Active and Suspected Problems (Last Reviewed 10/02/18 @ 10:31 by Johnathon Carl MD) Dysphagia (Acute) Subjective: NG tube was inserted for tube feeding after patient failed her speech and swallow eval Objective: GENERAL: cooperative HEENT: Atraumatic; EYES; Anicteric, Normal Conjunctiva NECK; supple, normal thyroid, RESPIRATORY: Diminished to auscultation bilaterally, CARDIOVASCULAR: Regular S1 S2, no audible murmurs GI: soft, non-tender, normoactive bowel sounds, : No Renal angle tenderness; NEURO: Awake; left facial droop SKIN: No Rash PSYCH; flat affect Vitals/I&O's: Vital Signs Temp Pulse Resp BP Pulse Ox 98.2 F 62 16 114/58 L 95 10/08/18 07:08 10/08/18 07:08 10/08/18 07:08 10/08/18 07:08 10/08/18 07:08 Oxygen Delivery Method Room Air Weight: 60.9 kg Body Mass Index (BMI) 22.8 Finger Stick Blood Glucose 111 Intake and Output for Last 24 Hours 10/06/18 10/07/18 10/08/18 23:59 23:59 23:59 Intake Total 597 / 597 120 / 120 666 / 666 Balance 597 / 597 120 / 120 666 / 666 Current Medications Acetaminophen (Tylenol Liquid) 650 mg NG Q6H PRN PRN PRN Reason: Mild Pain (0-3/10)/Headache Amlodipine Besylate (Norvasc) 10 mg NG DAILY [facility] Last Admin: 10/08/18 08:30 Dose: 10 mg Aspirin (Aspirin, Baby) 81 mg NG DAILY@0800 [facility] Last Admin: 10/08/18 08:30 Dose: 81 mg Atorvastatin Calcium (Lipitor) 40 mg NG QHS [facility] Last Admin: 10/07/18 22:21 Dose: 40 mg Bisacodyl (Dulcolax) 10 mg RECTAL .PRN X 1 PRN PRN Reason: Constipation Citalopram Hydrobromide (Celexa) 20 mg NG DAILY [facility] Last Admin: 10/08/18 08:30 Dose: 20 mg Cyanocobalamin (Vitamin B12) 1,000 mcg NG DAILY [facility] Last Admin: 10/08/18 08:29 Dose: 1,000 mcg Enoxaparin Sodium (Lovenox) 40 mg SC DAILY@0600 [facility] Last Admin: 10/08/18 06:38 Dose: 40 mg Ergocalciferol (Vitamin D) 50,000 unit PO QWEEK [facility] Last Admin: 10/07/18 07:53 Dose: 50,000 unit Enteral Nutritional Formula (Jevity 1.5) 1,000 mls @ 50 mls/hr GT .Q20H [facility] Last Admin: 10/07/18 14:12 Dose: 15 mls/hr Lorazepam (Ativan) 0.5 mg NG QHS [facility] Last Admin: 10/07/18 22:21 Dose: 0.5 mg Magnesium Hydroxide (Milk Of Magnesia) 30 ml NG .PRN X 1 PRN PRN Reason: Constipation Nystatin (Nystatin) 500,000 unit PO 4X/DAY [facility] Last Admin: 10/08/18 08:30 Dose: 500,000 unit Senna/Docusate Sodium (Senokot-S, Roma-Colace) 2 tablet NG BID [facility] Last Admin: 10/08/18 08:30 Dose: 2 tablet Sodium Chloride ([place] Nasal [place]) 1 spray NASAL BID [facility] Last Admin: 10/08/18 08:30 Dose: 1 spray Medical Necessity - Tobacco Use Smoking Status: Former smoker Assessment/Plan All Active Problems (Last Reviewed 10/02/18 @ 10:31 by Johnathon Carl MD) Dysphagia (Acute) CVA (cerebral vascular accident) (Acute) Patient is a 83-year-old lady with previous CVA admitted with dysarthria patient admitted to a monitored bed for subsequent management patient condition was stabilized and subsequently transferred to the inpatient rehab unit to continue with her recuperation 1. Acute ischemic CVA patient has been admitted to the inpatient rehab unit where she is currently undergoing PT and OT. Patient remains on recommended medications including antiplatelet therapy with Plavix as well as therapy with atorvastatin 2. Dysphagia secondary to #1 patient still has significant dysphagia scheduled to undergo swallow evaluation on 10/05/2018; Patient did fail his speech and swallow eval performed on 10/05/2018 patient is on pudding thickened liquid. NG tube was inserted for tube feeding after patient failed her speech and swallow eval plan is for patient to undergo PEG tube placement by Dr. Zuñiga either on 10/1010/11/2018. 3. Dyslipidemia-patient is on statin therapy, continued at home dose 4. Essential hypertension-blood pressure controlled, home medications continued with dose adjustment as needed 5. Depression with anxiety 6. Physical debility 7. DVT prophylaxis SC Aly Code Visit Inpatient E&M: 57530 Subs Hosp L2
--- NOTE | 2018-10-08 09:45 | PN_ITS ---
Patient Problems: Active and Suspected Problems (Last Reviewed 10/02/18 @ 10:31 by Johnathon Carl MD) Dysphagia (Acute) Subjective: NG tube was inserted for tube feeding after patient failed her speech and swallow eval Objective: GENERAL: cooperative HEENT: Atraumatic; EYES; Anicteric, Normal Conjunctiva NECK; supple, normal thyroid, RESPIRATORY: Diminished to auscultation bilaterally, CARDIOVASCULAR: Regular S1 S2, no audible murmurs GI: soft, non-tender, normoactive bowel sounds, : No Renal angle tenderness; NEURO: Awake; left facial droop SKIN: No Rash PSYCH; flat affect Vitals/I&O's: Vital Signs Temp Pulse Resp BP Pulse Ox 98.2 F 62 16 114/58 L 95 10/08/18 07:08 10/08/18 07:08 10/08/18 07:08 10/08/18 07:08 10/08/18 07:08 Oxygen Delivery Method Room Air Weight: 60.9 kg Body Mass Index (BMI) 22.8 Finger Stick Blood Glucose 111 Intake and Output for Last 24 Hours 10/06/18 10/07/18 10/08/18 23:59 23:59 23:59 Intake Total 597 / 597 120 / 120 666 / 666 Balance 597 / 597 120 / 120 666 / 666 Current Medications Acetaminophen (Tylenol Liquid) 650 mg NG Q6H PRN PRN PRN Reason: Mild Pain (0-3/10)/Headache Amlodipine Besylate (Norvasc) 10 mg NG DAILY [facility] Last Admin: 10/08/18 08:30 Dose: 10 mg Aspirin (Aspirin, Baby) 81 mg NG DAILY@0800 [facility] Last Admin: 10/08/18 08:30 Dose: 81 mg Atorvastatin Calcium (Lipitor) 40 mg NG QHS [facility] Last Admin: 10/07/18 22:21 Dose: 40 mg Bisacodyl (Dulcolax) 10 mg RECTAL .PRN X 1 PRN PRN Reason: Constipation Citalopram Hydrobromide (Celexa) 20 mg NG DAILY [facility] Last Admin: 10/08/18 08:30 Dose: 20 mg Cyanocobalamin (Vitamin B12) 1,000 mcg NG DAILY [facility] Last Admin: 10/08/18 08:29 Dose: 1,000 mcg Enoxaparin Sodium (Lovenox) 40 mg SC DAILY@0600 [facility] Last Admin: 10/08/18 06:38 Dose: 40 mg Ergocalciferol (Vitamin D) 50,000 unit PO QWEEK [facility] Last Admin: 10/07/18 07:53 Dose: 50,000 unit Enteral Nutritional Formula (Jevity 1.5) 1,000 mls @ 50 mls/hr GT .Q20H [facility] Last Admin: 10/07/18 14:12 Dose: 15 mls/hr Lorazepam (Ativan) 0.5 mg NG QHS [facility] Last Admin: 10/07/18 22:21 Dose: 0.5 mg Magnesium Hydroxide (Milk Of Magnesia) 30 ml NG .PRN X 1 PRN PRN Reason: Constipation Nystatin (Nystatin) 500,000 unit PO 4X/DAY [facility] Last Admin: 10/08/18 08:30 Dose: 500,000 unit Senna/Docusate Sodium (Senokot-S, Roma-Colace) 2 tablet NG BID [facility] Last Admin: 10/08/18 08:30 Dose: 2 tablet Sodium Chloride ([place] Nasal [place]) 1 spray NASAL BID [facility] Last Admin: 10/08/18 08:30 Dose: 1 spray Medical Necessity - Tobacco Use Smoking Status: Former smoker Assessment/Plan All Active Problems (Last Reviewed 10/02/18 @ 10:31 by Johnathon Carl MD) Dysphagia (Acute) CVA (cerebral vascular accident) (Acute) Patient is a 83-year-old lady with previous CVA admitted with dysarthria patient admitted to a monitored bed for subsequent management patient condition was stabilized and subsequently transferred to the inpatient rehab unit to continue with her recuperation 1. Acute ischemic CVA patient has been admitted to the inpatient rehab unit where she is currently undergoing PT and OT. Patient remains on recommended medications including antiplatelet therapy with Plavix as well as therapy with atorvastatin 2. Dysphagia secondary to #1 patient still has significant dysphagia scheduled to undergo swallow evaluation on 10/05/2018; Patient did fail his speech and swallow eval performed on 10/05/2018 patient is on pudding thickened liquid. NG tube was inserted for tube feeding after patient failed her speech and swallow eval plan is for patient to undergo PEG tube placement by Dr. Zuñiga either on 10/1010/11/2018. 3. Dyslipidemia-patient is on statin therapy, continued at home dose 4. Essential hypertension-blood pressure controlled, home medications continued with dose adjustment as needed 5. Depression with anxiety 6. Physical debility 7. DVT prophylaxis SC Aly Code Visit Inpatient E&M: 33253 Subs Hosp L2
--- NOTE | 2018-10-08 12:36 | NURSING ---
up and ambulated around halls with walker and assist x1.
[2018-10-08] MEDS: Jevity 1.5 1,000 ML 45 ML GT (13:58)
[2018-10-08 14:18] VITALS: BMI 22.8
--- NOTE | 2018-10-08 16:30 | NURSING ---
tube feed increased to goal rate of 50cc/hr per orders and no residual.
--- NOTE | 2018-10-08 20:00 | NURSING ---
tape on NG was noted to be loose. NG noted to be out 1 inch farther than previously documented on insertion. NG replaced to prior position by RN, and tape replaced and secured. pt noting to be using wet washcloth to face and nose which is loosening tape. will continue to monitor.
[2018-10-08] MEDS: LORazepam 0.5 MG Tablet NG (21:18)
[2018-10-08] MEDS: Atorvastatin Calcium 40 MG Tablet NG (21:19)
[2018-10-08 21:51] VITALS: BP 120/66; PULSE 66; RESP 16; TEMP 36.7; O2SAT 94
[2018-10-08 22:17] VITALS: BMI 22.8
--- NOTE | 2018-10-08 23:18 | NURSING ---
Reviewed and agree with LPNs fims and handoff
[2018-10-09] MEDS: Enoxaparin 40 MG/0.4 ML Syringe SC (06:29)
[2018-10-09] MEDS: Jevity 1.5 1,000 ML 50 ML GT ×2 (06:30→14:55)
[2018-10-09 08:00] VITALS: BP 118/70; PULSE 63; RESP 16; TEMP 36.6; O2SAT 91
[2018-10-09] MEDS: Citalopram 20 MG Tablet NG (08:01)
[2018-10-09] MEDS: Cyanocobalamin 500 MCG Tablet 1000 MCG NG (08:01)
[2018-10-09] MEDS: Sodium Chloride 0.65% 1 SPRAY SPRAY.BTL NASAL ×2 (08:01→21:00)
[2018-10-09] MEDS: Aspirin 81 MG TAB.CHEW NG (08:01)
[2018-10-09] MEDS: NYSTATIN 500,000 UNIT/5 ML UDC 500000 UNIT PO ×4 (08:01→20:59)
[2018-10-09] MEDS: amLODIPine 10 MG Tablet NG (08:02)
--- NOTE | 2018-10-09 10:51 | PCM.PN.NEU ---
Patient Problems: Active and Suspected Problems (Last Reviewed 10/02/18 @ 10:31 by Johnathon Carl MD) Dysphagia (Acute) Subjective: No new complaints. Staffed in team meeting. Several family members are present, questions are answered. They are concerned about her mood. She is getting a PEG tube placed either or Tuesday. Doing well with therapies. She is able to do about 80% of her personal care issues independently. - Physical Exam General: Alert, Oriented x3 Neurological: Slurred Speech Psych/Mental Status: Normal Affect Vital Signs Temp Pulse Resp BP Pulse Ox 36.6 C 63 16 118/70 91 10/09/18 08:00 10/09/18 08:00 10/09/18 08:00 10/09/18 08:00 10/09/18 08:00 Oxygen Delivery Method Room Air Weight: 60.9 kg Body Mass Index (BMI) 22.8 Finger Stick Blood Glucose 111 Intake and Output for Last 24 Hours 10/07/18 10/08/18 10/09/18 23:59 23:59 23:59 Intake Total 120 / 120 1613 / 1613 1421 / 1421 Balance 120 / 120 1613 / 1613 1421 / 1421 Medical Necessity - Tobacco Use Smoking Status: Former smoker Assessment/Plan All Active Problems (Last Reviewed 10/02/18 @ 10:31 by Johnathon Carl MD) Dysphagia (Acute) CVA (cerebral vascular accident) (Acute) Debility s/p Acute infarct, complicated by metabolic encephalopathy not related to an acute stroke, with unclear specific etiology. Goal of rehab is [facility] functional independence. Plan - Physical therapy for gait and balance - Occupational Therapy for ADLs - Speech therapy for dysarthria. She failed her swallow evaluation, PEG tube is now planned. Tentatively this week on or Tuesday. - As needed analgesics - Bowel protocol - Stroke prevention ASA, Plavix 75 mg PO once daily, dual AP for 3 weeks, then switch to single AP, Lipitor 40mg - DVT prophylaxis: SCDs, ASA, Lovenox - Fall precautions - Hx of Hypertension: Continue home dose of amlodipine 10 mg - Hx of bladder cancer s/p tumor resection with recurrence - Follows with Dr. Bunn. - Hx of Depression: continue home citalopram regimen.
[2018-10-09 13:30] VITALS: BMI 22.8
--- NOTE | 2018-10-09 15:57 | CASEMGMT ---
Team meeting held today with pt and two family members present. Pt is progressing with PT/OT. PT continues to see speech therapy and is having difficulty with swallowing. NG tube currently placed with feeding tube placement later this week. Family voicing concerns over pt mood as they state she is having some depression issues. SW will follow up to discuss counseling options. No discharge date set at this time. Will continue with treatment plan and reteam next week. NORA Weaver
[2018-10-09 19:30] VITALS: BP 125/71; PULSE 63; RESP 16; TEMP 36.8; O2SAT 95
[2018-10-09 20:30] VITALS: PULSE 63; RESP 16; O2SAT 95; BMI 22.8
[2018-10-09] MEDS: LORazepam 0.5 MG Tablet 0.25 MG NG (20:59)
[2018-10-09] MEDS: Atorvastatin Calcium 40 MG Tablet NG (20:59)
[2018-10-09] MEDS: Acetaminophen 650 MG/20 ML UDC NG (21:11)
--- NOTE | 2018-10-10 04:58 | NURSING ---
Reviewed and agree with GENERATOR WORKER documentation and FIMs charting.
[2018-10-10] MEDS: Enoxaparin 40 MG/0.4 ML Syringe SC (06:03)
[2018-10-10 07:01] VITALS: BP 125/76; PULSE 58; RESP 17; TEMP 36.6; O2SAT 94
[2018-10-10] MEDS: Aspirin 81 MG TAB.CHEW NG (08:11)
[2018-10-10] MEDS: Glycerin/Hypromellose/PEG400 15 ml Bottle 1 DRP EACH EYE (08:11)
[2018-10-10] MEDS: Cyanocobalamin 500 MCG Tablet 1000 MCG NG (08:12)
[2018-10-10] MEDS: Citalopram 20 MG Tablet NG (08:12)
[2018-10-10] MEDS: amLODIPine 10 MG Tablet NG (08:12)
[2018-10-10] MEDS: Sodium Chloride 0.65% 1 SPRAY SPRAY.BTL NASAL ×2 (08:23→22:15)
[2018-10-10] MEDS: NYSTATIN 500,000 UNIT/5 ML UDC 500000 UNIT PO ×4 (08:26→22:13)
--- NOTE | 2018-10-10 10:54 | PCM.PN.SRG ---
Patient Problems: Active and Suspected Problems (Last Reviewed 10/02/18 @ 10:31 by Johnathon Carl MD) Dysphagia (Acute) Subjective: Patient has no complaints this morning she is tolerating tube feeds - Physical Exam General: Alert, Cooperative Lungs: Normal air movement Cardiovascular: Regular rate, Regular Rhythm Abdomen: Soft, Non Tender, Non-Distended Vital Signs Temp Pulse Resp BP Pulse Ox 97.8 F 58 L 17 125/76 H 94 10/10/18 07:01 10/10/18 07:01 10/10/18 07:01 10/10/18 07:01 10/10/18 07:01 Oxygen Delivery Method Room Air Weight: 134 lb 4.184 oz Body Mass Index (BMI) 22.8 Finger Stick Blood Glucose 111 Intake and Output for Last 24 Hours 10/08/18 10/09/18 10/10/18 23:59 23:59 23:59 Intake Total 1613 / 1613 1781 / 1781 1775 / 1775 Balance 1613 / 1613 1781 / 1781 1775 / 1775 Medical Necessity - Tobacco Use Smoking Status: Former smoker Assessment/Plan All Active Problems (Last Reviewed 10/02/18 @ 10:31 by Johnathon Carl MD) Dysphagia (Acute) CVA (cerebral vascular accident) (Acute) 83-year-old female with dysphagia 1. Patient is tolerating tube feeds. I have plan for PEG insertion on . I will stop tube feeds Tuesday night at midnight and hold Lovenox on . 2. I explained endoscopy in detail to the patient. I also explained PEG tube placement in detail. I explained the risks including but not limited to stroke or heart attack with anesthesia, perforation of the GI tract, bleeding, infection. I explained that any of these could necessitate further emergency surgery. The patient understands and all questions were answered sufficiently. The patient wishes to proceed with procedure. Prieto Zuñiga MD Pager: [facility] [address] [place] [address], [address] [place] [address] Office:
--- NOTE | 2018-10-10 12:26 | PCM.PROGNOTE ---
Patient Problems: Active and Suspected Problems (Last Reviewed 10/02/18 @ 10:31 by Johnathon Carl MD) Dysphagia (Acute) Subjective: Chief complaint: Follow-up after consultation after patient admitted to inpatient rehab unit secondary to acute ischemic CVA and dysphagia. Patient seen and examined. No acute events overnight. She is awake and alert, oriented x3. She denies any significant complaints. She denies chest pain or shortness of breath. She denied focal arm or leg weakness. She has been tolerating tube feeds through the NG tube. Denied abdominal pain, nausea vomiting. Her vital signs are stable. - Physical Exam General: Alert, Oriented x3, Cooperative, No apparent distress HEENT: Atraumatic, PERRLA, EOMI, Normocephalic Oral: Moist Mucosa, No Gingival or Mucosal Lesions/ Ulcerations Neck: Supple, No JVD, Negative Carotid Bruits, Trachea Midline, Thyroid Normal Size and Texture Lungs: Clear to auscultation, No rhonchi, No wheeze, No rales, Diminished Cardiovascular: Regular rate, Regular Rhythm, Normal S1, Normal S2, PMI Normal Abdomen: Bowel Sounds Present, Soft, Non Tender, Non-Distended, No Hepato-splenomegaly Extremities: No clubbing, No cyanosis, No edema Skin: No rashes, No breakdown Lymphatic: No Cervical, Supraclavicular, or Inguinal Adenopathy Neurological: Motor Exam 5/5 strength throughout, - - Minimal left-sided facial droop, other cranial nerves are intact. Psych/Mental Status: Normal Affect, Appropriate Vital Signs Temp Pulse Resp BP Pulse Ox 97.8 F 58 L 17 125/76 H 94 10/10/18 07:01 10/10/18 07:01 10/10/18 07:01 10/10/18 07:01 10/10/18 07:01 Oxygen Delivery Method Room Air Weight: 134 lb 4.184 oz Body Mass Index (BMI) 22.8 Finger Stick Blood Glucose 111 Intake and Output for Last 24 Hours 10/08/18 10/09/18 10/10/18 23:59 23:59 23:59 Intake Total 1613 / 1613 1781 / 1781 1775 / 1775 Balance 1613 / 1613 1781 / 1781 1775 / 1775 Medical Necessity - Tobacco Use Smoking Status: Former smoker Assessment/Plan All Active Problems (Last Reviewed 10/02/18 @ 10:31 by Johnathon Carl MD) Dysphagia (Acute) CVA (cerebral vascular accident) (Acute) This is an 83 years old female patient with past history of CVAs admitted to rehabilitation unit after admission to the hospital for 4 dysarthria, debility and encephalopathy. #1 acute ischemic CVA: Without significant residual deficit except minimal left-sided facial droop and dysphagia. She is on aspirin, Plavix and statins. Her vital signs are stable, blood pressure under control. Plan to continue PT OT according to rehab team. #2 dysphagia: Status post insertion of NG tube. She is on tube feeds with Jevity 1.5. She is tolerating tube feeds. Plan for PEG tube placement this coming . #3 hypertension: Blood pressure stable, continue Norvasc. #4 hyperlipidemia: Continue statins. #5 depression: Continue Celexa. #6 DVT prophylaxis: Continue subcu Lovenox. This note was generated with [employer] dictation software. It may contain incorrect words, spelling, and punctuation that were not noted in checking the note before signing. Code Visit Inpatient E&M: 89581 Subs Hosp L2
--- NOTE | 2018-10-10 12:31 | PN_ITS ---
Patient Problems: Active and Suspected Problems (Last Reviewed 10/02/18 @ 10:31 by Johnathon Carl MD) Dysphagia (Acute) Subjective: Chief complaint: Follow-up after consultation after patient admitted to inpatient rehab unit secondary to acute ischemic CVA and dysphagia. Patient seen and examined. No acute events overnight. She is awake and alert, oriented x3. She denies any significant complaints. She denies chest pain or shortness of breath. She denied focal arm or leg weakness. She has been tolerating tube feeds through the NG tube. Denied abdominal pain, nausea vomiting. Her vital signs are stable. - Physical Exam General: Alert, Oriented x3, Cooperative, No apparent distress HEENT: Atraumatic, PERRLA, EOMI, Normocephalic Oral: Moist Mucosa, No Gingival or Mucosal Lesions/ Ulcerations Neck: Supple, No JVD, Negative Carotid Bruits, Trachea Midline, Thyroid Normal Size and Texture Lungs: Clear to auscultation, No rhonchi, No wheeze, No rales, Diminished Cardiovascular: Regular rate, Regular Rhythm, Normal S1, Normal S2, PMI Normal Abdomen: Bowel Sounds Present, Soft, Non Tender, Non-Distended, No Hepato-splenomegaly Extremities: No clubbing, No cyanosis, No edema Skin: No rashes, No breakdown Lymphatic: No Cervical, Supraclavicular, or Inguinal Adenopathy Neurological: Motor Exam 5/5 strength throughout, - - Minimal left-sided facial droop, other cranial nerves are intact. Psych/Mental Status: Normal Affect, Appropriate Vital Signs Temp Pulse Resp BP Pulse Ox 97.8 F 58 L 17 125/76 H 94 10/10/18 07:01 10/10/18 07:01 10/10/18 07:01 10/10/18 07:01 10/10/18 07:01 Oxygen Delivery Method Room Air Weight: 134 lb 4.184 oz Body Mass Index (BMI) 22.8 Finger Stick Blood Glucose 111 Intake and Output for Last 24 Hours 10/08/18 10/09/18 10/10/18 23:59 23:59 23:59 Intake Total 1613 / 1613 1781 / 1781 1775 / 1775 Balance 1613 / 1613 1781 / 1781 1775 / 1775 Medical Necessity - Tobacco Use Smoking Status: Former smoker Assessment/Plan All Active Problems (Last Reviewed 10/02/18 @ 10:31 by Johnathon Carl MD) Dysphagia (Acute) CVA (cerebral vascular accident) (Acute) This is an 83 years old female patient with past history of CVAs admitted to rehabilitation unit after admission to the hospital for 4 dysarthria, debility and encephalopathy. #1 acute ischemic CVA: Without significant residual deficit except minimal left- sided facial droop and dysphagia. She is on aspirin, Plavix and statins. Her vital signs are stable, blood pressure under control. Plan to continue PT OT according to rehab team. #2 dysphagia: Status post insertion of NG tube. She is on tube feeds with Jevity 1.5. She is tolerating tube feeds. Plan for PEG tube placement this coming . #3 hypertension: Blood pressure stable, continue Norvasc. #4 hyperlipidemia: Continue statins. #5 depression: Continue Celexa. #6 DVT prophylaxis: Continue subcu Lovenox. This note was generated with [employer] dictation software. It may contain incorrect words, spelling, and punctuation that were not noted in checking the note before signing. Code Visit Inpatient E&M: 26670 Subs Hosp L2
[2018-10-10 13:23] VITALS: BMI 22.8
[2018-10-10 21:30] VITALS: BP 137/72; PULSE 60; RESP 18; TEMP 36.6; O2SAT 98; BMI 22.8
[2018-10-10] MEDS: Acetaminophen 650 MG/20 ML UDC NG (22:12)
[2018-10-10] MEDS: LORazepam 0.5 MG Tablet 0.25 MG NG (22:13)
[2018-10-10] MEDS: Atorvastatin Calcium 40 MG Tablet NG (22:13)
[2018-10-10] MEDS: Jevity 1.5 1,000 ML 50 ML GT (22:31)
--- NOTE | 2018-10-11 03:40 | NURSING ---
Reviewed and agree with MAITRE D' documentation and FIMs charting.
[2018-10-11] MEDS: Enoxaparin 40 MG/0.4 ML Syringe SC (05:03)
[2018-10-11] MEDS: Docusate Sodium 100 MG/10 ML UDC 200 MG NG ×2 (08:52→21:59)
[2018-10-11] MEDS: Citalopram 20 MG Tablet NG (08:52)
[2018-10-11] MEDS: Cyanocobalamin 500 MCG Tablet 1000 MCG NG (08:52)
[2018-10-11] MEDS: Aspirin 81 MG TAB.CHEW NG (08:54)
[2018-10-11] MEDS: NYSTATIN 500,000 UNIT/5 ML UDC 500000 UNIT PO ×4 (08:54→21:59)
[2018-10-11] MEDS: Glycerin/Hypromellose/PEG400 15 ml Bottle 1 DRP EACH EYE (08:54)
[2018-10-11] MEDS: Acetaminophen 650 MG/20 ML UDC NG (08:54)
[2018-10-11] MEDS: amLODIPine 10 MG Tablet NG (08:54)
[2018-10-11] MEDS: Sodium Chloride 0.65% 1 SPRAY SPRAY.BTL NASAL ×2 (08:55→21:59)
[2018-10-11 09:55] VITALS: BP 134/75; PULSE 58; RESP 16; TEMP 36.7; O2SAT 95
[2018-10-11] MEDS: Jevity 1.5 1,000 ML 50 ML GT (16:51)
[2018-10-11 17:00] VITALS: BMI 22.8
[2018-10-11 19:29] VITALS: BP 131/70; PULSE 64; RESP 16; TEMP 36.7; O2SAT 94
[2018-10-11] MEDS: LORazepam 0.5 MG Tablet 0.25 MG NG (21:58)
[2018-10-11] MEDS: Atorvastatin Calcium 40 MG Tablet NG (21:59)
[2018-10-11 23:24] VITALS: BMI 22.8
[2018-10-12] VITALS (8 sets, daily range): BP systolic 109–144; BP diastolic 65–77; PULSE 62–75; RESP 12–18; TEMP 36.4–37.2; O2SAT 93–99; BMI 21.4; BMI 22.8
--- NOTE | 2018-10-12 00:53 | NURSING ---
Reviewed and agree with STONECUTTER documentation and FIMs charting.
--- NOTE | 2018-10-12 08:52 | NS ---
Addendum entered by Salena Fried 10/12/18 15:37: To clarify: Increase continuous feeds by 10cc/hour every 8 hours as pt tolerates until goal rate achieved. RD will re-assess tolerance of continuous tube feeds and provide further recommendations regarding bolus feedings on Tuesday 10/16 or sooner if issues arise. Per PRADEEP Ng, tube feeding via PEG will not start until 1200 on 10/13. Original Note: When PEG tube placed, rec re-start Jevity 1.5 at 25cc/hour and increase by 10cc/hour until goal rate of 50mL/hour is achieved. Rec 150mL H2O flush every 4 hours to provide 1800 calories, 76.5 g protein, and 1812mL free fluid per day. As pt tolerates continuous tube feeds via PEG, recommend transition to bolus feedings. For bolus feedings rec Jevity 1.5 240 cc 5x/day while awake (ie. 8am, 11am, 2pm, 5pm, 8pm) with 180 cc H2O flush after each feeding to provide ~ 1800 angelia / 76.5 gm pro / 1812 cc free water/day. Pending pt tolerance of bolus feeds, may need to start w/ smaller bolus and flush (120cc bolus w/ 90cc flush and increase gradually as tolerated until goal bolus feeds and flushes are achieved). Please call Inpatient RD at [phone] w/ further questions. Tony Fried MS, RDN, LD
--- NOTE | 2018-10-12 10:46 | PCM.PN.NEU ---
Patient Problems: Active and Suspected Problems (Last Reviewed 10/02/18 @ 10:31 by Johnathon Carl MD) Dysphagia (Acute) Subjective: No new complaints. Looking forward to PEG tube placement so that she can have her NG removed. - Physical Exam General: Alert, Oriented x3 Neurological: Slurred Speech Psych/Mental Status: Normal Affect Vital Signs Temp Pulse Resp BP Pulse Ox 36.4 C L 64 18 119/66 99 10/12/18 07:33 10/12/18 07:33 10/12/18 07:33 10/12/18 07:33 10/12/18 07:33 Oxygen Delivery Method Room Air Weight: 61.054 kg Body Mass Index (BMI) 22.8 Finger Stick Blood Glucose 111 Intake and Output for Last 24 Hours 10/10/18 10/11/18 10/12/18 23:59 23:59 23:59 Intake Total 2225 / 2225 1663 / 1663 Balance 2225 / 2225 1663 / 1663 Current Medications Generic Name Dose Route Start Last Admin Trade Name Freq PRN Reason Stop Dose Admin Acetaminophen 650 mg 10/07/18 06:10 10/11/18 08:54 Tylenol Liquid NG 650 mg Q6H PRN PRN Administration Mild Pain (0-3/10)/Headache Amlodipine Besylate 10 mg 10/07/18 10:00 10/11/18 08:54 Norvasc NG 10 mg DAILY JJ Administration Aspirin 81 mg 10/07/18 08:00 10/11/18 08:54 Aspirin, Baby NG 81 mg DAILY@0800 JJ Administration Atorvastatin Calcium 40 mg 10/07/18 22:00 10/11/18 21:59 Lipitor NG 40 mg QHS JJ Administration Bisacodyl 10 mg 10/02/18 20:06 Dulcolax RECTAL .PRN X 1 PRN Constipation Citalopram Hydrobromide 20 mg 10/07/18 10:00 10/11/18 08:52 Celexa NG 20 mg DAILY JJ Administration Cyanocobalamin 1,000 mcg 10/07/18 10:00 10/11/18 08:52 Vitamin B12 NG 1,000 mcg DAILY JJ Administration Docusate Sodium 200 mg 10/10/18 10:00 10/11/18 21:59 Colace Syrup NG 200 mg BID JJ Administration Enoxaparin Sodium 40 mg 10/03/18 06:00 10/11/18 05:03 Lovenox SC 40 mg DAILY@0600 JJ Administration Ergocalciferol 50,000 unit 10/08/18 10:00 10/07/18 07:53 Vitamin D PO 50,000 unit QWEEK JJ Administration Enteral Nutritional Formula 1,000 mls @ 50 mls/hr 10/07/18 13:15 10/11/18 16:51 Jevity 1.5 GT 50 mls/hr .Q20H JJ Administration Lorazepam 0.25 mg 10/09/18 22:00 10/11/18 21:58 Ativan NG 0.25 mg QHS JJ Administration Magnesium Hydroxide 30 ml 10/07/18 06:05 Milk Of Magnesia NG .PRN X 1 PRN Constipation Nystatin 500,000 unit 10/07/18 22:00 10/11/18 21:59 Nystatin PO 500,000 unit 4X/DAY JJ Administration Sodium Chloride 1 spray 10/04/18 22:00 10/11/18 21:59 [place] Nasal [place] NASAL 1 spray BID JJ Administration Medical Necessity - Tobacco Use Smoking Status: Former smoker Assessment/Plan All Active Problems (Last Reviewed 10/02/18 @ 10:31 by Johnathon Carl MD) Dysphagia (Acute) CVA (cerebral vascular accident) (Acute) Debility s/p Acute infarct, complicated by metabolic encephalopathy not related to an acute stroke, with unclear specific etiology. Goal of rehab is sikhism of functional independence. Plan - Physical therapy for gait and balance - Occupational Therapy for ADLs - Speech therapy for dysarthria. She failed her swallow evaluation, PEG tube is now planned. Tentatively this week on or Tuesday. - As needed analgesics - Bowel protocol - Stroke prevention ASA, Plavix 75 mg PO once daily, dual AP for 3 weeks, then switch to single AP, Lipitor 40mg - DVT prophylaxis: SCDs, ASA, Lovenox - Fall precautions - Hx of Hypertension: Continue home dose of amlodipine 10 mg - Hx of bladder cancer s/p tumor resection with recurrence - Follows with Dr. Bunn. - Hx of Depression: continue home citalopram regimen. -Dysphagia: PEG tube today
[2018-10-12] MEDS: 0.9% Normal Saline 1,000 ML 15 ML IV (12:10)
--- NOTE | 2018-10-12 12:22 | NURSING ---
patient taken down for surgery, report called to Katy FERNÁNDEZ. IV intact to left hand, flushed easily. NS infusing at [facility]. niece present.
--- NOTE | 2018-10-12 13:58 | NURSING ---
patient returned to unit, a/o x3. denies pain at this time.
[2018-10-12] MEDS: Sodium Chloride 0.65% 1 SPRAY SPRAY.BTL NASAL (21:38)
[2018-10-12] MEDS: Docusate Sodium 100 MG/10 ML UDC 200 MG NG (21:39)
[2018-10-12] MEDS: NYSTATIN 500,000 UNIT/5 ML UDC 500000 UNIT PO (21:39)
[2018-10-12] MEDS: Atorvastatin Calcium 40 MG Tablet NG (21:39)
[2018-10-12] MEDS: LORazepam 0.5 MG Tablet 0.25 MG NG (21:40)
[2018-10-12] MEDS: Glycerin/Hypromellose/PEG400 15 ml Bottle 1 DRP EACH EYE (21:41)
[2018-10-13 01:59] VITALS: BMI 22.8
[2018-10-13 02:12] VITALS: BP 119/68; PULSE 64; RESP 12; TEMP 36.7; O2SAT 93
[2018-10-13] MEDS: Magnesium Hydroxide 30 ML UDC NG (02:16)
[2018-10-13 05:00] VITALS: BMI 22.8
[2018-10-13 05:13] VITALS: BP 100/66; PULSE 69; RESP 12; TEMP 36.8; O2SAT 93
[2018-10-13 07:17] VITALS: BP 110/61; PULSE 64; RESP 18; TEMP 36.8; O2SAT 94
[2018-10-13] MEDS: Acetaminophen 650 MG/20 ML UDC NG ×2 (08:05→20:09)
[2018-10-13] MEDS: amLODIPine 10 MG Tablet NG (08:06)
[2018-10-13] MEDS: Citalopram 20 MG Tablet NG (08:07)
[2018-10-13] MEDS: Aspirin 81 MG TAB.CHEW NG (08:07)
[2018-10-13] MEDS: Docusate Sodium 100 MG/10 ML UDC 200 MG NG (08:07)
[2018-10-13] MEDS: Cyanocobalamin 500 MCG Tablet 1000 MCG NG (08:07)
[2018-10-13] MEDS: NYSTATIN 500,000 UNIT/5 ML UDC 500000 UNIT PO ×3 (08:07→20:10)
[2018-10-13] MEDS: Sodium Chloride 0.65% 1 SPRAY SPRAY.BTL NASAL ×2 (08:08→20:11)
[2018-10-13 08:20] VITALS: BMI 22.8
[2018-10-13 08:39] VITALS: BMI 21.4
[2018-10-13] MEDS: Jevity 1.5 1,000 ML 25 ML GT (12:23)
--- NOTE | 2018-10-13 12:25 | PCM.PROGNOTE ---
Patient Problems: Active and Suspected Problems (Last Reviewed 10/02/18 @ 10:31 by Johnathon Carl MD) Dysphagia (Acute) Subjective: Chief complaint: Follow-up after consultation after patient admitted to inpatient rehab unit secondary to acute ischemic CVA and dysphagia status post PEG tube insertion. Patient seen and examined. No acute events overnight. She denied any significant complaints. Vital signs are stable. PEG tube inserted yesterday. Denies any abdominal pain. - Physical Exam General: Alert, Cooperative, No apparent distress HEENT: Atraumatic, PERRLA, EOMI, Normocephalic Oral: Moist Mucosa, No Gingival or Mucosal Lesions/ Ulcerations Neck: Supple, No JVD, Negative Carotid Bruits, Trachea Midline, Thyroid Normal Size and Texture Lungs: Clear to auscultation, No rhonchi, No wheeze, No rales, Diminished Cardiovascular: Regular rate, Regular Rhythm, Normal S1, Normal S2, No murmurs Abdomen: Bowel Sounds Present, Soft, Non Tender, Non-Distended, No Hepato-splenomegaly, - - PEG tube in place. Extremities: No clubbing, No cyanosis, No edema Skin: No rashes, No breakdown Lymphatic: No Cervical, Supraclavicular, or Inguinal Adenopathy Neurological: Motor Exam 5/5 strength throughout, Facial Droop, - - Minimal left-sided facial droop, other cranial nerves are intact. Psych/Mental Status: Normal Affect, Appropriate Vital Signs Temp Pulse Resp BP Pulse Ox 98.2 F 64 18 110/61 94 10/13/18 07:17 10/13/18 07:17 10/13/18 07:17 10/13/18 07:17 10/13/18 07:17 Oxygen Delivery Method Room Air Weight: 132 lb 15.02 oz Body Mass Index (BMI) 21.4 Finger Stick Blood Glucose 111 Intake and Output for Last 24 Hours 10/11/18 10/12/18 10/13/18 23:59 23:59 23:59 Intake Total 1663 / 1663 450 / 450 450 / 450 Balance 1663 / 1663 450 / 450 450 / 450 Laboratory Tests Past 24 Hrs 10/12/18 12:00 Blood Type O POSITIVE Antibody Screen NEGATIVE Medical Necessity - Tobacco Use Smoking Status: Former smoker Assessment/Plan All Active Problems (Last Reviewed 10/02/18 @ 10:31 by Johnathon Carl MD) Dysphagia (Acute) CVA (cerebral vascular accident) (Acute) This is an 83 years old female patient with past history of CVAs admitted to rehabilitation unit after admission to the hospital for 4 dysarthria, debility and encephalopathy. #1 acute ischemic CVA: She is on aspirin, Plavix and statins. Her vital signs are stable, blood pressure under control. The only significant deficit is minimal left facial droop and dysphagia, status post PEG tube insertion. Plan to continue same treatment, continue PT OT according to rehab team. #2 dysphagia: Status post insertion of PEG tube that was done yesterday. She denies any abdominal pain, nausea or vomiting. Abdominal examination is benign. Plan to start patient on tube feeds through the PEG tube today. General surgery on the case. #3 hypertension: Blood pressure stable, continue Norvasc. #4 hyperlipidemia: Stable, continue statins. #5 depression: Continue Celexa. #6 DVT prophylaxis: Continue subcu Lovenox. This note was generated with [employer] dictation software. It may contain incorrect words, spelling, and punctuation that were not noted in checking the note before signing. Code Visit Inpatient E&M: 44060 Subs Hosp L2
--- NOTE | 2018-10-13 12:28 | PN_ITS ---
Patient Problems: Active and Suspected Problems (Last Reviewed 10/02/18 @ 10:31 by Johnathon Carl MD) Dysphagia (Acute) Subjective: Chief complaint: Follow-up after consultation after patient admitted to inpatient rehab unit secondary to acute ischemic CVA and dysphagia status post PEG tube insertion. Patient seen and examined. No acute events overnight. She denied any significant complaints. Vital signs are stable. PEG tube inserted yesterday. Denies any abdominal pain. - Physical Exam General: Alert, Cooperative, No apparent distress HEENT: Atraumatic, PERRLA, EOMI, Normocephalic Oral: Moist Mucosa, No Gingival or Mucosal Lesions/ Ulcerations Neck: Supple, No JVD, Negative Carotid Bruits, Trachea Midline, Thyroid Normal Size and Texture Lungs: Clear to auscultation, No rhonchi, No wheeze, No rales, Diminished Cardiovascular: Regular rate, Regular Rhythm, Normal S1, Normal S2, No murmurs Abdomen: Bowel Sounds Present, Soft, Non Tender, Non-Distended, No Hepato- splenomegaly, - - PEG tube in place. Extremities: No clubbing, No cyanosis, No edema Skin: No rashes, No breakdown Lymphatic: No Cervical, Supraclavicular, or Inguinal Adenopathy Neurological: Motor Exam 5/5 strength throughout, Facial Droop, - - Minimal lef t-sided facial droop, other cranial nerves are intact. Psych/Mental Status: Normal Affect, Appropriate Vital Signs Temp Pulse Resp BP Pulse Ox 98.2 F 64 18 110/61 94 10/13/18 07:17 10/13/18 07:17 10/13/18 07:17 10/13/18 07:17 10/13/18 07:17 Oxygen Delivery Method Room Air Weight: 132 lb 15.02 oz Body Mass Index (BMI) 21.4 Finger Stick Blood Glucose 111 Intake and Output for Last 24 Hours 10/11/18 10/12/18 10/13/18 23:59 23:59 23:59 Intake Total 1663 / 1663 450 / 450 450 / 450 Balance 1663 / 1663 450 / 450 450 / 450 Laboratory Tests Past 24 Hrs 10/12/18 12:00 Blood Type O POSITIVE Antibody Screen NEGATIVE Medical Necessity - Tobacco Use Smoking Status: Former smoker Assessment/Plan All Active Problems (Last Reviewed 10/02/18 @ 10:31 by Johnathon Carl MD) Dysphagia (Acute) CVA (cerebral vascular accident) (Acute) This is an 83 years old female patient with past history of CVAs admitted to rehabilitation unit after admission to the hospital for 4 dysarthria, debility and encephalopathy. #1 acute ischemic CVA: She is on aspirin, Plavix and statins. Her vital signs are stable, blood pressure under control. The only significant deficit is minimal left facial droop and dysphagia, status post PEG tube insertion. Plan to continue same treatment, continue PT OT according to rehab team. #2 dysphagia: Status post insertion of PEG tube that was done yesterday. She denies any abdominal pain, nausea or vomiting. Abdominal examination is benign. Plan to start patient on tube feeds through the PEG tube today. General surgery on the case. #3 hypertension: Blood pressure stable, continue Norvasc. #4 hyperlipidemia: Stable, continue statins. #5 depression: Continue Celexa. #6 DVT prophylaxis: Continue subcu Lovenox. This note was generated with [employer] dictation software. It may contain incorrect words, spelling, and punctuation that were not noted in checking the note before signing. Code Visit Inpatient E&M: 69748 Subs Hosp L2
[2018-10-13 13:00] VITALS: BMI 22.8
--- NOTE | 2018-10-13 13:49 | NURSING ---
Per. Dr. Zuñiga it is ok to restart the lovenox.
--- NOTE | 2018-10-13 14:23 | NURSING ---
changed old dressing on peg tube, small amount of old serous drainage, area tender to touch, cleaned with NS, new dressing applied pt tolerated well. Pt tolerating tube feeding at 25cc/hr.
--- NOTE | 2018-10-13 14:47 | NURSING ---
Dc'd saline lock to L. wrist d/t being occluded. No bleeding noted, pt tolerated well.
--- NOTE | 2018-10-13 15:10 | NURSING ---
Pt. tolerating 25cc/hr of tube feeding well.
--- NOTE | 2018-10-13 15:25 | CASEMGMT ---
Social Work Telephone call to patient Gisselle jones. This health and social care teacher inquiring about discharge planning and PEG tube management within the community. Voicemail left for Gisselle. Will continue to follow. NORA Chance, FERMENTER
[2018-10-13 17:00] VITALS: BMI 22.8
[2018-10-13 17:49] VITALS: BP 116/68; PULSE 66; RESP 16; TEMP 36.8; O2SAT 95
[2018-10-13] MEDS: Atorvastatin Calcium 40 MG Tablet NG (20:10)
[2018-10-13] MEDS: LORazepam 0.5 MG Tablet 0.25 MG NG (20:10)
[2018-10-13 20:30] VITALS: BMI 22.8
--- NOTE | 2018-10-13 22:24 | NURSING ---
Plavix ordered - communication sent to pharmacy for first dose
[2018-10-13] MEDS: Clopidogrel Bisulfate 75 MG Tablet NG (22:45)
[2018-10-13 23:48] VITALS: BMI 21.4
[2018-10-14 01:00] VITALS: BMI 22.8
--- NOTE | 2018-10-14 04:26 | NURSING ---
Tube feeding increased to 35ml at 2030 last sreedhar. Now increased to 45ml, 5cc residual. Tolerating well
[2018-10-14] MEDS: Enoxaparin 40 MG/0.4 ML Syringe SC (05:49)
[2018-10-14] MEDS: Acetaminophen 650 MG/20 ML UDC NG ×3 (05:57→22:34)
[2018-10-14 07:39] VITALS: BP 125/72; PULSE 62; RESP 18; TEMP 36.6; O2SAT 94
[2018-10-14] MEDS: NYSTATIN 500,000 UNIT/5 ML UDC 500000 UNIT PO ×4 (08:35→21:08)
[2018-10-14] MEDS: Citalopram 20 MG Tablet NG (08:35)
[2018-10-14] MEDS: Aspirin 81 MG TAB.CHEW NG (08:36)
[2018-10-14] MEDS: amLODIPine 10 MG Tablet NG (08:36)
[2018-10-14] MEDS: Clopidogrel Bisulfate 75 MG Tablet NG (08:36)
[2018-10-14] MEDS: Cyanocobalamin 500 MCG Tablet 1000 MCG NG (08:36)
[2018-10-14] MEDS: Jevity 1.5 1,000 ML 45 ML GT (08:37)
[2018-10-14] MEDS: Glycerin/Hypromellose/PEG400 15 ml Bottle 1 DRP EACH EYE ×2 (08:38→21:07)
[2018-10-14 08:48] VITALS: BMI 22.8
[2018-10-14 11:07] VITALS: BMI 21.4
--- NOTE | 2018-10-14 11:08 | NURSING ---
changed dressing on peg tube, small amount of serous drainage size of quarter, area tender to touch, cleaned with NS, new dressing applied pt tolerated well. Pt tolerating tube feeding at 45cc/hr.
[2018-10-14 13:00] VITALS: BMI 22.8
[2018-10-14 16:46] VITALS: BMI 22.8
--- NOTE | 2018-10-14 16:57 | NURSING ---
Pt. has 4cm in diameter of bright red blood on peg tube dressing, with small.clots noted. Phoned Dr. Carl made him aware, he requested this RN to call surgeon.
--- NOTE | 2018-10-14 17:06 | NURSING ---
Dr. Andrade tel. relayed info ref. peg tube insertion site sangous drainage 4cm in diameter with sm. clots noted. made him aware of what blood thinners pt was on. Dr. Andrade stated to apply dressing under peg tube and monitor. NNO's at this time. Stated to call him if any concerns or bleeding becomes worse. Dr. Andrade will be by to see pt 10/15.
--- NOTE | 2018-10-14 17:13 | NURSING ---
Dr. Andrade tel. relayed info about Sanguinous drainage 4cm in diameter with sm. clots noted. Made him aware of blood thinners pt is taking at this time. NNO's, apply dressing under pegtube monitor site call Dr. Andrade with any concerns or if bleeding gets worse. Dr. Andrade will see pt 10/15.
[2018-10-14 20:44] VITALS: BP 127/66; PULSE 69; RESP 16; TEMP 36.8; O2SAT 92
[2018-10-14] MEDS: Atorvastatin Calcium 40 MG Tablet NG (21:08)
[2018-10-14] MEDS: LORazepam 0.5 MG Tablet 0.25 MG NG (21:08)
[2018-10-14] MEDS: Docusate Sodium 100 MG/10 ML UDC 200 MG NG (21:08)
[2018-10-15] MEDS: Jevity 1.5 1,000 ML 50 ML GT ×2 (04:23→16:18)
[2018-10-15 05:00] VITALS: BMI 21.4
[2018-10-15] MEDS: Acetaminophen 650 MG/20 ML UDC NG (05:47)
[2018-10-15] MEDS: Enoxaparin 40 MG/0.4 ML Syringe SC (05:48)
--- NOTE | 2018-10-15 07:37 | NURSING ---
Dr. Andrade here to see pt. d/t blood drainage at peg tube site. Gave order to DC Lovenox till further notice, hold plavix and asa 81mg today and resume 10/16. Keep site clean with soap, water hydrogen peroxide. Staff is to call Dr. Andrade with any further concerns.
--- NOTE | 2018-10-15 08:00 | NURSING ---
Dr. Andrade present removed dressing from pegsite, 4x4 dressing saturated with bloody drainage and multiple small clots and one clot the size of a quarter ,cleaned peg site with soap/water and hydrogen peroxide. Redressed with 4x4 drain sponge covered area with ABD pad. Pt. tolerated well.
[2018-10-15] MEDS: Cyanocobalamin 500 MCG Tablet 1000 MCG NG (08:24)
[2018-10-15] MEDS: amLODIPine 10 MG Tablet NG (08:24)
[2018-10-15] MEDS: Glycerin/Hypromellose/PEG400 15 ml Bottle 1 DRP EACH EYE (08:24)
[2018-10-15] MEDS: Citalopram 20 MG Tablet NG (08:24)
[2018-10-15] MEDS: NYSTATIN 500,000 UNIT/5 ML UDC 500000 UNIT PO ×3 (08:25→22:19)
--- NOTE | 2018-10-15 08:37 | PCM.PN.SRG ---
Patient Problems: Active and Suspected Problems (Last Reviewed 10/02/18 @ 10:31 by Johnathon Carl MD) Dysphagia (Acute) PEG tube malfunction (Acute) Subjective: PEG tube was placed approximately 2 days ago. She has since been put back on her full anticoagulation which includes subcu Lovenox, Plavix, and aspirin. She has had some bleeding around her PEG tube site. With clotted blood. She is tolerating her tube feeds. Objective: Dressing was removed there is some old clotted blood around the PEG tube site. Nothing seems to be actively oozing once the dressing was taken down. The bumper is approximately 5 cm from the skin. - Physical Exam Vital Signs Temp Pulse Resp BP Pulse Ox 98.3 F 69 16 127/66 H 92 10/14/18 20:44 10/14/18 20:44 10/14/18 20:44 10/14/18 20:44 10/14/18 20:44 Oxygen Delivery Method Room Air Weight: 136 lb 10.986 oz Body Mass Index (BMI) 21.4 Finger Stick Blood Glucose 111 Intake and Output for Last 24 Hours 10/13/18 10/14/18 10/15/18 23:59 23:59 23:59 Intake Total 1087 / 1087 956 / 956 838 / 838 Balance 1087 / 1087 956 / 956 838 / 838 Medical Necessity - Tobacco Use Smoking Status: Former smoker Assessment/Plan All Active Problems (Last Reviewed 10/02/18 @ 10:31 by Johnathon Carl MD) Dysphagia (Acute) PEG tube malfunction (Acute) CVA (cerebral vascular accident) (Acute) I would hold her Plavix and aspirin today. Tomorrow I would restart her Plavix and aspirin and stop her subcu Lovenox. She has already been given her Lovenox today.
--- NOTE | 2018-10-15 09:12 | NURSING ---
This RN walked pt 2 laps in hallway and back to room, pt tolerated well.
[2018-10-15 10:00] VITALS: BP 108/63; PULSE 87; RESP 16; TEMP 36.6; O2SAT 96
[2018-10-15 11:36] LABS: ACHR AB Modulating <12 % (0-20); ACHR Recep AB, Blocking 18 % (0-25)
[2018-10-15 11:52] VITALS: BMI 21.4
--- NOTE | 2018-10-15 12:26 | NURSING ---
changed peg tube dressing 4x4 guaze 3/4 saturated with bright red blood, cleaned site with soap/water and peroxide, applied 4x4 guaze, covered with abd pad. Pt tolerated well.
--- NOTE | 2018-10-15 13:34 | NURSING ---
Dr. Madrigal here to see pt. new order for PT/INR and CBC
--- NOTE | 2018-10-15 13:38 | PCM.PROGNOTE ---
Patient Problems: Active and Suspected Problems (Last Reviewed 10/02/18 @ 10:31 by Johnathon Carl MD) PEG tube malfunction (Acute) Dysphagia (Acute) Subjective: Chief complaint: Follow-up after consultation after patient admitted to inpatient rehab unit secondary to acute ischemic CVA and dysphagia status post PEG tube insertion. Patient seen and examined. No acute events overnight. According to nursing staff, she has been having bleeding around the insertion site of the PEG tube. Patient reported minimal abdominal discomfort, she is tolerating tube feeds. General surgery contacted, recommended close monitoring. Her vital signs are stable. - Physical Exam General: Alert, Oriented x3, Cooperative, No apparent distress HEENT: Atraumatic, PERRLA, EOMI, Normocephalic Oral: Moist Mucosa, No Gingival or Mucosal Lesions/ Ulcerations Neck: Supple, No JVD, Negative Carotid Bruits, Trachea Midline, Thyroid Normal Size and Texture Lungs: Clear to auscultation, Normal air movement, No rhonchi, No wheeze, No rales Cardiovascular: Regular rate, Regular Rhythm, Normal S1, Normal S2, PMI Normal Abdomen: Bowel Sounds Present, Soft, Non Tender, Non-Distended, No Hepato-splenomegaly, - - PEG tube in place, dressing around the insertion site. No active bleeding. Extremities: No clubbing, No cyanosis, No edema Skin: No rashes, No breakdown Lymphatic: No Cervical, Supraclavicular, or Inguinal Adenopathy Neurological: Motor Exam 5/5 strength throughout, - - Minimal left-sided facial droop, other cranial nerves are intact. Psych/Mental Status: Normal Affect, Appropriate Vital Signs Temp Pulse Resp BP Pulse Ox 97.9 F 87 16 108/63 96 10/15/18 10:00 10/15/18 10:00 10/15/18 10:00 10/15/18 10:00 10/15/18 10:00 Oxygen Delivery Method Room Air Weight: 136 lb 10.986 oz Body Mass Index (BMI) 21.4 Finger Stick Blood Glucose 111 Intake and Output for Last 24 Hours 10/13/18 10/14/18 10/15/18 23:59 23:59 23:59 Intake Total 1087 / 1087 956 / 956 988 / 988 Balance 1087 / 1087 956 / 956 988 / 988 Laboratory Tests Past 24 Hrs 10/06/18 19:49 Acetylchol Rcpt Block Ab 18 Acetylchol Rcpt Modu Ab <12 Medical Necessity - Tobacco Use Smoking Status: Former smoker Assessment/Plan All Active Problems (Last Reviewed 10/02/18 @ 10:31 by Johnathon Carl MD) PEG tube malfunction (Acute) Dysphagia (Acute) CVA (cerebral vascular accident) (Acute) This is an 83 years old female patient with past history of CVAs admitted to rehabilitation unit after admission to the hospital for 4 dysarthria, debility and encephalopathy. #1 acute ischemic CVA: Remained on aspirin, Plavix and statins but general surgery recommended to hold aspirin and Plavix because of bleeding around the PEG tube insertion site. Her vital signs are stable, blood pressure under control. The only significant deficit is minimal left facial droop and dysphagia, status post PEG tube insertion. Plan: We will do CBC, pro time and INR, continue other treatment. #2 dysphagia: Status post insertion of PEG tube, she is on tube feeds and it is tolerated. She has been having bleeding around the insertion site of the PEG tube. General surgery on the case, recommended close monitoring. Aspirin, Plavix and subcu Lovenox held because of bleeding. Abdominal examination is benign. Plan to do CBC, pro time and INR as above. #3 hypertension: Blood pressure stable, continue Norvasc. #4 hyperlipidemia: Stable, continue statins. #5 depression: Continue Celexa. #6 DVT prophylaxis: SCDs, subcu Lovenox discontinued. This note was generated with [employer]: [employer] software. It may contain incorrect words, spelling, and punctuation that were not noted in checking the note before signing. Code Visit Inpatient E&M: 23638 Subs Hosp L2
[2018-10-15 14:08] LABS: Absolute Lymphocyte Count 1.61 X10^3/ul (0.83-4.51); Basophil# 0.04 X10^3/uL; Basophil% 0.5 % (0-1); Eosinophil# 0.28 X10^3/uL; Eosinophils% 3.2 % (0-5); Hematocrit 43.1 % (37-47); Hemoglobin 14.5 g/dl (12.0-15.0); Lymphocyte # 1.61 X10^3/ul (4.0); Lymphocyte % 18.3 % (19-41); Mean Corp Hgb Conc 33.6 g/gl (32-36); Mean Corpuscular Hgb 30.9 pg (27.0-32.0); Mean Corpuscular Volume 91.7 fL (81-99); Mean Platelet Vol. 10.6 fl (6.2-12.0); Monocyte# 0.83 X10^3/uL; Monocyte% 9.4 % (0-10); Neutrophil # 6.03 X10^3/uL (2.7-7.7); Neutrophil % 68.5 % (47-70); Platelet Count 248 K/mm3 (150-450); RBC Distribution Width CV 14.4 % (11.6-14.6); RBC Distribution Width SD 48.4 fl (35.1-43.9); White Blood Count 8.8 K/mm3 (4.4-11.0)
[2018-10-15 14:10] LABS: POSITIVE COUNT NO; POSITIVE DIFFERENTIAL NO; POSITIVE MORPHOLOGY NO
[2018-10-15 14:15] LABS: Prothrombin Time (Protime)PT. 13.5 SECONDS (11.7-14.9)
--- NOTE | 2018-10-15 17:50 | NURSING ---
Pt. up to chair this RN changed peg tube dressing 4x4 guaze 3/4 saturated with bright red blood with clots, cleaned site with soap/water and peroxide, applied 4x4 guaze, covered with abd pad. Pt tolerated well.
[2018-10-15 20:08] VITALS: BP 124/73; PULSE 65; RESP 16; TEMP 36.4; O2SAT 95
--- NOTE | 2018-10-15 20:53 | NURSING ---
3 POUND WEIGHT REMOVED FROM PEG TUBE INSERTION SITE-BLOODY DRAINAGE NOTED. WEIGHT REAPPLIED AND WILL REASSESS AGAIN SOON.
--- NOTE | 2018-10-15 21:30 | NURSING ---
PEG TUBE INSERTION SITE DSG CHANGED. 2 4X4 DRAIN SPONGES AND 2 2X2 DRAIN SPONGES MOSTLY SATURATED WITH BLOOD. NEW DSGS APPLIED. FIVE POUND WEIGHT TOTAL REAPPLIED TO PEG TUBE SITE. PT WATCHING TV. WILL REASSESS SITE SOON.
--- NOTE | 2018-10-15 22:15 | NURSING ---
DR SANTO PAGED PER [facility] PARAFFIN MACHINE OPERATOR. DR SANTO PHONES BACK INTO UNIT. INFORMED OF QUANTITY OF PT'S BLEEDING ON DAY SHIFT (3 DSG CHANGES) AND THUS FAR THIS SHIFT. INFORMED BLEEDING CONTINUES DESPITE WEIGHT ON SITE AND THAT PT UNABLE TO TOLERATE WEIGHTS DURING SLEEP. ORDERS GIVEN TO STOP ALL ANTICOAGULATION, HAVE DR MONSON SEE PT IN AM AND TO OBTAIN CBC IN AM. PT UPDATED ON SITUATION. WEIGHTS REMOVED.
[2018-10-15] MEDS: Atorvastatin Calcium 40 MG Tablet NG (22:19)
[2018-10-15] MEDS: LORazepam 0.5 MG Tablet 0.25 MG NG (22:20)
--- NOTE | 2018-10-15 23:00 | NURSING ---
PT WANTS SCDS REMOVED FOR SECOND TIME THIS SHIFT. STATES SHE IS UNABLE TO SLEEP WITH THEM ON. PT INFORMED AGAIN THAT THEY ARE TO HELP PREVENT BLOOD CLOTS WHICH IS IMPORTANT SHE IS NOT RECEIVING BLOOD THINNERS CURRENTLY. PT VERBALIZES UNDERSTANDING.
[2018-10-16 05:00] VITALS: BMI 21.4
[2018-10-16 05:39] LABS: Basophil# 0.05 X10^3/uL; Basophil% 0.5 % (0-1); Eosinophil# 0.32 X10^3/uL; Eosinophils% 3.3 % (0-5); Hematocrit 39.9 % (37-47); Lymphocyte % 20.9 % (19-41); Mean Corp Hgb Conc 32.6 g/gl (32-36); Mean Corpuscular Volume 91.9 fL (81-99); Mean Platelet Vol. 10.5 fl (6.2-12.0); Monocyte# 1.21 X10^3/uL; Monocyte% 12.7 % (0-10); Neutrophil # 5.96 X10^3/uL (2.7-7.7); Neutrophil % 62.4 % (47-70); Platelet Count 262 K/mm3 (150-450); RBC Distribution Width CV 14.6 % (11.6-14.6); RBC Distribution Width SD 49.7 fl (35.1-43.9); Red Blood Count 4.34 M/mm3 (4.2-5.4); White Blood Count 9.6 K/mm3 (4.4-11.0)
[2018-10-16 05:46] LABS: POSITIVE COUNT NO; POSITIVE DIFFERENTIAL NO; POSITIVE MORPHOLOGY NO
--- NOTE | 2018-10-16 06:00 | NURSING ---
PEG TUBE DONE-2 SATURATED 4X4'S, ONE 2X2 AND AN ABD PAD (PARTIALLY) SATURATED IN BLOOD REMOVED AND LARGE CLOTS AROUND PEG TUBE INSERTION SITE. DIFFICULT TO REMOVE ALL OF CLOT. AREA CLEANSED WITH HYDROGEN PEROXIDE AND SALINE AND 2 4X4 DRAIN PADS AND ABD APPLIED TO SITE.
[2018-10-16] MEDS: Acetaminophen 650 MG/20 ML UDC NG ×2 (06:42→20:43)
[2018-10-16 07:16] VITALS: BP 111/62; PULSE 67; RESP 16; TEMP 36.5; O2SAT 93
--- NOTE | 2018-10-16 07:20 | NURSING ---
DR MONSON PAGED BY [facility] SEED ANALYSIS LABORATORY ASSISTANT AND CALLS INTO UNIT. INFORMED THAT DR SANTO HAD REQUESTED THAT HE SEE PT THIS AM. UPDATED ON PT'S BLEEDING FROM PEG INSERTION SITE AND ORDER TO STOP ALL ANTICOAGULANTS. INFORMED THAT CBC WAS COMPLETED THIS AM. ADVISED TO KEEP SITE DRY POSSIBLE AND MAY USE HYDROGEN PEROXIDE TO HELP BREAK UP CLOTS.
--- NOTE | 2018-10-16 08:25 | PN.SURG_ITS ---
Patient Problems: Active and Suspected Problems (Last Reviewed 10/02/18 @ 10:31 by Johnathon Carl MD) PEG tube malfunction (Acute) Dysphagia (Acute) Subjective: Patient reports no problems with tube feeds. - Physical Exam General: Alert, Cooperative Lungs: Normal air movement Cardiovascular: Regular rate, Regular Rhythm Abdomen: Soft, Non Tender, Non-Distended Vital Signs Temp Pulse Resp BP Pulse Ox 97.7 F L 67 16 111/62 93 10/16/18 07:16 10/16/18 07:16 10/16/18 07:16 10/16/18 07:16 10/16/18 07:16 Oxygen Delivery Method Room Air Weight: 137 lb 2.04 oz Body Mass Index (BMI) 21.4 Finger Stick Blood Glucose 111 Intake and Output for Last 24 Hours 10/14/18 10/15/18 10/16/18 23:59 23:59 23:59 Intake Total 956 / 956 2013 868 / 868 Output Total 100 / 100 Balance 956 / 956 1913 / 1914 868 / 868 Laboratory Tests Past 24 Hrs 10/06/18 10/15/18 10/15/18 19:49 13:55 13:55 WBC 8.8 RBC 4.70 Hgb 14.5 Hct 43.1 MCV 91.7 MCH 30.9 MCHC 33.6 RDW 14.4 RDW Differential 48.4 H Plt Count 248 MPV 10.6 Immature Gran % (Auto) 0.100 Neut % (Auto) 68.5 Lymph % (Auto) 18.3 L Saline % (Auto) 9.4 Eos % (Auto) 3.2 Baso % (Auto) 0.5 Absolute Neuts (auto) 6.0 Absolute Lymphs (auto) 1.61 Total Counted Not Reportable PT 13.5 INR 1.0 Acetylchol Rcpt Block Ab 18 Acetylchol Rcpt Modu Ab <12 10/16/18 05:15 WBC 9.6 RBC 4.34 Hgb 13.0 Hct 39.9 MCV 91.9 MCH 30.0 MCHC 32.6 RDW 14.6 RDW Differential 49.7 H Plt Count 262 MPV 10.5 Immature Gran % (Auto) 0.200 Neut % (Auto) 62.4 Lymph % (Auto) 20.9 Saline % (Auto) 12.7 H Eos % (Auto) 3.3 Baso % (Auto) 0.5 Absolute Neuts (auto) 6.0 Absolute Lymphs (auto) 2.00 Total Counted Not Reportable PT INR Acetylchol Rcpt Block Ab Acetylchol Rcpt Modu Ab Medical Necessity - Tobacco Use Smoking Status: Former smoker Assessment/Plan All Active Problems (Last Reviewed 10/02/18 @ 10:31 by Johnathon Carl MD) PEG tube malfunction (Acute) Dysphagia (Acute) CVA (cerebral vascular accident) (Acute) 83-year-old female with PEG tube placed, POD 4 1. Patient had oozing from her PEG tube site overnight. I examined the PEG tube site this morning. There is a tight adherent clot which is doing well to tamponade the incision. There is no active or bright red bleeding at the current time. I recommend leaving the clot in place and holding Plavix and Lovenox for today. I would be okay with the patient receiving her aspirin. Tomorrow if there is no active bleeding we can resume the Lovenox in the next day resume the Plavix. Continue tube feeds. Prieto Zuñiga MD Pager: [facility] [place] [facility] [address] [place] [address], [address] [place] [address] Office:
[2018-10-16] MEDS: amLODIPine 10 MG Tablet NG (10:30)
[2018-10-16] MEDS: Citalopram 20 MG Tablet NG (10:30)
[2018-10-16] MEDS: Aspirin 81 MG TAB.CHEW GT (10:30)
[2018-10-16] MEDS: Cyanocobalamin 500 MCG Tablet 1000 MCG NG (10:30)
[2018-10-16] MEDS: oxyCODONE 5 MG Tablet GT (10:30)
--- NOTE | 2018-10-16 10:32 | PCM.PN.HOSP ---
Patient Problems: Active and Suspected Problems (Last Reviewed 10/02/18 @ 10:31 by Jonhathon Carl MD) PEG tube malfunction (Acute) Dysphagia (Acute) Subjective: Underwent PEG tube placement on 10/12/2018. Apparently developed bleeding from the PEG tube site patient will antiplatelets and Lovenox subsequently held Objective: GENERAL: cooperative HEENT: Atraumatic; EYES; Anicteric, Normal Conjunctiva NECK; supple, normal thyroid, RESPIRATORY: Diminished to auscultation bilaterally, CARDIOVASCULAR: Regular S1 S2, no audible murmurs GI: soft, non-tender, normoactive bowel sounds, : No Renal angle tenderness; NEURO: Awake; left facial droop SKIN: No Rash PSYCH; flat affect Vitals/I&O's: Vital Signs Temp Pulse Resp BP Pulse Ox 97.7 F L 67 16 111/62 93 10/16/18 07:16 10/16/18 07:16 10/16/18 07:16 10/16/18 07:16 10/16/18 07:16 Oxygen Delivery Method Room Air Weight: 62.2 kg Body Mass Index (BMI) 21.4 Finger Stick Blood Glucose 111 Intake and Output for Last 24 Hours 10/14/18 10/15/18 10/16/18 23:59 23:59 23:59 Intake Total 956 / 956 2013 / 2013 868 / 868 Output Total 100 / 100 Balance 956 / 956 1913 / 1913 868 / 868 Laboratory Results 10/06/18 19:49: Acetylchol Rcpt Block Ab 18, Acetylchol Rcpt Modu Ab <12 10/15/18 13:55: WBC 8.8, RBC 4.70, Hgb 14.5, Hct 43.1, MCV 91.7, MCH 30.9, MCHC 33.6, RDW 14.4, RDW Differential 48.4 H, Plt Count 248, MPV 10.6, Immature Gran % (Auto) 0.100, Neut % (Auto) 68.5, Lymph % (Auto) 18.3 L, [place] % (Auto) 9.4, Eos % (Auto) 3.2, Baso % (Auto) 0.5, Absolute Neuts (auto) 6.0, Absolute Lymphs (auto) 1.61, Total Counted Not Reportable 10/15/18 13:55: PT 13.5, INR 1.0 10/16/18 05:15: WBC 9.6, RBC 4.34, Hgb 13.0, Hct 39.9, MCV 91.9, MCH 30.0, MCHC 32.6, RDW 14.6, RDW Differential 49.7 H, Plt Count 262, MPV 10.5, Immature Gran % (Auto) 0.200, Neut % (Auto) 62.4, Lymph % (Auto) 20.9, [place] % (Auto) 12.7 H, Eos % (Auto) 3.3, Baso % (Auto) 0.5, Absolute Neuts (auto) 6.0, Absolute Lymphs (auto) 2.00, Total Counted Not Reportable Current Medications Acetaminophen (Tylenol Liquid) 650 mg NG Q6H PRN PRN PRN Reason: Mild Pain (0-3/10)/Headache Last Admin: 10/16/18 06:42 Dose: 650 mg Amlodipine Besylate (Norvasc) 10 mg NG DAILY REPLACED BY [facility] Last Admin: 10/15/18 08:24 Dose: 10 mg Aspirin (Aspirin, Baby) 81 mg GT DAILY REPLACED BY [facility] Atorvastatin Calcium (Lipitor) 40 mg NG QHS REPLACED BY [facility] Last Admin: 10/15/18 22:19 Dose: 40 mg Bisacodyl (Dulcolax) 10 mg RECTAL .PRN X 1 PRN PRN Reason: Constipation Citalopram Hydrobromide (Celexa) 20 mg NG DAILY REPLACED BY [facility] Last Admin: 10/15/18 08:24 Dose: 20 mg Cyanocobalamin (Vitamin B12) 1,000 mcg NG DAILY REPLACED BY [facility] Last Admin: 10/15/18 08:24 Dose: 1,000 mcg Docusate Sodium (Colace Syrup) 200 mg NG BID REPLACED BY [facility] Last Admin: 10/15/18 22:20 Dose: Not Given Ergocalciferol (Vitamin D) 50,000 unit PO QWEEK REPLACED BY [facility] Last Admin: 10/15/18 08:33 Dose: Not Given Enteral Nutritional Formula (Jevity 1.5) 1,000 mls @ 50 mls/hr GT .Q20H REPLACED BY [facility] Last Admin: 10/15/18 16:18 Dose: 50 mls/hr Lorazepam (Ativan) 0.25 mg NG QHS REPLACED BY [facility] Last Admin: 10/15/18 22:20 Dose: 0.25 mg Magnesium Hydroxide (Milk Of Magnesia) 30 ml NG .PRN X 1 PRN PRN Reason: Constipation Last Admin: 10/13/18 02:16 Dose: 30 ml Nystatin (Nystatin) 500,000 unit PO 4X/DAY REPLACED BY [facility] Last Admin: 10/15/18 22:19 Dose: 500,000 unit Oxycodone HCl (Oxyir) 5 - 10 mg GT Q6H PRN PRN PRN Reason: SEVERE PAIN (6-10) Sodium Chloride ([place] Nasal [place]) 1 spray NASAL BID JJ Last Admin: 10/15/18 22:19 Dose: Not Given Medical Necessity - Tobacco Use Smoking Status: Former smoker Assessment/Plan All Active Problems (Last Reviewed 10/02/18 @ 10:31 by Johnathon Carl MD) PEG tube malfunction (Acute) Dysphagia (Acute) CVA (cerebral vascular accident) (Acute) Patient is a 83-year-old lady with previous CVA admitted with dysarthria patient admitted to a monitored bed for subsequent management patient condition was stabilized and subsequently transferred to the inpatient rehab unit to continue with her recuperation 1. Acute ischemic CVA patient has been admitted to the inpatient rehab unit where she is currently undergoing PT and OT. Patient remains on recommended medications including antiplatelet therapy with Plavix as well as therapy with atorvastatin 2. Dysphagia secondary to acute CVA. Patient underwent PEG tube placement by Dr. Zuñiga on 10/12/2018. 3. Dyslipidemia-patient is on statin therapy, continued at home dose 4. Essential hypertension-blood pressure controlled, home medications continued with dose adjustment as needed 5. Depression with anxiety 6. Physical debility 7. DVT prophylaxis SC Lovenox Code Visit Inpatient E&M: 70241 Subs Hosp L2
[2018-10-16] MEDS: NYSTATIN 500,000 UNIT/5 ML UDC 500000 UNIT PO ×4 (10:36→20:43)
--- NOTE | 2018-10-16 10:39 | PN.NEURO_ITS ---
Patient Problems: Active and Suspected Problems (Last Reviewed 10/02/18 @ 10:31 by Johnathon Carl MD) PEG tube malfunction (Acute) Dysphagia (Acute) Subjective: Care discussed with nursing staff. Staffed in team meeting, all questions were answered. With PT- transfer, walked 150 feet, minimal assist, contact guard assist, OT-ADLs minimal assist. ST- coughing with water protocol, working on respiratory muscles strengthening, swallowing exercise, plan cookie swallow evaluation in future. - Physical Exam General: Alert HEENT: Normocephalic Neck: Supple Lungs: Normal air movement Cardiovascular: Normal S1, Normal S2 Abdomen: Bowel Sounds Present, Non-Distended, - - blood clot around PEG site Extremities: No cyanosis Neurological: - - consious, alert, AoAx3, CN 2-12 grossly intact, moves all 4 extremities, denies any sensory loss, no cerebellar signs, Reflexes + B/L B/S/T/K/A, gait deferred, dysarthria present Psych/Mental Status: Normal Affect Vital Signs Temp Pulse Resp BP Pulse Ox 97.7 F L 67 16 111/62 93 10/16/18 07:16 10/16/18 07:16 10/16/18 07:16 10/16/18 07:16 10/16/18 07:16 Oxygen Delivery Method Room Air Weight: 62.2 kg Body Mass Index (BMI) 21.4 Finger Stick Blood Glucose 111 Intake and Output for Last 24 Hours 10/14/18 10/15/18 10/16/18 23:59 23:59 23:59 Intake Total 956 / 956 2013 868 / 868 Output Total 100 / 100 Balance 956 / 956 1913 / 4 868 / 868 Laboratory Tests Past 24 Hrs 10/06/18 10/15/18 10/15/18 19:49 13:55 13:55 WBC 8.8 RBC 4.70 Hgb 14.5 Hct 43.1 MCV 91.7 MCH 30.9 MCHC 33.6 RDW 14.4 RDW Differential 48.4 H Plt Count 248 MPV 10.6 Immature Gran % (Auto) 0.100 Neut % (Auto) 68.5 Lymph % (Auto) 18.3 L [place] % (Auto) 9.4 Eos % (Auto) 3.2 Baso % (Auto) 0.5 Absolute Neuts (auto) 6.0 Absolute Lymphs (auto) 1.61 Total Counted Not Reportable PT 13.5 INR 1.0 Acetylchol Rcpt Block Ab 18 Acetylchol Rcpt Modu Ab <12 10/16/18 05:15 WBC 9.6 RBC 4.34 Hgb 13.0 Hct 39.9 MCV 91.9 MCH 30.0 MCHC 32.6 RDW 14.6 RDW Differential 49.7 H Plt Count 262 MPV 10.5 Immature Gran % (Auto) 0.200 Neut % (Auto) 62.4 Lymph % (Auto) 20.9 [place] % (Auto) 12.7 H Eos % (Auto) 3.3 Baso % (Auto) 0.5 Absolute Neuts (auto) 6.0 Absolute Lymphs (auto) 2.00 Total Counted Not Reportable PT INR Acetylchol Rcpt Block Ab Acetylchol Rcpt Modu Ab Medical Necessity - Tobacco Use Smoking Status: Former smoker Assessment/Plan All Active Problems (Last Reviewed 10/02/18 @ 10:31 by Johnathon Carl MD) PEG tube malfunction (Acute) Dysphagia (Acute) CVA (cerebral vascular accident) (Acute) 83 F with PMH HTN, depression, recurrent bladder cancer, 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 MRI brain done on 10/02/18 did not show any acute stroke, CTA head/neck did not report any hemodynamic significant stenosis or occlusion. on Plavix and on statins. Patient had barium swallow done following admission to rehab which showed silent aspiration. Prior to PEG placement Plavix was stopped for about 5 days and she was started on ASA. S/P PEG placement on 10/12/18, complicated later by PEG site bleeding and clot formation. ASA/Plavix was started initially after PEG placement and DVT prophylaxis with Lovenox was also started but then was held following PEG site bleeding. ASA restarted today 10/16/[address] Zuñiga's evaluation and recommendations. Will hold off on Plavix given the PEG site bleeding with clot formation and restart Lovenox once okay from surgery stand point. Plan - Physical therapy for gait and balance - Occupational Therapy for ADLs - Speech therapy for dysarthria, swallow evaluation by ST - As needed analgesics - Bowel protocol - S/P PEG tube 10/12/18- complicated by PEG site bleeding and clot formation. Restarted on ASA today (10/16/18) following surgery evaluation and recommendation. Will hold off Plavix. Monitor H&H. Further PEG tube evaluation and management per surgery Dr. Zuñiga's recommendation. - On Jevity tube feeds - Dysarthria- MG labs are negative and no new stroke on MRI brain - Stroke prevention: no new stroke on MRI brain during this inpatient admission, on ASA 81 mg PO once daily, and Lipitor 40mg - DVT prophylaxis: SCDs, Lovenox once okay from surgery stand point - Fall precautions - Hx of Hypertension: Continue home dose of amlodipine 10 mg - Hx of bladder cancer s/p tumor resection with recurrence - Follows with Dr. Bunn. - Hx of Depression: continue home citalopram regimen.
--- NOTE | 2018-10-16 12:47 | NURSING ---
1144 speech in to work with pt and pt reporting that feeling drowsy and reports that doesnt want to take that anymore
[2018-10-16] MEDS: Jevity 1.5 1,000 ML 50 ML GT (13:47)
--- NOTE | 2018-10-16 14:22 | CASEMGMT ---
Team meeting held. Patient present as well as patient family. Patient approved 23 Medicare days with a discharge on or by 10/25/18. Patient and patient family aware that patient is unable to return to living in the community at this time. Patient nephew reporting to have looked into the [facility], patient is agreeable to transition to the [facility] at time of discharge on 10/25/18. Patient to continue with further care and treatment on the Inpatient Rehab Unit until time of discharge. Plan to re-team patient next week. Support given. Telephone call to the [facility], Tricia referral made and clinical information faxed. Pending approval at this time. Proposed discharge date: 10/25/18 PLAN: Discharge to the [facility] - skilled. NORA Chance, HOME PARAPROFESSIONAL
--- NOTE | 2018-10-16 15:12 | CASEMGMT ---
Social Work Telephone call from the [facility] Tricia, They are able to accept patient on 10/25/18. Proposed discharge date: 10/25/18 PLAN: Discharge to the [facility] - skilled. ESTHELA ChanceW, FIRE TECHNOLOGY INSTRUCTOR
[2018-10-16 16:05] VITALS: BMI 21.4
[2018-10-16 18:59] VITALS: BP 100/56; PULSE 65; RESP 17; TEMP 36.7; O2SAT 93
[2018-10-16 20:30] VITALS: PULSE 65; RESP 18; O2SAT 93; BMI 21.4
[2018-10-16] MEDS: LORazepam 0.5 MG Tablet 0.25 MG NG (20:44)
[2018-10-16] MEDS: Atorvastatin Calcium 40 MG Tablet NG (20:44)
[2018-10-16] MEDS: Glycerin/Hypromellose/PEG400 15 ml Bottle 1 DRP EACH EYE (20:46)
--- NOTE | 2018-10-16 22:30 | NURSING ---
Reviewed and agree with ETHERNET NETWORK ARCHITECT documentation and FIMs charting.
[2018-10-17 05:27] LABS: Hematocrit 37.6 % (37-47); Hemoglobin 12.6 g/dl (12.0-15.0)
[2018-10-17] MEDS: Acetaminophen 650 MG/20 ML UDC NG ×2 (06:00→20:45)
[2018-10-17 07:05] VITALS: BP 109/55; PULSE 69; RESP 17; TEMP 36.6; O2SAT 95
--- NOTE | 2018-10-17 08:26 | NURSING ---
Dr. Zuñiga tel this AM. Stated to this RN to leave clot in place, restart the lovenox today hold off on starting plavix still.
[2018-10-17] MEDS: Aspirin 81 MG TAB.CHEW GT (09:05)
[2018-10-17] MEDS: Cyanocobalamin 500 MCG Tablet 1000 MCG NG (09:06)
[2018-10-17] MEDS: amLODIPine 10 MG Tablet NG (09:06)
[2018-10-17] MEDS: Citalopram 20 MG Tablet NG (09:06)
[2018-10-17] MEDS: NYSTATIN 500,000 UNIT/5 ML UDC 500000 UNIT PO ×4 (09:06→20:46)
--- NOTE | 2018-10-17 09:07 | PCM.PN.BLA ---
Progress Note No active bleeding overnight. Clot still in place. Okay to resume Lovenox and continue aspirin. I will hold off another day before starting Plavix to see if the bleeding starts back up on Lovenox. Prieto Zuñiga MD Pager: [facility] [address] [place] [address] [address] [place] [phone] Office:
--- NOTE | 2018-10-17 09:08 | PN_ITS ---
Progress Note No active bleeding overnight. Clot still in place. Okay to resume Lovenox and continue aspirin. I will hold off another day before starting Plavix to see if the bleeding starts back up on Lovenox. Prieto Zuñiga MD Pager: [facility] [address] [place] [address] [address] [place] [phone] Office:
[2018-10-17] MEDS: Enoxaparin 40 MG/0.4 ML Syringe SC (10:19)
[2018-10-17 13:00] VITALS: BMI 21.4
--- NOTE | 2018-10-17 13:12 | PCM.PN.NEU ---
Patient Problems: Active and Suspected Problems (Last Reviewed 10/02/18 @ 10:31 by Johnathon Carl MD) Dysphagia (Acute) Subjective: No Issues overnight. Care discussed with nursing staff. - Physical Exam General: Alert HEENT: Normocephalic Neck: Supple Lungs: Normal air movement Cardiovascular: Normal S1, Normal S2 Abdomen: Bowel Sounds Present Extremities: No cyanosis Neurological: - - consious, alert, AoAx3, CN 2-12 grossly intact, moves all 4 extremities, denies any sensory loss, no cerebellar signs, Reflexes + B/L B/S/T/K/A, gait deferred, dysarthria present Psych/Mental Status: Normal Affect Vital Signs Temp Pulse Resp BP Pulse Ox 97.8 F 69 17 109/55 L 95 10/17/18 07:05 10/17/18 07:05 10/17/18 07:05 10/17/18 07:05 10/17/18 07:05 Oxygen Delivery Method Room Air Weight: 62.3 kg Body Mass Index (BMI) 21.4 Finger Stick Blood Glucose 111 Intake and Output for Last 24 Hours 10/15/18 10/16/18 10/17/18 23:59 23:59 23:59 Intake Total 2013 / 2013 2228 / 2228 150 / 150 Output Total 100 / 100 100 / 100 Balance 1913 / 1913 2127 / 2127 150 / 150 Laboratory Tests Past 24 Hrs 10/17/18 05:15 Hgb 12.6 Hct 37.6 Medical Necessity - Tobacco Use Smoking Status: Former smoker Assessment/Plan All Active Problems (Last Reviewed 10/02/18 @ 10:31 by Johnathon Carl MD) PEG tube malfunction (Acute) Dysphagia (Acute) CVA (cerebral vascular accident) (Acute) 83 F with PMH HTN, depression, recurrent bladder cancer, 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 MRI brain done on 10/02/18 did not show any acute stroke, CTA head/neck did not report any hemodynamic significant stenosis or occlusion. on Plavix and on statins. Patient had barium swallow done following admission to rehab which showed silent aspiration. Prior to PEG placement Plavix was stopped for about 5 days and she was started on ASA. S/P PEG placement on 10/12/18, complicated later by PEG site bleeding and clot formation. ASA/Plavix was started initially after PEG placement and DVT prophylaxis with Lovenox was also started but then was held following PEG site bleeding. ASA restarted 10/16/18, restarted Lovenox for DVT prophylaxis (10/17/18) following Dr. Zuñiga's evaluation and recommendations. Will hold off on Plavix given the PEG site bleeding with clot formation Plan - Physical therapy for gait and balance - Occupational Therapy for ADLs - Speech therapy for dysarthria, swallow evaluation by ST - As needed analgesics - Bowel protocol - S/P PEG tube 10/12/18- complicated by PEG site bleeding and clot formation. Restarted on ASA (10/16/18) following surgery evaluation and recommendation. Will hold off Plavix. Monitor H&H. Further PEG tube evaluation and management per surgery Dr. Zuñiga's recommendation. - On Jevity tube feeds - Dysarthria- MG labs are negative and no new stroke on MRI brain - Stroke prevention: no new stroke on MRI brain during this inpatient admission, on ASA 81 mg PO once daily, and Lipitor 40mg - DVT prophylaxis: SCDs, Lovenox restarted today (10/17/18) after surgery clearance from Dr. Zuñiga - Fall precautions - Hx of Hypertension: Continue home dose of amlodipine 10 mg - Hx of bladder cancer s/p tumor resection with recurrence - Follows with Dr. Bunn. - Hx of Depression: continue home citalopram regimen.
[2018-10-17] MEDS: Jevity 1.5 1,000 ML 50 ML GT (15:06)
[2018-10-17 18:47] VITALS: BP 113/70; PULSE 66; RESP 18; TEMP 36.9; O2SAT 95
[2018-10-17 20:00] VITALS: PULSE 66; RESP 18; O2SAT 95; BMI 21.4
[2018-10-17] MEDS: Glycerin/Hypromellose/PEG400 15 ml Bottle 1 DRP EACH EYE (20:44)
[2018-10-17] MEDS: Atorvastatin Calcium 40 MG Tablet NG (20:45)
[2018-10-17] MEDS: LORazepam 0.5 MG Tablet 0.25 MG NG (20:46)
--- NOTE | 2018-10-18 06:32 | NURSING ---
Reviewed and agree with LPNs fims and handoff
[2018-10-18 07:00] VITALS: BP 113/70; PULSE 66; RESP 18; TEMP 36.9; O2SAT 95
[2018-10-18] MEDS: amLODIPine 10 MG Tablet NG (09:01)
[2018-10-18] MEDS: Cyanocobalamin 500 MCG Tablet 1000 MCG NG (09:01)
[2018-10-18] MEDS: Citalopram 20 MG Tablet NG (09:01)
[2018-10-18] MEDS: Acetaminophen 650 MG/20 ML UDC NG ×2 (09:01→17:26)
[2018-10-18] MEDS: Aspirin 81 MG TAB.CHEW GT (09:01)
[2018-10-18] MEDS: Enoxaparin 40 MG/0.4 ML Syringe SC (09:02)
[2018-10-18] MEDS: Glycerin/Hypromellose/PEG400 15 ml Bottle 1 DRP EACH EYE ×2 (09:02→21:35)
[2018-10-18] MEDS: NYSTATIN 500,000 UNIT/5 ML UDC 500000 UNIT PO ×3 (09:11→20:36)
--- NOTE | 2018-10-18 10:06 | PCM.PN.HOSP ---
Patient Problems: Active and Suspected Problems (Last Reviewed 10/02/18 @ 10:31 by Johnathon Carl MD) Dysphagia (Acute) Subjective: Patient seen her overall speech appears to be improving. Objective: GENERAL: cooperative HEENT: Atraumatic; EYES; Anicteric, Normal Conjunctiva NECK; supple, normal thyroid, RESPIRATORY: Diminished to auscultation bilaterally, CARDIOVASCULAR: Regular S1 S2, no audible murmurs GI: soft, non-tender, normoactive bowel sounds, : No Renal angle tenderness; NEURO: Awake; left facial droop SKIN: No Rash PSYCH; flat affect Vitals/I&O's: Vital Signs Temp Pulse Resp BP Pulse Ox 98.4 F 66 18 113/70 95 10/18/18 07:00 10/18/18 07:00 10/18/18 07:00 10/18/18 07:00 10/18/18 07:00 Oxygen Delivery Method Room Air Weight: 63.6 kg Body Mass Index (BMI) 21.4 Finger Stick Blood Glucose 111 Intake and Output for Last 24 Hours 10/16/18 10/17/18 10/18/18 23:59 23:59 23:59 Intake Total 2228 / 2228 2565 / 2565 389 / 389 Output Total 100 / 100 Balance 2128 / 2128 2565 / 2565 389 / 389 Current Medications Acetaminophen (Tylenol Liquid) 650 mg NG Q6H PRN PRN PRN Reason: Mild Pain (0-3/10)/Headache Last Admin: 10/18/18 09:01 Dose: 650 mg Amlodipine Besylate (Norvasc) 10 mg NG DAILY [facility] Last Admin: 10/18/18 09:01 Dose: 10 mg Aspirin (Aspirin, Baby) 81 mg GT DAILY [facility] Last Admin: 10/18/18 09:01 Dose: 81 mg Atorvastatin Calcium (Lipitor) 40 mg NG QHS [facility] Last Admin: 10/17/18 20:45 Dose: 40 mg Bisacodyl (Dulcolax) 10 mg RECTAL .PRN X 1 PRN PRN Reason: Constipation Citalopram Hydrobromide (Celexa) 20 mg NG DAILY [facility] Last Admin: 10/18/18 09:01 Dose: 20 mg Cyanocobalamin (Vitamin B12) 1,000 mcg NG DAILY [facility] Last Admin: 10/18/18 09:01 Dose: 1,000 mcg Docusate Sodium (Colace Syrup) 200 mg NG BID PRN PRN Reason: Constipation Enoxaparin Sodium (Lovenox) 40 mg SC DAILY [facility] Last Admin: 10/18/18 09:02 Dose: 40 mg Ergocalciferol (Vitamin D) 50,000 unit PO QWEEK [facility] Last Admin: 10/15/18 08:33 Dose: Not Given Enteral Nutritional Formula (Jevity 1.5) 1,000 mls @ 50 mls/hr GT .Q20H JJ Last Admin: 10/17/18 15:06 Dose: 50 mls/hr Lorazepam (Ativan) 0.25 mg NG QHS JJ Last Admin: 10/17/18 20:46 Dose: 0.25 mg Magnesium Hydroxide (Milk Of Magnesia) 30 ml NG .PRN X 1 PRN PRN Reason: Constipation Last Admin: 10/13/18 02:16 Dose: 30 ml Nystatin (Nystatin) 500,000 unit PO 4X/DAY [facility] Last Admin: 10/18/18 09:11 Dose: 500,000 unit Oxycodone HCl (Oxyir) 5 - 10 mg GT Q6H PRN PRN PRN Reason: SEVERE PAIN (6-10/10) Last Admin: 10/16/18 10:30 Dose: 5 mg Sodium Chloride ([place] Nasal [place]) 1 spray NASAL BID [facility] Last Admin: 10/18/18 09:02 Dose: Not Given Medical Necessity - Tobacco Use Smoking Status: Former smoker Assessment/Plan All Active Problems (Last Reviewed 10/02/18 @ 10:31 by Johnathon Carl MD) PEG tube malfunction (Acute) Dysphagia (Acute) CVA (cerebral vascular accident) (Acute) Patient is a 83-year-old lady with previous CVA admitted with dysarthria patient admitted to a monitored bed for subsequent management patient condition was stabilized and subsequently transferred to the inpatient rehab unit to continue with her recuperation 1. Acute ischemic CVA patient has been admitted to the inpatient rehab unit where she is currently undergoing PT and OT. Patient dual antiplatelet therapy discontinued after she bled from her PEG tube site currently on aspirin and Lovenox for DVT prophylaxis 2. Dysphagia secondary to acute CVA. Patient underwent PEG tube placement by Dr. Zuñiga on 10/12/2018. 3. Dyslipidemia-patient is on statin therapy, continued at home dose 4. Essential hypertension-blood pressure controlled, home medications continued with dose adjustment as needed 5. Depression with anxiety 6. Physical debility 7. DVT prophylaxis SC Lovenox Active Medications Acetaminophen (Tylenol Liquid) 650 mg NG Q6H PRN PRN PRN Reason: Mild Pain (0-3/10)/Headache Last Admin: 10/18/18 09:01 Dose: 650 mg Amlodipine Besylate (Norvasc) 10 mg NG DAILY [facility] Last Admin: 10/18/18 09:01 Dose: 10 mg Aspirin (Aspirin, Baby) 81 mg GT DAILY [facility] Last Admin: 10/18/18 09:01 Dose: 81 mg Atorvastatin Calcium (Lipitor) 40 mg NG QHS [facility] Last Admin: 10/17/18 20:45 Dose: 40 mg Bisacodyl (Dulcolax) 10 mg RECTAL .PRN X 1 PRN PRN Reason: Constipation Citalopram Hydrobromide (Celexa) 20 mg NG DAILY [facility] Last Admin: 10/18/18 09:01 Dose: 20 mg Cyanocobalamin (Vitamin B12) 1,000 mcg NG DAILY [facility] Last Admin: 10/18/18 09:01 Dose: 1,000 mcg Docusate Sodium (Colace Syrup) 200 mg NG BID PRN PRN Reason: Constipation Enoxaparin Sodium (Lovenox) 40 mg SC DAILY [facility] Last Admin: 10/18/18 09:02 Dose: 40 mg Ergocalciferol (Vitamin D) 50,000 unit PO QWEEK [facility] Last Admin: 10/15/18 08:33 Dose: Not Given Enteral Nutritional Formula (Jevity 1.5) 1,000 mls @ 50 mls/hr GT .Q20H [facility] Last Admin: 10/17/18 15:06 Dose: 50 mls/hr Lorazepam (Ativan) 0.25 mg NG QHS [facility] Last Admin: 10/17/18 20:46 Dose: 0.25 mg Magnesium Hydroxide (Milk Of Magnesia) 30 ml NG .PRN X 1 PRN PRN Reason: Constipation Last Admin: 10/13/18 02:16 Dose: 30 ml Nystatin (Nystatin) 500,000 unit PO 4X/DAY [facility] Last Admin: 10/18/18 09:11 Dose: 500,000 unit Oxycodone HCl (Oxyir) 5 - 10 mg GT Q6H PRN PRN PRN Reason: SEVERE PAIN (-09/06) Last Admin: 10/16/18 10:30 Dose: 5 mg Sodium Chloride ([place] Nasal [place]) 1 spray NASAL BID JJ Last Admin: 10/18/18 09:02 Dose: Not Given Code Visit Inpatient E&M: 22937 Subs Hosp L2
[2018-10-18 12:03] LABS: Hemoglobin 12.7 g/dl (12.0-15.0)
--- NOTE | 2018-10-18 12:16 | PCM.PN.NEU ---
Patient Problems: Active and Suspected Problems (Last Reviewed 10/02/18 @ 10:31 by Johnathon Carl MD) Dysphagia (Acute) Subjective: No Issues overnight. Care discussed with nursing staff. - Physical Exam General: Alert HEENT: Normocephalic Neck: Supple Lungs: Clear to auscultation, Normal air movement Cardiovascular: Normal S1, Normal S2 Abdomen: Bowel Sounds Present, Non Tender Extremities: No cyanosis Neurological: - - consious, alert, AoAx3, CN 2-12 grossly intact, moves all 4 extremities, denies any sensory loss, no cerebellar signs, Reflexes + B/L B/S/T/K/A, gait deferred, dysarthria present Psych/Mental Status: Normal Affect Vital Signs Temp Pulse Resp BP Pulse Ox 98.4 F 66 18 113/70 95 10/18/18 07:00 10/18/18 07:00 10/18/18 07:00 10/18/18 07:00 10/18/18 07:00 Oxygen Delivery Method Room Air Weight: 63.6 kg Body Mass Index (BMI) 21.4 Finger Stick Blood Glucose 111 Intake and Output for Last 24 Hours 10/16/18 10/17/18 10/18/18 23:59 23:59 23:59 Intake Total 2228 / 2228 2565 / 2565 389 / 389 Output Total 100 / 100 Balance 2128 / 2128 2565 / 2565 389 / 389 Laboratory Tests Past 24 Hrs 10/18/18 11:50 Hgb 12.7 Medical Necessity - Tobacco Use Smoking Status: Former smoker Assessment/Plan All Active Problems (Last Reviewed 10/02/18 @ 10:31 by Johnathon Carl MD) PEG tube malfunction (Acute) Dysphagia (Acute) CVA (cerebral vascular accident) (Acute) 83 F with PMH HTN, depression, recurrent bladder cancer, 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 MRI brain done on 10/02/18 did not show any acute stroke, CTA head/neck did not report any hemodynamic significant stenosis or occlusion. on Plavix and on statins. Patient had barium swallow done following admission to rehab which showed silent aspiration. Prior to PEG placement Plavix was stopped for about 5 days and she was started on ASA. S/P PEG placement on 10/12/18, complicated later by PEG site bleeding and clot formation. ASA/Plavix was started initially after PEG placement and DVT prophylaxis with Lovenox was also started but then was held following PEG site bleeding. ASA restarted 10/16/18, restarted Lovenox for DVT prophylaxis (10/17/18) following Dr. Zuñiga's evaluation and recommendations. Will hold off on Plavix given the PEG site bleeding with clot formation Plan - Physical therapy for gait and balance - Occupational Therapy for ADLs - Speech therapy for dysarthria, swallow evaluation by ST - As needed analgesics - Bowel protocol - S/P PEG tube 10/12/18- complicated by PEG site bleeding and clot formation. Restarted on ASA (10/16/18) following surgery evaluation and recommendation. Will hold off Plavix. Monitor H&H. Further PEG tube evaluation and management per surgery Dr. Zuñiga's recommendation. - On Jevity tube feeds - Dysarthria- MG labs are negative and no new stroke on MRI brain - Stroke prevention: no new stroke on MRI brain during this inpatient admission, on ASA 81 mg PO once daily, and Lipitor 40mg - DVT prophylaxis: SCDs, Lovenox restarted (10/17/18) after surgery clearance from Dr. Zuñiga - Fall precautions - Hx of Hypertension: Continue home dose of amlodipine 10 mg - Hx of bladder cancer s/p tumor resection with recurrence - Follows with Dr. Bunn. - Hx of Depression: continue home citalopram regimen.
[2018-10-18] MEDS: Jevity 1.5 1,000 ML 50 ML GT (13:16)
--- NOTE | 2018-10-18 14:26 | CASEMGMT ---
Social Work PASRR completed in [facility]. Notified patient and patient family that the [facility] is approving for patient to be admitted on 10/25/18. Transfer form initiated. Proposed discharge date: 10/25/18 PLAN: Discharge to [facility]. Annmarie Russo, [employer], [employer]
[2018-10-18 15:16] VITALS: BMI 21.4
[2018-10-18] MEDS: Atorvastatin Calcium 40 MG Tablet NG (20:36)
[2018-10-18] MEDS: LORazepam 0.5 MG Tablet 0.25 MG NG (20:40)
[2018-10-18] MEDS: Jevity 1.5. 1,000 ML Bottle 120 ML GT (21:33)
[2018-10-18 22:00] VITALS: BP 114/72; PULSE 60; RESP 17; TEMP 36.6; O2SAT 95
[2018-10-19 00:44] VITALS: BMI 21.4
[2018-10-19] MEDS: Jevity 1.5. 1,000 ML Bottle 120 ML GT ×4 (05:46→16:44)
[2018-10-19 07:24] VITALS: BP 126/60; PULSE 58; RESP 20; TEMP 36.7; O2SAT 95
[2018-10-19] MEDS: Aspirin 81 MG TAB.CHEW GT (09:19)
[2018-10-19] MEDS: Citalopram 20 MG Tablet NG (09:19)
[2018-10-19] MEDS: Enoxaparin 40 MG/0.4 ML Syringe SC (09:19)
[2018-10-19] MEDS: amLODIPine 10 MG Tablet NG (09:19)
[2018-10-19] MEDS: Cyanocobalamin 500 MCG Tablet 1000 MCG NG (09:19)
[2018-10-19] MEDS: NYSTATIN 500,000 UNIT/5 ML UDC 500000 UNIT PO ×4 (09:20→21:26)
[2018-10-19 13:08] VITALS: BMI 21.4
[2018-10-19 19:41] VITALS: BP 100/52; PULSE 64; RESP 20; TEMP 37.1; O2SAT 95
[2018-10-19] MEDS: Glycerin/Hypromellose/PEG400 15 ml Bottle 1 DRP EACH EYE (21:26)
[2018-10-19] MEDS: Atorvastatin Calcium 40 MG Tablet NG (21:26)
[2018-10-19] MEDS: LORazepam 0.5 MG Tablet 0.25 MG NG (21:27)
[2018-10-19] MEDS: Jevity 1.5. 1,000 ML Bottle 240 ML GT (21:29)
[2018-10-20 05:00] VITALS: BMI 21.4
[2018-10-20] MEDS: Jevity 1.5. 1,000 ML Bottle 240 ML GT ×5 (05:47→21:21)
--- NOTE | 2018-10-20 07:26 | PN_ITS ---
Patient Problems: Active and Suspected Problems (Last Reviewed 10/02/18 @ 10:31 by Johnathon Carl MD) Dysphagia (Acute) Subjective: Patient still has some bleeding around her PEG tube site Objective: GENERAL: cooperative HEENT: Atraumatic; EYES; Anicteric, Normal Conjunctiva NECK; supple, normal thyroid, RESPIRATORY: Diminished to auscultation bilaterally, CARDIOVASCULAR: Regular S1 S2, no audible murmurs GI: soft, non-tender, normoactive bowel sounds, : No Renal angle tenderness; NEURO: Awake; left facial droop SKIN: No Rash PSYCH; flat affect Vitals/I&O's: Vital Signs Temp Pulse Resp BP Pulse Ox 98.8 F 64 20 H 100/52 L 95 10/19/18 19:41 10/19/18 19:41 10/19/18 19:41 10/19/18 19:41 10/19/18 19:41 Oxygen Delivery Method Room Air Weight: 61.9 kg Body Mass Index (BMI) 21.4 Finger Stick Blood Glucose 111 Intake and Output for Last 24 Hours 10/18/18 10/19/18 10/20/18 23:59 23:59 23:59 Intake Total 2309 / 2309 1050 / 1050 420 / 420 Output Total 300 / 300 Balance 2008 1050 / 1050 420 / 420 Current Medications Acetaminophen (Tylenol Liquid) 650 mg NG Q6H PRN PRN PRN Reason: Mild Pain (0-3/10)/Headache Last Admin: 10/18/18 17:26 Dose: 650 mg Amlodipine Besylate (Norvasc) 10 mg NG DAILY [facility] Last Admin: 10/19/18 09:19 Dose: 10 mg Aspirin (Aspirin, Baby) 81 mg GT DAILY [facility] Last Admin: 10/19/18 09:19 Dose: 81 mg Atorvastatin Calcium (Lipitor) 40 mg NG QHS [facility] Last Admin: 10/19/18 21:26 Dose: 40 mg Bisacodyl (Dulcolax) 10 mg RECTAL .PRN X 1 PRN PRN Reason: Constipation Citalopram Hydrobromide (Celexa) 20 mg NG DAILY [facility] Last Admin: 10/19/18 09:19 Dose: 20 mg Cyanocobalamin (Vitamin B12) 1,000 mcg NG DAILY [facility] Last Admin: 10/19/18 09:19 Dose: 1,000 mcg Docusate Sodium (Colace Syrup) 200 mg NG BID PRN PRN Reason: Constipation Enoxaparin Sodium (Lovenox) 40 mg SC DAILY [facility] Last Admin: 10/19/18 09:19 Dose: 40 mg Enteral Nutritional Formula (Jevity 1.5) 240 ml GT QHS [facility] Last Admin: 10/19/18 21:29 Dose: 240 ml Enteral Nutritional Formula (Jevity 1.5) 240 ml GT 0600,1000,1400,1600 [facility] Last Admin: 10/20/18 05:47 Dose: 240 ml Ergocalciferol (Vitamin D) 50,000 unit PO QWEEK [facility] Last Admin: 10/15/18 08:33 Dose: Not Given Lorazepam (Ativan) 0.25 mg NG QHS [facility] Last Admin: 10/19/18 21:27 Dose: 0.25 mg Magnesium Hydroxide (Milk Of Magnesia) 30 ml NG .PRN X 1 PRN PRN Reason: Constipation Last Admin: 10/13/18 02:16 Dose: 30 ml Nystatin (Nystatin) 500,000 unit PO 4X/DAY [facility] Last Admin: 10/19/18 21:26 Dose: 500,000 unit Oxycodone HCl (Oxyir) 5 - 10 mg GT Q6H PRN PRN PRN Reason: SEVERE PAIN (6-10/10) Last Admin: 10/16/18 10:30 Dose: 5 mg Sodium Chloride ([place] Nasal [place]) 1 spray NASAL BID [facility] Last Admin: 10/19/18 21:26 Dose: Not Given Medical Necessity - Tobacco Use Smoking Status: Former smoker Assessment/Plan All Active Problems (Last Reviewed 10/02/18 @ 10:31 by Johnathon Carl MD) PEG tube malfunction (Acute) Dysphagia (Acute) CVA (cerebral vascular accident) (Acute) Patient is a 83-year-old lady with previous CVA admitted with dysarthria patient admitted to a monitored bed for subsequent management patient condition was stabilized and subsequently transferred to the inpatient rehab unit to continue with her recuperation 1. Acute ischemic CVA patient has been admitted to the inpatient rehab unit where she is currently undergoing PT and OT. Patient dual antiplatelet therapy discontinued after she bled from her PEG tube site currently on aspirin and Lovenox for DVT prophylaxis 2. Dysphagia secondary to acute CVA. Patient underwent PEG tube placement by Dr. Zuñiga on 10/12/2018. 3. Dyslipidemia-patient is on statin therapy, continued at home dose 4. Essential hypertension-blood pressure controlled, home medications continued with dose adjustment as needed 5. Depression with anxiety 6. Physical debility 7. DVT prophylaxis SC Lovenox Active Medications Acetaminophen (Tylenol Liquid) 650 mg NG Q6H PRN PRN PRN Reason: Mild Pain (0-3/10)/Headache Last Admin: 10/18/18 09:01 Dose: 650 mg Amlodipine Besylate (Norvasc) 10 mg NG DAILY [facility] Last Admin: 10/18/18 09:01 Dose: 10 mg Aspirin (Aspirin, Baby) 81 mg GT DAILY [facility] Last Admin: 10/18/18 09:01 Dose: 81 mg Atorvastatin Calcium (Lipitor) 40 mg NG QHS [facility] Last Admin: 10/17/18 20:45 Dose: 40 mg Bisacodyl (Dulcolax) 10 mg RECTAL .PRN X 1 PRN PRN Reason: Constipation Citalopram Hydrobromide (Celexa) 20 mg NG DAILY [facility] Last Admin: 10/18/18 09:01 Dose: 20 mg Cyanocobalamin (Vitamin B12) 1,000 mcg NG DAILY [facility] Last Admin: 10/18/18 09:01 Dose: 1,000 mcg Docusate Sodium (Colace Syrup) 200 mg NG BID PRN PRN Reason: Constipation Enoxaparin Sodium (Lovenox) 40 mg SC DAILY [facility] Last Admin: 10/18/18 09:02 Dose: 40 mg Ergocalciferol (Vitamin D) 50,000 unit PO QWEEK [facility] Last Admin: 10/15/18 08:33 Dose: Not Given Enteral Nutritional Formula (Jevity 1.5) 1,000 mls @ 50 mls/hr GT .Q20H [facility] Last Admin: 10/17/18 15:06 Dose: 50 mls/hr Lorazepam (Ativan) 0.25 mg NG QHS [facility] Last Admin: 10/17/18 20:46 Dose: 0.25 mg Magnesium Hydroxide (Milk Of Magnesia) 30 ml NG .PRN X 1 PRN PRN Reason: Constipation Last Admin: 10/13/18 02:16 Dose: 30 ml Nystatin (Nystatin) 500,000 unit PO 4X/DAY [facility] Last Admin: 10/18/18 09:11 Dose: 500,000 unit Oxycodone HCl (Oxyir) 5 - 10 mg GT Q6H PRN PRN PRN Reason: SEVERE PAIN (-09/06) Last Admin: 10/16/18 10:30 Dose: 5 mg Sodium Chloride ([place] Nasal [place]) 1 spray NASAL BID [facility] Last Admin: 10/18/18 09:02 Dose: Not Given Code Visit Inpatient E&M: 49664 Subs Hosp L2
--- NOTE | 2018-10-20 08:16 | PCM.PN.BLA ---
Progress Note I stopped in the rehab unit yesterday and it was noted that the patient had some mild bleeding during ambulation. The clot is still adherent to the G-tube. I would recommend continuing to hold the Plavix until she can make it 48 hours without any bleeding. Continue aspirin and Lovenox. Continue tube feeds. Prieto Zuñiga MD Pager: [facility] [address] [place] [address] [address] [place] [address] Office:
[2018-10-20 08:30] VITALS: BP 104/58; PULSE 60; RESP 17; TEMP 36.8; O2SAT 95
[2018-10-20] MEDS: NYSTATIN 500,000 UNIT/5 ML UDC 500000 UNIT PO ×4 (09:01→21:19)
[2018-10-20] MEDS: Glycerin/Hypromellose/PEG400 15 ml Bottle 1 DRP EACH EYE ×2 (09:01→21:18)
[2018-10-20] MEDS: Cyanocobalamin 500 MCG Tablet 1000 MCG NG (09:01)
[2018-10-20] MEDS: Enoxaparin 40 MG/0.4 ML Syringe SC (09:01)
[2018-10-20] MEDS: Aspirin 81 MG TAB.CHEW GT (09:01)
[2018-10-20] MEDS: Acetaminophen 650 MG/20 ML UDC NG ×2 (09:01→21:18)
[2018-10-20] MEDS: Citalopram 20 MG Tablet NG (09:01)
[2018-10-20] MEDS: amLODIPine 10 MG Tablet NG (09:02)
--- NOTE | 2018-10-20 11:53 | PN.NEURO_ITS ---
Patient Problems: Active and Suspected Problems (Last Reviewed 10/02/18 @ 10:31 by Johnathon Carl MD) Dysphagia (Acute) Subjective: No Issues overnight. Care discussed with nursing staff. - Physical Exam General: Alert HEENT: Normocephalic Neck: Supple Lungs: Normal air movement Cardiovascular: Normal S1, Normal S2 Abdomen: Bowel Sounds Present Extremities: No cyanosis Neurological: - - consious, alert, AoAx3, CN 2-12 grossly intact, moves all 4 extremities, denies any sensory loss, no cerebellar signs, Reflexes + B/L B/S/T/K/A, gait deferred, dysarthria present Psych/Mental Status: Normal Affect Vital Signs Temp Pulse Resp BP Pulse Ox 98.8 F 64 20 H 100/52 L 95 10/19/18 19:41 10/19/18 19:41 10/19/18 19:41 10/19/18 19:41 10/19/18 19:41 Oxygen Delivery Method Room Air Weight: 61.9 kg Body Mass Index (BMI) 21.4 Finger Stick Blood Glucose 111 Intake and Output for Last 24 Hours 10/18/18 10/19/18 10/20/18 23:59 23:59 23:59 Intake Total 2309 / 2309 1050 / 1050 420 / 420 Output Total 300 / 300 Balance 2008 1050 / 1050 420 / 420 Medical Necessity - Tobacco Use Smoking Status: Former smoker Assessment/Plan All Active Problems (Last Reviewed 10/02/18 @ 10:31 by Johnathon Carl MD) PEG tube malfunction (Acute) Dysphagia (Acute) CVA (cerebral vascular accident) (Acute) 83 F with PMH HTN, depression, recurrent bladder cancer, 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 MRI brain done on 10/02/18 did not show any acute stroke, CTA head/neck did not report any hemodynamic significant stenosis or occlusion. on Plavix and on statins. Patient had barium swallow done following admission to rehab which showed silent aspiration. Prior to PEG placement Plavix was stopped for about 5 days and she was started on ASA. S/P PEG placement on 10/12/18, complicated later by PEG site bleeding and clot formation. ASA/Plavix was started initially after PEG placement and DVT prophylaxis with Lovenox was also started but then was held following PEG site bleeding. ASA restarted 10/16/18, restarted Lovenox for DVT prophylaxis (10/17/18) following Dr. Zuñiga's evaluation and recommendations. Will hold off on Plavix given the PEG site bleeding with clot formation Plan - Physical therapy for gait and balance - Occupational Therapy for ADLs - Speech therapy for dysarthria, swallow evaluation by ST - As needed analgesics - Bowel protocol - S/P PEG tube 10/12/18- complicated by PEG site bleeding and clot formation. Restarted on ASA (10/16/18) following surgery evaluation and recommendation. W ill hold off Plavix. H&H stable. Further PEG tube evaluation and management per surgery Dr. Zuñiga's recommendation. - On Jevity tube feeds - Dysarthria- MG labs are negative and no new stroke on MRI brain - Stroke prevention: no new stroke on MRI brain during this inpatient admission, on ASA 81 mg PO once daily, and Lipitor 40mg - DVT prophylaxis: SCDs, Lovenox restarted (10/17/18) after surgery clearance from Dr. Zuñiga - Fall precautions - Hx of Hypertension: Continue home dose of amlodipine 10 mg - Hx of bladder cancer s/p tumor resection with recurrence - Follows with Dr. Bunn. - Hx of Depression: continue home citalopram regimen.
[2018-10-20 14:13] VITALS: BMI 21.4
[2018-10-20 18:41] VITALS: BP 104/60; PULSE 65; RESP 18; TEMP 36.3; O2SAT 95
[2018-10-20 20:13] VITALS: BP 106/64; PULSE 68; RESP 17; TEMP 36.6; O2SAT 94
[2018-10-20 20:17] VITALS: BMI 21.4
[2018-10-20] MEDS: LORazepam 0.5 MG Tablet 0.25 MG NG (21:19)
[2018-10-20] MEDS: Atorvastatin Calcium 40 MG Tablet NG (21:19)
[2018-10-21] MEDS: Acetaminophen 650 MG/20 ML UDC NG ×2 (05:14→21:33)
[2018-10-21] MEDS: Jevity 1.5. 1,000 ML Bottle 240 ML GT ×5 (05:15→21:36)
--- NOTE | 2018-10-21 06:34 | NURSING ---
PEG dressing removed with moderate sanguineous drainage. Site cleansed and clean dressing applied. Dressing was dry and intact till pt was up maneuvering with a.m. ADLs.
[2018-10-21 07:00] VITALS: BP 102/56; PULSE 56; RESP 18; TEMP 36.6; O2SAT 95
--- NOTE | 2018-10-21 08:00 | NURSING ---
Dr. Zuñiga in to see patient and examined and changed peg tube dressing site. NNO's. Patient denies discomfort.
[2018-10-21] MEDS: Cyanocobalamin 500 MCG Tablet 1000 MCG NG (10:35)
[2018-10-21] MEDS: Aspirin 81 MG TAB.CHEW GT (10:35)
[2018-10-21] MEDS: Enoxaparin 40 MG/0.4 ML Syringe SC (10:35)
[2018-10-21] MEDS: amLODIPine 10 MG Tablet NG (10:35)
[2018-10-21] MEDS: Citalopram 20 MG Tablet NG (10:35)
[2018-10-21] MEDS: NYSTATIN 500,000 UNIT/5 ML UDC 500000 UNIT PO ×4 (10:36→21:36)
[2018-10-21 16:15] VITALS: BMI 21.4
[2018-10-21 18:54] VITALS: BP 101/56; PULSE 74; RESP 18; TEMP 36.9; O2SAT 100
[2018-10-21 19:49] VITALS: BMI 21.4
[2018-10-21] MEDS: Glycerin/Hypromellose/PEG400 15 ml Bottle 1 DRP EACH EYE (21:33)
[2018-10-21] MEDS: LORazepam 0.5 MG Tablet 0.25 MG NG (21:34)
[2018-10-21] MEDS: Atorvastatin Calcium 40 MG Tablet NG (21:36)
--- NOTE | 2018-10-21 23:39 | NURSING ---
STEWARD DISHWASHER walked pt around unit per pt request. Pt feeling uncomfortable in bed and felt better getting out of bed to walk.
[2018-10-22] MEDS: Glycerin/Hypromellose/PEG400 15 ml Bottle 1 DRP EACH EYE ×3 (06:13→20:59)
[2018-10-22] MEDS: Acetaminophen 650 MG/20 ML UDC NG (06:13)
[2018-10-22] MEDS: Jevity 1.5. 1,000 ML Bottle 240 ML GT ×5 (06:14→21:03)
[2018-10-22 07:03] VITALS: BP 106/62; PULSE 60; RESP 16; TEMP 36.6; O2SAT 100
[2018-10-22] MEDS: amLODIPine 10 MG Tablet NG (10:43)
[2018-10-22] MEDS: Cyanocobalamin 500 MCG Tablet 1000 MCG NG (10:43)
[2018-10-22] MEDS: Citalopram 20 MG Tablet NG (10:44)
[2018-10-22] MEDS: Aspirin 81 MG TAB.CHEW GT (10:44)
[2018-10-22] MEDS: Enoxaparin 40 MG/0.4 ML Syringe SC (10:44)
[2018-10-22] MEDS: NYSTATIN 500,000 UNIT/5 ML UDC 500000 UNIT PO ×4 (10:44→21:00)
--- NOTE | 2018-10-22 12:50 | PCM.PN.HOSP ---
Patient Problems: Active and Suspected Problems (Last Reviewed 10/02/18 @ 10:31 by Johnathon Carl MD) Dysphagia (Acute) Subjective: Patient seen participating in physical therapy plan is for patient to be transferred to a detention facility on 10/25/2018. Objective: GENERAL: cooperative HEENT: Atraumatic; EYES; Anicteric, Normal Conjunctiva NECK; supple, normal thyroid, RESPIRATORY: Diminished to auscultation bilaterally, CARDIOVASCULAR: Regular S1 S2, no audible murmurs GI: soft, non-tender, normoactive bowel sounds, : No Renal angle tenderness; NEURO: Awake; left facial droop SKIN: No Rash PSYCH; flat affect Vitals/I&O's: Vital Signs Temp Pulse Resp BP Pulse Ox 97.8 F 58 L 16 106/62 100 10/22/18 07:03 10/22/18 07:03 10/22/18 07:03 10/22/18 07:03 10/22/18 07:03 Oxygen Delivery Method Room Air Weight: 62.5 kg Body Mass Index (BMI) 21.4 Finger Stick Blood Glucose 111 Intake and Output for Last 24 Hours 10/20/18 10/21/18 10/22/18 23:59 23:59 23:59 Intake Total 3420 / 3420 3000 / 3000 420 / 420 Output Total 300 / 300 Balance 3120 / 3120 3000 / 3000 420 / 420 Current Medications Acetaminophen (Tylenol Liquid) 650 mg NG Q6H PRN PRN PRN Reason: Mild Pain (0-3/10)/Headache Last Admin: 10/22/18 06:13 Dose: 650 mg Amlodipine Besylate (Norvasc) 10 mg NG DAILY [facility] Last Admin: 10/22/18 10:43 Dose: 10 mg Aspirin (Aspirin, Baby) 81 mg GT DAILY [facility] Last Admin: 10/22/18 10:44 Dose: 81 mg Atorvastatin Calcium (Lipitor) 40 mg NG QHS [facility] Last Admin: 10/21/18 21:36 Dose: 40 mg Bisacodyl (Dulcolax) 10 mg RECTAL .PRN X 1 PRN PRN Reason: Constipation Citalopram Hydrobromide (Celexa) 20 mg NG DAILY [facility] Last Admin: 10/22/18 10:44 Dose: 20 mg Cyanocobalamin (Vitamin B12) 1,000 mcg NG DAILY [facility] Last Admin: 10/22/18 10:43 Dose: 1,000 mcg Docusate Sodium (Colace Syrup) 200 mg NG BID PRN PRN Reason: Constipation Enoxaparin Sodium (Lovenox) 40 mg SC DAILY [facility] Last Admin: 10/22/18 10:44 Dose: 40 mg Enteral Nutritional Formula (Jevity 1.5) 240 ml GT QHS [facility] Last Admin: 10/21/18 21:36 Dose: 240 ml Enteral Nutritional Formula (Jevity 1.5) 240 ml GT 0600,1000,1400,1600 [facility] Last Admin: 10/22/18 10:44 Dose: 240 ml Ergocalciferol (Vitamin D) 50,000 unit PO QWEEK [facility] Last Admin: 10/15/18 08:33 Dose: Not Given Lorazepam (Ativan) 0.25 mg NG QHS [facility] Last Admin: 10/21/18 21:34 Dose: 0.25 mg Magnesium Hydroxide (Milk Of Magnesia) 30 ml NG .PRN X 1 PRN PRN Reason: Constipation Last Admin: 10/13/18 02:16 Dose: 30 ml Nystatin (Nystatin) 500,000 unit PO 4X/DAY [facility] Last Admin: 10/22/18 10:44 Dose: 500,000 unit Oxycodone HCl (Oxyir) 5 - 10 mg GT Q6H PRN PRN PRN Reason: SEVERE PAIN (6-10/10) Last Admin: 10/16/18 10:30 Dose: 5 mg Medical Necessity - Tobacco Use Smoking Status: Former smoker Assessment/Plan All Active Problems (Last Reviewed 10/02/18 @ 10:31 by Johnathon Carl MD) PEG tube malfunction (Acute) Dysphagia (Acute) CVA (cerebral vascular accident) (Acute) Patient is a 83-year-old lady with previous CVA admitted with dysarthria patient admitted to a monitored bed for subsequent management patient condition was stabilized and subsequently transferred to the inpatient rehab unit to continue with her recuperation 1. Acute ischemic CVA patient has been admitted to the inpatient rehab unit where she is currently undergoing PT and OT. Patient dual antiplatelet therapy discontinued after she bled from her PEG tube site currently on aspirin and Lovenox for DVT prophylaxis 2. Dysphagia secondary to acute CVA. Patient underwent PEG tube placement by Dr. Zuñiga on 10/12/2018. 3. Dyslipidemia-patient is on statin therapy, continued at home dose 4. Essential hypertension-blood pressure controlled, home medications continued with dose adjustment as needed 5. Depression with anxiety 6. Physical debility 7. DVT prophylaxis SC Lovenox Active Medications Acetaminophen (Tylenol Liquid) 650 mg NG Q6H PRN PRN PRN Reason: Mild Pain (0-3/10)/Headache Last Admin: 10/18/18 09:01 Dose: 650 mg Amlodipine Besylate (Norvasc) 10 mg NG DAILY [facility] Last Admin: 10/18/18 09:01 Dose: 10 mg Aspirin (Aspirin, Baby) 81 mg GT DAILY [facility] Last Admin: 10/18/18 09:01 Dose: 81 mg Atorvastatin Calcium (Lipitor) 40 mg NG QHS [facility] Last Admin: 10/17/18 20:45 Dose: 40 mg Bisacodyl (Dulcolax) 10 mg RECTAL .PRN X 1 PRN PRN Reason: Constipation Citalopram Hydrobromide (Celexa) 20 mg NG DAILY [facility] Last Admin: 10/18/18 09:01 Dose: 20 mg Cyanocobalamin (Vitamin B12) 1,000 mcg NG DAILY [facility] Last Admin: 10/18/18 09:01 Dose: 1,000 mcg Docusate Sodium (Colace Syrup) 200 mg NG BID PRN PRN Reason: Constipation Enoxaparin Sodium (Lovenox) 40 mg SC DAILY [facility] Last Admin: 10/18/18 09:02 Dose: 40 mg Ergocalciferol (Vitamin D) 50,000 unit PO QWEEK [facility] Last Admin: 10/15/18 08:33 Dose: Not Given Enteral Nutritional Formula (Jevity 1.5) 1,000 mls @ 50 mls/hr GT .Q20H [facility] Last Admin: 10/17/18 15:06 Dose: 50 mls/hr Lorazepam (Ativan) 0.25 mg NG QHS [facility] Last Admin: 10/17/18 20:46 Dose: 0.25 mg Magnesium Hydroxide (Milk Of Magnesia) 30 ml NG .PRN X 1 PRN PRN Reason: Constipation Last Admin: 10/13/18 02:16 Dose: 30 ml Nystatin (Nystatin) 500,000 unit PO 4X/DAY [facility] Last Admin: 10/18/18 09:11 Dose: 500,000 unit Oxycodone HCl (Oxyir) 5 - 10 mg GT Q6H PRN PRN PRN Reason: SEVERE PAIN (-09/06) Last Admin: 10/16/18 10:30 Dose: 5 mg Sodium Chloride ([place] Nasal [place]) 1 spray NASAL BID [facility] Last Admin: 10/18/18 09:02 Dose: Not Given Code Visit Inpatient E&M: 58705 Subs Hosp L2
[2018-10-22 16:08] VITALS: BMI 21.4
[2018-10-22 19:04] VITALS: BP 117/60; PULSE 64; RESP 16; TEMP 36.8; O2SAT 98
[2018-10-22 20:21] VITALS: BMI 21.4
[2018-10-22] MEDS: LORazepam 0.5 MG Tablet 0.25 MG NG (21:01)
[2018-10-22] MEDS: Atorvastatin Calcium 40 MG Tablet NG (21:02)
[2018-10-23] MEDS: Jevity 1.5. 1,000 ML Bottle 240 ML GT ×5 (06:18→22:59)
[2018-10-23] MEDS: Acetaminophen 650 MG/20 ML UDC NG (06:19)
[2018-10-23] MEDS: Glycerin/Hypromellose/PEG400 15 ml Bottle 1 DRP EACH EYE ×2 (06:50→20:55)
[2018-10-23 06:57] VITALS: BP 105/73; PULSE 54; RESP 17; TEMP 36.6; O2SAT 98
[2018-10-23 08:00] VITALS: BP 102/54; PULSE 64; RESP 20; TEMP 36.7; O2SAT 95
[2018-10-23] MEDS: Cyanocobalamin 500 MCG Tablet 1000 MCG NG (08:37)
[2018-10-23] MEDS: Aspirin 81 MG TAB.CHEW GT (08:37)
[2018-10-23] MEDS: NYSTATIN 500,000 UNIT/5 ML UDC 500000 UNIT PO (08:37)
[2018-10-23] MEDS: Citalopram 20 MG Tablet NG (08:38)
[2018-10-23] MEDS: Enoxaparin 40 MG/0.4 ML Syringe SC (08:38)
--- NOTE | 2018-10-23 10:19 | PCM.PN.NEU ---
Patient Problems: Active and Suspected Problems (Last Reviewed 10/02/18 @ 10:31 by Johnathon Carl MD) Dysphagia (Acute) Subjective: Patient staffed in team meeting. Family at bedside, questions answered. With Physical therapy, she is able to walk 1 to 2 lap around the unit without the walker at contact guard, and stand by assist with the walker. She is able to go up and down 6 steps using one hand rail at contact guard. She is able to come to a stand at standby assist. With Occupational therapy, she is able to do all her own personal care at stand by assist. She does require contact assistance for toileting at times. With Speech therapy, she has a repeat Swallow evaluation scheduled for today at 1pm. With Nursing her BP has been on the low side on her Norvasc will hold the dose for today, decrease dose to 5mg with hold parameters of hold for SBP <120. Her Plavix is still on hold 2/2 bleeding from PEG tube site may restart if she is free of bleeding for [address] Zuñiga. She has not had any bleeding for the last 72 hours, will restart Plavix tomorrow the . She is scheduled for discharge to a [facility] the [place] on Thursday 10/25 after 1pm. - Physical Exam General: Alert, Oriented x3, Cooperative HEENT: Atraumatic, PERRLA, EOMI, Normocephalic Neck: Supple, No JVD, Negative Carotid Bruits Lungs: Clear to auscultation, Normal air movement Cardiovascular: Regular rate, No murmurs Abdomen: Bowel Sounds Present, Soft, Non Tender Extremities: No edema, Capillary Refill Less than 3 Seconds Skin: No rashes, No breakdown Musculoskeletal: No Tenderness to Palpation of Joints or Extremities Neurological: Cranial nerves II-XII grossly intact Psych/Mental Status: Normal Affect, Appropriate, Alert and oriented to time, place, person, mood and affect Vital Signs Temp Pulse Resp BP Pulse Ox 98.1 F 64 20 H 102/54 L 95 10/23/18 08:00 10/23/18 08:00 10/23/18 08:00 10/23/18 08:00 10/23/18 08:00 Oxygen Delivery Method Room Air Weight: 63.8 kg Body Mass Index (BMI) 21.4 Finger Stick Blood Glucose 111 Intake and Output for Last 24 Hours 10/21/18 10/22/18 10/23/18 23:59 23:59 23:59 Intake Total 3000 / 3000 2160 / 2160 420 / 420 Balance 3000 / 3000 2160 / 2160 420 / 420 Active Medications Acetaminophen (Tylenol Liquid) 650 mg NG Q6H PRN PRN PRN Reason: Mild Pain (0-3/10)/Headache Last Admin: 10/23/18 06:19 Dose: 650 mg Amlodipine Besylate (Norvasc) 10 mg NG DAILY [facility] Last Admin: 10/23/18 09:50 Dose: Not Given Aspirin (Aspirin, Baby) 81 mg GT DAILY [facility] Last Admin: 10/23/18 08:37 Dose: 81 mg Atorvastatin Calcium (Lipitor) 40 mg NG QHS [facility] Last Admin: 10/22/18 21:02 Dose: 40 mg Bisacodyl (Dulcolax) 10 mg RECTAL .PRN X 1 PRN PRN Reason: Constipation Citalopram Hydrobromide (Celexa) 20 mg NG DAILY [facility] Last Admin: 10/23/18 08:38 Dose: 20 mg Cyanocobalamin (Vitamin B12) 1,000 mcg NG DAILY [facility] Last Admin: 10/23/18 08:37 Dose: 1,000 mcg Docusate Sodium (Colace Syrup) 200 mg NG BID PRN PRN Reason: Constipation Enoxaparin Sodium (Lovenox) 40 mg SC DAILY [facility] Last Admin: 10/23/18 08:38 Dose: 40 mg Enteral Nutritional Formula (Jevity 1.5) 240 ml GT QHS [facility] Last Admin: 10/22/18 21:03 Dose: 240 ml Enteral Nutritional Formula (Jevity 1.5) 240 ml GT 0600,1000,1400,1600 [facility] Last Admin: 10/23/18 06:18 Dose: 240 ml Ergocalciferol (Vitamin D) 50,000 unit PO QWEEK [facility] Last Admin: 10/22/18 14:33 Dose: 50,000 unit Lorazepam (Ativan) 0.25 mg NG QHS [facility] Last Admin: 10/22/18 21:01 Dose: 0.25 mg Magnesium Hydroxide (Milk Of Magnesia) 30 ml NG .PRN X 1 PRN PRN Reason: Constipation Last Admin: 10/13/18 02:16 Dose: 30 ml Oxycodone HCl (Oxyir) 5 - 10 mg GT Q6H PRN PRN PRN Reason: SEVERE PAIN (-09/06) Last Admin: 10/16/18 10:30 Dose: 5 mg Medical Necessity - Tobacco Use Smoking Status: Former smoker Assessment/Plan All Active Problems (Last Reviewed 10/02/18 @ 10:31 by Johnathon Carl MD) PEG tube malfunction (Acute) Dysphagia (Acute) CVA (cerebral vascular accident) (Acute) 83 F with PMH HTN, depression, recurrent bladder cancer, 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 MRI brain done on 10/02/18 did not show any acute stroke, CTA head/neck did not report any hemodynamic significant stenosis or occlusion. on Plavix and on statins. Patient had barium swallow done following admission to rehab which showed silent aspiration. Prior to PEG placement Plavix was stopped for about 5 days and she was started on ASA. S/P PEG placement on 10/12/18, complicated later by PEG site bleeding and clot formation. ASA/Plavix was started initially after PEG placement and DVT prophylaxis with Lovenox was also started but then was held following PEG site bleeding. ASA restarted 10/16/18, restarted Lovenox for DVT prophylaxis (10/17/18) following Dr. Zuñiga's evaluation and recommendations. Will hold off on Plavix given the PEG site bleeding with clot formation Plan - Physical therapy for gait and balance - Occupational Therapy for ADLs - Speech therapy for dysarthria, swallow evaluation by ST - As needed analgesics - Bowel protocol - S/P PEG tube 10/12/18- complicated by PEG site bleeding and clot formation. Restarted on ASA (10/16/18) following surgery evaluation and recommendation. Will hold off Plavix. H&H stable. Further PEG tube evaluation and management per surgery Dr. Zuñiga's recommendation. - On Jevity tube feeds - Dysarthria- MG labs are negative and no new stroke on MRI brain - Stroke prevention: no new stroke on MRI brain during this inpatient admission, on ASA 81 mg PO once daily, and Lipitor 40mg - DVT prophylaxis: SCDs, Lovenox restarted (10/17/18) after surgery clearance from Dr. Zuñiga - Fall precautions - Hx of Hypertension: Continue home dose of amlodipine 10 mg - Hx of bladder cancer s/p tumor resection with recurrence - Follows with Dr. Bunn. - Hx of Depression: continue home citalopram regimen. - Pending [facility] on [facility]/25 after 1300hrs - Restart Plavix 10/24.
--- NOTE | 2018-10-23 10:36 | PN.NEURO_ITS ---
Patient Problems: Active and Suspected Problems (Last Reviewed 10/02/18 @ 10:31 by Johnathon Carl MD) Dysphagia (Acute) Subjective: Patient staffed in team meeting. Family at bedside, questions answered. With Physical therapy, she is able to walk 1 to 2 lap around the unit without the walker at contact guard, and stand by assist with the walker. She is able to go up and down 6 steps using one hand rail at contact guard. She is able to come to a stand at standby assist. With Occupational therapy, she is able to do all her own personal care at stand by assist. She does require contact assistance for toileting at times. With Speech therapy, she has a repeat Swallow evaluation scheduled for today at 1pm. With Nursing her BP has been on the low side on her Norvasc will hold the dose for today, decrease dose to 5mg with hold parameters of hold for SBP <120. Her Plavix is still on hold 2/2 bleeding from PEG tube site may restart if she is free of bleeding for [address] Zuñiga. She has not had any bleeding for the last 72 hours, will restart Plavix tomorrow the . She is scheduled for discharge to a [facility] the [place] on Thursday 10/25 after 1pm. - Physical Exam General: Alert, Oriented x3, Cooperative HEENT: Atraumatic, PERRLA, EOMI, Normocephalic Neck: Supple, No JVD, Negative Carotid Bruits Lungs: Clear to auscultation, Normal air movement Cardiovascular: Regular rate, No murmurs Abdomen: Bowel Sounds Present, Soft, Non Tender Extremities: No edema, Capillary Refill Less than 3 Seconds Skin: No rashes, No breakdown Musculoskeletal: No Tenderness to Palpation of Joints or Extremities Neurological: Cranial nerves II-XII grossly intact Psych/Mental Status: Normal Affect, Appropriate, Alert and oriented to time, place, person, mood and affect Vital Signs Temp Pulse Resp BP Pulse Ox 98.1 F 64 20 H 102/54 L 95 10/23/18 08:00 10/23/18 08:00 10/23/18 08:00 10/23/18 08:00 10/23/18 08:00 Oxygen Delivery Method Room Air Weight: 63.8 kg Body Mass Index (BMI) 21.4 Finger Stick Blood Glucose 111 Intake and Output for Last 24 Hours 10/21/18 10/22/18 10/23/18 23:59 23:59 23:59 Intake Total 3000 / 3000 2160 / 2160 420 / 420 Balance 3000 / 3000 2160 / 2160 420 / 420 Active Medications Acetaminophen (Tylenol Liquid) 650 mg NG Q6H PRN PRN PRN Reason: Mild Pain (0-3/10)/Headache Last Admin: 10/23/18 06:19 Dose: 650 mg Amlodipine Besylate (Norvasc) 10 mg NG DAILY [facility] Last Admin: 10/23/18 09:50 Dose: Not Given Aspirin (Aspirin, Baby) 81 mg GT DAILY [facility] Last Admin: 10/23/18 08:37 Dose: 81 mg Atorvastatin Calcium (Lipitor) 40 mg NG QHS [facility] Last Admin: 10/22/18 21:02 Dose: 40 mg Bisacodyl (Dulcolax) 10 mg RECTAL .PRN X 1 PRN PRN Reason: Constipation Citalopram Hydrobromide (Celexa) 20 mg NG DAILY [facility] Last Admin: 10/23/18 08:38 Dose: 20 mg Cyanocobalamin (Vitamin B12) 1,000 mcg NG DAILY [facility] Last Admin: 10/23/18 08:37 Dose: 1,000 mcg Docusate Sodium (Colace Syrup) 200 mg NG BID PRN PRN Reason: Constipation Enoxaparin Sodium (Lovenox) 40 mg SC DAILY [facility] Last Admin: 10/23/18 08:38 Dose: 40 mg Enteral Nutritional Formula (Jevity 1.5) 240 ml GT QHS [facility] Last Admin: 10/22/18 21:03 Dose: 240 ml Enteral Nutritional Formula (Jevity 1.5) 240 ml GT 0600,1000,1400,1600 [facility] Last Admin: 10/23/18 06:18 Dose: 240 ml Ergocalciferol (Vitamin D) 50,000 unit PO QWEEK [facility] Last Admin: 10/22/18 14:33 Dose: 50,000 unit Lorazepam (Ativan) 0.25 mg NG QHS [facility] Last Admin: 10/22/18 21:01 Dose: 0.25 mg Magnesium Hydroxide (Milk Of Magnesia) 30 ml NG .PRN X 1 PRN PRN Reason: Constipation Last Admin: 10/13/18 02:16 Dose: 30 ml Oxycodone HCl (Oxyir) 5 - 10 mg GT Q6H PRN PRN PRN Reason: SEVERE PAIN (-09/06) Last Admin: 10/16/18 10:30 Dose: 5 mg Medical Necessity - Tobacco Use Smoking Status: Former smoker Assessment/Plan All Active Problems (Last Reviewed 10/02/18 @ 10:31 by Johnathon Carl MD) PEG tube malfunction (Acute) Dysphagia (Acute) CVA (cerebral vascular accident) (Acute) 83 F with PMH HTN, depression, recurrent bladder cancer, 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 MRI brain done on 10/02/18 did not show any acute stroke, CTA head/neck did not report any hemodynamic significant stenosis or occlusion. on Plavix and on statins. Patient had barium swallow done following admission to rehab which showed silent aspiration. Prior to PEG placement Plavix was stopped for about 5 days and she was started on ASA. S/P PEG placement on 10/12/18, complicated later by PEG site bleeding and clot formation. ASA/Plavix was started initially after PEG placement and DVT prophylaxis with Lovenox was also started but then was held following PEG site bleeding. ASA restarted 10/16/18, restarted Lovenox for DVT prophylaxis (10/17/18) following Dr. Zuñiga's evaluation and recommendations. Will hold off on Plavix given the PEG site bleeding with clot formation Plan - Physical therapy for gait and balance - Occupational Therapy for ADLs - Speech therapy for dysarthria, swallow evaluation by ST - As needed analgesics - Bowel protocol - S/P PEG tube 10/12/18- complicated by PEG site bleeding and clot formation. Restarted on ASA (10/16/18) following surgery evaluation and recommendation. Will hold off Plavix. H&H stable. Further PEG tube evaluation and management per surgery Dr. Zuñiga's recommendation. - On Jevity tube feeds - Dysarthria- MG labs are negative and no new stroke on MRI brain - Stroke prevention: no new stroke on MRI brain during this inpatient admission, on ASA 81 mg PO once daily, and Lipitor 40mg - DVT prophylaxis: SCDs, Lovenox restarted (10/17/18) after surgery clearance from Dr. Zuñiga - Fall precautions - Hx of Hypertension: Continue home dose of amlodipine 10 mg - Hx of bladder cancer s/p tumor resection with recurrence - Follows with Dr. Bunn. - Hx of Depression: continue home citalopram regimen. - Pending [facility] to [facility] on Thursday 10/25 after 1300hrs - Restart Plavix 10/24.
[2018-10-23 12:44] VITALS: BMI 21.4
--- NOTE | 2018-10-23 14:00 | RAD_ITS ---
STUDY: SWALLOWING STUDY REASON FOR EXAM: Female, 83 years old. Dysphagia. TECHNIQUE: The examination was performed with Speech Pathology in attendance. Under fluoroscopic observation, the patient ingested thin barium, thick barium, barium pudding, and barium coated cracker. FLUOROSCOPY TIME: 2:29 minutes/seconds. 2218 fluoroscopic spots were obtained. RADIOLOGIST INVOLVEMENT: Radiologist was present and providing direct supervision. COMPARISON: Comparison is made with prior study dated October 05, 2018. FINDINGS: The following was observed during swallowing of the various mixtures of barium: Thick Barium: Overt silent aspiration with ingestion of large swallows of nectar thickened liquid. Minimal silent aspiration with ingestion of small volumes of nectar thickened liquids. Barium Pudding: There was no evidence of aspiration or laryngeal penetration. RAD/Swallowing Function w/Video IMPRESSION: Aspiration with ingestion of nectar thickened liquids. The swallow study findings were discussed with the patient by the speech pathologist at the conclusion of the examination. Please see speech pathology report for more information and recommendations. Electronically Signed: Harry Alvarez MD at 14:47 EST Tel [phone], Service support ,
--- NOTE | 2018-10-23 14:03 | CASEMGMT ---
Team meeting held. Patient present as well as patient family. Discharge date set for 10/25/18. Patient plans to discharge to the [facility] [place]. Patient family plans to provide transportation for patient. Patient and patient family voicing no further question for discharge. Patient to continue with further care and treatment on the Inpatient Rehab Unit until time of discharge. Support given. Telephone call to the [facility] EliseDeanneMarta. This high school social studies tutor confirming discharge plan. PASRR results faxed. Will fax discharge orders when obtained. Proposed discharge date: 10/25/18 PLAN: Discharge to the [facility] [place]. NORA Chance, COMMUNITY RELATIONS DIRECTOR
--- NOTE | 2018-10-23 14:15 | SP.MBSS_ITS ---
PRIMARY / SECONDARY DIAGNOSIS: severe dysphagia (R13.12) REFERRING PHYSICIAN: Dr. Mor Willingham MD CURRENT DIET: NPO with alternative means of nutrition (PEG; Jevity 1.5 at 240mL bolus x5 daily) DENTITION: upper dentures; natural lower dentition MENTAL STATUS: appropriate for participation RESPIRATORY STATUS: O2 via room air PREVIOUS MODIFIED BARIUM SWALLOW STUDY: 10/05/2018 MBS revealed severe oropharyngeal dysphagia (R13.12) with grade IV SILENT aspiration of honey thickened liquids REASON FOR REFERRAL: Patient is an 83 year old female referred for a repeat modified barium swallow (MBS) study to objectively assess the Patients oropharyngeal swallow function under fluoroscopy secondary to persistent severe oropharyngeal dysphagia with grade IV SILENT aspiration of honey thickened liquids secondary to a previous cerebrovascular accident involving the bilateral internal capsule and left posterior internal capsule. ADDITIONAL OBJECTIVE ASSESSMENT RESULTS: 10/06/2018 CXR revealed no acute findings in the lungs; 1.2 cm calcified density projecting over the left costophrenic angle may be in the lung (a calcified granuloma) or may be in the left breast 10/02/2018 MRI revealed no new infarct or hemorrhage; Non-acute infarcts in the bilateral internal capsules; stable white matter disease. 10/01/2018 CT revealed old ischemic infarct in the left posterior internal capsule corresponds to the ischemic infarct seen on MRI of 08/10/2018; old cystic infarct in the right periventricular white matter extending down to the right internal capsule is unchanged; chronic white matter ischemic changes in both cerebral hemispheres are unchanged. 10/01/2018 CXR revealed no airspace consolidation or pleural effusion; stable exam. 08/10/2018 MRI revealed acute non-hemorrhagic infarct associated with the posterior limb of the internal capsule on the left. MEDICAL HISTORY: Recent cerebrovascular accident involving the posterior limb of the left internal capsule, bladder cancer, hypertension, depression STUDY FINDINGS: Patient participated in a Modified Barium Swallow (MBS) study on 10/22/2018. This study was recorded in the lateral view and images were sent to PACs for storage. The following consistencies were presented to this patient for analysis of oropharyngeal swallow function: nectar thickened liquids, honey thickened liquids, and pudding textures. Results of the MBS are as follows: PENETRATION / ASPIRATION SCALE (VIEYRA): 1 = does not enter airway 2 = enters airway/above vocal folds/ejected 3 = enters airway/above vocal folds/not ejected 4 = enters airway/contacts vocal folds/ejected 5 = enters airway/contacts vocal folds/not ejected 6 = enters airway/below vocal folds/ejected 7 = enters airway/below vocal folds/not ejected despite effort 8 = enters airway/below vocal folds/no effort VIDEOFLOROSCOPIC SCALE SCORE (VIEYRA): Grade I = aspiration of material that has penetrated into the laryngeal vestibule, intact cough reflex Grade II = aspiration < 10 % of the bolus, intact cough reflex Grade III = aspiration of < 10 % of the bolus, reduced cough reflex or aspiration of > 10 % of the bolus, intact cough reflex Grade IV = aspiration of > 10 % of the bolus, reduced cough reflex PENETRATION / ASPIRATION SCALE (SCORE) WITH VIDEOFLOROSCOPIC SCALE SCORE: Honey thickened liquid - 5 mL tsp.: 1 Honey thickened liquids via cup (single sip): 1 Honey thickened liquids via cup (single sip): 2 Honey thickened liquids via cup (single sip): 1 Honey thickened liquids via cup (chin tuck): 1 Honey thickened liquids via cup (chin tuck): 1 Honey thickened liquids via cup (chin tuck): 1 Pudding via spoon: 2 Pudding via spoon (chin tuck): 1 Pudding via spoon (chin tuck): 1 Grimes thickened liquids via cup (single sip): 7 - Grade IV Grimes thickened liquids via cup (chin tuck): 1 Grimes thickened liquids via cup (chin tuck): 8 - Grade III Grimes thickened liquids via cup (chin tuck): 1 Honey thickened liquids via cup (chin tuck): 1 Honey thickened liquids via cup (chin tuck): 1 Honey thickened liquids via cup (chin tuck): 1 IMPRESSION: DIAGNOSIS: moderate oropharyngeal dysphagia (R13.12) ORAL PHASE CHARACTERIZED BY: LABIAL SEAL: no labial escape TONGUE CONTROL DURING BOLUS MANIPULATION: intermittent posterior escape of less than half of bolus BOLUS PREPARATION / MASTICATION: NA BOLUS TRANSPORT / LINGUAL MOTION: occasional mild repetitive / disorganized tongue motion; slowed tongue motion (improved) ORAL RESIDUE: residue collection on oral structures PHARYNGEAL PHASE CHARACTERIZED BY: INITIATION OF PHARYNGEAL SWALLOW: bolus head in pyriforms at first hyoid excursion SOFT PALATE ELEVATION: trace column of air between soft palate and pharyngeal wall LARYNGEAL ELEVATION: partial superior movement of thyroid cartilage/partial approximation of arytenoids cartilage to epiglottic petiole ANTERIOR HYOID EXCURSION: intermittent partial anterior movement EPIGLOTTIC MOVEMENT: complete epiglottic inversion LARYNGEAL VESTIBULE CLOSURE AT HEIGHT OF SWALLOW: incomplete laryngeal vestibule closure with narrow column of air/contrast in laryngeal vestibule PHARYNGEAL STRIPPING WAVE: pharyngeal stripping wave present / complete (improved) PHARYNGOESOPHAGEAL SEGMENT OPENING: complete distension and complete duration with no obstruction of flow TONGUE BASE RETRACTION: narrow column of contrast between tongue base and posterior pharyngeal wall PHARYNGEAL RESIDUE: occasional collection of residue within or on pharyngeal structures ESOPHAGEAL PHASE CHARACTERIZED BY: ESOPHAGEAL BOLUS CLEARANCE IN THE UPRIGHT POSITION: complete clearance; esophageal coating EFFECTS OF TREATMENT STRATEGIES ATTEMPTED: Chin tuck posture = effective Double swallow = moderately effective Reduced bolus size = moderately effective Cough and reswallow = ineffective Cued expectoration = ineffective DIET TEXTURE RECOMMENDATIONS: Will recommend a pureed textured, nectar thickened liquid diet following meal analysis completion. COMPENSATORY STRATEGIES RECOMMENDED: Supervision with assistance as needed, chin tuck with all textures, reduced bolus volume, reduced rate of intake, liquid chaser at reasonable intervals, no straws, seated upright at 90 degrees during PO intake, remain upright for 30-60 minutes post meal (GERD precaution), medications crushed with purees; initial meal limitation to 10-15 minutes. INTERPRETATION OF RESULTS: Patient presents with moderate oropharyngeal dysphagia (R13.12) secondary to a previous cerebrovascular accident involving the bilateral internal capsule and left posterior internal capsule. Oral phase marked by reduced rate of movement (albeit improved in comparison to prior study) with brief discoordinated posterior bolus transportation (limited effect); reduced oral clearance that would likely have been more severe if solid textures were trialed (held due to edentulous status, with clear contraindications at bedside); noted brief posterior bolus loss with less viscous textures. Pharyngeal phase primarily marked by impaired pharyngeal swallow onset timing with noted 1-3 second onset delay and consistent dyssynchrony without execution of the chin tuck posture leading to consistent pre-prandial penetration with all textures and subsequent aspiration with nectar thickened liquids; inconsistent laryngeal vestibule pressure generated to expel penetrated material; mild velopharyngeal insufficiency without nasoregurgitation. All deficits ameliorated with execution of the chin tuck posture, bolus volume adjustments, and bolus texture / viscosity adjustments. Clear uptake in rhinorrhea with noted eye watering / tearing following overt and silent responses to aspiration, would consider these findings during clinical analysis of PO diet texture tolerance prior to repeat MBS. Patient noted to SILENTLY aspirate with smaller, albeit significant volumes of nectar thickened liquids, with overt aspiration of larger volumes of nectar thickened liquids, with clinical assessment at bedside relying on identification of classic overt signs and symptoms of aspiration unreliable. Very weak and ineffective cough response generated both volitionally and in response to aspiration (dystussia). RECOMMENDATIONS: Would strongly discourage advancement past nectar thickened liquids without completion of a repeat modified barium swallow study due to the extent of aspirate identified that was SILENT in nature. Recommend a repeat modified barium swallow study within 6-8 weeks (if clinically appropriate) to further assess the presence and extent of silent and overt aspiration prior to advancement to thin liquids. Patient considered at high risk of fatigue with return to PO intake, would consider limitations on meal duration, with anticipated increased risk of aspiration with prolonged meals. Would consider this Patient to be at higher risk for both malnutrition and dehydration due to the recommended diet texture restrictions, will require continued PEG use during transition to full PO diet. Recommend continued trials of the [place] Free Water Protocol (FFWP) with placement as appropriate following Patient and family education. Patient requires intensive skilled speech-language intervention targeting continued diet texture management; training and implementation of recommended compensatory strategies; training and implementation of recommended oropharyngeal strengthening exercises to facilitate improved labial control / strength, lingual control / strength, laryngeal vestibule closure / pressure, pharyngeal motility, and velopharyngeal competence; training, implementation, and Patient education regarding implementation of the FFWP; Patient and caregiver education regarding post cerebrovascular accident dysphagia; and Patient / caregiver training targeting meal preparation / thickened liquid preparation if unable to advance to baseline diet textures prior to discharge (very likely). ADDITIONAL COMMENTS/RECOMMENDATIONS: Results and recommendations were discussed with the Patient immediately following MBS completion, with the Patient verbalizing understanding and agreement with all recommendations and education provided. IMAGE COUNT: [id number] Ryan Avilez M.A., CCC-BANKING ATTORNEY [facility] Speech-Language Pathology Department [email or web address]
--- NOTE | 2018-10-23 16:01 | PCM.TXEXTCAR ---
- Diet 10/06/18 20:17 Diet: Nothing Per Oral Is pt able to select menu?: No - Wound(s) tip of tongue Wound Type: Bite LUE Wound Type: iv wound peg placement Wound Type: Surgical Incision - Therapies Weight Bearing: Full weight bearing Physical Therapy: Eval and Treat Occupational Therapy: Eval and Treat Speech Therapy: Eval and Treat - Allergies/Procedures Done in Hospital Allergies/Adverse Reactions: Allergies No Known Allergies Allergy (Verified 09/06/18 11:36) - Type of Care/Length of Stay Estimated LOS: More Than 30 Days Type of Care Needed: Skilled Rehab Potential: Good Prognosis: Good - Additional Orders/Day of Discharge Day of Discharge: 10/25/18 - Dietary and Speech Recommendations Dietitian Recommendations/Changes: Rec continue bolus feedings as ordered--- rec Jevity 1.5 240 cc 5x/day while awake with 180 cc H2O flush after each feeding to provide ~ 1800 angelia / 76.5 gm pro / 1812 cc free water/day. - Follow Up Care Primary Care Physician: Louis Carr Chi, MD [Primary Care Provider] - Please Follow Up With: Karmen Joaquin NP-C When: December 11, 2018 @ 2:30 PM
--- NOTE | 2018-10-23 17:49 | NURSING ---
changed dressing to peg site, no drainage noted, cleaned with NS area clean dry intact, new dressing applied, pt tolerated well.
[2018-10-23 19:24] VITALS: BP 116/77; PULSE 95; RESP 20; TEMP 37.1; O2SAT 95
[2018-10-23] MEDS: Atorvastatin Calcium 40 MG Tablet NG (20:56)
[2018-10-23] MEDS: LORazepam 0.5 MG Tablet 0.25 MG NG (20:59)
--- NOTE | 2018-10-23 21:10 | NURSING ---
GASTRIC RESIDUAL OF 160 CC NAJERA LIQUID. TUBE FEEDING (2200 DOSE) NOT GIVEN AT THIS TIME. GASTRIC RESIDUAL CONTENTS RETURNED VIA PEG TUBE AND MEDS GIVEN AND FLUSHED WITH 40 ML STERILE WATER.
[2018-10-24 05:00] VITALS: BMI 21.4
[2018-10-24 07:22] VITALS: BP 106/66; PULSE 60; RESP 16; TEMP 36.4; O2SAT 96
[2018-10-24] MEDS: Acetaminophen 650 MG/20 ML UDC NG (11:03)
[2018-10-24] MEDS: Enoxaparin 40 MG/0.4 ML Syringe SC (11:04)
[2018-10-24] MEDS: Clopidogrel Bisulfate 75 MG Tablet PO (11:04)
[2018-10-24] MEDS: Citalopram 20 MG Tablet NG (11:04)
[2018-10-24] MEDS: Aspirin 81 MG TAB.CHEW GT (11:04)
[2018-10-24] MEDS: Cyanocobalamin 500 MCG Tablet 1000 MCG NG (11:04)
[2018-10-24] MEDS: Glycerin/Hypromellose/PEG400 15 ml Bottle 1 DRP EACH EYE ×2 (11:04→20:39)
[2018-10-24] MEDS: Jevity 1.5. 1,000 ML Bottle 240 ML GT ×2 (11:13→15:12)
[2018-10-24 11:45] VITALS: BP 110/62
--- NOTE | 2018-10-24 12:10 | PCM.PN.NEU ---
Patient Problems: Active and Suspected Problems (Last Reviewed 10/02/18 @ 10:31 by Johnathon Carl MD) Dysphagia (Acute) Subjective: Patient seen and examined. She is complaining of being very tired, she feels it is a result of her Ativan, she would like us to make adjustments, will adjust the timing of the medication and give it to her earlier, currently she is on. She had a repeat MBS evaluation and it was recommended that she be advanced to a Pureed diet with [place] thicken liquids. She is tolerating therapy. Denies any blurry vision, double vision, or headaches. She is scheduled for discharge to the [facility] on Thursday 10/25 after 1PM. - Physical Exam General: Alert, Oriented x3, Cooperative HEENT: Atraumatic, PERRLA, EOMI, Normocephalic Neck: Supple, No JVD, Negative Carotid Bruits Lungs: Clear to auscultation, Normal air movement Cardiovascular: Regular rate, No murmurs Abdomen: Bowel Sounds Present, Soft, Non Tender Extremities: No edema, Capillary Refill Less than 3 Seconds Skin: No rashes, No breakdown Musculoskeletal: No Tenderness to Palpation of Joints or Extremities Neurological: Cranial nerves II-XII grossly intact Psych/Mental Status: Normal Affect, Appropriate, Alert and oriented to time, place, person, mood and affect Vital Signs Temp Pulse Resp BP Pulse Ox 97.6 F L 60 16 110/62 96 10/24/18 07:22 10/24/18 07:22 10/24/18 07:22 10/24/18 11:45 10/24/18 07:22 Oxygen Delivery Method Room Air Weight: 62 kg Body Mass Index (BMI) 21.4 Finger Stick Blood Glucose 111 Intake and Output for Last 24 Hours 10/22/18 10/23/18 10/24/18 23:59 23:59 23:59 Intake Total 2160 / 2160 1230 / 1230 Balance 2160 / 2160 1230 / 1230 Active Medications Acetaminophen (Tylenol Liquid) 650 mg NG Q6H PRN PRN PRN Reason: Mild Pain (0-3/10)/Headache Last Admin: 10/24/18 11:03 Dose: 650 mg Amlodipine Besylate (Norvasc) 10 mg NG DAILY JJ Last Admin: 10/24/18 12:06 Dose: Not Given Aspirin (Aspirin, Baby) 81 mg GT DAILY [facility] Last Admin: 10/24/18 11:04 Dose: 81 mg Atorvastatin Calcium (Lipitor) 40 mg NG QHS [facility] Last Admin: 10/23/18 20:56 Dose: 40 mg Bisacodyl (Dulcolax) 10 mg RECTAL .PRN X 1 PRN PRN Reason: Constipation Citalopram Hydrobromide (Celexa) 20 mg NG DAILY [facility] Last Admin: 10/24/18 11:04 Dose: 20 mg Clopidogrel Bisulfate (Plavix) 75 mg PO DAILY [facility] Last Admin: 10/24/18 11:04 Dose: 75 mg Cyanocobalamin (Vitamin B12) 1,000 mcg NG DAILY [facility] Last Admin: 10/24/18 11:04 Dose: 1,000 mcg Docusate Sodium (Colace Syrup) 200 mg NG BID PRN PRN Reason: Constipation Enoxaparin Sodium (Lovenox) 40 mg SC DAILY [facility] Last Admin: 10/24/18 11:04 Dose: 40 mg Enteral Nutritional Formula (Jevity 1.5) 240 ml GT QHS [facility] Last Admin: 10/23/18 22:59 Dose: 240 ml Enteral Nutritional Formula (Jevity 1.5) 240 ml GT 0600,1000,1400,1600 [facility] Last Admin: 10/24/18 11:13 Dose: 240 ml Ergocalciferol (Vitamin D) 50,000 unit PO QWEEK [facility] Last Admin: 10/22/18 14:33 Dose: 50,000 unit Lorazepam (Ativan) 0.25 mg NG QHS [facility] Last Admin: 10/23/18 20:59 Dose: 0.25 mg Magnesium Hydroxide (Milk Of Magnesia) 30 ml NG .PRN X 1 PRN PRN Reason: Constipation Last Admin: 10/13/18 02:16 Dose: 30 ml Oxycodone HCl (Oxyir) 5 - 10 mg GT Q6H PRN PRN PRN Reason: SEVERE PAIN (6-10/10) Last Admin: 10/16/18 10:30 Dose: 5 mg Medical Necessity - Tobacco Use Smoking Status: Former smoker Assessment/Plan All Active Problems (Last Reviewed 10/02/18 @ 10:31 by Johnathon Carl MD) PEG tube malfunction (Acute) Dysphagia (Acute) CVA (cerebral vascular accident) (Acute) 83 F with PMH HTN, depression, recurrent bladder cancer, 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 MRI brain done on 10/02/18 did not show any acute stroke, CTA head/neck did not report any hemodynamic significant stenosis or occlusion. on Plavix and on statins. Patient had barium swallow done following admission to rehab which showed silent aspiration. Prior to PEG placement Plavix was stopped for about 5 days and she was started on ASA. S/P PEG placement on 10/12/18, complicated later by PEG site bleeding and clot formation. ASA/Plavix was started initially after PEG placement and DVT prophylaxis with Lovenox was also started but then was held following PEG site bleeding. ASA restarted 10/16/18, restarted Lovenox for DVT prophylaxis (10/17/18) following Dr. Zuñiga's evaluation and recommendations. Will hold off on Plavix given the PEG site bleeding with clot formation Plan - Physical therapy for gait and balance - Occupational Therapy for ADLs - Speech therapy for dysarthria, swallow evaluation by ST - As needed analgesics - Bowel protocol - S/P PEG tube 10/12/18- complicated by PEG site bleeding and clot formation. Restarted on ASA (10/16/18) following surgery evaluation and recommendation. Will hold off Plavix. H&H stable. Further PEG tube evaluation and management per surgery Dr. Zuñiga's recommendation. - On Jevity tube feeds - Dysarthria- MG labs are negative and no new stroke on MRI brain - Stroke prevention: no new stroke on MRI brain during this inpatient admission, on ASA 81 mg PO once daily, and Lipitor 40mg - DVT prophylaxis: SCDs, Lovenox restarted (10/17/18) after surgery clearance from Dr. Zuñiga - Fall precautions - Hx of Hypertension: Continue home dose of amlodipine 10 mg - Hx of bladder cancer s/p tumor resection with recurrence - Follows with Dr. Bunn. - Hx of Depression: continue home citalopram regimen. - Pending discharge to the [facility] on Thursday 10/25 after 1300hrs - Restart Plavix 10/24.
--- NOTE | 2018-10-24 12:16 | PN.NEURO_ITS ---
Patient Problems: Active and Suspected Problems (Last Reviewed 10/02/18 @ 10:31 by Johnathon Carl MD) Dysphagia (Acute) Subjective: Patient seen and examined. She is complaining of being very tired, she feels it is a result of her Ativan, she would like us to make adjustments, will adjust the timing of the medication and give it to her earlier, currently she is on. She had a repeat MBS evaluation and it was recommended that she be advanced to a Pureed diet with [place] thicken liquids. She is tolerating therapy. Denies any b lurry vision, double vision, or headaches. She is scheduled for discharge to the [facility] on Thursday 10/25 after 1PM. - Physical Exam General: Alert, Oriented x3, Cooperative HEENT: Atraumatic, PERRLA, EOMI, Normocephalic Neck: Supple, No JVD, Negative Carotid Bruits Lungs: Clear to auscultation, Normal air movement Cardiovascular: Regular rate, No murmurs Abdomen: Bowel Sounds Present, Soft, Non Tender Extremities: No edema, Capillary Refill Less than 3 Seconds Skin: No rashes, No breakdown Musculoskeletal: No Tenderness to Palpation of Joints or Extremities Neurological: Cranial nerves II-XII grossly intact Psych/Mental Status: Normal Affect, Appropriate, Alert and oriented to time, place, person, mood and affect Vital Signs Temp Pulse Resp BP Pulse Ox 97.6 F L 60 16 110/62 96 10/24/18 07:22 10/24/18 07:22 10/24/18 07:22 10/24/18 11:45 10/24/18 07:22 Oxygen Delivery Method Room Air Weight: 62 kg Body Mass Index (BMI) 21.4 Finger Stick Blood Glucose 111 Intake and Output for Last 24 Hours 10/22/18 10/23/18 10/24/18 23:59 23:59 23:59 Intake Total 2160 / 2160 1230 / 1230 Balance 2160 / 2160 1230 / 1230 Active Medications Acetaminophen (Tylenol Liquid) 650 mg NG Q6H PRN PRN PRN Reason: Mild Pain (0-3/10)/Headache Last Admin: 10/24/18 11:03 Dose: 650 mg Amlodipine Besylate (Norvasc) 10 mg NG DAILY JJ Last Admin: 10/24/18 12:06 Dose: Not Given Aspirin (Aspirin, Baby) 81 mg GT DAILY [facility] Last Admin: 10/24/18 11:04 Dose: 81 mg Atorvastatin Calcium (Lipitor) 40 mg NG QHS [facility] Last Admin: 10/23/18 20:56 Dose: 40 mg Bisacodyl (Dulcolax) 10 mg RECTAL .PRN X 1 PRN PRN Reason: Constipation Citalopram Hydrobromide (Celexa) 20 mg NG DAILY [facility] Last Admin: 10/24/18 11:04 Dose: 20 mg Clopidogrel Bisulfate (Plavix) 75 mg PO DAILY [facility] Last Admin: 10/24/18 11:04 Dose: 75 mg Cyanocobalamin (Vitamin B12) 1,000 mcg NG DAILY [facility] Last Admin: 10/24/18 11:04 Dose: 1,000 mcg Docusate Sodium (Colace Syrup) 200 mg NG BID PRN PRN Reason: Constipation Enoxaparin Sodium (Lovenox) 40 mg SC DAILY [facility] Last Admin: 10/24/18 11:04 Dose: 40 mg Enteral Nutritional Formula (Jevity 1.5) 240 ml GT QHS [facility] Last Admin: 10/23/18 22:59 Dose: 240 ml Enteral Nutritional Formula (Jevity 1.5) 240 ml GT 0600,1000,1400,1600 [facility] Last Admin: 10/24/18 11:13 Dose: 240 ml Ergocalciferol (Vitamin D) 50,000 unit PO QWEEK [facility] Last Admin: 10/22/18 14:33 Dose: 50,000 unit Lorazepam (Ativan) 0.25 mg NG QHS [facility] Last Admin: 10/23/18 20:59 Dose: 0.25 mg Magnesium Hydroxide (Milk Of Magnesia) 30 ml NG .PRN X 1 PRN PRN Reason: Constipation Last Admin: 10/13/18 02:16 Dose: 30 ml Oxycodone HCl (Oxyir) 5 - 10 mg GT Q6H PRN PRN PRN Reason: SEVERE PAIN (6-10/10) Last Admin: 10/16/18 10:30 Dose: 5 mg Medical Necessity - Tobacco Use Smoking Status: Former smoker Assessment/Plan All Active Problems (Last Reviewed 10/02/18 @ 10:31 by Johnathon Carl MD) PEG tube malfunction (Acute) Dysphagia (Acute) CVA (cerebral vascular accident) (Acute) 83 F with PMH HTN, depression, recurrent bladder cancer, 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 MRI brain done on 10/02/18 did not show any acute stroke, CTA head/neck did not report any hemodynamic significant stenosis or occlusion. on Plavix and on statins. Patient had barium swallow done following admission to rehab which showed silent aspiration. Prior to PEG placement Plavix was stopped for about 5 days and she was started on ASA. S/P PEG placement on 10/12/18, complicated later by PEG site bleeding and clot formation. ASA/Plavix was started initially after PEG placement and DVT prophylaxis with Lovenox was also started but then was held following PEG site bleeding. ASA restarted 10/16/18, restarted Lovenox for DVT prophylaxis (10/17/18) following Dr. Zuñiga's evaluation and recommendations. Will hold off on Plavix given the PEG site bleeding with clot formation Plan - Physical therapy for gait and balance - Occupational Therapy for ADLs - Speech therapy for dysarthria, swallow evaluation by ST - As needed analgesics - Bowel protocol - S/P PEG tube 10/12/18- complicated by PEG site bleeding and clot formation. Restarted on ASA (10/16/18) following surgery evaluation and recommendation. Will hold off Plavix. H&H stable. Further PEG tube evaluation and management per surgery Dr. Zuñiga's recommendation. - On Jevity tube feeds - Dysarthria- MG labs are negative and no new stroke on MRI brain - Stroke prevention: no new stroke on MRI brain during this inpatient admission, on ASA 81 mg PO once daily, and Lipitor 40mg - DVT prophylaxis: SCDs, Lovenox restarted (10/17/18) after surgery clearance from Dr. Zuñiga - Fall precautions - Hx of Hypertension: Continue home dose of amlodipine 10 mg - Hx of bladder cancer s/p tumor resection with recurrence - Follows with Dr. Bunn. - Hx of Depression: continue home citalopram regimen. - Pending discharge to the [facility] on Thursday 10/25 after 1300hrs - Restart Plavix 10/24.
[2018-10-24 12:55] VITALS: BMI 21.4
[2018-10-24] MEDS: Jevity 1.5. 1,000 ML Bottle 400 ML GT (18:48)
[2018-10-24 19:38] VITALS: BP 92/51; PULSE 75; RESP 16; TEMP 36.8; O2SAT 95
[2018-10-24] MEDS: Atorvastatin Calcium 40 MG Tablet NG (20:22)
[2018-10-24] MEDS: LORazepam 0.5 MG Tablet 0.25 MG NG (20:23)
[2018-10-25 07:09] VITALS: BP 103/66; PULSE 71; RESP 16; TEMP 36.6; O2SAT 94
--- NOTE | 2018-10-25 09:06 | PCM.RU.DC ---
Rehab Discharge Summary DATE OF ADMISSION: 10/02/18 DATE OF DISCHARGE: 10/25/18 - Rehab Diagnosis CVA - Physical Exam General: Alert, Oriented x3, Cooperative HEENT: Atraumatic, PERRLA, EOMI, Normocephalic Neck: Supple, No JVD, Negative Carotid Bruits Lungs: Clear to auscultation, Normal air movement Cardiovascular: Regular rate, No murmurs Abdomen: Bowel Sounds Present, Soft, Non Tender Extremities: No edema, Capillary Refill Less than 3 Seconds Skin: No rashes, No breakdown Musculoskeletal: No Tenderness to Palpation of Joints or Extremities Neurological: Cranial nerves II-XII grossly intact Psych/Mental Status: Alert and oriented to time, place, person, mood and affect Vital Signs Temp Pulse Resp BP Pulse Ox 97.8 F 71 16 103/66 94 10/25/18 07:09 10/25/18 07:09 10/25/18 07:09 10/25/18 07:09 10/25/18 07:09 Oxygen Delivery Method Room Air Weight: 62 kg Body Mass Index (BMI) 21.4 Finger Stick Blood Glucose 111 Intake and Output for Last 24 Hours 10/23/18 10/24/18 10/25/18 23:59 23:59 23:59 Intake Total 1230 / 1230 2630 / 2630 Balance 1230 / 1230 2630 / 2630 30 Active Medications Acetaminophen (Tylenol Liquid) 650 mg NG Q6H PRN PRN PRN Reason: Mild Pain (0-3/10)/Headache Last Admin: 10/24/18 11:03 Dose: 650 mg Amlodipine Besylate (Norvasc) 10 mg NG DAILY [facility] Last Admin: 10/24/18 12:06 Dose: Not Given Aspirin (Aspirin, Baby) 81 mg GT DAILY [facility] Last Admin: 10/24/18 11:04 Dose: 81 mg Atorvastatin Calcium (Lipitor) 40 mg NG DAILY@1999 [facility] Last Admin: 10/24/18 20:22 Dose: 40 mg Bisacodyl (Dulcolax) 10 mg RECTAL .PRN X 1 PRN PRN Reason: Constipation Citalopram Hydrobromide (Celexa) 20 mg NG DAILY [facility] Last Admin: 10/24/18 11:04 Dose: 20 mg Clopidogrel Bisulfate (Plavix) 75 mg PO DAILY [facility] Last Admin: 10/24/18 11:04 Dose: 75 mg Cyanocobalamin (Vitamin B12) 1,000 mcg NG DAILY [facility] Last Admin: 10/24/18 11:04 Dose: 1,000 mcg Docusate Sodium (Colace Syrup) 200 mg NG BID PRN PRN Reason: Constipation Enoxaparin Sodium (Lovenox) 40 mg SC DAILY [facility] Last Admin: 10/24/18 11:04 Dose: 40 mg Enteral Nutritional Formula (Jevity 1.5) 400 ml GT TIDCM [facility] Last Admin: 10/24/18 18:48 Dose: 400 ml Ergocalciferol (Vitamin D) 50,000 unit PO QWEEK [facility] Last Admin: 10/22/18 14:33 Dose: 50,000 unit Lorazepam (Ativan) 0.25 mg NG DAILY@1999 [facility] Last Admin: 10/24/18 20:23 Dose: 0.25 mg Magnesium Hydroxide (Milk Of Magnesia) 30 ml NG .PRN X 1 PRN PRN Reason: Constipation Last Admin: 10/13/18 02:16 Dose: 30 ml Discharge Diet: Swallowing Precautions Discharge Activity: May Not Drive, May not drive while taking narcotic pain medications., May Shower, May Take a Tub Bath, Use Walker Weight Bearing Status: Weight bearing as tolerated Call your doctor if you observe: Fever of 101 or Higher, Coldness, Increased Pain, Numbness or Tingling, Change in Color, Inability to urinate, Inability to have a bowel movement, Using more than one pad per hour, Shortness of breath, Dizziness, Fainting spells, Swelling in the ankles, Chest pain, Prolonged hiccoughing, Increased palpitations (irregular heartbeat), Calf discomfort, Uncontrolled pain Home Medications: Medications to take at Discharge Cyanocobalamin (Vitamin B-12) [Vitamin B-12] 1,000 mcg PO DAILY 05/19/18 Ergocalciferol [Vitamin D] 50,000 unit PO QWEEK #6 capsule 08/29/18 Peg 400/Hypromellose/Glycerin [Artificial Tears] 1 drop EACH EYE Q1H PRN bottle 08/29/18 Amlodipine [Norvasc] 10 mg PO DAILY 10/01/18 Atorvastatin Calcium [Lipitor] 40 mg PO QHS 10/01/18 Citalopram [Celexa] 20 mg PO DAILY 10/01/18 Ensure Enlive 120 ml PO 4X/DAY 10/02/18 Acetaminophen Liquid [Tylenol Liquid] 650 mg NG Q6H PRN PRN udc 10/24/18 Aspirin [Aspirin, Baby] 81 mg GT DAILY tab.chew 10/24/18 Clopidogrel Bisulfate [Plavix] 75 mg PO DAILY tablet 10/24/18 Primary Care Physician: Louis Carr Chi, MD [Primary Care Provider] - Please Follow Up With: Karmen Joaquin NP-C When: December 11, 2018 @ 2:30 PM Disposition: Residential facility Minutes spent on discharge:: 40 Patient Condition:: Good Rehab Course The patient is a 83 year old right handed white female with history of stroke in July 2018 she presents with worsening speech. According to records speech was affected with her previous stroke in July. Patient reports similar. She is admitted to the rehab unit for rehabilitation. She has a PMH of HTN, Bladder cancer, depression, and previous stroke in July of this year. She is on Plavix and Lipitor, prior to this admission. Was scheduled for 30 day event monitor placement. She had an MRI of the brain which was negative for acute stroke as well as the CTA head and neck. She had no events on tele. She lives alone in a single story home, with two steps to get into the house, she denies any frequent falls, does not use a cane or walker to ambulate, since her previous stroke, she was previously completely functionally independent and is admitted to the rehab unit in order to restore her previous level of functional independence. per H&P:The patient is a 83 year old F with a hx of recent stroke, hx bladder cancer, htn, depression, who presents to the ER from home after developing unsteadiness and dysarthria this AM. She states that this started this AM soon after she woke up at about 0830. She woke up feeling normal. She was then cleaning her fish tank and suddenly felt unsteady. She called her nephew for help. He could not understand anything she was saying due to severe dysarthria. The family went and got her and brought her to the ER. At this time she has some slurred speech. Family notes it is significantly improved. She denies headache, dizziness, LH, double or blurred vision, focal weakness. After last stroke (08/10) she had right sided weakness and difficulty swallowing but reports that with therapy this has pretty much resolved with her stay in the Rehab unit. CT brain shows old stroke. Neuro has been consulted. While in the [facility] her other medical conditions were monitored. While in the [facility] she improved with therapy and gained strength. She is scheduled to go to the [facility] on Friday 10/26. Summary of Care: - Physical therapy for gait and balance - Occupational Therapy for ADLs - Speech therapy for dysarthria, swallow evaluation by ST - As needed analgesics - Bowel protocol - S/P PEG tube 10/12/18- complicated by PEG site bleeding and clot formation. Restarted on ASA (10/16/18) following surgery evaluation and recommendation. Will hold off Plavix. H&H stable. Further PEG tube evaluation and management per surgery Dr. Zuñiga's recommendation. - On Jevity tube feeds - Dysarthria- MG labs are negative and no new stroke on MRI brain - Stroke prevention: no new stroke on MRI brain during this inpatient admission, on ASA 81 mg PO once daily, and Lipitor 40mg - DVT prophylaxis: SCDs, Lovenox restarted (10/17/18) after surgery clearance from Dr. Zuñiga - Fall precautions - Hx of Hypertension: Continue home dose of amlodipine 10 mg - Hx of bladder cancer s/p tumor resection with recurrence - Follows with Dr. Bunn. - Hx of Depression: continue home citalopram regimen. - Pending discharge to the [facility] on Thursday 10/25 after 1300hrs - Restart Plavix 10/24. Summary of Therapy: With Physical therapy, she is able to walk 1 to 2 lap around the unit without the walker at contact guard, and stand by assist with the walker. She is able to go up and down 6 steps using one hand rail at contact guard. She is able to come to a stand at standby assist. With Occupational therapy, she is able to do all her own personal care at stand by assist. She does require contact assistance for toileting at times. With Speech therapy, she has a repeat Swallow evaluation scheduled for today at 1pm. With Nursing her BP has been on the low side on her Norvasc will hold the dose for today, decrease dose to 5mg with hold parameters of hold for SBP <120. Her Plavix is still on hold 2 bleeding from PEG tube site may restart if she is free of bleeding for [address] Zuñiga. She has not had any bleeding for the last 72 hours, will restart Plavix tomorrow the . Meaningful Use Info Meaningful Use Diagnoses (Choose all that apply): Ischemic CVA - CVA Therapy Assessed for PT,OT and/or ST?: Yes - Ischemic Stroke Antithrombotic order at d/c?: Yes Dx of Atrial fib/flutter?: No Statins at discharge?: Yes Primary Dx Acute Ischemic CVA?: Yes IV tPA ordered during stay?: No Reason IV t-PA not ordered: Medical Contraindication
--- NOTE | 2018-10-25 09:11 | DS.PCM_ITS ---
Rehab Discharge Summary DATE OF ADMISSION: 10/02/18 DATE OF DISCHARGE: 10/25/18 - Rehab Diagnosis CVA - Physical Exam General: Alert, Oriented x3, Cooperative HEENT: Atraumatic, PERRLA, EOMI, Normocephalic Neck: Supple, No JVD, Negative Carotid Bruits Lungs: Clear to auscultation, Normal air movement Cardiovascular: Regular rate, No murmurs Abdomen: Bowel Sounds Present, Soft, Non Tender Extremities: No edema, Capillary Refill Less than 3 Seconds Skin: No rashes, No breakdown Musculoskeletal: No Tenderness to Palpation of Joints or Extremities Neurological: Cranial nerves II-XII grossly intact Psych/Mental Status: Alert and oriented to time, place, person, mood and affect Vital Signs Temp Pulse Resp BP Pulse Ox 97.8 F 71 16 103/66 94 10/25/18 07:09 10/25/18 07:09 10/25/18 07:09 10/25/18 07:09 10/25/18 07:09 Oxygen Delivery Method Room Air Weight: 62 kg Body Mass Index (BMI) 21.4 Finger Stick Blood Glucose 111 Intake and Output for Last 24 Hours 10/23/18 10/24/18 10/25/18 23:59 23:59 23:59 Intake Total 1230 / 1230 2630 / 2630 Balance 1230 / 1230 2630 / 2630 30 Active Medications Acetaminophen (Tylenol Liquid) 650 mg NG Q6H PRN PRN PRN Reason: Mild Pain (0-3/10)/Headache Last Admin: 10/24/18 11:03 Dose: 650 mg Amlodipine Besylate (Norvasc) 10 mg NG DAILY [facility] Last Admin: 10/24/18 12:06 Dose: Not Given Aspirin (Aspirin, Baby) 81 mg GT DAILY [facility] Last Admin: 10/24/18 11:04 Dose: 81 mg Atorvastatin Calcium (Lipitor) 40 mg NG DAILY@1999 [facility] Last Admin: 10/24/18 20:22 Dose: 40 mg Bisacodyl (Dulcolax) 10 mg RECTAL .PRN X 1 PRN PRN Reason: Constipation Citalopram Hydrobromide (Celexa) 20 mg NG DAILY [facility] Last Admin: 10/24/18 11:04 Dose: 20 mg Clopidogrel Bisulfate (Plavix) 75 mg PO DAILY [facility] Last Admin: 10/24/18 11:04 Dose: 75 mg Cyanocobalamin (Vitamin B12) 1,000 mcg NG DAILY [facility] Last Admin: 10/24/18 11:04 Dose: 1,000 mcg Docusate Sodium (Colace Syrup) 200 mg NG BID PRN PRN Reason: Constipation Enoxaparin Sodium (Lovenox) 40 mg SC DAILY [facility] Last Admin: 10/24/18 11:04 Dose: 40 mg Enteral Nutritional Formula (Jevity 1.5) 400 ml GT TIDCM [facility] Last Admin: 10/24/18 18:48 Dose: 400 ml Ergocalciferol (Vitamin D) 50,000 unit PO QWEEK [facility] Last Admin: 10/22/18 14:33 Dose: 50,000 unit Lorazepam (Ativan) 0.25 mg NG DAILY@1999 [facility] Last Admin: 10/24/18 20:23 Dose: 0.25 mg Magnesium Hydroxide (Milk Of Magnesia) 30 ml NG .PRN X 1 PRN PRN Reason: Constipation Last Admin: 10/13/18 02:16 Dose: 30 ml Discharge Diet: Swallowing Precautions Discharge Activity: May Not Drive, May not drive while taking narcotic pain medications., May Shower, May Take a Tub Bath, Use Walker Weight Bearing Status: Weight bearing as tolerated Call your doctor if you observe: Fever of 101 or Higher, Coldness, Increased Pain, Numbness or Tingling, Change in Color, Inability to urinate, Inability to have a bowel movement, Using more than one pad per hour, Shortness of breath, Dizziness, Fainting spells, Swelling in the ankles, Chest pain, Prolonged hiccoughing, Increased palpitations (irregular heartbeat), Calf discomfort, Uncontrolled pain Home Medications: Medications to take at Discharge Cyanocobalamin (Vitamin B-12) [Vitamin B-12] 1,000 mcg PO DAILY 05/19/18 Ergocalciferol [Vitamin D] 50,000 unit PO QWEEK #6 capsule 08/29/18 Peg 400/Hypromellose/Glycerin [Artificial Tears] 1 drop EACH EYE Q1H PRN bottle 08/29/18 Amlodipine [Norvasc] 10 mg PO DAILY 10/01/18 Atorvastatin Calcium [Lipitor] 40 mg PO QHS 10/01/18 Citalopram [Celexa] 20 mg PO DAILY 10/01/18 Ensure Enlive 120 ml PO 4X/DAY 10/02/18 Acetaminophen Liquid [Tylenol Liquid] 650 mg NG Q6H PRN PRN udc 10/24/18 Aspirin [Aspirin, Baby] 81 mg GT DAILY tab.chew 10/24/18 Clopidogrel Bisulfate [Plavix] 75 mg PO DAILY tablet 10/24/18 Primary Care Physician: Louis Carr Chi, MD [Primary Care Provider] - Please Follow Up With: Karmen Joaquin NP-C When: December 11, 2018 @ 2:30 PM Disposition: Senior Living facility Minutes spent on discharge:: 40 Patient Condition:: Good Rehab Course The patient is a 83 year old right handed white female with history of stroke in July 2018 she presents with worsening speech. According to records speech was affected with her previous stroke in July. Patient reports similar. She is admitted to the rehab unit for rehabilitation. She has a PMH of HTN, Bladder cancer, depression, and previous stroke in July of this year. She is on Plavix and Lipitor, prior to this admission. Was scheduled for 30 day event monitor placement. She had an MRI of the brain which was negative for acute stroke as well as the CTA head and neck. She had no events on tele. She lives alone in a single story home, with two steps to get into the house, she denies any frequent falls, does not use a cane or walker to ambulate, since her previous stroke, she was previously completely functionally independent and is admitted to the rehab unit in order to restore her previous level of functional independence. per H&P:The patient is a 83 year old F with a hx of recent stroke, hx bladder cancer, htn, depression, who presents to the ER from home after developing unsteadiness and dysarthria this AM. She states that this started this AM soon after she woke up at about 0830. She woke up feeling normal. She was then cleaning her fish tank and suddenly felt unsteady. She called her nephew for help. He could not understand anything she was saying due to severe dysarthria. The family went and got her and brought her to the ER. At this time she has some slurred speech. Family notes it is significantly improved. She denies headache, dizziness, LH, double or blurred vision, focal weakness. After last stroke (08/10) she had right sided weakness and difficulty swallowing but reports that with therapy this has pretty much resolved with her stay in the Rehab unit. CT brain shows old stroke. Neuro has been consulted. While in the [facility] her other medical conditions were monitored. While in the [facility] she improved with therapy and gained strength. She is scheduled to go to the [facility] on Friday 10/26. Summary of Care: - Physical therapy for gait and balance - Occupational Therapy for ADLs - Speech therapy for dysarthria, swallow evaluation by ST - As needed analgesics - Bowel protocol - S/P PEG tube 10/12/18- complicated by PEG site bleeding and clot formation. Restarted on ASA (10/16/18) following surgery evaluation and recommendation. Will hold off Plavix. H&H stable. Further PEG tube evaluation and management per surgery Dr. Zuñiga's recommendation. - On Jevity tube feeds - Dysarthria- MG labs are negative and no new stroke on MRI brain - Stroke prevention: no new stroke on MRI brain during this inpatient admission, on ASA 81 mg PO once daily, and Lipitor 40mg - DVT prophylaxis: SCDs, Lovenox restarted (10/17/18) after surgery clearance from Dr. Zuñiga - Fall precautions - Hx of Hypertension: Continue home dose of amlodipine 10 mg - Hx of bladder cancer s/p tumor resection with recurrence - Follows with Dr. Bunn. - Hx of Depression: continue home citalopram regimen. - Pending discharge to the [facility] on Thursday 10/25 after 1300hrs - Restart Plavix 10/24. Summary of Therapy: With Physical therapy, she is able to walk 1 to 2 lap around the unit without the walker at contact guard, and stand by assist with the walker. She is able to go up and down 6 steps using one hand rail at contact guard. She is able to come to a stand at standby assist. With Occupational therapy, she is able to do all her own personal care at stand by assist. She does require contact assistance for toileting at times. With Speech therapy, she has a repeat Swallow evaluation scheduled for today at 1pm. With Nursing her BP has been on the low side on her Norvasc will hold the dose for today, decrease dose to 5mg with hold parameters of hold for SBP <120. Her Plavix is still on hold 2 bleeding from PEG tube site may restart if she is free of bleeding for [address] Zuñiga. She has not had any bleeding for the last 72 hours, will restart Plavix tomorrow the . Meaningful Use Info Meaningful Use Diagnoses (Choose all that apply): Ischemic CVA - CVA Therapy Assessed for PT,OT and/or ST?: Yes - Ischemic Stroke Antithrombotic order at d/c?: Yes Dx of Atrial fib/flutter?: No Statins at discharge?: Yes Primary Dx Acute Ischemic CVA?: Yes IV tPA ordered during stay?: No Reason IV t-PA not ordered: Medical Contraindication
[2018-10-25] MEDS: Aspirin 81 MG TAB.CHEW GT (10:40)
[2018-10-25] MEDS: Clopidogrel Bisulfate 75 MG Tablet PO (10:40)
[2018-10-25] MEDS: Enoxaparin 40 MG/0.4 ML Syringe SC (10:40)
[2018-10-25] MEDS: Citalopram 20 MG Tablet NG (10:40)
[2018-10-25] MEDS: Cyanocobalamin 500 MCG Tablet 1000 MCG NG (10:40)
[2018-10-25] MEDS: Jevity 1.5. 1,000 ML Bottle 400 ML GT ×2 (10:41→12:33)
--- NOTE | 2018-10-25 10:49 | PCM.DC ---
- Discharge Diagnoses Current Active Problems: Current Active and Chronic Problems (Last Reviewed 10/02/18 @ 10:31 by Johnathon Carl MD) Dysphagia (Acute) Reason(s) for Visit for Discharge Instructions: CVA You will use the following diet at home:: Other - Pureed diet with nectar thicken liquids Your food should be the consistency of: Puree Your liquids should be the consistency of: [place] Thick Discharge Activity: May Not Drive, May not drive while taking narcotic pain medications., May Shower, May Take a Tub Bath, Use Walker Weight Bearing Status: Weight bearing as tolerated Call your doctor if you observe: Fever of 101 or Higher, Coldness, Increased Pain, Numbness or Tingling, Change in Color, Inability to urinate, Inability to have a bowel movement, Using more than one pad per hour, Shortness of breath, Dizziness, Fainting spells, Swelling in the ankles, Chest pain, Prolonged hiccoughing, Increased palpitations (irregular heartbeat), Calf discomfort, Uncontrolled pain Allergies/Adverse Reactions: Allergies No Known Allergies Allergy (Verified 09/06/18 11:36) Medications to take at Discharge Cyanocobalamin (Vitamin B-12) [Vitamin B-12] 1,000 mcg PO DAILY 05/19/18 Ergocalciferol [Vitamin D] 50,000 unit PO QWEEK #6 capsule 08/29/18 Peg 400/Hypromellose/Glycerin [Artificial Tears] 1 drop EACH EYE Q1H PRN bottle 08/29/18 Amlodipine [Norvasc] 10 mg PO DAILY 10/01/18 Atorvastatin Calcium [Lipitor] 40 mg PO QHS 10/01/18 Citalopram [Celexa] 20 mg PO DAILY 10/01/18 Ensure Enlive 120 ml PO 4X/DAY 10/02/18 Acetaminophen Liquid [Tylenol Liquid] 650 mg NG Q6H PRN PRN udc 10/24/18 Aspirin [Aspirin, Baby] 81 mg GT DAILY tab.chew 10/24/18 Clopidogrel Bisulfate [Plavix] 75 mg PO DAILY tablet 10/24/18 Primary Care Physician: Louis Carr Chi, MD [Primary Care Provider] - Test Results: Test results from this visit will be discussed in further detail at your follow-up appointment, if applicable. Please Follow Up With: Karmen Joaquin NP-C When: December 11, 2018 @ 2:30 PM Proposed Discharge Date: 10/25/18
[2018-10-25 10:51] VITALS: BP 103/66; PULSE 71; RESP 16; TEMP 36.6; O2SAT 94
--- NOTE | 2018-10-25 13:10 | NURSING ---
Called report to Héctor HERZOG at the [facility].
--- NOTE | 2018-10-25 13:10 | NURSING ---
Pt. Discharged to [facility] taken by karen, pt had all personal belongings to include discharge information for [facility].
== END 2018-10-25 13:16 | disposition skilled nursing facility (03) | DRG 56 ==
PROVIDERS: Psychiatry & Neurology Neurology; Surgery; Admitting Provider Psychiatry & Neurology Neurology; Family Provider Family Medicine Geriatric Medicine; PCP Family Medicine Geriatric Medicine; Visit Provider Hospitalist
DX: I69.322 Dysarthria following cerebral infarction (principal); G93.41 Metabolic encephalopathy; K94.23 Gastrostomy malfunction; I10 Essential (primary) hypertension; Z85.51 Personal history of malignant neoplasm of bladder; F41.8 Other specified anxiety disorders; Z87.891 Personal history of nicotine dependence; E78.5 Hyperlipidemia, unspecified; I69.391 Dysphagia following cerebral infarction; R13.10 Dysphagia, unspecified; I69.392 Facial weakness following cerebral infarction; Y83.8 Other surgical procedures as the cause of abnormal reaction of the patient, or of later complication, without mention of misadventure at the time of the procedure; K94.21 Gastrostomy hemorrhage
CPT/HCPCS: 36415; 70450; 70496; 70498; 70551; 71045; 74230; 80048; 82962; 83519; 84484; 85014; 85018; 85025; 85027; 85610; 85730; 86850; 86900; 92507; 92523; 92526; 92611; 93005; 96360; 96361; 96372; 97110; 97112; 97116; 97162; 97165; 97166; 97530; 97535; 97802; 97803; 99218; 99284; J7030; Q9967; A4216; G0378

== ENCOUNTER → 2018-10-12 12:55 | Day surgery (SDC) | payer MEDICARE, MEDICAID, SELFPAY ==
[2018-10-12 10:39] VITALS: BMI 21.4
[2018-10-12 12:50] VITALS: BP 126/65; PULSE 64; RESP 16; TEMP 36.8; O2SAT 98; BMI 21.4
[2018-10-12 13:25] VITALS: BP 109/59; BP 126/65; PULSE 65; RESP 16; TEMP 36.8; O2SAT 100
[2018-10-12 13:30] VITALS: BP 116/60; BP 126/65; PULSE 68; RESP 16; O2SAT 100
--- NOTE | 2018-10-12 13:34 | OP.ENDO_ITS ---
Patient Name: Tricia Boggs Procedure Date: 10/12/2018 12:53 PM Date of : 1935 Age: 83 Procedure: Upper GI endoscopy Indications: Dysphagia Providers: Prieto Zuñiga MD Medicines: Monitored Anesthesia Care Patient Profile: This is an 83 year old female. Refer to note in patient chart for documentation of history and physical. Complications: No immediate complications. Estimated blood loss: Minimal. Procedure: Pre-Anesthesia Assessment: - Prior to the procedure, a History and Physical was performed, and patient medications and allergies were reviewed. The patient's tolerance of previous anesthesia was also reviewed. The risks and benefits of the procedure and the sedation options and risks were discussed with the patient. All questions were answered, and informed consent was obtained. Prior Anticoagulants: The patient has taken Lovenox (enoxaparin), last dose was 1 day prior to procedure. After reviewing the risks and benefits, the patient was deemed in satisfactory condition to undergo the procedure. - Prior Anticoagulants: The patient has taken aspirin, last dose was day of procedure. After obtaining informed consent, the endoscope was passed under direct vision. Throughout the procedure, the patient's blood pressure, pulse, and oxygen saturations were monitored continuously. The gastroscope was introduced through the mouth, and advanced to the second part of duodenum. The upper GI endoscopy was accomplished without difficulty. The patient tolerated the procedure well. Scope In: 1:07:33 PM Scope Out: 1:15:35 PM Total Procedure Duration Time 0 hours 8 minutes 2 seconds Findings: The patient was placed in the supine position for PEG placement. The stomach was insufflated to appose gastric and abdominal stokes. A site was located in the body of the stomach with good transillumination and manual external pressure for placement. The abdominal wall was marked and prepped in a sterile manner. The area was anesthetized with 3 mL of 0.5% lidocaine. The trocar needle was introduced through the abdominal wall and into the stomach under direct endoscopic view. A snare was introduced through the endoscope and opened in the gastric lumen. The guide wire was passed through the trocar and into the open snare. The snare was closed around the guide wire. The endoscope and snare were removed, pulling the wire out through the mouth. A skin incision was made at the site of needle insertion. The externally removable 20 Fr [id number] Safety gastrostomy tube was lubricated. The G-tube was tied to the guide wire and pulled through the mouth and into the stomach. The trocar needle was removed, and the gastrostomy tube was pulled out from the stomach through the skin. The external bumper was attached to the gastrostomy tube, and the tube was cut to remove the guide wire. The final position of the gastrostomy tube was confirmed by relook endoscopy, and skin marking noted to be 4 cm at the external bumper. The final tension and compression of the abdominal wall by the PEG tube and external bumper were checked and revealed that the bumper was loose and lightly touching the skin and that the PEG balloon was loose and lightly touching the stomach. The feeding tube was capped, and the tube site cleaned and dressed. Impression: - An externally removable PEG placement was successfully completed. - No specimens collected. Recommendation: - Discharge patient to a [facility] (via cart). - NPO. - Continue present medications. - Resume Plavix (clopidogrel) at prior dose tomorrow. - Please follow the post-PEG recommendations including: external bolster 1 cm from abdominal wall, change dressing once per day, change dressing on top of bumper daily and may use PEG tomorrow for feedings. Procedure Code(s): --- Professional --- 79602, Esophagogastroduodenoscopy, flexible, transoral; with directed placement of percutaneous gastrostomy tube Diagnosis Code(s): --- Professional --- R13.10, Dysphagia, unspecified CPT copyright 2017 [employer]. All rights reserved. The codes documented in this report are preliminary and upon medical biller/coder review may be revised to meet current compliance requirements. Prieto Zuñiga MD 10/12/2018 1:33:32 PM This report has been signed electronically. Number of Addenda: 0 Note Initiated On: 10/12/2018 12:53 PM
[2018-10-12 13:35] VITALS: BP 117/73; BP 126/65; PULSE 66; RESP 16; O2SAT 100
[2018-10-12 13:40] VITALS: BP 126/65; BP 130/63; PULSE 67; RESP 16; TEMP 37.4; O2SAT 99
== END ==
PROVIDERS: Family Provider Family Medicine Geriatric Medicine; PCP Family Medicine Geriatric Medicine; Referring Provider Surgery; Visit Provider Surgery
PROC: 0DJ08ZZ Inspection of Upper Intestinal Tract, Via Natural or Artificial Opening Endoscopic (ICD-10-PCS; CPT 43235; principal; 2018-10-12 12:55)
DX: I69.391 Dysphagia following cerebral infarction (principal); I10 Essential (primary) hypertension; C67.9 Malignant neoplasm of bladder, unspecified; F32.9 Major depressive disorder, single episode, unspecified; Z79.899 Other long term (current) drug therapy; Z87.891 Personal history of nicotine dependence
CPT/HCPCS: 43246

== ENCOUNTER → 2018-11-06 13:44 | Outpatient (CLI) | payer MEDICARE, MEDICAID, SELFPAY ==
[2018-10-24 12:55] VITALS: BMI 21.4
[2018-11-06 16:59] LABS: Absolute Lymphocyte Count 1.84 X10^3/ul (0.83-4.51); Absolute Neutrophil Count 4.5 X10^3/uL (2.0-7.7); Basophil# 0.04 X10^3/uL; Basophil% 0.5 % (0-1); Eosinophil# 0.21 X10^3/uL; Eosinophils% 2.8 % (0-5); Hematocrit 41.3 % (37-47); Hemoglobin 13.5 g/dl (12.0-15.0); Lymphocyte # 1.84 X10^3/ul (4.0); Lymphocyte % 24.1 % (19-41); Mean Corp Hgb Conc 32.7 g/gl (32-36); Mean Corpuscular Hgb 31.2 pg (27.0-32.0); Mean Corpuscular Volume 95.4 fL (81-99); Mean Platelet Vol. 10.5 fl (6.2-12.0); Monocyte# 1.01 X10^3/uL; Monocyte% 13.3 % (0-10); Neutrophil # 4.49 X10^3/uL (2.7-7.7); Neutrophil % 58.9 % (47-70); Platelet Count 354 K/mm3 (150-450); RBC Distribution Width CV 14.7 % (11.6-14.6); RBC Distribution Width SD 49.5 fl (35.1-43.9); Red Blood Count 4.33 M/mm3 (4.2-5.4); White Blood Count 7.6 K/mm3 (4.4-11.0)
[2018-11-06 17:02] LABS: Vitamin D,25 Hydroxy 61.1 ng/mL (29.95-100.01)
[2018-11-06 17:09] LABS: POSITIVE COUNT NO; POSITIVE DIFFERENTIAL NO; POSITIVE MORPHOLOGY NO
[2018-11-06 17:12] LABS: ALB/GLOB Ratio 0.9 RATIO (0.9-2.4); AST(SGOT) 35 U/L (15-37); Alanine Aminotransfer ALT/SGPT 51 U/L (13-56); Albumin, Serum 3.7 g/dL (3.2-5.0); Alkaline Phosphatase 131 U/L (45-117); Anion Gap 9 (5-15); BUN 20 mg/dL (7-18); BUN/Creat Ratio 27.2 RATIO (10-20); Calcium,Total 8.9 mg/dL (8.5-10.1); Chloride 105 mmol/L (98-107); Creatinine, Serum 0.74 mg/dL (0.55-1.02); EST Glomerular Filtration Rate 81 mL/min (>60); Est Glom Filt Rate - Afr Amer 97 mL/min (>60); Globulin 3.9 g/dL (2.2-4.2); Glucose 113 mg/dL (74-106); Potassium 4.1 mmol/L (3.5-5.1); Protein, Total 7.6 g/dL (6.4-8.2); Sodium Level 142 mmol/L (136-145); Thyroid Stim Hormone (TSH) 1.02 uIU/mL (0.358-3.74)
== END ==
PROVIDERS: Family Provider Family Medicine Geriatric Medicine; PCP Family Medicine Geriatric Medicine; Visit Provider Family Medicine Geriatric Medicine
DX: E55.9 Vitamin D deficiency, unspecified (principal); I10 Essential (primary) hypertension
CPT/HCPCS: 36415; 80053; 82306; 84443; 85025

== ENCOUNTER → 2019-01-24 08:30 | Outpatient (CLI) | payer MEDICARE, MEDICAID, SELFPAY ==
[2018-12-06 10:10] VITALS: BMI 21.4
--- NOTE | 2019-01-23 | BLA_PTH ---
PATIENT: LOUISE MEJIA LOC: [facility] U#:[id number] AGE/SX: 89/F ROOM: RE01/24/[address]: Dr. Stiven Bunn MD : 1935 BED: DIS: SPEC #: [id number] RECD: 01/24/19 09:38 STATUS: SANJUANA HOLGER #: [id number] SHAN: 01/23/19 00:[address]: Stiven Bunn DEPT: SURGICAL PATHOLOGY RECD BY: Jaspreet Rico ENTERED: 01/24/19 09:38 SP TYPE: BLADDER BX OTHR DR: Dr. Louis Carr MD Tissues: Urinary bladder, NOS Procedures: Surgery Specimen Level IV HEADER OPERATION: Bladder biopsy PRE-OP DIAGNOSIS: Hematuria, bladder lesion TISSUE SUBMITTED: Bladder biopsy MICROSCOPIC DIAGNOSIS Bladder, biopsy: A fragment of urothelial mucosa with mild epithelial atypia and chronic inflammation. Negative for malignancy. See comment. SJ:shady 01/25/19 COMMENT Immunohistochemistry ([id number]) supports the above diagnosis. Please make reference to previous specimens ([id number] and [id number]) urinary bladder tumor, TUR with diagnosis of urothelial carcinoma. Clinical correlation and appropriate follow up are necessary. Case has been reviewed in consultation with Dr. Perez who concurs with the above diagnosis. IDC:CE MICROSCOPIC DESCRIPTION Slides are reviewed. GROSS DESCRIPTION Received in fixative is one container labeled with the patient's name and designated bladder biopsy. The specimen consists of one irregular fragment of [place] soft tissue that measures 0.1 x 0.1 x 0.1 cm. The specimen is totally submitted in one cassette. / CE:shady 01/24/19 TC:3 CPT: 71053
--- NOTE | 2019-01-23 | IMM_PTH ---
PATIENT: LOUISE MEJIA LOC: [facility] U#:[id number] AGE/SX: 89/F ROOM: RE01/24/[address]: Dr. Stiven Bunn MD : 1935 BED: DIS: SPEC #: [id number] RECD: 01/25/19 13:36 STATUS: SANJUANA REQ #: [id number] SHAN: 01/23/19 00:[address]: Stiven Bunn DEPT: IMMUNOHISTOCHEMISTRY RECD BY: Myesha Feng ENTERED: 01/25/19 13:37 SP TYPE: IMMUNO OTHR DR: Dr. Louis Carr MD Tissues: Urinary bladder, NOS Procedures: CK20 (add) P53 (add) CK7 (initial) PHYSICIAN & [place] [id number] SPECIMEN INFORMATION: Tissue Source: Bladder biopsy Clinical Info: Hematuria, bladder lesion Specimen Number: [id number] CPT code: 80486, 08015 METHODOLOGY: Deparaffinized sections of prefer/formalin-fixed tissue or PAP/DQ stained slides are incubated with monoclonal/polyclonal antibodies/oligonucleotide probes. Localization is made via biotin free immunoperoxidase method. Appropriate controls are performed and reacted as expected. Results on target cell population are indicated in the following table: RESULTS: ANTIBODY / CLONE RESULT CK7 (OV-TL12/30) positive CK20 (KS20.8) negative (positive in rare umbrella cells) P53 (DO-7) negative These tests were developed and their performance characteristics determined by [facility]. They may not have been cleared or approved by the U.S. Food and Drug Administration. The FDA has determined that such clearance or approval is not necessary. INTERPRETATION: Bladder biopsy: Negative for malignancy. SHARONDA:shady 01/26/19
== END ==
PROVIDERS: Family Provider Family Medicine Geriatric Medicine; PCP Family Medicine Geriatric Medicine; Referring Provider Urology; Visit Provider Urology
DX: R31.9 Hematuria, unspecified (principal); N32.9 Bladder disorder, unspecified
CPT/HCPCS: 88305; 88341; 88342

== ENCOUNTER → 2019-02-05 13:22 | Outpatient (CLI) | payer MEDICARE, MEDICAID, SELFPAY ==
[2018-12-06 10:10] VITALS: BMI 21.4
[2019-02-05 17:23] LABS: Absolute Lymphocyte Count 1.53 X10^3/ul (0.83-4.51); Absolute Neutrophil Count 5.4 X10^3/uL (2.0-7.7); Basophil# 0.07 X10^3/uL; Basophil% 0.9 % (0-1); Eosinophil# 0.18 X10^3/uL; Eosinophils% 2.2 % (0-5); Hematocrit 49.4 % (37-47); Hemoglobin 16.1 g/dl (12.0-15.0); Lymphocyte # 1.53 X10^3/ul (4.0); Lymphocyte % 18.9 % (19-41); Mean Corp Hgb Conc 32.6 g/gl (32-36); Mean Corpuscular Hgb 30.4 pg (27.0-32.0); Mean Corpuscular Volume 93.2 fL (81-99); Mean Platelet Vol. 10.3 fl (6.2-12.0); Monocyte# 0.94 X10^3/uL; Monocyte% 11.6 % (0-10); Neutrophil # 5.37 X10^3/uL (2.7-7.7); Neutrophil % 66.2 % (47-70); Platelet Count 308 K/mm3 (150-450); White Blood Count 8.1 K/mm3 (4.4-11.0)
[2019-02-05 17:26] LABS: POSITIVE COUNT NO; POSITIVE DIFFERENTIAL NO; POSITIVE MORPHOLOGY NO
[2019-02-05 17:39] LABS: Vitamin D,25 Hydroxy 54.8 ng/mL (29.95-100.01)
[2019-02-05 17:42] LABS: AST(SGOT) 41 U/L (15-37); Alanine Aminotransfer ALT/SGPT 42 U/L (13-56); Alkaline Phosphatase 158 U/L (45-117); Anion Gap 8 (5-15); BUN 15 mg/dL (7-18); BUN/Creat Ratio 16.6 RATIO (10-20); Calcium,Total 8.7 mg/dL (8.5-10.1); Chloride 106 mmol/L (98-107); EST Glomerular Filtration Rate 63 mL/min (>60); Est Glom Filt Rate - Afr Amer 77 mL/min (>60); Globulin 3.9 g/dL (2.2-4.2); Glucose 113 mg/dL (74-106); Potassium 3.5 mmol/L (3.5-5.1); Protein, Total 7.9 g/dL (6.4-8.2); Sodium Level 139 mmol/L (136-145); Thyroid Stim Hormone (TSH) 0.78 uIU/mL (0.358-3.74)
== END ==
PROVIDERS: Family Provider Family Medicine Geriatric Medicine; PCP Family Medicine Geriatric Medicine; Visit Provider Family Medicine Geriatric Medicine
DX: E55.9 Vitamin D deficiency, unspecified (principal); I10 Essential (primary) hypertension
CPT/HCPCS: 36415; 80053; 82306; 84443; 85025

== ENCOUNTER → 2019-03-15 15:39 | Outpatient (CLI) | payer MEDICARE, MEDICAID, SELFPAY ==
[2018-12-06 10:10] VITALS: BMI 21.4
[2019-03-20 17:04] LABS: ACHR Recep AB, Blocking 11 % (0-25)
== END ==
PROVIDERS: Family Provider Family Medicine Geriatric Medicine; PCP Family Medicine Geriatric Medicine; Referring Provider Psychiatry & Neurology Neurology; Visit Provider Psychiatry & Neurology Neurology
DX: R53.1 Weakness (principal)
CPT/HCPCS: 36415; 83519

== ENCOUNTER → 2019-05-08 13:11 | Outpatient (CLI) | payer MEDICARE, MEDICAID, SELFPAY ==
[2018-12-06 10:10] VITALS: BMI 21.4
[2019-05-08 14:40] LABS: Absolute Lymphocyte Count 2.02 X10^3/ul (0.83-4.51); Absolute Neutrophil Count 4.9 X10^3/uL (2.0-7.7); Basophil# 0.07 X10^3/uL; Basophil% 0.9 % (0-1); Eosinophil# 0.17 X10^3/uL; Eosinophils% 2.1 % (0-5); Hematocrit 45.7 % (37-47); Hemoglobin 15.5 g/dl (12.0-15.0); Lymphocyte # 2.02 X10^3/ul (4.0); Lymphocyte % 25.1 % (19-41); Mean Corp Hgb Conc 33.9 g/gl (32-36); Mean Corpuscular Hgb 30.3 pg (27.0-32.0); Mean Corpuscular Volume 89.3 fL (81-99); Mean Platelet Vol. 10.2 fl (6.2-12.0); Monocyte# 0.91 X10^3/uL; Monocyte% 11.3 % (0-10); Neutrophil # 4.86 X10^3/uL (2.7-7.7); Neutrophil % 60.4 % (47-70); POSITIVE COUNT NO; POSITIVE DIFFERENTIAL NO; POSITIVE MORPHOLOGY NO; Platelet Count 293 K/mm3 (150-450); RBC Distribution Width SD 48.9 fl (35.1-43.9); Red Blood Count 5.12 M/mm3 (4.2-5.4); White Blood Count 8.1 K/mm3 (4.4-11.0)
[2019-05-08 15:12] LABS: Vitamin D,25 Hydroxy 62.8 ng/mL (29.95-100.01)
[2019-05-08 15:15] LABS: AST(SGOT) 58 U/L (15-37); Alanine Aminotransfer ALT/SGPT 65 U/L (13-56); Albumin, Serum 3.8 g/dL (3.2-5.0); Alkaline Phosphatase 146 U/L (45-117); Anion Gap 10 (5-15); BUN 15 mg/dL (7-18); BUN/Creat Ratio 20.7 RATIO (10-20); Calcium,Total 8.8 mg/dL (8.5-10.1); Chloride 107 mmol/L (98-107); Creatinine, Serum 0.72 mg/dL (0.55-1.02); EST Glomerular Filtration Rate 82 mL/min (>60); Est Glom Filt Rate - Afr Amer 99 mL/min (>60); Globulin 3.9 g/dL (2.2-4.2); Glucose 87 mg/dL (74-106); Potassium 3.9 mmol/L (3.5-5.1); Protein, Total 7.7 g/dL (6.4-8.2); Sodium Level 144 mmol/L (136-145); Thyroid Stim Hormone (TSH) 1.13 uIU/mL (0.358-3.74)
== END ==
PROVIDERS: Family Provider Family Medicine Geriatric Medicine; PCP Family Medicine Geriatric Medicine; Visit Provider Family Medicine Geriatric Medicine
DX: E55.9 Vitamin D deficiency, unspecified (principal); I10 Essential (primary) hypertension
CPT/HCPCS: 36415; 80053; 82306; 84443; 85025

== ENCOUNTER → 2019-06-06 07:07 | Outpatient (CLI) | payer MEDICARE, MEDICAID, SELFPAY ==
[2018-12-06 10:10] VITALS: BMI 21.4
--- NOTE | 2019-06-06 10:14 | NEURO ---
NCS and/or EMG Patient Report Ordering Doctor: Johnathon Carl DATE OF SERVICE: 06/06/19 This is a right upper extremity nerve conduction study and repetitive stimulation study performed on this 84-year-old female with a history of stroke in 2018?2 in July and October of that year as well as slurred speech and weakness in her arms as well as gait instability. Nerve conduction study and rep stim is performed to evaluate for myasthenia. Right upper extremity sensory and motor nerve conduction studies performed demonstrate prolongation of the median motor and sensory distal latency with preservation of amplitudes and conduction velocities. The ulnar motor and sensory and radial sensory responses are normal. The median ulnar F-wave latencies are normal. Repetitive stimulation is performed of the right upper extremity. The right abductor digit he minimi is evaluated. There is a significant reduction in amplitude between test 1 and test 4. There is up to a 40% reduction in amplitude. Impression this is an abnormal right upper extremity nerve conduction study and repetitive stimulation test consistent with myasthenia.
== END ==
PROVIDERS: Family Provider Family Medicine Geriatric Medicine; PCP Family Medicine Geriatric Medicine; Referring Provider Psychiatry & Neurology Neurology; Visit Provider Psychiatry & Neurology Neurology
DX: G70.00 Myasthenia gravis without (acute) exacerbation (principal)
CPT/HCPCS: 95909; 95937

== ENCOUNTER → 2019-06-06 08:42 | Outpatient (CLI) | payer MEDICARE, MEDICAID, SELFPAY ==
[2018-12-06 10:10] VITALS: BMI 21.4
[2019-06-06 13:00] LABS: AST(SGOT) 28 U/L (15-37); Alanine Aminotransfer ALT/SGPT 33 U/L (13-56); Alkaline Phosphatase 145 U/L (45-117); Anion Gap 9 (5-15); BUN 22 mg/dL (7-18); BUN/Creat Ratio 21.8 RATIO (10-20); Calcium,Total 9.2 mg/dL (8.5-10.1); Chloride 106 mmol/L (98-107); Creatinine, Serum 1.01 mg/dL (0.55-1.02); EST Glomerular Filtration Rate 56 mL/min (>60); Est Glom Filt Rate - Afr Amer 67 mL/min (>60); Globulin 3.9 g/dL (2.2-4.2); Glucose 102 mg/dL (74-106); Potassium 3.7 mmol/L (3.5-5.1); Protein, Total 7.9 g/dL (6.4-8.2); Sodium Level 142 mmol/L (136-145)
== END ==
PROVIDERS: Family Provider Family Medicine Geriatric Medicine; PCP Family Medicine Geriatric Medicine; Visit Provider Family Medicine Geriatric Medicine
DX: R74.8 Abnormal levels of other serum enzymes (principal); G70.00 Myasthenia gravis without (acute) exacerbation
CPT/HCPCS: 36415; 80053; 95909; 95937

== ENCOUNTER → 2019-08-14 16:40 | Outpatient (CLI) | payer MEDICARE, MEDICAID, SELFPAY ==
[2018-12-06 10:10] VITALS: BMI 21.4
--- NOTE | 2019-08-14 11:30 | BLA_PTH ---
PATIENT: LOUISE MEJIA LOC: [facility] U#:[id number] AGE/SX: 89/F ROOM: RE08/14/[address]: Dr. Stiven Bunn MD : 1935 BED: DIS: SPEC #: [id number] RECD: 08/14/19 16:16 STATUS: SANJUANA HOLGER #: [id number] SHAN: 08/14/19 11:[address]: Stiven Bunn DEPT: SURGICAL PATHOLOGY RECD BY: Erik Soto ENTERED: 08/15/19 09:57 SP TYPE: BLADDER BX OTHR DR: Dr. Louis Carr MD Tissues: Urinary bladder, NOS Procedures: Surgery Specimen Level IV HEADER OPERATION: Bladder biopsy PRE-OP DIAGNOSIS: C67.4 TISSUE SUBMITTED: Bladder biopsy MICROSCOPIC DIAGNOSIS Urinary bladder, biopsy: Atypical urothelial hyperplasia. Chronic inflammation. AM:shady 08/16/19 COMMENT Reference is made to the patient's previous biopsy from 2018 ([id number]) in which urothelial carcinoma was identified. Case has been reviewed in consultation with Dr. Neri who concurs with the above diagnosis. IDC:SJ MICROSCOPIC DESCRIPTION A detached fragment of atypical urothelial fragment is identified. GROSS DESCRIPTION Received in fixative is one container labeled with the patient's name and designated bladder biopsy. The specimen consists of one irregular fragment of [place] soft tissue that measures 0.1 x 0.1 x <0.1 cm. The specimen is totally submitted in one cassette. / AM:rg 08/15/19 TC:3 CPT: 60943
== END ==
PROVIDERS: Family Provider Family Medicine Geriatric Medicine; PCP Family Medicine Geriatric Medicine; Referring Provider Urology; Visit Provider Urology
DX: C67.4 Malignant neoplasm of posterior wall of bladder (principal)
CPT/HCPCS: 88305

== ENCOUNTER → 2019-11-06 14:39 | Outpatient (CLI) | payer MEDICARE, MEDICAID, SELFPAY ==
[2018-12-06 10:10] VITALS: BMI 21.4
[2019-11-06 17:19] LABS: Absolute Lymphocyte Count 1.99 X10^3/uL (0.83-4.51); Absolute Neutrophil Count 5.3 X10^3/uL (2.0-7.7); Basophil% 1.2 % (0-1); Eosinophil# 0.17 X10^3/uL; Hematocrit 47.5 % (37-47); Hemoglobin 15.6 g/dL (12.0-15.0); Lymphocyte # 1.99 X10^3/ul (4.0); Lymphocyte % 23.4 % (19-41); Mean Corp Hgb Conc 32.8 g/dL (32-36); Mean Corpuscular Hgb 31.1 pg (27.0-32.0); Mean Corpuscular Volume 94.6 fL (81-99); Mean Platelet Vol. 10.2 fl (6.2-12.0); Monocyte% 10.6 % (0-10); NRBC Flagged by Analyzer 0 % (0-5); Neutrophil # 5.31 X10^3/uL (2.7-7.7); Neutrophil % 62.6 % (47-70); Platelet Count 284 K/mm3 (150-450); RBC Distribution Width CV 14.2 % (11.6-14.6); RBC Distribution Width SD 49.4 fl (35.1-43.9); Red Blood Count 5.02 M/mm3 (4.2-5.4); White Blood Count 8.5 K/mm3 (4.4-11.0)
[2019-11-06 17:30] LABS: Vitamin D,25 Hydroxy 58.3 ng/mL (29.95-100.01)
[2019-11-06 17:41] LABS: ALB/GLOB Ratio 1.1 RATIO (0.9-2.4); AST(SGOT) 22 U/L (15-37); Alanine Aminotransfer ALT/SGPT 25 U/L (13-56); Albumin, Serum 3.9 g/dL (3.2-5.0); Alkaline Phosphatase 98 U/L (45-117); Anion Gap 7 (5-15); BUN 13 mg/dL (7-18); BUN/Creat Ratio 15.1 RATIO (10-20); Calcium,Total 8.8 mg/dL (8.5-10.1); Chloride 106 mmol/L (98-107); Creatinine, Serum 0.86 mg/dL (0.55-1.02); EST Glomerular Filtration Rate 67 mL/min (>60); Est Glom Filt Rate - Afr Amer 81 mL/min (>60); Globulin 3.5 g/dL (2.2-4.2); Glucose 106 mg/dL (74-106); Potassium 3.5 mmol/L (3.5-5.1); Protein, Total 7.4 g/dL (6.4-8.2); Sodium Level 141 mmol/L (136-145); Thyroid Stim Hormone (TSH) 1.42 uIU/mL (0.358-3.74)
== END ==
PROVIDERS: Family Provider Family Medicine Geriatric Medicine; PCP Family Medicine Geriatric Medicine; Visit Provider Family Medicine Geriatric Medicine
DX: E55.9 Vitamin D deficiency, unspecified (principal); I10 Essential (primary) hypertension
CPT/HCPCS: 36415; 80053; 82306; 84443; 85025

== ENCOUNTER → 2020-05-12 13:43 | Outpatient (CLI) | payer MEDICARE, MEDICAID, SELFPAY ==
[2018-12-06 10:10] VITALS: BMI 21.4
[2020-05-12 16:57] LABS: Absolute Lymphocyte Count 1.84 X10^3/uL (0.83-4.51); Absolute Neutrophil Count 5.4 X10^3/uL (2.0-7.7); Basophil# 0.05 X10^3/uL; Basophil% 0.6 % (0-1); Eosinophil# 0.12 X10^3/uL; Eosinophils% 1.5 % (0-5); Hematocrit 48.8 % (37-47); Lymphocyte # 1.84 X10^3/ul (4.0); Lymphocyte % 22.5 % (19-41); Mean Corp Hgb Conc 32.8 g/dL (32-36); Mean Corpuscular Hgb 31.2 pg (27.0-32.0); Mean Corpuscular Volume 95.1 fL (81-99); Mean Platelet Vol. 10.1 fl (6.2-12.0); Monocyte# 0.77 X10^3/uL; Monocyte% 9.4 % (0-10); NRBC Flagged by Analyzer 0 % (0-5); Neutrophil # 5.35 X10^3/uL (2.7-7.7); Neutrophil % 65.6 % (47-70); Platelet Count 319 K/mm3 (150-450); RBC Distribution Width CV 13.2 % (11.6-14.6); RBC Distribution Width SD 46.8 fl (35.1-43.9); Red Blood Count 5.13 M/mm3 (4.2-5.4); White Blood Count 8.2 K/mm3 (4.4-11.0)
[2020-05-12 17:14] LABS: Vitamin D,25 Hydroxy 100.5 ng/mL
[2020-05-12 17:18] LABS: ALB/GLOB Ratio 1.2 RATIO (0.9-2.4); AST(SGOT) 24 U/L (15-37); Alanine Aminotransfer ALT/SGPT 29 U/L (13-56); Albumin, Serum 4.2 g/dL (3.2-5.0); Alkaline Phosphatase 98 U/L (45-117); Anion Gap 8 (5-15); BUN 16 mg/dL (7-18); BUN/Creat Ratio 19.2 RATIO (10-20); Calcium,Total 9.3 mg/dL (8.5-10.1); Chloride 104 mmol/L (98-107); Creatinine, Serum 0.83 mg/dL (0.55-1.02); EST Glomerular Filtration Rate 70 mL/min (>60); Est Glom Filt Rate - Afr Amer 84 mL/min (>60); Globulin 3.5 g/dL (2.2-4.2); Glucose 160 mg/dL (74-106); Potassium 3.8 mmol/L (3.5-5.1); Protein, Total 7.7 g/dL (6.4-8.2); Sodium Level 141 mmol/L (136-145); Thyroid Stim Hormone (TSH) 2.61 uIU/mL (0.358-3.74)
[2020-05-13 16:52] LABS: Hemoglobin A1c 5.6 % (3.8-5.6)
== END ==
PROVIDERS: PCP Family Medicine Geriatric Medicine; Visit Provider Family Medicine Geriatric Medicine
DX: I10 Essential (primary) hypertension (principal); E11.9 Type 2 diabetes mellitus without complications; E55.9 Vitamin D deficiency, unspecified
CPT/HCPCS: 36415; 80053; 82306; 83036; 84443; 85025

== ENCOUNTER → 2020-06-10 | Outpatient (CLI) | payer MEDICARE, MEDICAID, SELFPAY ==
[2018-12-06 10:10] VITALS: BMI 21.4
--- NOTE | 2020-06-10 | FLU_PTH ---
PATIENT: LOUISE MEJIA LOC: [facility] U#:[id number] AGE/SX: 85/F ROOM: RE06/10/[address]: Dr. Stiven Bunn MD : 1935 BED: DIS: 06/10/2020 SPEC #: [id number] RECD: 06/10/20 13:15 STATUS: SANJUANA HOLGER #: [id number] SHAN: 06/10/20 00:[address]: Stiven Bunn DEPT: CYTOLOGY RECD BY: Erik Soto ENTERED: 06/11/20 11:01 SP TYPE: Fluid OTHR DR: Dr. Louis Carr MD Tissues: Urine Procedures: Special Stain Group II Cytospin Fluid HEADER OPERATION: Not noted PRE-OP DIAGNOSIS: Malignant neoplasm of posterior wall of bladder TISSUE SUBMITTED: Urine for cytology DIAGNOSIS CYTOLOGY Urine for cytology (cytospin): Negative for malignant cells. See comment. AM:shady 06/12/20 COMMENT The specimen primarily contains squamous epithelial cells. Clinical correlation is suggested. CYTOLOGY STUDY Slides are reviewed. CYTOLOGY GROSS Received is 10 ml of clear yellow fluid labeled with the patient's name and and designated per the requisition as urine. Submitted for cytology preparation. / shady 06/11/20 TC:5 CPT: 03061
[2020-06-10 17:13] LABS: Cytology, Body Fluid / CSF SEE PATHOLOGY REPORT
== END | disposition home or self-care (01) ==
LOC: LABSPEC 16:38
PROVIDERS: PCP Family Medicine Geriatric Medicine; Referring Provider Urology; Visit Provider Urology
DX: C67.4 Malignant neoplasm of posterior wall of bladder (principal)
CPT/HCPCS: 88108; 88305; 88313

== ENCOUNTER → 2020-08-11 13:57 | Outpatient (CLI) | payer MEDICARE, MEDICAID, SELFPAY ==
[2018-12-06 10:10] VITALS: BMI 21.4
[2020-08-11 17:05] LABS: Absolute Lymphocyte Count 2.55 X10^3/uL (0.83-4.51); Absolute Neutrophil Count 5.7 X10^3/uL (2.0-7.7); Basophil# 0.07 X10^3/uL; Basophil% 0.7 % (0-1); Eosinophil# 0.32 X10^3/uL; Eosinophils% 3.3 % (0-5); Hemoglobin 15.5 g/dL (12.0-15.0); Lymphocyte # 2.55 X10^3/ul (4.0); Lymphocyte % 26.2 % (19-41); Mean Corpuscular Hgb 31.6 pg (27.0-32.0); Mean Corpuscular Volume 95.7 fL (81-99); Mean Platelet Vol. 10.1 fl (6.2-12.0); Monocyte% 11.3 % (0-10); NRBC Flagged by Analyzer 0 % (0-5); Neutrophil # 5.66 X10^3/uL (2.7-7.7); Neutrophil % 58.1 % (47-70); Platelet Count 325 K/mm3 (150-450); RBC Distribution Width SD 49.3 fl (35.1-43.9); Red Blood Count 4.91 M/mm3 (4.2-5.4); White Blood Count 9.7 K/mm3 (4.4-11.0)
[2020-08-11 17:37] LABS: Vitamin D,25 Hydroxy 98.8 ng/mL
[2020-08-11 17:39] LABS: ALB/GLOB Ratio 1.1 RATIO (0.9-2.4); AST(SGOT) 26 U/L (15-37); Alanine Aminotransfer ALT/SGPT 39 U/L (13-56); Albumin, Serum 4.1 g/dL (3.2-5.0); Alkaline Phosphatase 121 U/L (45-117); Anion Gap 6 (5-15); BUN 19 mg/dL (7-18); BUN/Creat Ratio 20.6 RATIO (10-20); Calcium,Total 9.2 mg/dL (8.5-10.1); Chloride 107 mmol/L (98-107); Creatinine, Serum 0.92 mg/dL (0.55-1.02); EST Glomerular Filtration Rate 62 mL/min (>60); Est Glom Filt Rate - Afr Amer 75 mL/min (>60); Globulin 3.6 g/dL (2.2-4.2); Glucose 122 mg/dL (74-106); Potassium 3.6 mmol/L (3.5-5.1); Protein, Total 7.7 g/dL (6.4-8.2); Sodium Level 143 mmol/L (136-145); Thyroid Stim Hormone (TSH) 2.25 uIU/mL (0.358-3.74)
== END ==
PROVIDERS: PCP Family Medicine Geriatric Medicine; Visit Provider Family Medicine Geriatric Medicine
DX: E55.9 Vitamin D deficiency, unspecified (principal); I10 Essential (primary) hypertension
CPT/HCPCS: 36415; 80053; 82306; 84443; 85025

== ENCOUNTER → 2020-11-10 14:09 | Outpatient (CLI) | payer MEDICARE, MEDICAID, SELFPAY ==
[2018-12-06 10:10] VITALS: BMI 21.4
[2020-11-10 17:29] LABS: Absolute Lymphocyte Count 1.68 X10^3/uL (0.83-4.51); Basophil# 0.09 X10^3/uL; Basophil% 1.3 % (0-1); Eosinophil# 0.18 X10^3/uL; Eosinophils% 2.7 % (0-5); Hematocrit 47.3 % (37-47); Lymphocyte # 1.68 X10^3/ul (4.0); Lymphocyte % 25.1 % (19-41); Mean Corp Hgb Conc 31.7 g/dL (32-36); Mean Corpuscular Hgb 30.3 pg (27.0-32.0); Mean Corpuscular Volume 95.6 fL (81-99); Mean Platelet Vol. 10.1 fl (6.2-12.0); Monocyte# 0.75 X10^3/uL; Monocyte% 11.2 % (0-10); NRBC Flagged by Analyzer 0 % (0-5); Neutrophil # 3.98 X10^3/uL (2.7-7.7); Neutrophil % 59.6 % (47-70); Platelet Count 301 K/mm3 (150-450); RBC Distribution Width CV 14.3 % (11.6-14.6); RBC Distribution Width SD 50.8 fl (35.1-43.9); Red Blood Count 4.95 M/mm3 (4.2-5.4); White Blood Count 6.7 K/mm3 (4.4-11.0)
[2020-11-10 17:50] LABS: Vitamin D,25 Hydroxy 128.6 ng/mL
[2020-11-10 18:05] LABS: ALB/GLOB Ratio 1.1 RATIO (0.9-2.4); AST(SGOT) 23 U/L (15-37); Alanine Aminotransfer ALT/SGPT 22 U/L (13-56); Albumin, Serum 3.9 g/dL (3.2-5.0); Alkaline Phosphatase 102 U/L (45-117); Anion Gap 6 (5-15); BUN 16 mg/dL (7-18); BUN/Creat Ratio 15.2 RATIO (10-20); Calcium,Total 8.9 mg/dL (8.5-10.1); Chloride 106 mmol/L (98-107); Creatinine, Serum 1.05 mg/dL (0.55-1.02); EST Glomerular Filtration Rate 53 mL/min (>60); Est Glom Filt Rate - Afr Amer 64 mL/min (>60); Globulin 3.4 g/dL (2.2-4.2); Glucose 148 mg/dL (74-106); Potassium 3.5 mmol/L (3.5-5.1); Protein, Total 7.3 g/dL (6.4-8.2); Sodium Level 142 mmol/L (136-145); Thyroid Stim Hormone (TSH) 1.27 uIU/mL (0.358-3.74)
== END ==
PROVIDERS: PCP Family Medicine Geriatric Medicine; Visit Provider Family Medicine Geriatric Medicine
DX: I10 Essential (primary) hypertension (principal); E55.9 Vitamin D deficiency, unspecified
CPT/HCPCS: 36415; 80053; 82306; 84443; 85025

== ENCOUNTER → 2021-06-11 13:55 | Outpatient (CLI) | payer MEDICARE, MEDICAID, SELFPAY ==
[2018-12-06 10:10] VITALS: BMI 21.4
[2021-06-11 17:13] LABS: Absolute Lymphocyte Count 2.52 X10^3/uL (0.83-4.51); Absolute Neutrophil Count 5.1 X10^3/uL (2.0-7.7); Basophil# 0.09 X10^3/uL; Eosinophil# 0.22 X10^3/uL; Eosinophils% 2.5 % (0-5); Hematocrit 47.5 % (37-47); Hemoglobin 15.5 g/dL (12.0-15.0); Lymphocyte # 2.52 X10^3/ul (0.83-4.51); Lymphocyte % 28.6 % (19-41); Mean Corp Hgb Conc 32.6 g/dL (32-36); Mean Corpuscular Hgb 30.2 pg (27.0-32.0); Mean Corpuscular Volume 92.6 fL (81-99); Mean Platelet Vol. 9.8 fl (6.2-12.0); Monocyte# 0.89 X10^3/uL; Monocyte% 10.1 % (0-10); NRBC Flagged by Analyzer 0 % (0-5); Neutrophil # 5.06 X10^3/uL (2.7-7.7); Neutrophil % 57.5 % (47-70); Platelet Count 315 K/mm3 (150-450); RBC Distribution Width CV 14.2 % (11.6-14.6); RBC Distribution Width SD 48.2 fl (35.1-43.9); Red Blood Count 5.13 M/mm3 (4.2-5.4); White Blood Count 8.8 K/mm3 (4.4-11.0)
[2021-06-11 18:20] LABS: ALB/GLOB Ratio 1.1 RATIO (0.9-2.4); AST(SGOT) 22 U/L (15-37); Alanine Aminotransfer ALT/SGPT 24 U/L (13-56); Albumin, Serum 3.9 g/dL (3.2-5.0); Alkaline Phosphatase 102 U/L (45-117); Anion Gap 6 (5-15); BUN 22 mg/dL (7-18); BUN/Creat Ratio 20.2 RATIO (10-20); Calcium,Total 9.5 mg/dL (8.5-10.1); Chloride 105 mmol/L (98-107); Creatinine, Serum 1.09 mg/dL (0.55-1.02); EST Glomerular Filtration Rate 51 mL/min (>60); Est Glom Filt Rate - Afr Amer 61 mL/min (>60); Globulin 3.6 g/dL (2.2-4.2); Glucose 87 mg/dL (74-106); Potassium 4.5 mmol/L (3.5-5.1); Protein, Total 7.5 g/dL (6.4-8.2); Sodium Level 140 mmol/L (136-145); Thyroid Stim Hormone (TSH) 0.97 uIU/mL (0.358-3.74)
[2021-06-11 21:30] LABS: Vitamin D,25 Hydroxy 77.7 ng/mL
== END ==
PROVIDERS: PCP Family Medicine Geriatric Medicine; Visit Provider Family Medicine Geriatric Medicine
DX: I10 Essential (primary) hypertension (principal); E55.9 Vitamin D deficiency, unspecified
CPT/HCPCS: 36415; 80053; 82306; 84443; 85025

== ENCOUNTER 2022-01-06 12:54 | Outpatient (CLI) | payer MEDICARE, MEDICAID, SELFPAY ==
[2022-01-06 17:53] LABS: ALB/GLOB Ratio 1.1 RATIO (0.9-2.4); AST(SGOT) 20 U/L (15-37); Alanine Aminotransfer ALT/SGPT 25 U/L (13-56); Alkaline Phosphatase 107 U/L (45-117); Anion Gap 6 (5-15); BUN 16 mg/dL (7-18); BUN/Creat Ratio 15.8 RATIO (10-20); Calcium,Total 9.1 mg/dL (8.5-10.1); Chloride 106 mmol/L (98-107); Creatinine, Serum 1.01 mg/dL (0.55-1.02); EST Glomerular Filtration Rate 55 mL/min (>60); Est Glom Filt Rate - Afr Amer 67 mL/min (>60); Globulin 3.5 g/dL (2.2-4.2); Glucose 110 mg/dL (74-106); Potassium 3.6 mmol/L (3.5-5.1); Protein, Total 7.5 g/dL (6.4-8.2); Sodium Level 141 mmol/L (136-145); Thyroid Stim Hormone (TSH) 1.64 uIU/mL (0.358-3.74)
[2022-01-06 18:08] LABS: Absolute Lymphocyte Count 1.59 X10^3/uL (0.83-4.51); Absolute Neutrophil Count 5.5 X10^3/uL (2.0-7.7); Basophil% 1.2 % (0-1); Eosinophil# 0.14 X10^3/uL; Eosinophils% 1.7 % (0-5); Hematocrit 45.6 % (37-47); Hemoglobin 15.3 g/dL (12.0-15.0); Lymphocyte # 1.59 X10^3/ul (0.83-4.51); Lymphocyte % 19.6 % (19-41); Mean Corp Hgb Conc 33.6 g/dL (32-36); Mean Corpuscular Hgb 31.9 pg (27.0-32.0); Mean Corpuscular Volume 95.2 fL (81-99); Mean Platelet Vol. 10.1 fl (6.2-12.0); Monocyte# 0.79 X10^3/uL; Monocyte% 9.7 % (0-10); NRBC Flagged by Analyzer 0 % (0-5); Neutrophil # 5.48 X10^3/uL (2.7-7.7); Neutrophil % 67.4 % (47-70); Platelet Count 317 K/mm3 (150-450); RBC Distribution Width CV 13.7 % (11.6-14.6); RBC Distribution Width SD 48.5 fl (35.1-43.9); Red Blood Count 4.79 M/mm3 (4.2-5.4); White Blood Count 8.1 K/mm3 (4.4-11.0)
== END 2022-01-06 23:59 | disposition home or self-care (01) ==
LOC: POLAB3 12:54
PROVIDERS: PCP Family Medicine Geriatric Medicine; Visit Provider Family Medicine Geriatric Medicine
DX: I10 Essential (primary) hypertension (principal); E55.9 Vitamin D deficiency, unspecified
CPT/HCPCS: 36415; 80053; 82306; 84443; 85025

== ENCOUNTER → 2022-07-14 | Outpatient (CLI) | payer MEDICARE, MEDICAID, SELFPAY ==
[2022-07-14 17:20] LABS: Absolute Lymphocyte Count 1.85 X10^3/uL (0.83-4.51); Absolute Neutrophil Count 3.7 X10^3/uL (2.0-7.7); Basophil% 1.5 % (0-1); Eosinophil# 0.21 X10^3/uL; Eosinophils% 3.2 % (0-5); Hematocrit 45.9 % (37-47); Hemoglobin 15.3 g/dL (12.0-15.0); Lymphocyte # 1.85 X10^3/ul (0.83-4.51); Lymphocyte % 27.8 % (19-41); Mean Corp Hgb Conc 33.3 g/dL (32-36); Monocyte# 0.75 X10^3/uL; Monocyte% 11.3 % (0-10); NRBC Flagged by Analyzer 0 % (0-5); Neutrophil # 3.73 X10^3/uL (2.7-7.7); Platelet Count 289 K/mm3 (150-450); RBC Distribution Width CV 13.6 % (11.6-14.6); RBC Distribution Width SD 48.6 fl (35.1-43.9); Red Blood Count 4.78 M/mm3 (4.2-5.4); White Blood Count 6.7 K/mm3 (4.4-11.0)
[2022-07-14 17:41] LABS: ALB/GLOB Ratio 1.1 RATIO (0.9-2.4); AST(SGOT) 23 U/L (15-37); Alanine Aminotransfer ALT/SGPT 30 U/L (13-56); Albumin, Serum 3.9 g/dL (3.2-5.0); Alkaline Phosphatase 103 U/L (45-117); Anion Gap 7 (5-15); BUN 17 mg/dL (7-18); BUN/Creat Ratio 15.3 RATIO (10-20); Calcium,Total 8.6 mg/dL (8.5-10.1); Chloride 106 mmol/L (98-107); Creatinine, Serum 1.11 mg/dL (0.55-1.02); EST Glomerular Filtration Rate 50 mL/min (>60); Est Glom Filt Rate - Afr Amer 60 mL/min (>60); Globulin 3.5 g/dL (2.2-4.2); Glucose 155 mg/dL (74-106); Potassium 3.6 mmol/L (3.5-5.1); Protein, Total 7.4 g/dL (6.4-8.2); Sodium Level 141 mmol/L (136-145)
[2022-07-14 17:43] LABS: Vitamin D,25 Hydroxy 78.4 ng/mL
== END | disposition home or self-care (01) ==
LOC: POLAB3 13:49
PROVIDERS: PCP Family Medicine Geriatric Medicine; Visit Provider Family Medicine Geriatric Medicine
DX: E55.9 Vitamin D deficiency, unspecified (principal); I10 Essential (primary) hypertension
CPT/HCPCS: 36415; 80053; 82306; 84443; 85025

== ENCOUNTER → 2023-01-12 | Outpatient (CLI) | payer MEDICARE, MEDICAID, SELFPAY ==
[2023-01-12 17:41] LABS: Absolute Neutrophil Count 4.7 X10^3/uL (2.0-7.7); Basophil% 1.2 % (0-1); Eosinophil# 0.25 X10^3/uL; Hematocrit 45.3 % (37-47); Hemoglobin 15.2 g/dL (12.0-15.0); Lymphocyte % 29.7 % (19-41); Mean Corp Hgb Conc 33.6 g/dL (32-36); Mean Corpuscular Hgb 31.3 pg (27.0-32.0); Mean Corpuscular Volume 93.4 fL (81-99); Mean Platelet Vol. 10.5 fl (6.2-12.0); Monocyte# 0.83 X10^3/uL; Monocyte% 9.9 % (0-10); NRBC Flagged by Analyzer 0 % (0-5); Neutrophil # 4.72 X10^3/uL (2.7-7.7); Neutrophil % 56.1 % (47-70); Platelet Count 258 K/mm3 (150-450); RBC Distribution Width CV 13.4 % (11.6-14.6); RBC Distribution Width SD 45.7 fl (35.1-43.9); Red Blood Count 4.85 M/mm3 (4.2-5.4); White Blood Count 8.4 K/mm3 (4.4-11.0)
[2023-01-12 18:20] LABS: ALB/GLOB Ratio 1.2 RATIO (0.9-2.4); AST(SGOT) 29 U/L (15-37); Alanine Aminotransfer ALT/SGPT 24 U/L (13-56); Alkaline Phosphatase 91 U/L (45-117); Anion Gap 8 (5-15); BUN 21 mg/dL (7-18); BUN/Creat Ratio 18.3 RATIO (10-20); Calcium,Total 9.1 mg/dL (8.5-10.1); Chloride 103 mmol/L (98-107); Cholesterol 133 mg/dL (200); Creatinine, Serum 1.15 mg/dL (0.55-1.02); EST Glomerular Filtration Rate 48 mL/min (>60); Est Glom Filt Rate - Afr Amer 58 mL/min (>60); Globulin 3.3 g/dL (2.2-4.2); Glucose 110 mg/dL (74-106); High Density Lipoprotein 52 mg/dL; Potassium 3.3 mmol/L (3.5-5.1); Protein, Total 7.3 g/dL (6.4-8.2); Sodium Level 142 mmol/L (136-145); Thyroid Stim Hormone (TSH) 2.49 uIU/mL (0.358-3.74); Triglycerides 156 mg/dL; Very Low Density Lipoprotein 31 mg/dL (5-40)
[2023-01-12 18:56] LABS: Vitamin D,25 Hydroxy 132.5 ng/mL
== END | disposition home or self-care (01) ==
LOC: POLAB3 13:34
PROVIDERS: PCP Family Medicine Geriatric Medicine; Visit Provider Family Medicine Geriatric Medicine
DX: E55.9 Vitamin D deficiency, unspecified (principal); E78.5 Hyperlipidemia, unspecified; R53.83 Other fatigue
CPT/HCPCS: 36415; 80053; 80061; 82306; 84443; 85025

== ENCOUNTER → 2023-08-18 | Outpatient (CLI) | payer MEDICARE, MEDICAID, SELFPAY ==
[2023-08-18 15:44] LABS: Absolute Lymphocyte Count 1.91 X10^3/uL (0.83-4.51); Absolute Neutrophil Count 6.6 X10^3/uL (2.0-7.7); Basophil# 0.09 X10^3/uL; Basophil% 0.9 % (0-1); Eosinophil# 0.19 X10^3/uL; Eosinophils% 1.9 % (0-5); Hemoglobin 14.7 g/dL (12.0-15.0); Lymphocyte # 1.91 X10^3/ul (0.83-4.51); Lymphocyte % 19.4 % (19-41); Mean Corp Hgb Conc 33.4 g/dL (32-36); Mean Corpuscular Volume 95.9 fL (81-99); Mean Platelet Vol. 10.1 fl (6.2-12.0); Monocyte# 1.02 X10^3/uL; Monocyte% 10.3 % (0-10); NRBC Flagged by Analyzer 0 % (0-5); Neutrophil # 6.62 X10^3/uL (2.7-7.7); Neutrophil % 67.2 % (47-70); Platelet Count 279 K/mm3 (150-450); RBC Distribution Width CV 13.3 % (11.6-14.6); RBC Distribution Width SD 47.4 fl (35.1-43.9); Red Blood Count 4.59 M/mm3 (4.2-5.4); White Blood Count 9.9 K/mm3 (4.4-11.0)
[2023-08-18 16:08] LABS: ALB/GLOB Ratio 1.3 RATIO (0.9-2.4); AST(SGOT) 22 U/L (15-37); Alanine Aminotransfer ALT/SGPT 23 U/L (13-56); Albumin, Serum 4.2 g/dL (3.2-5.0); Alkaline Phosphatase 81 U/L (45-117); Anion Gap 6 (5-15); BUN 19 mg/dL (7-18); BUN/Creat Ratio 14.2 RATIO (10-20); Calcium,Total 10.3 mg/dL (8.5-10.1); Chloride 104 mmol/L (98-107); Cholesterol 190 mg/dL (200); Creatinine, Serum 1.34 mg/dL (0.55-1.02); EST Glomerular Filtration Rate 40 mL/min (>60); Est Glom Filt Rate - Afr Amer 48 mL/min (>60); Globulin 3.3 g/dL (2.2-4.2); Glucose 119 mg/dL (74-106); High Density Lipoprotein 52 mg/dL; Potassium 3.6 mmol/L (3.5-5.1); Protein, Total 7.5 g/dL (6.4-8.2); Sodium Level 141 mmol/L (136-145); Thyroid Stim Hormone (TSH) 1.78 uIU/mL (0.358-3.74); Triglycerides 230 mg/dL; Very Low Density Lipoprotein 46 mg/dL (5-40)
[2023-08-18 17:40] LABS: Vitamin D,25 Hydroxy > 150.0 ng/mL (29.95-100.01)
== END | disposition home or self-care (01) ==
LOC: LAB.FUTURE 13:43 → POLAB3 13:43
PROVIDERS: PCP Family Medicine Geriatric Medicine; Visit Provider Family Medicine Geriatric Medicine
DX: I10 Essential (primary) hypertension (principal); E55.9 Vitamin D deficiency, unspecified
CPT/HCPCS: 36415; 80053; 80061; 82306; 84443; 85025

== ENCOUNTER → 2024-02-14 | Outpatient (CLI) | payer MEDICARE, MEDICAID, SELFPAY ==
[2024-02-14 15:08] LABS: Absolute Lymphocyte Count 2.42 X10^3/uL (0.83-4.51); Absolute Neutrophil Count 6.5 X10^3/uL (2.0-7.7); Eosinophil# 0.17 X10^3/uL; Eosinophils% 1.6 % (0-5); Hematocrit 42.5 % (37-47); Hemoglobin 14.1 g/dL (12.0-15.0); Lymphocyte # 2.42 X10^3/ul (0.83-4.51); Lymphocyte % 23.4 % (19-41); Mean Corp Hgb Conc 33.2 g/dL (32-36); Mean Corpuscular Hgb 30.5 pg (27.0-32.0); Mean Corpuscular Volume 91.8 fL (81-99); Mean Platelet Vol. 10.8 fl (6.2-12.0); Monocyte# 1.08 X10^3/uL; Monocyte% 10.4 % (0-10); NRBC Flagged by Analyzer 0 % (0-5); Neutrophil # 6.53 X10^3/uL (2.7-7.7); Neutrophil % 63.2 % (47-70); Platelet Count 252 K/mm3 (150-450); RBC Distribution Width SD 46.8 fl (35.1-43.9); Red Blood Count 4.63 M/mm3 (4.2-5.4); White Blood Count 10.3 K/mm3 (4.4-11.0)
[2024-02-14 15:27] LABS: Vitamin D,25 Hydroxy 88.9 ng/mL
[2024-02-14 15:36] LABS: ALB/GLOB Ratio 1.1 RATIO (0.9-2.4); AST(SGOT) 23 U/L (15-37); Alanine Aminotransfer ALT/SGPT 19 U/L (13-56); Albumin, Serum 3.7 g/dL (3.2-5.0); Alkaline Phosphatase 95 U/L (45-117); Anion Gap 6 (5-15); BUN 15 mg/dL (7-18); BUN/Creat Ratio 18.5 RATIO (10-20); Calcium,Total 8.7 mg/dL (8.5-10.1); Chloride 104 mmol/L (98-107); Cholesterol 232 mg/dL (200); Creatinine, Serum 0.81 mg/dL (0.55-1.02); EST Glomerular Filtration Rate 71 mL/min (>60); Est Glom Filt Rate - Afr Amer 86 mL/min (>60); Globulin 3.5 g/dL (2.2-4.2); Glucose 96 mg/dL (74-106); High Density Lipoprotein 41 mg/dL; Potassium 2.8 mmol/L (3.5-5.1); Protein, Total 7.2 g/dL (6.4-8.2); Sodium Level 143 mmol/L (136-145); Thyroid Stim Hormone (TSH) 1.69 uIU/mL (0.358-3.74); Triglycerides 319 mg/dL; Very Low Density Lipoprotein 64 mg/dL (5-40)
== END | disposition home or self-care (01) ==
LOC: POLAB3 13:22
PROVIDERS: PCP Family Medicine Geriatric Medicine; Visit Provider Family Medicine Geriatric Medicine
DX: I10 Essential (primary) hypertension (principal); E55.9 Vitamin D deficiency, unspecified; E78.5 Hyperlipidemia, unspecified
CPT/HCPCS: 36415; 80053; 80061; 82306; 84443; 85025

== ENCOUNTER → 2024-08-21 | Outpatient (CLI) | payer MEDICAID, MEDICARE, SELFPAY ==
[2024-08-21 13:36] LABS: Absolute Lymphocyte Count 2.84 X10^3/uL (0.83-4.51); Absolute Neutrophil Count 3.9 X10^3/uL (2.0-7.7); Basophil# 0.12 X10^3/uL; Basophil% 1.5 % (0-1); Eosinophil# 0.32 X10^3/uL; Hematocrit 44.8 % (37-47); Hemoglobin 14.6 g/dL (12.0-15.0); Lymphocyte # 2.84 X10^3/ul (0.83-4.51); Lymphocyte % 35.2 % (19-41); Mean Corp Hgb Conc 32.6 g/dL (32-36); Mean Corpuscular Hgb 30.7 pg (27.0-32.0); Mean Corpuscular Volume 94.3 fL (81-99); Mean Platelet Vol. 10.1 fl (6.2-12.0); Monocyte% 11.2 % (0-10); NRBC Flagged by Analyzer 0 % (0-5); Neutrophil # 3.86 X10^3/uL (2.7-7.7); Neutrophil % 47.9 % (47-70); Platelet Count 286 K/mm3 (150-450); RBC Distribution Width CV 13.7 % (11.6-14.6); RBC Distribution Width SD 47.3 fl (35.1-43.9); Red Blood Count 4.75 M/mm3 (4.2-5.4); White Blood Count 8.1 K/mm3 (4.4-11.0)
[2024-08-21 13:58] LABS: Vitamin D,25 Hydroxy 70.2 ng/mL
[2024-08-21 14:06] LABS: ALB/GLOB Ratio 1.3 RATIO (0.9-2.4); AST(SGOT) 22 U/L (15-37); Alanine Aminotransfer ALT/SGPT 13 U/L (13-56); Albumin, Serum 4.1 g/dL (3.2-5.0); Alkaline Phosphatase 93 U/L (45-117); Anion Gap 2 (5-15); BUN 17 mg/dL (7-18); BUN/Creat Ratio 18.2 RATIO (10-20); Calcium,Total 9.1 mg/dL (8.5-10.1); Chloride 107 mmol/L (98-107); Cholesterol 224 mg/dL (200); Creatinine, Serum 0.93 mg/dL (0.55-1.02); EST Glomerular Filtration Rate 60 mL/min (>60); Est Glom Filt Rate - Afr Amer 73 mL/min (>60); Globulin 3.2 g/dL (2.2-4.2); Glucose 124 mg/dL (74-106); High Density Lipoprotein 39 mg/dL; Potassium 3.5 mmol/L (3.5-5.1); Protein, Total 7.3 g/dL (6.4-8.2); Sodium Level 141 mmol/L (136-145); Triglycerides 338 mg/dL; Very Low Density Lipoprotein 68 mg/dL (5-40)
== END | disposition home or self-care (01) ==
LOC: POLAB3 13:10
PROVIDERS: PCP Family Medicine Geriatric Medicine; Visit Provider Family Medicine Geriatric Medicine
DX: I10 Essential (primary) hypertension (principal); E78.5 Hyperlipidemia, unspecified; E55.9 Vitamin D deficiency, unspecified
CPT/HCPCS: 36415; 80053; 80061; 82306; 84443; 85025

== ENCOUNTER → 2025-02-20 | Outpatient (CLI) | payer MEDICARE, MEDICAID, SELFPAY ==
[2025-02-20 13:41] LABS: Absolute Lymphocyte Count 1.83 X10^3/uL (0.83-4.51); Basophil# 0.07 X10^3/uL; Basophil% 0.8 % (0-1); Eosinophil# 0.25 X10^3/uL; Eosinophils% 2.8 % (0-5); Hematocrit 43.7 % (37-47); Hemoglobin 15.1 g/dL (12.0-15.0); Lymphocyte # 1.83 X10^3/ul (0.83-4.51); Lymphocyte % 20.4 % (19-41); Mean Corp Hgb Conc 34.6 g/dL (32-36); Mean Corpuscular Hgb 32.6 pg (27.0-32.0); Mean Corpuscular Volume 94.4 fL (81-99); Mean Platelet Vol. 9.9 fl (6.2-12.0); Monocyte# 0.85 X10^3/uL; Monocyte% 9.5 % (0-10); NRBC Flagged by Analyzer 0 % (0-5); Neutrophil # 5.96 X10^3/uL (2.7-7.7); Neutrophil % 66.2 % (47-70); Platelet Count 292 K/mm3 (150-450); RBC Distribution Width CV 14.1 % (11.6-14.6); RBC Distribution Width SD 48.4 fl (35.1-43.9); Red Blood Count 4.63 M/mm3 (4.2-5.4)
[2025-02-20 20:25] LABS: Vitamin D,25 Hydroxy 79.9 ng/mL (30-100)
[2025-02-20 20:35] LABS: Cholesterol 241 mg/dL (<=200); High Density Lipoprotein 39 mg/dL; Low Density Lipoprotein Calc. 92 mg/dL; Triglycerides 550 mg/dL; Very Low Density Lipoprotein 110 mg/dL (5-40); cholesterol:hdl ratio screen 6.13
[2025-02-20 20:39] LABS: ALB/GLOB Ratio 1.5 RATIO (0.9-2.4); AST(SGOT) 27 U/L (<=31); Alanine Aminotransfer ALT/SGPT 10 U/L (<=34); Albumin, Serum 4.5 g/dL (3.4-4.8); Alkaline Phosphatase 127 U/L (35-104); Anion Gap 13 (5-15); BUN 16 mg/dL (4-19); BUN/Creat Ratio 21.4 RATIO (10-20); Calcium,Total 9.4 mg/dL (7.6-11.0); Carbon Dioxide 27.1 mmol/L (21.0-32.0); Chloride 102 mmol/L (98-108); Creatinine, Serum 0.75 mg/dL (0.70-1.20); EST Glomerular Filtration Rate 76 (>60); Glucose 162 mg/dL (70-99); Potassium 3.1 mmol/L (3.3-5.1); Protein, Total 7.5 g/dL (5.9-8.4); Sodium Level 143 mmol/L (133-145); Total Bilirubin 0.41 mg/dL (0.00-1.30)
== END | disposition home or self-care (01) ==
LOC: POLAB3 13:14
PROVIDERS: PCP Family Medicine Geriatric Medicine; Visit Provider Family Medicine Geriatric Medicine
DX: I10 Essential (primary) hypertension (principal); E78.5 Hyperlipidemia, unspecified; E55.9 Vitamin D deficiency, unspecified
CPT/HCPCS: 36415; 80053; 80061; 82306; 84443; 85025

== ENCOUNTER → 2025-08-28 | Outpatient (CLI) | payer MEDICARE, MEDICAID, SELFPAY ==
[2025-08-28 15:03] LABS: Hematocrit 42.0 % (37-47); Hemoglobin 13.8 g/dL (12.0-15.0); Immature Granulocytes Count 0.020 X10^3/uL (0.0-0.0); Mean Corp Hgb Conc 32.9 g/dL (32-36); Mean Corpuscular Volume 93.8 fL (81-99); Mean Platelet Vol. 10.2 fl (6.2-12.0); NRBC Flagged by Analyzer 0 % (0-5); Platelet Count 247 K/mm3 (150-450); RBC Distribution Width CV 14.5 % (11.6-14.6); RBC Distribution Width SD 50.1 fl (35.1-43.9); Red Blood Count 4.48 M/mm3 (4.2-5.4); White Blood Count 8.6 K/mm3 (4.4-11.0)
[2025-08-28 17:14] LABS: AST(SGOT) 27 U/L (<=31); Alanine Aminotransfer ALT/SGPT 13 U/L (<=34); Albumin, Serum 4.3 g/dL (3.4-4.8); Alkaline Phosphatase 92 U/L (35-104); Anion Gap 14 (5-15); BUN 16 mg/dL (4-19); BUN/Creat Ratio 20.8 RATIO (10-20); Calcium,Total 9.4 mg/dL (7.6-11.0); Carbon Dioxide 23.8 mmol/L (21.0-32.0); Chloride 106 mmol/L (98-108); Cholesterol 212 mg/dL (<=200); Globulin 2.8 g/dL (2.2-4.2); Glucose 120 mg/dL (70-99); Low Density Lipoprotein Calc. 122 mg/dL; Potassium 3.5 mmol/L (3.3-5.1); Triglycerides 246 mg/dL; Very Low Density Lipoprotein 49 mg/dL (5-40); Vitamin D,25 Hydroxy 74.9 ng/mL (30-100); cholesterol:hdl ratio screen 5.20
[2025-08-28 22:42] LABS: Xtra Tube Kwok EXTRA TUBE
== END | disposition home or self-care (01) ==
PROVIDERS: PCP Family Medicine Geriatric Medicine; Visit Provider Family Medicine Geriatric Medicine
DX: I10 Essential (primary) hypertension (principal); E03.9 Hypothyroidism, unspecified; E55.9 Vitamin D deficiency, unspecified; E78.5 Hyperlipidemia, unspecified
CPT/HCPCS: 36415; 80053; 80061; 82306; 84443; 85025